=== PATIENT | female | born 1945 | race Caucasian/White ===

== ENCOUNTER 2022-08-30 19:06 | Emergency (ER) | payer MEDICARE, OTHER, SELFPAY ==
[2022-08-30 19:18] VITALS: BP 144/88; PULSE 69; RESP 30; TEMP 36.2; O2SAT 99; BMI 21.5
--- NOTE | 2022-08-30 19:32 | ED.GENADULT ---
HPI - General Adult General Chief complaint: Unspecified Complaint, Adult Stated complaint: Possible Face Infection Vomiting Time Seen by Provider: 08/30/22 19:26 History of Present Illness HPI narrative: This patient comes in with her son because of upper respiratory symptoms and now is nauseated with vomiting. She is very hard of hearing but her son states that she called him a couple hours ago. He came to get her and noted that she was hyperventilating with nausea and vomiting. She did see someone in an eye clinic because of a stye that she developed in her eye. This was yesterday at which time she received some eyedrops. She arrives with normal vital signs except she is hyperventilating. Related Data Allergies Allergy/AdvReac Type Severity Reaction Status Date / Time codeine AdvReac Mild Nausea Verified 08/30/22 20:00 Review of Systems Status of ROS: Reports: 10 or more systems reviewed and unremarkable except as noted in History and below Narrative: Unable to obtain due to persistent vomiting. PFSH PFS Social History Smoking Status: Never smoker Do you use any of these nicotine containing products: None Second hand tobacco smoke exposure: No How often do you have a drink containing alcohol: never How often do you have six or more drinks on one occasion: Never AUDIT-C Alcohol total score: 0 Non-prescribed substance use: denies use service: No Exam Narrative: Exam Narrative: Constitutional: Well-developed, well-nourished, no acute distress. HEENT: Normocephalic, atraumatic. Neck: Normal range of motion. Nontender. Supple. Heart: Regular. No murmurs. Normal rate. Intact distal pulses. Lungs: Clear to auscultation. No chest discomfort. No wheezes, rhonchi, or rales. Abdomen: Persistent dry heaves. Genitalia: Deferred. Back: No midline tenderness. Normal range of motion. Extremities: Normal range of motion. No injury. Skin: Intact. No rash. Warm. No erythema or pallor. Neurologic: No altered sensation. No weakness. Alert and oriented. Psychiatric: No suicidality. No anxiety or depression. No insomnia. Nursing notes and vitals signs are reviewed. Const: Vital Signs, click to edit/add: Vital Signs - 24 hr 08/30/22 19:18 08/30/22 20:05 08/30/22 20:32 Temperature 97.2 F L Pulse Rate [Pulse Oximeter] 69 68 74 Respiratory Rate 30 H 18 18 Blood Pressure [Le ft Upper Arm] 144/88 H 121/70 118/56 L Pulse Oximetry 99 97 98 Oxygen Delivery Me thod Room Air Room Air Room Air Course Vital Signs Vital signs: Initial Vital Signs Temperature 97.2 F L 08/30/22 19:18 Temperature Source Temporal Artery Scan 08/30/22 19:18 Pulse Rate 69 08/30/22 19:18 Respiratory Rate 30 H 08/30/22 19:18 Blood Pressure 144/88 H 08/30/22 19:18 Blood Pressure Mean 106 H 08/30/22 19:18 Pulse Oximetry 99 08/30/22 19:18 Oxygen Delivery Method Room Air 08/30/22 19:18 Vital Signs Temperature 97.2 F L 08/30/22 19:18 Pulse Rate 69 08/30/22 19:18 Respiratory Rate 30 H 08/30/22 19:18 Blood Pressure 144/88 H 08/30/22 19:18 Pulse Oximetry 99 08/30/22 19:18 Oxygen Delivery Method Room Air 08/30/22 19:18 Temperature 97.2 F L 08/30/22 19:18 Pulse Rate 74 08/30/22 20:32 Respiratory Rate 18 08/30/22 20:32 Blood Pressure 118/56 L 08/30/22 20:32 Pulse Oximetry 98 08/30/22 20:32 Oxygen Delivery Method Room Air 08/30/22 20:32 Medical Decision Making MDM Narrative Medical decision making narrative: This patient comes in with facial pain and was rather dramatic with dry heaves upon arrival. An IV was established where she did receive 4 mg of Zofran and Ativan 0.5 mg. This brought great relief to those symptoms. She did receive a L of normal saline also. Lab results returned with reassuring findings. She was complaining of severe facial pain and headache around her eye. CT of the sinuses is acquired and by my review shows evidence of sinusitis. I did prescribe Augmentin, Toradol, and Zofran to treat these symptoms. At the time of discharge the patient appears safe for outpatient management. The treatment plan is reviewed along with written and verbal return precautions. Reasons to return and the importance of close followup were also reviewed. Lab Data Labs: Lab Results 08/30/22 08/30/22 Range/Units 19:30 19:43 WBC 6.67 (4.50-11.00) K/uL RBC 4.87 (4.00-5.20) m/uL Hgb 14.3 (12.0-16.0) gm/dL Hct 41.8 (33.0-51.0) % MCV 86 (80-100) fL MCH 29 (26-34) pg MCHC 34 (32-36) gm/dL RDW Coeff of Ferdinand 12.7 (11.5-15.5) % Plt Count 223 (140-440) K/uL Neut % (Auto) 64.0 (42.0-72.0) % Lymph % (Auto) 28.0 (20-44) % [place] % (Auto) 6.1 (0.0-11.0) % Eos % (Auto) 1.2 (0.0-7.0) % Baso % (Auto) 0.3 (0.0-3.0) % Neut # (Auto) 4.26 (1.7-7.0) K/uL Lymph # (Auto) 1.87 (0.90-2.90) K/uL [place] # (Auto) 0.40 (0.00-0.90) K/UL Eos # (Auto) 0.08 (0.00-0.50) K/uL Baso # (Auto) 0.02 (0.00-0.30) K/uL Sodium 132 L (135-149) mmol/L Potassium 3.7 (3.6-5.1) mmol/L Chloride 102 (96-114) mmol/L Carbon Dioxide 20 (20-32) mmol/L BUN 16 (7-30) mg/dL Creatinine 0.5 (0.5-1.5) mg/dL Estimated Creat Clear 40.68 Estimated GFR 97 ml/min Glucose 122 H (60-115) mg/dL Calcium 8.3 L (8.4-10.6) mg/dL POC Troponin I 0.00 L (0.01-0.04) ng/ml ECG Data Attestation: I personally reviewed and interpreted this ECG as follows: Interpretation: Normal sinus rhythm. Rate is 74 beats per minute. There are no ST or T-wave abnormalities. Discharge Plan Discharge Clinical Impression: Sinusitis Patient Disposition: Home w/ Parent or Adult Condition: Improved Additional Instructions: Take medication as prescribed. Follow up with MD or return if worsening. Follow Up/Referrals: Provider,Not a Local [Primary Care Provider] - Stand Alone Forms: [employer] Info Instructions
[2022-08-30 19:46] LABS: Basophils Absolute Auto 0.02 K/uL (0.00-0.30); Basophils Percent Auto 0.3 % (0.0-3.0); Eosinophils Absolute Auto 0.08 K/uL (0.00-0.50); Eosinophils Percent Auto 1.2 % (0.0-7.0); Hematocrit 41.8 % (33.0-51.0); Hemoglobin* 14.3 gm/dL (12.0-16.0); Immature Granulocytes Abs Auto 0.03 K/uL (0.00-0.30); Immature Granulocytes Pct Auto 0.4 %; Lymphocytes Absolute Auto 1.87 K/uL (0.90-2.90); Mean Corpuscular HGB Conc 34 gm/dL (32-36); Mean Corpuscular Hemoglobin 29 pg (26-34); Mean Corpuscular Volume 86 fL (80-100); Monocytes Percent Auto 6.1 % (0.0-11.0); Neutrophils Absolute Auto 4.26 K/uL (1.7-7.0); Platelet Count* 223 K/uL (140-440); RDW Coefficient of Variation % 12.7 % (11.5-15.5); Red Blood Count 4.87 m/uL (4.00-5.20); White Blood Count* 6.67 K/uL (4.50-11.00)
[2022-08-30 19:48] LABS: Slide Review Reflex No
[2022-08-30] MEDS: LORazepam 2 MG/ML inj 0.5 MG IV (19:50)
[2022-08-30] MEDS: ONDANSETRON 2 MG/ML inj 4 MG IVP (19:50)
[2022-08-30] MEDS: 0.9 % SODIUM CHLORIDE 1000 ml 1,000 ML IV (19:50)
[2022-08-30 19:58] LABS: Chloride* 102 mmol/L (96-114); Sodium* 132 mmol/L (135-149)
[2022-08-30 19:59] LABS: Potassium* 3.7 mmol/L (3.6-5.1)
[2022-08-30 20:01] LABS: Carbon Dioxide* 20 mmol/L (20-32); Creatinine* 0.5 mg/dL (0.5-1.5); Est. Creatinine Clearance* 40.68; Estimated Glomerular Filt Rate 97 ml/min
--- NOTE | 2022-08-30 20:01 | CRLHL7_ITS ---
For Patients: As a result of the Century Cures Act, medical imaging exams and procedure reports are released immediately into your electronic medical record. You may view this report before your referring provider. If you have questions, please contact your health care provider. INDICATION: Right-sided facial pain TECHNIQUE: CT sinus without contrast. COMPARISON: None. FINDINGS: Paranasal sinuses: Mild bilateral anterior ethmoid air cell mucosal thickening. Minimal right maxillary sinus mucosal thickening. Moderate-sized probable mucous retention cyst versus polyp in the left maxillary sinus. The frontal and sphenoid sinuses are clear The ostiomeatal units are patent; however, they are mildly narrowed due to mucosal thickening. The bilateral sphenoethmoid and left frontoethmoid recesses are occluded due to mucosal thickening. The right frontoethmoid recess is patent. The fovea ethmoidalis and orbital higuera are intact. The nasal septum is slightly deviated to the left The nasal turbinates are normal. Orbits and globes: Unremarkable. Visualized intracranial contents: Unremarkable. Soft tissues: Unremarkable. Other: Degenerative changes of the temporomandibular joints. IMPRESSION: Mild scattered paranasal sinus mucosal disease, likely chronic, as detailed above. No evidence for acute sinusitis. Degenerative changes of the bilateral temporomandibular joints. Please note that all CT scans at this facility use dose modulation, iterative reconstruction, and/or weight-based dosing when appropriate to reduce radiation dose to as low as reasonably achievable. Dictated by Juvencio Landeros MD @ 08/30/2022 9:05:06 PM (Electronically Signed)
[2022-08-30 20:02] LABS: Blood Urea Nitrogen* 16 mg/dL (7-30); Calcium* 8.3 mg/dL (8.4-10.6); Glucose* 122 mg/dL (60-115)
[2022-08-30 20:05] VITALS: BP 121/70; PULSE 68; RESP 18; O2SAT 97
--- NOTE | 2022-08-30 20:05 | PC.NURSE ---
Pt resting more comfortably after IV medications, son at bedside. Pt states nausea is improved. Will continue to monitor patient.
--- NOTE | 2022-08-30 20:17 | PC.NURSE ---
spoke with patients daughter on phone, who is also an RN. States pt has been taking Mucinex PRN for sinus congestion and discomfort. Seen today at eye doctor for stye in right eye, started on EES drops per daughter.
--- NOTE | 2022-08-30 20:18 | PC.NURSE ---
to CT via cart.
[2022-08-30 20:30] VITALS: BP 124/64; PULSE 74; RESP 16; TEMP 36.4; O2SAT 98
[2022-08-30 20:32] VITALS: BP 118/56; PULSE 74; RESP 18; O2SAT 98
--- NOTE | 2022-08-30 20:32 | PC.NURSE ---
returned from CT, warm blanket given. Pt resting, son at bedside.
--- NOTE | 2022-08-30 21:44 | PC.NURSE ---
pt has been resting, son at bedside. Pt vitals stable. Headache still 5-6/10, denies nausea. Able to ambulate with standbye assist. Still c/o feeling unsteady when up. Son agrees he and his will stay with patient tonight and return for any worsening symptoms or concerns.
[2022-08-30 21:45] VITALS: BP 125/64; PULSE 70; RESP 16; TEMP 36.1; O2SAT 98
== END 2022-08-30 22:08 | disposition home or self-care (01) ==
PROVIDERS: Emergency Provider Emergency Medicine Emergency Medical Services
DX: J32.9 Chronic sinusitis, unspecified (principal)
CPT/HCPCS: 36415; 70486; 80048; 84484; 85025; 93005; 96374; 96375; 99284; J2060; J2405; J7030

== ENCOUNTER 2023-04-28 19:23 | Emergency (ER) | payer MEDICARE, OTHER, SELFPAY ==
[2023-04-28 19:44] VITALS: BP 126/80; PULSE 80; RESP 18; TEMP 36.8; O2SAT 98
--- NOTE | 2023-04-28 20:31 | CRLHL7_ITS ---
For Patients: As a result of the Cures Act, medical imaging exams and procedure reports are released immediately into your electronic medical record. You may view this report before your referring provider. If you have questions, please contact your health care provider. INDICATION: Weakness, cough. TECHNIQUE: Chest 2 views. COMPARISON: None. FINDINGS: Cardiovascular and mediastinum: Heart size and vasculature are normal in caliber and appearance. Lungs and pleural spaces: Lungs are clear. No sign of infiltrate or mass. No sign of pleural effusion. No pneumothorax. Bones and soft tissues: Scoliotic curvature of the spine. IMPRESSION: No acute cardiopulmonary abnormality. Dictated by Barrington Ambrose MD @ 04/28/2023 10:52:45 PM (Electronically Signed)
--- NOTE | 2023-04-28 20:32 | ED_ITS ---
HPI - General Adult General Chief complaint: Weakness Stated complaint: weak, confusion Time Seen by Provider: 04/28/23 20:25 History of Present Illness HPI narrative: This 77-year-old female comes in with her daughter because of weakness and confusion. She has had a cough that seems worse recently also. She was diagnosed with COVID a couple weeks ago and finished Paxlovid with some improvement. More recently she has had more fatigue and weakness and at times has seemed confused. She arrives here with normal vital signs. She is very hard of hearing. Her daughter who is with her is a registered nurse. Related Data Allergies Allergy/AdvReac Type Severity Reaction Status Date / Time codeine AdvReac Mild Nausea Verified 08/30/22 20:00 Review of Systems Status of ROS: Reports: 10 or more systems reviewed and unremarkable except as noted in History and below Narrative: Constitutional: No weight gain or loss. There is a report of fevers. Eyes: No discharge. No vision changes. HENT: No congestion, no sore throat, no ear pain. Cardiovascular: No chest pain, no palpitations. Respiratory: No shortness of breath, no wheezes. She has a cough. Gastrointestinal: No abdominal pain, no vomiting, no diarrhea. Genitourinary: No dysuria, no hematuria. Musculoskeletal: Normal range of motion. Skin: No rashes, no pruritis. Neurological: No dizziness, weakness, sensory change, speech change. Endo/Heme/Allergies: No bruising or bleeding. No polydipsia. Pysch: no suicidality, no anxiety, no insomnia. Reported confusion. All other systems reviewed and are negative. PFSH PFSH Social History Smoking Status: Never smoker Do you use any of these nicotine containing products: None Second hand tobacco smoke exposure: No How often do you have a drink containing alcohol: never How often do you have six or more drinks on one occasion: Never AUDIT-C Alcohol total score: 0 Non-prescribed substance use: denies use service: No Exam Narrative: Exam Narrative: Constitutional: Well-developed, well-nourished, no acute distress. HEENT: Normocephalic, atraumatic. Neck: Normal range of motion. Nontender. Supple. Heart: Regular. No murmurs. Normal rate. Intact distal pulses. Lungs: Clear to auscultation. No chest discomfort. No wheezes, rhonchi, or rales. Abdomen: Normal bowel sounds. Nontender. No rebound tenderness. Genitalia: Deferred. Back: No midline tenderness. Normal range of motion. Extremities: Normal range of motion. No injury. Skin: Intact. No rash. Warm. No erythema or pallor. Neurologic: No altered sensation. No weakness. Alert and oriented. Psychiatric: No suicidality. No anxiety or depression. No insomnia. Nursing notes and vitals signs are reviewed. Const: Vital Signs, click to edit/add: Vital Signs - 24 hr 04/28/23 19:44 04/28/23 21:23 04/28/23 21:30 Temperature 98.2 F Pulse Rate 67 67 Pulse Rate [Left P ulse Oximeter] 80 Respiratory Rate 18 Blood Pressure [Ri ght Upper Arm] 126/80 Pulse Oximetry 98 98 97 Oxygen Delivery Me thod Room Air 04/28/23 21:45 04/28/23 22:00 Temperature Pulse Rate 68 70 Pulse Rate [Left P ulse Oximeter] Respiratory Rate Blood Pressure [Ri ght Upper Arm] Pulse Oximetry 97 95 Oxygen Delivery Me thod Course Vital Signs Vital signs: Initial Vital Signs Temperature 98.2 F 04/28/23 19:44 Temperature Source Oral 04/28/23 19:44 Pulse Rate 80 04/28/23 19:44 Pulse Rhythm Regular 04/28/23 19:44 Respiratory Rate 18 04/28/23 19:44 Blood Pressure 126/80 04/28/23 19:44 Blood Pressure Mean 95 04/28/23 19:44 Blood Pressure Position Sitting 04/28/23 19:44 Pulse Oximetry 98 04/28/23 19:44 Oxygen Delivery Method Room Air 04/28/23 19:44 Vital Signs Temperature 98.2 F 04/28/23 19:44 Pulse Rate 80 04/28/23 19:44 Respiratory Rate 18 04/28/23 19:44 Blood Pressure 126/80 04/28/23 19:44 Pulse Oximetry 98 04/28/23 19:44 Oxygen Delivery Method Room Air 04/28/23 19:44 Temperature 98.2 F 04/28/23 19:44 Pulse Rate 70 04/28/23 22:00 Respiratory Rate 18 04/28/23 19:44 Blood Pressure 126/80 04/28/23 19:44 Pulse Oximetry 95 04/28/23 22:00 Oxygen Delivery Method Room Air 04/28/23 19:44 Medical Decision Making MDM Narrative Medical decision making narrative: This patient comes in with report of weakness and some episodes of confusion. She does live alone but has family in very close nearby that can observe. She does have normal vital signs and her exam is also reassuring. Labs are acquired today and returned with normal findings essentially except for positive COVID test. She was positive a couple weeks ago and again positive today. She did complete antiviral treatment a few weeks ago and had some temporary improvement. The patient is okay to return home. She did receive an IV dose of dexamethasone 10 mg. Her daughter who is a nurse is with her and her son who lives nearby will be able to watch over her. Lab Data Labs: Lab Results 04/28/23 04/28/23 04/28/23 Range/Units 19:55 20:43 21:14 WBC 4.70 (4.50-11.00) K/uL RBC 4.93 (4.00-5.20) m/uL Hgb 14.3 (12.0-16.0) gm/dL Hct 42.0 (33.0-51.0) % MCV 85 (80-100) fL MCH 29 (26-34) pg MCHC 34 (32-36) gm/dL RDW Coeff of [place] 12.7 (11.5-15.5) % Plt Count 205 (140-440) K/uL Neut % (Auto) 60.9 (42.0-72.0) % Lymph % (Auto) 25.3 (20-44) % [place] % (Auto) 9.8 (0.0-11.0) % Eos % (Auto) 3.4 (0.0-7.0) % Baso % (Auto) 0.2 (0.0-3.0) % Neut # (Auto) 2.86 (1.7-7.0) K/uL Lymph # (Auto) 1.19 (0.90-2.90) K/uL [place] # (Auto) 0.50 (0.00-0.90) K/UL Eos # (Auto) 0.16 (0.00-0.50) K/uL Baso # (Auto) 0.01 (0.00-0.30) K/uL Abs Immat Gran (auto) 0.02 (0.00-0.30) K/uL Imm/Tot Granulo (auto) 0.4 % Sodium 138 (135-149) mmol/L Potassium 3.4 L (3.6-5.1) mmol/L Chloride 106 (96-114) mmol/L Carbon Dioxide 24 (20-32) mmol/L Anion Gap 8 (7-15) mEq/L BUN 7 (7-30) mg/dL Creatinine 0.5 (0.5-1.5) mg/dL Estimated GFR 96 ml/min Glucose 99 (60-115) mg/dL Calcium 8.9 (8.4-10.6) mg/dL Urine Color Yellow (Yellow) Urine Appearance Clear (Clear) Urine pH 6.5 (5.0-8.5) Ur Specific [place] 1.015 (1.000-1.030) Urine Protein Negative (Negative) Urine Glucose (UA) Negative (Negative) Urine Ketones Trace A (Negative) Urine Blood Negative (Negative) Urine Nitrite Negative (Negative) Urine Bilirubin Negative (Negative) Urine Urobilinogen 1.0 (0.2-1.0) Ur Leukocyte Esterase Trace A (Negative) Urine RBC 0-2 (0-2) Urine WBC 5-10 A (0-5) Ur Squamous Epith Cells None (None-Few) Urine Bacteria None (None) SARS-CoV-2 (PCR) POSITIVE SARS-CoV-2 A (Negative) Influenza Type A (PCR) Negative PCR FLU A (Negative) Influenza Type B (PCR) Negative PCR FLU B (Negative) RSV (PCR) Negative PCR RSV (Negative) Discharge Plan Discharge Clinical Impression: COVID-19 Patient Disposition: Home w/ Parent or Adult Condition: Stable Additional Instructions: Continue current plans. Use [id number] medicines as needed and directed. Follow up with MD return if worsening. Follow Up/Referrals: Provider,Not a Local [Primary Care Provider] - Stand Alone Forms: [employer] Info Instructions
[2023-04-28 20:39] LABS: PCR FLU A Negative PCR FLU A (Negative); PCR FLU B Negative PCR FLU B (Negative); PCR RSV Negative PCR RSV (Negative); SARS PCR* POSITIVE SARS-CoV-2 (Negative)
[2023-04-28 21:04] LABS: Basophils Absolute Auto 0.01 K/uL (0.00-0.30); Basophils Percent Auto 0.2 % (0.0-3.0); Eosinophils Absolute Auto 0.16 K/uL (0.00-0.50); Eosinophils Percent Auto 3.4 % (0.0-7.0); Hemoglobin* 14.3 gm/dL (12.0-16.0); Immature Granulocytes Abs Auto 0.02 K/uL (0.00-0.30); Immature Granulocytes Pct Auto 0.4 %; Lymphocytes Absolute Auto 1.19 K/uL (0.90-2.90); Lymphocytes Percent Auto 25.3 % (20-44); Mean Corpuscular HGB Conc 34 gm/dL (32-36); Mean Corpuscular Hemoglobin 29 pg (26-34); Mean Corpuscular Volume 85 fL (80-100); Monocytes Percent Auto 9.8 % (0.0-11.0); Neutrophils Absolute Auto 2.86 K/uL (1.7-7.0); Neutrophils Percent Auto 60.9 % (42.0-72.0); Platelet Count* 205 K/uL (140-440); RDW Coefficient of Variation % 12.7 % (11.5-15.5); Red Blood Count 4.93 m/uL (4.00-5.20)
[2023-04-28 21:06] LABS: Slide Review Reflex No
[2023-04-28 21:16] LABS: Chloride* 106 mmol/L (96-114); Potassium* 3.4 mmol/L (3.6-5.1); Sodium* 138 mmol/L (135-149)
[2023-04-28 21:19] LABS: Creatinine* 0.5 mg/dL (0.5-1.5); Estimated Glomerular Filt Rate 96 ml/min
[2023-04-28 21:20] LABS: Anion Gap 8 mEq/L (7-15); Blood Urea Nitrogen* 7 mg/dL (7-30); Calcium* 8.9 mg/dL (8.4-10.6); Carbon Dioxide* 24 mmol/L (20-32); Glucose* 99 mg/dL (60-115)
[2023-04-28 21:23] VITALS: PULSE 67; O2SAT 98
[2023-04-28 21:26] LABS: Appearance Urine Clear (Clear); Bilirubin Urine Negative (Negative); Blood Urine Negative (Negative); Color Urine Yellow (Yellow); Glucose Urine Negative (Negative); Ketones Urine Trace (Negative); Leukocyte Esterase Urine Trace (Negative); Nitrite Urine Negative (Negative); Protein Urine Negative (Negative); Specific Gravity Urine 1.015 (1.000-1.030); pH Urine 6.5 (5.0-8.5)
[2023-04-28 21:30] VITALS: PULSE 67; O2SAT 97
[2023-04-28 21:43] LABS: RBC Urine 0-2 (0-2)
[2023-04-28 21:45] VITALS: PULSE 68; O2SAT 97
[2023-04-28 22:00] VITALS: PULSE 70; O2SAT 95
== END 2023-04-28 22:32 | disposition home or self-care (01) ==
PROVIDERS: Emergency Provider Emergency Medicine Emergency Medical Services
DX: U07.1 COVID-19 (principal)
CPT/HCPCS: 36415; 71046; 80048; 81001; 85025; 87086; 87631; 96374; 99284

== ENCOUNTER 2024-12-13 18:40 | Emergency (ER) | payer MEDICARE, OTHER, SELFPAY ==
--- OUTSIDE RECORDS SUMMARY | 2024-11-05 13:23 | XMS_ITS | Encounter Summary ---
Author Organization [facility] Address [address] [place] [address] Care Team Providers Care Oracle Forms Developer Name Role Phone Bailey Davis PA-C Unavailable [phone] Ioana Brown MD Unavailable [phone] Juvencio Moreno MD Unavailable [phone] Delilah Morales DO Unavailable Ioana Brown MD Primary Care Provider Bailey Davis PA-C Unavailable [phone] Bharath Mar MD Unavailable [phone] Reason for Visit * Diagnostic Imaging CT Scan (Routine) - Closed Specialty Diagnoses / Procedures Referred By Danni melchor Referred To Contact Radiology. Diagnoses Tendinopathy of rotator cuff, right Rotator cuff impingement syndrome, right Procedures CT Shoulder Right w/o Contrast CT Shoulder Right w/o & w Contrast Bharath Mar MD [address] [place] [address] Phone: tel: fax: [facility] [address] [place] [address] Phone: tel: fax: Referral ID Status Reason Start Date Expiration Date Visits Re quested Visits Authorized [id number] Closed 10/13/2024 10/13/2025 1 1 Encounter Details Date Type Department Care Team (Latest Contact Info) Description 11/05/2024 1:23 PM CDT Hospital Encounter [facility] [address] [place] [address] Bharath Mar MD [address] [place] [address] Tendinopathy of rotator cuff, right; Rotator cuff impingement syndrome, right Discharge Disposition: Home or Self Care Social History Tobacco Use Types Packs/Day Years Used Date Smoking Tobacco: Former Cigarettes Passive Smoke Exposure: Past Smokeless Tobacco: Never Alcohol Use Standard Drinks/Week Comments Yes 0 (1 standard drink = 0.6 oz pur e alcohol) wine Social Connection and Isolation Panel [NHANES] A nswer Date Recorded Frequency of Communication with Friends and Fami ly Not on file 02/25/2024 How often do you get together with friends or re latives? Once a week 02/25/2024 Attends [employer] Services Not on file 02/24 Active Member of Clubs or Organizations Not on f ile 02/25/2024 Attends Club or Organization Meetings Not on tam e 02/25/2024 Marital Status Not on file 02/25/2024 AUDIT-C Answer Date Recorded Q1: How often do you have a drink containing alcohol? 4 or more times a week 12/25/2022 Q2: How many drinks containi ng alcohol do you have on a typical day when you are drinking? 1 or 2 Q3: How often do you have si x or more drinks on one occasion? Never 12/25/2022 PHQ-2 Answer Date Recorded PHQ-2 Score 0 06/05/2024 [facility] Occupat ional Health - Occupational Stress Questionnaire Answer Date Recorded Do you feel stress - tense, restless, nervous, or anxious, or unable to sleep at night because your mind is troubled all the time - these days? Not at all 02/25/2024 Exercise Vital Sign Answer Date Recorde d On average, how many days pe r week do you engage in moderate to strenuous exercise (like a brisk walk)? 1 day 02/25/2024 On average, how many minutes do you engage in exercise at this level? 20 min 02/25/2024 Adolescent Education Answer Date Record ed Getting School Help Needed Not on file 01/24 Food Insecurity Answer Date Recorded Within the past 12 months, d id you worry that your food would run out before you got money to buy more? No 02/25/2024 Within the past 12 months, d id the food you bought just not last and you didn t have money to get more? No 02/25/2024 Housing Stability Answer Date Recorded Do you have housing? (Lynette weeks is defined as stable permanent housing and does not include staying outside in a car, in a tent, in an abandoned building, in an overnight [place] [facility] [place], or couch-surfing.) Yes 02/25/2024 Are you worried about losing your housing? No 02/25/2024 Financial Resource Strain Answer Date R ecorded Within the past 12 months, h ave you or your family members you live with been unable to get utilities (heat, electricity) when it was really needed? No 02/25/2024 Transportation Needs Answer Date Record ed Within the past 12 months, h as lack of transportation kept you from medical appointments, getting your medicines, non-medical meetings or appointments, work, or from getting things that you need? No 02/25/2024 Interpersonal Safety Answer Date Record ed Do you feel physically and e motionally safe where you currently live? Yes 10/03/2023 Within the past 12 months, h ave you been hit, slapped, kicked or otherwise physically hurt by someone? No 10/03/2023 Within the past 12 months, h ave you been humiliated or emotionally abused in other ways by your partner or ex-partner? 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 cholecalciferol (VITAMIN D3) 25 mcg (1000 units) capsule clobetasol (TEMOVATE) 0.05 % external ointmentIndicatio ns:Lichen sclerosus Apply topically 2 times daily. 60 g 3 01/14/2024 hydrocortisone 2.5 % cream 03/25/2021 LORazepam (ATIVAN) 0.5 MG tablet PLEASE SEE ATTACHED FOR DETAILED DIRECTIONS 07/09/2024 metroNIDAZOLE (METROGEL) 0.75 % external gelIndications:Ro sacea Apply to face BID 45 g 11 07/11/2024 Multiple Vitamin (ONE-A-DAY ESSENTIAL) TABS Take 1 tablet by mouth daily 03/25/2021 omeprazole (PRILOSEC) [address] capsuleIndication s:Gastroesophagea l reflux disease with esophagitis without hemorrhage TAKE 1 CAPSULE BY MOUTH EVERY DAY 90 capsule 2 02/21/2024 sertraline (ZOLOFT) 100 MG tabletIndications :Anxiety Take 1 tablet (100 mg) by mouth daily. Take 50 mg for 2 weeks, then increase to 100 mg daily. 90 tablet 3 02/26/2024 sulfamethoxazole- trimethoprim (BACTRIM DS) 800-160 MG tabletIndications :Pyelonephritis, acute Take 1 tablet by mouth 2 times daily. 14 tablet 08/04/2024 triamcinolone (KENALOG) 0.1 % external creamIndications: Dermatitis APPLY TO AFFECTED AREA TWICE A DAY FOR 14 DAYS 30 g 11/26/2023 valACYclovir (VALTREX) 1000 mg tabletIndications :Oral herpes Take 2 tablets (2,000 mg) by mouth 2 times daily. 4 tablet 3 02/26/2024 vitamin (B COMPLEX) capsule Take 1 capsule by mouth 03/25/2021 documented as of this encounter Plan of Treatment Upcoming Encounters Date Type Department Care Team (Late st Contact Info) Description 12/17/2024 3:00 PM CDT Infusion Therapy Visit [facility] [address] [place] [phone] Amina Chappell MD ENDOCRINOLOGY [facility] [address] [place] [address] 01/06/2025 8:45 AM CDT Radiology Injection Office Visit [facility] [place] [address] [place] [address] [place] [address] [place] [address] 01/13/2025 4:20 PM CDT Office Visit [facility] [address] [place] [phone] [place] [address] [place] [address] 01/14/2025 2:30 PM CDT Infusion Therapy Visit [facility] [id number] [place] [address] [address] [place] [phone] Amina Chappell MD [facility]OCRINOLOGY [facility] [address] [facility] [address] [place] [address] 05/11/2025 11:30 AM DISH ROOM WORKER Appointment [facility] [address] [place] [phone] Bharath Mar MD [address] [place] [address] 05/14/2025 4:40 PM DISH ROOM WORKER Virtual Visit [facility] [place] [address] [facility] 4th [place] [phone] Bharath Mar MD [address] [address] documented as of this encounter Procedures Procedure Name Priority Date/Time Associated Diagnosis Comments CT SHOULDER RIGHT W/O CONTRAST Routine 11/05/2024 2:25 PM CDT Tendinopathy of rotator cuff, right Rotator cuff impingement syndrome, right documented in this encounter Results * CT Shoulder Right w/o Contrast (11/05/2024 2:25 PM CDT) Anatomical Region Laterality Modality Right Shoulder, SUBRAD CT MSK, UMP CT MSK, RAD C T Computed Tomography 11/05/2024 2:25 PM CDT Impressions 11/05/2024 4:04 PM CDT IMPRESSION: 1. Nonaggressive appearing intramedullary lesion at the base of the scapular spine. This corresponds to the abnormality seen on the recent MRI. This has a benign appearance, without findings to suggest malignancy. Follow-up MRI in 6-12 months would be helpful to ensure stability. Narrative 11/05/2024 4:04 PM CDT EXAM: CT SHOULDER RIGHT W/O CONTRAST LOCATION: [facility] DATE: 11/05/2024 INDICATION: Tendinopathy of rotator cuff, right, Rotator cuff impingement syndrome, right. COMPARISON: 09/26/2024 MRI. 08/11/2022 CT. TECHNIQUE: Noncontrast. Axial, sagittal and coronal thin-section reconstruction. Dose reduction techniques were used. FINDINGS: BONES: -There is some localized cystic change in the base of the scapular spine with some trabecula coursing through this area. No evidence of cortical expansion or destruction. No aggressive features to this lesion. Nothing definite to suggest metastatic disease. No evidence of additional lesions in the visualized bones. Mild degenerative changes at the glenohumeral joint. SOFT TISSUES: -No soft tissue edema or mass. No rotator cuff muscle atrophy. Visualized portions of the right lung clear. Procedure Note Figueroa Sidhu MD - 11/05/2024 EXAM: CT SHOULDER RIGHT W/O CONTRAST LOCATION: [facility] DATE: 11/05/2024 INDICATION: Tendinopathy of rotator cuff, right, Rotator cuff impingementsyndrome, right. COMPARISON: 09/26/2024 MRI. 08/11/2022 CT. TECHNIQUE: Noncontrast. Axial, sagittal and coronal thin-sectionreconstruction. Dose reduction techniques were used. FINDINGS: BONES: -There is some localized cystic change in the base of the scapular spinewith some trabecula coursing through this area. No evidence of corticalexpansion or destruction. No aggressive features to this lesion. Nothingdefinite to suggest metastatic disease. No evidence of additional lesions in the visualized bones. Milddegenerative changes at the glenohumeral joint. SOFT TISSUES: -No soft tissue edema or mass. No rotator cuff muscle atrophy. Visualizedportions of the right lung clear. IMPRESSION: 1. Nonaggressive appearing intramedullary lesion at the base of thescapular spine. This corresponds to the abnormality seen on the recentMRI. This has a benign appearance, without findings to suggest malignancy.Follow-up MRI in 6-12 months would be helpful to ensure stability. Bharath Mar MD IMG CT ORDERABLES Final Result documented in this encounter Visit Diagnoses Diagnosis Tendinopathy of rotator cuff, right Rotator cuff impingement syndrome, right documented in this encounter Care Teams Oracle Forms Developer Relationship Specialty [place] [address] [place] [address] PCP - General Family Medicine 06/04/23 Bailey Davis PA-C [address] [place] [address] Physician Keg Varnisher Dermatology 12/15/21 [place] [address] [place] [address] Assigned PCP 05/06/22 [place] [address] [place] [address] Assigned Neuroscience Provider 06/03/22 Delilah Morales DO [address] [place] [address] Physical Medicine and Rehabilitation 08/15/22 Bailey Davis PA-C [address] [place] [address] [address] [place] [address] Assigned Dermatology Provider 07/20/24 Bharath Mar MD [facility] [address] [place] [address] Assigned Musculoskeletal Provider 10/20/24 documented as of this encounter
--- OUTSIDE RECORDS SUMMARY | 2024-11-05 13:24 | XMS_ITS | Encounter Summary ---
Author Organization [facility] Address [address] [place] [address] Care Team Providers Care Self Pay Specialist Name Role Phone Bailey Davis PA-C Unavailable [phone] Ioana Brown MD Unavailable [phone] Juvencio Moreno MD Unavailable [phone] Delilah Morales DO Unavailable Ioana Brown MD Primary Care Provider Bailey Davis PA-C Unavailable [phone] Bharath Mar MD Unavailable [phone] Reason for Referral * Diagnostic Imaging CT Scan (Routine) - Closed Specialty Diagnoses / Procedures Referred By Danni melchor Referred To Contact Radiology. Diagnoses Tendinopathy of rotator cuff, right Rotator cuff impingement syndrome, right Procedures CT Chest/Abdomen/Pelvis w Contrast CT Chest Abdomen Pelvis w/o & w Contrast Bharath Mar MD [address] [place] [address] Phone: tel: fax: [facility] [address] [place] [address] Phone: tel: fax: Referral ID Status Reason Start Date Expiration Date Visits Re quested Visits Authorized [id number] Closed 10/13/2024 10/13/2025 1 1 Reason for Visit * Diagnostic Imaging CT Scan (Routine) - Closed Specialty Diagnoses / Procedures Referred By Danni t Referred To Contact Radiology. Diagnoses Tendinopathy of rotator cuff, right Rotator cuff impingement syndrome, right Procedures CT Chest/Abdomen/Pelvis w Contrast CT Chest Abdomen Pelvis w/o & w Contrast Bharath Mar MD [address] [place] [address] Phone: tel: fax: [facility] [address] [place] [address] Phone: tel: fax: Referral ID Status Reason Start Date Expiration Date Visits Re quested Visits Authorized [id number] Closed 10/13/2024 10/13/2025 1 1 Encounter Details Date Type Department Care Team (Latest Contact Info) Description 11/05/2024 1:24 PM CDT - 11/05/2024 11:59 PM CDT Hospital Encounter [facility] [address] [place] [address] Bharath Mar MD [address] [place] [address] Tendinopathy of rotator cuff, right; Rotator cuff [...] re latives? Once a week 02/25/2024 Attends [employer] Not on file 02/24 Active Member [...] Answer Date Recorded PHQ-2 Score 0 06/05/2024 [facility] Occupat ional Health - Occupational Stress [...] Date Recorded Do you have housing? 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 Gender Identity Female 12/12/2022 7:35 PM CDT [...] 12/17/2024 3:00 PM CDT Infusion Therapy Visit [address] [place] [phone] Amina Chappell MD ENDOCRINOLOGY [facility] [address] [place] [phone] 01/06/2025 8:45 AM CDT Radiology Injection Office Visit [facility] [address] [place] [address] Juvencio Moreno MD [address] [place] [address] [address] [address] 01/13/2025 4:20 PM CDT Office Visit [facility] [address] , [address] [place] [phone] [place] [id number] [place] [address] [address] [address] 01/14/2025 2:30 PM CDT Infusion Therapy Visit [address] [place] [phone] Amina Chappell MD ENDOCRINOLOGY [facility] [address] [place] [phone] 05/11/2025 11:30 AM INSURANCE REPRESENTATIVE Appointment [facility] [address] [facility] [address] [place] [address] Bharath Mar MD [address] [place] [address] 05/14/2025 4:40 PM INSURANCE REPRESENTATIVE Virtual Visit [facility] [place] [address] [facility] [address] 4th [place] [phone] Bharath Mar MD [address] [place], [place] [address] [place] [address] documented as of this encounter Procedures Procedure Name Priority Date/Time Associated Diagnosis Comments CT CHEST/ABDOMEN/PELVI S W CONTRAST Routine 11/05/2024 2:24 PM CDT Tendinopathy of rotator cuff, right Rotator cuff impingement syndrome, right documented in this encounter Results * CT Chest/Abdomen/Pelvis w Contrast (11/05/2024 2:24 PM CDT) Anatomical Region Laterality Modality Abdomen/Pelvis, Chest, SUBRA D CT BODY, UMP CT CHEST, UMP CT ABDOMEN PELVIS, RAD CT Computed Tomography 11/05/2024 2:24 PM CDT Impressions 11/06/2024 9:26 AM CDT IMPRESSION: 1. No metastatic disease in the chest, abdomen and pelvis. 2. Stable small pulmonary nodules. Narrative 11/06/2024 9:26 AM CDT EXAM: CT CHEST/ABDOMEN/PELVIS W CONTRAST LOCATION: [facility] DATE: 11/05/2024 INDICATION: Tendinopathy of rotator cuff, right, Rotator cuff impingement syndrome, right. History of rectal cancer. COMPARISON: 08/11/2022 TECHNIQUE: CT scan of the chest, abdomen, and pelvis was performed following injection of IV contrast. Multiplanar reformats were obtained. Dose reduction techniques were used. CONTRAST: 66 mL of Isovue-370 FINDINGS: LUNGS AND PLEURA: A few stable small pulmonary nodules. For example, a 4 mm medial right upper lobe nodule (4/109), 4 mm anterior right middle lobe nodule (4/201) and 3 mm lateral left lower lobe nodule (4/257) are stable. Mild atelectasis in the lung bases. No new or enlarging nodules. No infiltrate or pleural effusion. MEDIASTINUM/AXILLAE: Nodule in the right lobe of the thyroid gland measuring 1.2 cm, stable. No lymphadenopathy. No thoracic aortic aneurysm. CORONARY ARTERY CALCIFICATION: None. HEPATOBILIARY: Stable subcentimeter hypodense lesions in the liver, likely cysts. No new lesions. PANCREAS: Normal. SPLEEN: Normal. ADRENAL GLANDS: Normal. KIDNEYS/BLADDER: Parapelvic cyst in the lower pole of the left kidney requiring no specific follow-up, stable. No calculi or hydronephrosis. BOWEL: No obstruction or inflammatory change. LYMPH NODES: No lymphadenopathy. VASCULATURE: No abdominal aortic aneurysm. PELVIC ORGANS: Hysterectomy. MUSCULOSKELETAL: See separate report of the same day shoulder CT for details in the shoulder. Degenerative changes in the spine. No suspicious lesions in the bones. Stable scattered small sclerotic foci, likely benign bone islands. Procedure Note Latha Khoury MD - 11/06/2024 EXAM: CT CHEST/ABDOMEN/PELVIS W CONTRAST LOCATION: [facility] DATE: 11/05/2024 INDICATION: Tendinopathy of rotator cuff, right, Rotator cuff impingementsyndrome, right. History of rectal cancer. COMPARISON: 08/11/2022 TECHNIQUE: CT scan of the chest, abdomen, and pelvis was performedfollowing injection of IV contrast. Multiplanar reformats were obtained.Dose reduction techniques were used. CONTRAST: 66 mL of Isovue-370 FINDINGS: LUNGS AND PLEURA: A few stable small pulmonary nodules. For example, a 4mm medial right upper lobe nodule (4/109), 4 mm anterior right middle lobenodule (4/201) and 3 mm lateral left lower lobe nodule (4/257) are stable.Mild atelectasis in the lung bases. No new or enlarging nodules. No infiltrate or pleural effusion. MEDIASTINUM/AXILLAE: Nodule in the right lobe of the thyroid glandmeasuring 1.2 cm, stable. No lymphadenopathy. No thoracic aorticaneurysm. CORONARY ARTERY CALCIFICATION: None. HEPATOBILIARY: Stable subcentimeter hypodense lesions in the liver, likelycysts. No new lesions. PANCREAS: Normal. SPLEEN: Normal. ADRENAL GLANDS: Normal. KIDNEYS/BLADDER: Parapelvic cyst in the lower pole of the left kidneyrequiring no specific follow-up, stable. No calculi or hydronephrosis. BOWEL: No obstruction or inflammatory change. LYMPH NODES: No lymphadenopathy. VASCULATURE: No abdominal aortic aneurysm. PELVIC ORGANS: Hysterectomy. MUSCULOSKELETAL: See separate report of the same day shoulder CT fordetails in the shoulder. Degenerative changes in the spine. No suspiciouslesions in the bones. Stable scattered small sclerotic foci, likely benignbone islands. IMPRESSION: 1. No metastatic disease in the chest, abdomen and pelvis. 2. Stable small pulmonary nodules. Bharath Mar MD IMG CT ORDERABLES Final Result documented in this encounter Visit Diagnoses Diagnosis Tendinopathy of rotator cuff, right Rotator cuff impingement syndrome, right documented in this encounter Administered Medications Inactive Administered Medications - up to 3 most recent administrations Medication Order MAR Action Action Date Dose Rate Site iopamidol (ISOVUE-370) solution 500 mL 500 mL, Intravenous, ONCE, On Sun11/05/24 at 1430, For 1 dose $Given 11/05/2024 2:07 PM CDT 66 mLs sodium chloride 0.9 % bag for CT scan flush Intravenous, 100 mL, ONCE, On Sun11/05/24 at 1430, For 1 dose, This entry is for use by Radiology to intermittently used as a flush in patients receiving a CT scan. $Given 11/05/2024 2:07 PM CDT 57 mLs documented in this encounter Care Teams Self Pay Specialist Relationship Specialty [place] [address] [place] [address] PCP - General Family Medicine 06/04/23 Bailey Davis, PAMoonC [address] [place] [address] Physician Sanding Machine Operator Dermatology 12/15/21 [place] [address] [place] [address] Assigned PCP 05/06/22 [place] [address] [place] [address] Assigned Neuroscience Provider 06/03/22 Delilah Morales DO [address] [place] [address] Physical Medicine and Rehabilitation 08/15/22 Bailey Davis, PA-C [address] [place] [address] [address] [place] [address] Assigned Dermatology Provider 07/20/24 Bharath Mar MD [address] [place] [address] Assigned Musculoskeletal Provider 10/20/24 documented as of this encounter
--- OUTSIDE RECORDS SUMMARY | 2024-11-05 14:00 | XMS_ITS | Encounter Summary ---
Author Organization [place] Address [address] [place] [address] Care Team Providers Care Commercial Finance Manager Name Role Phone Bailey Davis PA-C Unavailable [phone] Ioana Brown MD Unavailable [phone] Juvencio Moreno MD Unavailable [phone] Delilah Morales DO Unavailable Ioana Brown MD Primary Care Provider Bailey Davis PA-C Unavailable [phone] Bharath Mar MD Unavailable [phone] Encounter Details Date Type Department Care Team (Late st Contact Info) Description 11/05/2024 2:00 PM CDT Lab [facility] [address] [place] [address] Bharath Mar MD [address] [place] [address] Tendinopathy of rotator cuff, right; Rotator cuff impingement syndrome, right Social History Tobacco Use Types Packs/Day Years [...] re latives? Once a week 02/25/2024 Attends [employer] Not on file 02/24 Active Member [...] Answer Date Recorded PHQ-2 Score 0 06/05/2024 [facility] of Occupat ional Health - Occupational Stress [...] Answer Date Recorded Do you have housing? 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 Gender Identity Female 12/12/2022 7:35 PM CDT Sexual Orientation Not on file documented as of this encounter Plan of Treatment Upcoming Encounters Date Type Department Care Team (Late st Contact Info) Description 12/17/2024 3:00 PM CDT Infusion Therapy Visit [facility] [address] [place] [phone] Amina Chappell MD ENDOCRINOLOGY [facility] [address] [place] [phone] 01/06/2025 8:45 AM CDT Radiology Injection Office Visit [facility] Pain Management [place] [address] [place] [address] [address] [place] [address] [place] [address] [place] [address] [place] [address] 01/13/2025 4:20 PM CDT Office Visit [address] , [address] [place] [phone] [place] [id number] [place] [address] [place] [address] 01/14/2025 2:30 PM CDT Infusion Therapy Visit [facility] [address] [place] [address] [place] [phone] Amina Chappell MD ENDOCRINOLOGY [facility] [address] [facility] [address] [place] [phone] 05/11/2025 11:30 AM CANCER GENETICS ASSISTANT Appointment [facility] Imaging [address] [place] [phone] Bharath Mar MD [address] [address] 05/14/2025 4:40 PM CANCER GENETICS ASSISTANT Virtual Visit [facility] [place] [address] [facility] 4th [place] [phone] Bharath Mar MD [address] [place], [place] [phone] documented as of this encounter Procedures Procedure Name Priority Date/Time Associated Diagnosis Comments PROTEIN ELECTROPHORESIS, SERUM Routine 11/05/2024 1:16 PM CDT Tendinopathy of rotator cuff, right Rotator cuff impingement syndrome, right TOTAL PROTEIN, SERUM FOR ELP Routine 11/05/2024 1:16 PM CDT Tendinopathy of rotator cuff, right Rotator cuff impingement syndrome, right LACTATE DEHYDROGENASE Routine 11/05/2024 1:16 PM CDT Tendinopathy of rotator cuff, right Rotator cuff impingement syndrome, right KAPPA AND LAMBDA LIGHT CHAIN Routine 11/05/2024 1:16 PM CDT Tendinopathy of rotator cuff, right Rotator cuff impingement syndrome, right UREA NITROGEN (BUN) Routine 11/05/2024 1 :16 PM CDT Tendinopathy of rotator cuff, right Rotator cuff impingement syndrome, right ERYTHROCYTE SEDIMENTATION RATE AUTO Routine 11/05/2024 1:16 PM CDT Tendinopathy of rotator cuff, right Rotator cuff impingement syndrome, right PROTEIN ELECTROPHORESIS Routine 11/06/19 1:16 PM CDT Tendinopathy of rotator cuff, right Rotator cuff impingement syndrome, right CREATININE Routine 11/05/2024 1:16 PM CDT Tendinopathy of rotator cuff, right Rotator cuff impingement syndrome, right CALCIUM Routine 11/05/2024 1:16 PM CDT Tendinopathy of rotator cuff, right Rotator cuff impingement syndrome, right ALKALINE PHOSPHATASE Routine 11/05/2024 1:16 PM CDT Tendinopathy of rotator cuff, right Rotator cuff impingement syndrome, right CBC WITH PLATELETS Routine 11/05/2024 1: 16 PM CDT Tendinopathy of rotator cuff, right Rotator cuff impingement syndrome, right documented in this encounter Results * (ABNORMAL) Protein Electrophoresis, Serum (11/05/2024 1:16 PM CDT) Albumin 4.3 3.7 - 5.1 g/dL 11/06/2024 3:22 PM CDT [facility] SPECIALTY CORE/PROT/E NDO Alpha 1 0.2 0.2 - 0.4 g/dL 11/06/2024 3:22 PM CDT UM SPECIALTY CORE/PROT/E NDO Alpha 2 0.6 0.5 - 0.9 g/dL 11/06/2024 3:22 PM CDT UM SPECIALTY CORE/PROT/E NDO Beta Globulin 0.6 0.6 - 1.0 g/dL 11/06/2024 3:22 PM CDT UM SPECIALTY CORE/PROT/E NDO Gamma Globulin 0.6(L) 0.7 - 1.6 g/dL 11/06/2024 3:22 PM CDT UM SPECIALTY CORE/PROT/E NDO Monoclonal Peak 0.0 <=0.0 g/dL 11/06/2024 3:22 PM CDT UM SPECIALTY CORE/PROT/E NDO ELP Interpretation Essentially normal electrophoretic pattern. No obvious monoclonal proteins seen. Pathologic significance requires clinical correlation. Chema Hicks M.D., Ph.D., Pathologist. 11/06/2024 3:22 PM CDT SPECIALTY CORE/PROT/E NDO Blood STRUCTURE OF RIGHT UPPER LIMB / Unknown Venipuncture / Unknown 11/05/2024 1:16 PM CDT 11/05/2024 1:16 PM CDT Bharath Mar MD LAB - BLOOD ORDERABLES Final R esult SPECIALTY CORE/PROT/ENDO Specialty Core/Prot/Endo [address] [facility], Room 3-[address] * Total Protein, Serum for ELP (11/05/2024 1:16 PM CDT) Pathologist [facility] Total Protein Serum for ELP 6.4 6.4 - 8.3 g/dL 11/05/2024 1:59 PM CDT LABORATORY Blood STRUCTURE OF RIGHT UPPER LIMB / Unknown Venipuncture / Unknown 11/05/2024 1:16 PM CDT 11/05/2024 1:16 PM CDT Bharath Mar MD LAB - BLOOD ORDERABLES Final R esult LABORATORY [facility] Acute Care Lab [address] Lab (1st floor, no room number) [place] [address] * (ABNORMAL) [place]ena and lambda light chain (11/05/2024 1:16 PM CDT) [place]ena Free Light Chains 1.89 0.33 - 1.94 mg/dL 11/06/2024 9:56 AM CDT UM SPECIALTY CORE/PROT/ENDO Lambda Free Light Chains 1.05 0.57 - 2.63 mg/dL 11/06/2024 9:56 AM CDT UM SPECIALTY CORE/PROT/ENDO [place] /Lambda Ratio 1.80(H) 0.26 - 1.65 11/06/2024 9:56 AM CDT UM SPECIALTY CORE/PROT/ENDO Blood STRUCTURE OF RIGHT UPPER LIMB / Unknown Venipuncture / Unknown 11/05/2024 1:16 PM CDT 11/05/2024 1:16 PM CDT Narrative SPECIALTY CORE/PROT/ENDO - 11/06/2024 9:56 AM CDT Undetected antigen excess is a rare event but cannot be excluded. If these free light chain results do not agree with other clinical or laboratory findings, or if the sample is from a patient that has previously demonstrated antigen excess, the result must be checked by retesting at a higher sample dilution. Results should always be interpreted in conjunction with other laboratory tests and clinical evidence; any anomalies should be discussed with the testing laboratory. Bharath Mar MD LAB - BLOOD ORDERABLES Final R esult SPECIALTY CORE/PROT/ENDO Specialty Core/Prot/Endo [address] [facility], Room 3-[address] * Erythrocyte sedimentation rate auto (11/05/2024 1:16 PM CDT) Erythrocyte Sedimentation Rate 6 0 - 30 mm/hr 11/05/2024 2:16 PM CDT LABORATORY Blood STRUCTURE OF RIGHT UPPER LIMB / Unknown Venipuncture / Unknown 11/05/2024 1:16 PM CDT 11/05/2024 1:16 PM CDT Bharath Mar MD LAB - BLOOD ORDERABLES Final R esult LABORATORY [facility] Acute Care Lab [address] Lab (1st floor, no room number) [place] [address] * CBC with platelets (11/05/2024 1:16 PM CDT) WBC Count 5.6 4.0 - 11.0 10e3/uL 11/05/2024 1:30 PM CDT RH LABORATORY RBC Count 4.95 3.80 - 5.20 10e6/uL 11/05/2024 1:30 PM CDT [facility] LABORATORY Hemoglobin 14.2 11.7 - 15.7 g/dL 11/05/2024 1:30 PM CDT RH LABORATORY Hematocrit 42.1 35.0 - 47.0 % 11/05/2024 1:30 PM CDT RH LABORATORY MCV 85 78 - 100 fL 11/05/2024 1:30 PM CDT RH LABORATORY MCH 28.7 26.5 - 33.0 pg 11/05/2024 1:30 PM CDT RH LABORATORY MCHC 33.7 31.5 - 36.5 g/dL 11/05/2024 1:30 PM CDT [facility] LABORATORY RDW 13.2 10.0 - 15.0 % 11/05/2024 1:30 PM CDT [facility] LABORATORY Platelet Count 249 150 - 450 10e3/uL 11/05/2024 1:30 PM CDT RH LABORATORY Blood STRUCTURE OF RIGHT UPPER LIMB / Unknown Venipuncture / Unknown 11/05/2024 1:16 PM CDT 11/05/2024 1:16 PM CDT Bharath Mar MD LAB - BLOOD ORDERABLES Final R esult RH LABORATORY [facility] Acute Care Lab [address] Lab (1st floor, no room number) [place] [address], [facility] * Urea nitrogen (11/05/2024 1:16 PM CDT) Urea Nitrogen 14.6 8.0 - 23.0 mg/dL 11/05/2024 1:42 PM CDT RH LABORATORY Blood STRUCTURE OF RIGHT UPPER LIMB / Unknown Venipuncture / Unknown 11/05/2024 1:16 PM CDT 11/05/2024 1:16 PM CDT Bharath Mar MD LAB - BLOOD ORDERABLES Final R esult [facility] Acute Care Lab [address] Lab (1st floor, no room number) [place] [address] * Lactate Dehydrogenase (11/05/2024 1:16 PM CDT) Lactate Dehydrogenase 170 0 - 250 U/L 11/05/2024 1:42 PM CDT LABORATORY Blood STRUCTURE OF RIGHT UPPER LIMB / Unknown Venipuncture / Unknown 11/05/2024 1:16 PM CDT 11/05/2024 1:16 PM CDT Bharath Mar MD LAB - BLOOD ORDERABLES Final R esult Performing Organization Address [facility]/ZIP Co de Phone Number [facility] [address] Lab (1st floor, no room number) [place] [address] * Creatinine (11/05/2024 1:16 PM CDT) Creatinine 0.68 0.51 - 0.95 mg/dL 11/05/2024 1:42 PM CDT LABORATORY GFR Estimate 88 >60 mL/min/1.7 3m2 11/05/2024 1:42 PM CDT LABORATORY Comment:eGFR calculated us2020 CKD-EPI equation. Blood STRUCTURE OF RIGHT UPPER LIMB / Unknown Venipuncture / Unknown 11/05/2024 1:16 PM CDT 11/05/2024 1:16 PM CDT Bharath Mar MD LAB - BLOOD ORDERABLES Final R esult [facility] Lab [address] Lab (1st floor, no room number) [place] [address] * Calcium (11/05/2024 1:16 PM CDT) Calcium 8.9 8.8 - 10.4 mg/dL 11/05/2024 1:42 PM CDT RH LABORATORY Blood STRUCTURE OF RIGHT UPPER LIMB / Unknown Venipuncture / Unknown 11/05/2024 1:16 PM CDT 11/05/2024 1:16 PM CDT Bharath Mar MD LAB - BLOOD ORDERABLES Final R esult [facility] Lab [address] Lab (1st floor, no room number) [place] [address], [facility] * Alkaline phosphatase (11/05/2024 1:16 PM CDT) Alkaline Phosphatase 84 40 - 150 U/L 11/05/2024 1:42 PM CDT RH LABORATORY Blood STRUCTURE OF RIGHT UPPER LIMB / Unknown Venipuncture / Unknown 11/05/2024 1:16 PM CDT 11/05/2024 1:16 PM CDT Bharath Mar MD LAB - BLOOD ORDERABLES Final R esult [facility] [address] Lab (1st floor, no room number) [place] [address] documented in this encounter Visit Diagnoses Diagnosis Tendinopathy of rotator cuff, right Rotator cuff impingement syndrome, right documented in this encounter Care Teams Commercial Finance Manager Relationship Specialty [place] [address] [place] [address] PCP - General Family Medicine 06/04/23 Bailey Davis PA-C [address] [place] [address] Physician Sanitation Supervisor Dermatology 12/15/21 [place] [address] [place] [address] Assigned PCP 05/06/22 [place] [address] [place] [address] Assigned Neuroscience Provider 06/03/22 Delilah Morales DO [address] [place] [address] Physical Medicine and Rehabilitation 08/15/22 Bailey Davis, PA-C [address] [place] [address] Assigned Dermatology Provider 07/20/24 Bharath Mar MD [address] [place], [place] [id number] [place] [address] Assigned Musculoskeletal Provider 10/20/24 documented as of this encounter
--- OUTSIDE RECORDS SUMMARY | 2024-11-06 16:40 | XMS_ITS | Encounter Summary ---
Author Organization [place] Address [address] [place] [address] Care Team Providers Care Paper Counter Name Role Phone Bailey Davis PA-C Unavailable [phone] Ioana Brown MD Unavailable [phone] Juvencio Moreno MD Unavailable [phone] Delilah Morales DO Unavailable Ioana Brown MD Primary Care Provider [phone] Bailey Davis PA-C Unavailable [phone] Bharath Mar MD Unavailable [phone] Reason for Referral * Diagnostic Imaging MRI (Routine) - Authorized Specialty Diagnoses / Procedures Referred By Danni melchor Referred To Contact Radiology. Diagnoses Bone lesion Procedures MR Shoulder Right w/o & w Contrast Bharath Mar MD [address] [place] [address] Phone: tel: fax: Referral ID Status Reason Start Date Expiration Date V isits Requested Visits Authorized [id number] Authorized 11/07/2024 11/07/2025 1 1 Reason for Visit * Reason Comments RECHECK Encounter Details Date Type Department Care Team (Late st Contact Info) Description 11/06/2024 4:40 PM CDT Virtual Visit [facility] Orthopedic [address] 4th [place] [phone] Bharath Mar MD [address] [place] [address] Bone lesion (Primary Dx) Social History Tobacco Use Types Packs/Day Years [...] re latives? 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 [facility] Physicians, Orthopaedic Oncology Surgery Consultation by Bharath Mar M.D. Jennifer Pendleton Date of : 1945 Requesting physician: Ioana Barrett Background history: DX: History of rectal carcinoma Right scapular lesion, likely benign, such as intraosseous hemangioma, cartilage lesion, benign fibrous lesion TREATMENTS: 01/09/2008, EXCISION OF PISIFORM, EXCISION OF CARPAL BOSS and EXPLORATION OF RIGHT DORSAL CARPAL GANGLION (Annabelle Kay), [facility] 05/17/2018, Left shoulder arthroscopy with arthroscopic labral debridement, subacromial decompression, and distal clavicle resection, (Susie Gutierrez), Jesus Jain I saw Jennifer and her daughter today for follow-up to review the results of her metastatic screening survey laboratory studies as well as CT of the chest abdomen pelvis. There is no evidence of any malignancy or findings to suggest malignant tumor involving her shoulder. The appearance of the lesion in the right scapular neck region has a benign, nonaggressive appearance. She reports that the anesthetic injection into the right glenohumeral joint was not beneficial in terms of pain relief. Assessment and Plan: Assessment: Benign lesion of right scapular neck. No reason for surgical intervention at this time. Stable appearance with nonaggressive appearance radiographically. Patient may pursue what ever shoulder surgery or intervention is being considered by Dr. Heredia or colleagues. Plan: Return in 6 to 12 months for repeat MRI examination of shoulder to ensure stability. MD Tasia Haas Family Professor Oncology and Adult Reconstructive Surgery Dept Orthopaedic Surgery, [facility] Physicians [phone] office, pager [email or web address] Virtual-Visit Details Type of service: Video Visit Visit total duration (including visit time, pre and post visit work time as documented above on the day of service): 20 min Video start time: 1640 Video end time: 1700 Non video work time: 20 min Originating Location (pt. Location): Home Distant Location (provider location): [facility] Platform used for Virtual Visit: [employer] documented in this encounter Nursing Notes * Justina Bell - 11/06/2024 4:40 PM CDT Current patient location: [address] [place] [address] Is the patient currently in the state of [place]? YES Visit mode: VIDEO If the visit is dropped, the patient can be reconnected by:VIDEO VISIT: Text to cell phone: Telephone Information: Will anyone else be joining the visit? YES: How would they like to receive their invitation? Text to cell phone: Daughter will be in on visit (If patient encounters technical issues they should call [phone]) Are changes needed to the allergy or medication list? No Are refills needed on medications prescribed by this physician? NO Rooming Documentation: Not applicable Reason for visit: RECHECK Justina Bell VVF No vitals documented in this encounter Miscellaneous Notes * Addendum Note - Melissa Trevino ATC - 11/06/2024 4:40 PM CDTAddended by: MELISSA TREVINO on: 11/07/2024 11:25 AM Modules accepted: Orders documented in this encounter Plan of Treatment Upcoming Encounters Date Type Department Care Team (Late st Contact Info) Description 12/17/2024 3:00 PM CDT Infusion Therapy Visit [facility] [address] [place] [phone] Amina Chappell MD ENDOCRINOLOGY [facility] [address] [place] [address] [place] [phone] 01/06/2025 8:45 AM CDT Radiology Injection Office Visit [facility] Pain Management [place] [address] [place] [place] [address] [place] [address] [address] [place] [address] 01/13/2025 4:20 PM CDT Office Visit [facility] [address] [place] [place] [address] [place] [address] [place] [address] 01/14/2025 2:30 PM CDT Infusion Therapy Visit [facility] [address] [place] [address] [place] [phone] Amina Chappell MD [facility]INOLOGY [facility] [address] [facility] [address] [place] [address] 05/11/2025 11:30 AM CONTINUOUS MINER OPERATOR HELPER Appointment [facility] Imaging [address] [place] [place] [phone] Bharath Mar MD [address] [place] [phone] 05/14/2025 4:40 PM CONTINUOUS MINER OPERATOR HELPER Virtual Visit [facility] [place] [address] [facility] [address] 4th [place] [phone] Bharath Mar MD [address] [place] [id number] Scheduled Orders Name Type Priority Associated Diagnoses Orde r Schedule MR Shoulder Right w/o & w Contrast Imaging Routine Bone lesion Expected: 05/10/2025 (Approximate), Expires: 11/07/2025 documented as of this encounter Visit Diagnoses Diagnosis Bone lesion- Primary Disorder of bone and cartilage, unspecified documented in this encounter Care Teams Paper Counter Relationship Specialty [place] [address] [place] [address] PCP - General Family Medicine 06/04/23 Bailey Davis PA-C [address] [place] [address] Physician Head Of Loss Prevention Dermatology 12/15/21 [place] [address] [place] [address] Assigned PCP 05/06/22 [place] [address] [place] [address] Assigned Neuroscience Provider 06/03/22 Delilah Morales DO [address] [place] [address] Physical Medicine and Rehabilitation 08/15/22 Bailey Davis PA-C [address] [place] [address] Assigned Dermatology Provider 07/20/24 Bharath Mar MD [address] [place] [address] Assigned Musculoskeletal Provider 10/20/24 documented as of this encounter
--- OUTSIDE RECORDS SUMMARY | 2024-11-11 14:00 | XMS_ITS | Encounter Summary ---
Author Organization [place] [facility] [place] [address] Care Team Providers Care Painter Mirror Name Role Phone Bailey Davis PA-C Unavailable [phone] Ioana Brown MD Unavailable [phone] Juvencio Moreno MD Unavailable [phone] Delilah Morales DO Unavailable Ioana Brown MD Primary Care Provider [phone] Bailey Davis PA-C Unavailable [phone] Bharath Mar MD Unavailable [phone] Reason for Visit * Reason Comments Imm/Inj Evenity #10 of 12 * Treatment and Therapy Plans (Routine) - Authorized Specialty Diagnoses / Procedures Referred By Contac t Referred To Contact Infusion Therapy Diagnoses Age-related osteoporosis without current pathological fracture Procedures ZZC ROMOSOZUMAB-AQQG (EVENITY) PER MG Amina Chappell MD ENDOCRINOLOGY [facility] [address] [facility] [address] [place] [address] Phone: tel: fax: [facility] [id number] [place] [address] [address] [place] [address] Phone: tel: fax: Referral ID Status Reason Start Date Expiration Date V isits Requested Visits Authorized [id number] Authorized 01/31/2024 04/29/2025 99 99 Encounter Details Date Type Department Care Team (Latest Contact Info) Description 11/11/2024 2:00 PM CDT Infusion Therapy Visit [facility] [address] [place] [address] Amina Chappell MD ENDOCRINOLOGY [facility] [address] [place] [address] Age-related osteoporosis without current pathological fracture (Primary Dx) Social History Tobacco Use Types [...] re latives? 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 Gender Identity Female 12/12/2022 7:35 PM CDT Sexual Orientation Not on file documented as of this encounter Last Filed Vital Signs Vital Sign Reading Time Taken Comments Blood Pressure 127/65 11/11/2024 1:52 PM CDT Pulse 71 11/11/2024 1:52 PM CDT Temperature 36.8 C (98.3 F) 11/11/2024 1:52 PM CDT Respiratory Rate 16 11/11/2024 1:52 PM CDT Oxygen Saturation 96% 11/11/2024 1:52 PM CDT Inhaled Oxygen Concentration - - Weight - - Height - - Body Mass Index - - documented in this encounter Progress Notes * Luh Clifton RN - 11/11/2024 2:00 PM CDT Infusion Nursing Note: Jennifer Pendleton presents today for Evenity #10 of 12. Patient seen by provider today: No Territory Sales Executive present during visit today: Not Applicable. Note: Jennifer denies any recent or upcoming dental work. Patient denies tooth, mouth, or jaw pain. Sheconfirms that she is taking Calcium and Vitamin D supplement. She denies any myocardial infarction or stroke in the past year. She denies any new or unusual thigh, hip, or groin pain. Intravenous Access: No Intravenous access/labs at this visit. Treatment Conditions: 11/05/24 13:16 Creatinine 0.68 Calcium 8.9 Post Infusion Assessment: Patient tolerated injections without incident. Discharge Plan: Discharge instructions reviewed with: Patient. Patient and/or family verbalized understanding of discharge instructions and all questions answered. AVS to patient via ZappliT. Patient will return 12/09 for next appointment. Patient discharged in stable condition accompanied by: self. Departure Mode: Ambulatory. Robert Clifton RN documented in this encounter Plan of Treatment Upcoming Encounters Date Type Department Care Team (Late st Contact Info) Description 12/17/2024 3:00 PM CDT Infusion Therapy Visit [facility] [address] [place] [address] Amina Chappell MD ENDOCRINOLOGY [facility] [address] [place] [phone] 01/06/2025 8:45 AM CDT Radiology Injection Office Visit [facility] [place] [address] [place] [address] [place] [address] [address] [place] [address] 01/13/2025 4:20 PM CDT Office Visit [facility] [address] [place] [phone] [place] [address] [address] [place] [address] 01/14/2025 2:30 PM CDT Infusion Therapy Visit [facility] [address] [place] [phone] Amina Chappell MD ENDOCRINOLOGY [facility] [address] [facility] [address] [facility] [address] [place] [address] 05/11/2025 11:30 AM VIDEO SOFTWARE ENGINEER Appointment [facility] [address] [place] [phone] Bharath Mar MD [address] [place] [address] 05/14/2025 4:40 PM VIDEO SOFTWARE ENGINEER Virtual Visit [facility] [place] [address] [facility] 4th [place] [phone] Bharath Mar MD [address] [place] [id number] documented as of this encounter Visit Diagnoses Diagnosis Age-related osteoporosis without current pathological fracture- Primary Senile osteoporosis documented in this encounter Administered Medications Inactive Administered Medications - up to 3 most recent administrations Medication Order MAR Action Action Date Dose Rate Site romosozumab-aqqg (EVENITY) injection 210 mg 210 mg, Subcutaneous, ONCE, On Sun11/11/24 at 1400, For 1 dose, The usual dose of 210 mg requires 2 single-use prefilled syringes (105 mg/1.17 mL each). Remove syringes from carton and allow to sit at room temperature for at least 30 minutes before administration. Do not motor winder any other way. Administer into the abdomen, thigh, or outer area of upper arm. Rotate injection sites; if the same injection site is chosen, do not inject into the same spot used for the first injection. Avoid areas of skin that are tender, bruised, red, hard, scarred, or with stretch gresham.Indications:Age-rela williams osteoporosis without current pathological fracture $Given 11/11/2024 1:59 PM CDT 210 mg Abdominal Tissue documented in this encounter Care Teams Painter Mirror Relationship Specialty [place] [address] [place] [address] PCP - General Family Medicine 06/04/23 Bailey Davis, PA-C [address] [place] [address] Physician [employer] Farm Manager Dermatology 12/15/21 [place] [address] [facility] [place] [address] Assigned PCP 05/06/22 [place] [address] [place] [address] Assigned Neuroscience Provider 06/03/22 Delilah Morales DO [address] [place] [address] Physical Medicine and Rehabilitation 08/15/22 Bailey Davis PA-C [address] [place] [address] Assigned Dermatology Provider 07/20/24 Bharath Mar MD [facility] [place] [id number] [place] [address] Assigned Musculoskeletal Provider 10/20/24 documented as of this encounter
--- OUTSIDE RECORDS SUMMARY | 2024-11-17 13:40 | XMS_ITS | Encounter Summary ---
Author Organization [facility] Address [address] [place] [address] Care Team Providers Care Edge Bander Hand Name Role Phone Bailey Davis PA-C Unavailable [phone] Ioana Brown MD Unavailable [phone] Juvencio Moreno MD Unavailable [phone] Delilah Morales DO Unavailable Ioana Brown MD Primary Care Provider Bailey Davis PA-C Unavailable [phone] Bharath Mar MD Unavailable [phone] Reason for Referral * Consultation (Routine) - Authorized Specialty Diagnoses / Procedures Referred By Danni melchor Referred To Contact Diagnoses Lumbosacral radiculopathy Scoliosis of thoracolumbar spine, unspecified scoliosis type Lumbosacral stenosis with neurogenic claudication Degeneration of intervertebral disc of lumbosacral region with discogenic back pain [place] [address] [place] [address] Phone: tel: fax: [place] [address] [place] [address] Phone: tel: fax: Referral ID Status Reason Start Date Expiration Date V isits Requested Visits Authorized [id number] Authorized 11/17/2024 11/17/2025 1 1 Question Answer Referral Type: Procedure Procedure: Epidural (Advanced imaging required in the last 3 years) Location: Lumbar Injection Type: Transforaminal GALLO Laterality: Right Level (Choose up to 2): L4-5, L5-S1 Has the patient had a CT or MRI of the area of concern within the last 12 months? Yes Patient Scheduling Instructions: Please schedule with Juvencio Moreno MD. Comments Please be aware that coverage of these services is subject to the terms and limitations of your health insurance plan. Call member services at your health plan with any benefit or coverage questions. Please schedule with Juvencio Moreno MD. Reason for Visit * Reason Comments RECHECK 2 month low back hollis n follow up Encounter Details Date Type Department Care Team (Late st Contact Info) Description 11/17/2024 1:40 PM CDT Office Visit [facility] [address] [place] [address] , [address] [place] [phone] [place] [address] [place] [address] Lumbosacral stenosis with neurogenic claudication (Primary Dx); Lumbosacral radiculopathy; Scoliosis of thoracolumbar spine, unspecified scoliosis type; Degeneration of intervertebral disc of lumbosacral region with discogenic back pain and lower extremity pain Social History Tobacco Use Types Packs/Day Years Used Date Smoking Tobacco: Former Cigarettes Passive Smoke Exposure: Past Smokeless Tobacco: Never Tobacco Cessation:Counseling Given: Not Answered Alcohol Use Standard Drinks/Week Comments Yes 0 (1 standard drink = 0.6 oz pur e alcohol) wine Social Connection and Isolation Panel [NHANES] A nswer Date Recorded Frequency of Communication with Friends and Fami ly Not on file 02/25/2024 How often do you get together with friends or re latives? Once a week 02/25/2024 Attends Anabaptism Services Not on file 02/24 Active Member [...] when you are drinking? 1 or 2 3 Q3: How often do you have si x or more drinks on one occasion? 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 Gender Identity Female 12/12/2022 7:35 PM CDT Sexual Orientation Not on file documented as of this encounter Last Filed Vital Signs Vital Sign Reading Time Taken Comments Blood Pressure 147/84 11/17/2024 1:48 PM CDT Pulse 56 11/17/2024 1:48 PM CDT Temperature - - Respiratory Rate - - Oxygen Saturation 98% 11/17/2024 1:48 PM CDT Inhaled Oxygen Concentration - - Weight 59 kg (130 lb) 11/17/2024 1:48 PM CDT Height 160 cm (5' 3) 11/17/2024 1:48 PM CDT Body Mass Index 23.03 11/17/2024 1:48 PM CDT documented in this encounter Patient Instructions * Patient Instructions* Bisi Turner MA - 11/17/2024 1:40 PM CDT Please schedule a follow-up appointment in 2 months. You can schedule this at the [facility], or you can call . Please schedule an appointment for neck pain at your convenience. You can schedule this at the [facility], or you can call . Clinic . For nursing questions, please call . For medical records, please call . Please schedule fluoroscopic-guided lumbosacral epidural steroid injection with me. The [facility] Procedure Scheduling Team will call you to schedule your procedure in the next 0-3 days. You can also call them directly at option 2. [facility] Injection Requirements A regional intermodal truck driver is required for all x-ray(fluoroscopically)-guided injections. Injection appointments may be cancelled if there are signs/symptoms of an active infection or if the patient is being actively treated with antibiotics (within 7 days) for a diagnosed infection. Patients may have their steroid injection cancelled if they have had another steroid injection within 2 weeks. Diabetic patients will have their blood glucose levels checked the day of their injection. The appointment will be rescheduled if the blood glucose level is 300 or higher. Patients with allergies to cortisone, local anesthetics, iodine, or contrast dye should contact [facility] to further discuss these considerations. Patients scheduled for medial branch block diagnostic injections should refrain from taking pain medication the day of the procedure. The medial branch block injection appointment will be rescheduledif the patient's pain rating is not 5/10 or greater at the time of the procedure. Patients taking warfarin/Coumadin will have their INR checked the day of the procedure. The procedure may be rescheduled if the INR is greater than 3.0. Please contact the [facility] ([phone]) if you are taking any prescription blood-thinning medications (warfarin, Plavix, Lovenox, Eliquis, Brilinta, Effient, etc.) as special dosing adjustments may need to be made depending on the type of injection you are scheduled to receive. It is recommended that you delay having your steroid injection if you have received a flu shot, shingles, or Covid-19 vaccine within 2 weeks. Please eat/drink something (can be snack size) before your appointment. Having something in your stomach usually helps. documented in this encounter Progress Notes * Juvencio Moreno MD - 11/17/2024 1:40 PM CDT PHYSICAL MEDICINE & REHABILITATION / MEDICAL SPINE Date: Nov 17, 2024 Name: Jennifer Pendleton Birthdate: 1945 I am using a new tool to help me save time with documentation. Basically it is going to listen to our visit today and uses AI to help me draft my note. Is it okay if I use this tool today? CHART REVIEW: Reviewed 11/06/2024 note from Bharath Mar MD (orthopedic surgery). Ms. Jennifer Pendleton had a benign lesion of the right scapular neck. There was stable appearance with nonaggressive appearance radiographically. The patient may pursue whatever shoulder intervention she would like. She was to return in 6 to 12 months for repeat MRI examination of the shoulder to ensure stability. CHIEF COMPLAINT: Right low back pain. HISTORY OF PRESENT ILLNESS: Ms. Jennifer Pendleton is a 78-year-old, ambidextrous, female. She has 2 daughters and 1 son. Her sonis the youngest of the 3 children. Her middle child, Ms. Natasha Evans, is a radiologynurse at [facility]. Ms. Jennifer Pendleton stated that she had an injury of her right thumb, but she did not seek any care for this. She previously had a left shoulder surgery. Ms. Jennifer Pendleton denied any other injuries or surgeries of her head, neck, upper back, chest, shoulders, arms, elbows, forearms, wrists, hands, fingers. Ms. Jennifer Pendleton had bilateral ankle sprains in the past. She had a right fifth toe fracture inthe past. She also had an injury to her right knee in the past. Ms. Pendleton has scoliosis. In February 2023, Ms. Pendleton was walking down the stairs and developed pain in her right lateral hip and buttock. Ms. Jennifer Pendleton stated that her mother had multiple sclerosis. On 06/01/2022, Ms. Jennifer Pendleton had fluoroscopic-guided diagnostic medial branch / dorsal ramusblocks of the right L4-L5 and L5-S1 facet joints. Ms. Pendleton had greater than 80% pain relief from these blocks lasting approximately 2 hours after the blocks. On 06/29/2022, Ms. Jennifer Pendleton had an ultrasound-guided right hip intra- articular corticosteroid injection. On 07/27/2022, Ms. Pendleton had an ultrasound- guided left hip intra-articular corticosteroid injection. On 08/11/2022, Ms. Jennifer Pendleton reported that her bilateral hips were at least 50% improved. Ms. Natasha Evans estimated that her mother's hip pains were 70% improved. On 10/05/2022, Ms. Pendleton had an ultrasound-guided right hip intra-articular corticosteroid injection. On 11/07/2022, Ms. Jennifer Pendleton reported that she had benefit from this right hip intra-articular corticosteroid injection, although she reported she did not have as much benefit from this injection as the previous injection. On 01/10/2024, Ms. Jennifer Pendleton had a right paramedian L5-S1 interlaminar epidural corticosteroid injection. On 02/13/2024, Ms. Jennifer Pendleton reported 75% improvement from the injection. On 06/05/2024, Ms. Jennifer Pendleton had an ultrasound-guided right subacromial- subdeltoid bursa corticosteroid injection. On 07/09/2024. Ms. Jennifer Pendleton reported 80% improvement in her right shoulder pain. Ms. Jennifer Pendleton did not experience long-lasting pain relief from her right subacromial-subdeltoid bursa corticosteroid injection on 06/05/2024. Ms. Jennifer Pendleton was last seen in this clinic on 09/05/2024. On 09/25/2024, Ms. Jennifer Pendleton had a left paramedian L4-5 interlaminar epidural corticosteroid injection. Ms. Jennifer Pendleton returns to clinic today, 11/17/2024. She is accompanied to today's appointment by her daughter, Ms. Natasha Evans, and her grandson, Mr. Marlon Evans. History of Present Illness- - Name: Jennifer Pendleton, age: 78 years, female - Received a left-sided back injection, resulting in significant improvement in back pain and mobility; reported feeling more stable and able to walk and perform activities more easily - Estimated 75-80% improvement in symptoms after the left-sided injection - Ongoing pain and sense of imbalance now primarily on the right side of the low back, described aspressure or pushing pain, not sharp or poking - Right low back pain present approximately 60-70% of the day - Pain radiates from the right low back down the leg and into the foot, similar to previous symptoms on the left side - Occasional numbness, tingling, or pins and needles sensation in the lower extremity, more on the right side, described as being down the leg and into the foot - Reports leg pain and bothersome symptoms, with some episodes of tripping; believes both legs may be affected, but more prominent on the right - Denies significant weakness, but notes tripping and bothersome leg pain - Pain is aggravated by sitting; standing has not been as problematic recently - Oral pain medications (acetaminophen 650 mg, ibuprofen 200 mg) provide only partial and temporaryrelief - Reports not feeling like her old self for a long time - Describes herself as previously energetic and proactive, but has felt less so in recent years - History of receiving injections for osteoporosis in the past week, with leg bone pain as a side effect - Neck pain reported, with discomfort in the middle of the neck, in addition to ongoing shoulder and upper back symptoms ALLERGIES: Allergies Allergen Reactions Atorvastatin Other reaction(s): Unknown Reaction Tramadol Other reaction(s): Unknown Reaction Amoxicillin Nausea and Vomiting Codeine Nausea MEDICATIONS: Current Outpatient Medications Medication Sig Dispense Refill acetaminophen (TYLENOL) 650 MG CR tablet Take 1 tablet by mouth calcium citrate-vitamin D (CITRACAL) 200-6.25 MG-MCG TABS per tablet Take 1 tablet by mouth daily. cholecalciferol (VITAMIN D3) 25 mcg (1000 units) capsule clobetasol (TEMOVATE) 0.05 % external ointment Apply topically 2 times daily. 60 g 3 hydrocortisone 2.5 % cream LORazepam (ATIVAN) 0.5 MG tablet Take 1 tablet (0.5 mg) by mouth once for 1 dose. Take 30 minutes prior to imaging/procedure. If still anxious, take immediately prior to imaging/procedure. 2 tablet 0 LORazepam (ATIVAN) 0.5 MG tablet PLEASE SEE ATTACHED FOR DETAILED DIRECTIONS metroNIDAZOLE (METROGEL) 0.75 % external gel Apply to face BID 45 g 11 Multiple Vitamin (ONE-A-DAY ESSENTIAL) TABS Take 1 tablet by mouth daily omeprazole (PRILOSEC) [address] capsule TAKE 1 CAPSULE BY MOUTH EVERY DAY 90 capsule 2 sertraline (ZOLOFT) 100 MG tablet Take 1 tablet (100 mg) by mouth daily. Take 50 mg for 2 weeks, then increase to 100 mg daily. 90 tablet 3 sulfamethoxazole-trimethoprim (BACTRIM DS) 800-160 MG tablet Take 1 tablet by mouth 2 times daily. 14 tablet 0 triamcinolone (KENALOG) 0.1 % external cream APPLY TO AFFECTED AREA TWICE A DAY FOR 14 DAYS 30 g 0 valACYclovir (VALTREX) 1000 mg tablet Take 2 tablets (2,000 mg) by mouth 2 times daily. 4 tablet 3 vitamin (B COMPLEX) capsule Take 1 capsule by mouth PAST MEDICAL HISTORY: Past Medical History: Diagnosis Date Arthritis Basal cell carcinoma DDD (degenerative disc disease), lumbar Mixed hyperlipidemia Rectal cancer (H) Rosacea Scoliosis PAST SURGICAL HISTORY: Past Surgical History: Procedure Laterality Date COLONOSCOPY N/A 11/14/2022 Procedure: Colonoscopy; Surgeon: Patricia Rizo MD; Location: [facility] FAMILY HISTORY: Family History Problem Relation Age of Onset Skin Cancer Father possibly melanoma Skin Cancer Paternal Aunt SOCIAL HISTORY: Social History Socioeconomic History Marital status: Spouse name: Not on file Number of children: Not on file Years of education: Not on file Highest education level: Not on file Occupational History Not on file Tobacco Use Smoking status: Former Types: Cigarettes Passive exposure: Past Smokeless tobacco: Never Vaping Use Vaping status: Never Used Substance and Sexual Activity Alcohol use: Yes Comment: wine Drug use: Not Currently Sexual activity: Not on file Other Topics Concern Not on file Social History Narrative Not on file Social Drivers of Health Financial Resource Strain: Low Risk (02/25/2024) Financial Resource Strain Within the past 12 months, have you or your family members you live with been unable to get utilities (heat, electricity) when it was really needed?: No Food Insecurity: Low Risk (02/25/2024) Food Insecurity Within the past 12 months, did you worry that your food would run out before you got money to buy more?: No Within the past 12 months, did the food you bought just not last and you didn???t have money to getmore?: No Transportation Needs: Low Risk (02/25/2024) Transportation Needs Within the past 12 months, has lack of transportation kept you from medical appointments, getting your medicines, non-medical meetings or appointments, work, or from getting things that you need?: No Physical Activity: Insufficiently Active (02/25/2024) Exercise Vital Sign Days of Exercise per Week: 1 day Minutes of Exercise per Session: 20 min Stress: No Stress Concern Present (02/25/2024) [facility] - Occupational Stress Questionnaire Feeling of Stress : Not at all Social Connections: Unknown (02/25/2024) Social Connection and Isolation Panel [NHANES] Frequency of Communication with Friends and Family: Not on file Frequency of Social Gatherings with Friends and Family: Once a week Attends Anabaptism Services: Not on file Active Member of Clubs or Organizations: Not on file Attends Club or Organization Meetings: Not on file Marital Status: Not on file Interpersonal Safety: Low Risk (10/03/2023) Interpersonal Safety Do you feel physically and emotionally safe where you currently live?: Yes Within the past 12 months, have you been hit, slapped, kicked or otherwise physically hurt by someone?: No Within the past 12 months, have you been humiliated or emotionally abused in other ways by your partner or ex-partner?: No Housing Stability: Low Risk (02/25/2024) Housing Stability Do you have housing? : Yes Are you worried about losing your housing?: No PHYSICAL EXAMINATION: Vitals: 11/17/24 1348 BP: (!) 147/84 Pulse: 56 SpO2: 98% Weight: 59 kg (130 lb) Height: 1.6 m (5' 3) GENERAL: No acute distress. Pleasant and cooperative. PSYCH: Normal mood and affect. HEAD: Normocephalic. SPEECH: No dysarthria. EYES: No scleral icterus. EARS: Hearing is intact to loud voice. NOSE: Midline, symmetric, no rhinorrhea. LUNGS: No respiratory distress. No increased work of breathing. IMAGING: EXAM: MR LUMBAR SPINE W/O CONTRAST LOCATION: [facility] DATE: 07/19/2024 INDICATION: Lumbosacral stenosis with neurogenic claudication, Degeneration of intervertebral disc of lumbosacral region with discogenic back pain and lower extremity pain, Scoliosis of thoracolumbarspine, unspecified scoliosis type, Facet arthropathy, lumbosacral, Age-related osteoporosis withoutcurrent pa COMPARISON: None. TECHNIQUE: Routine Lumbar Spine MRI without IV contrast. FINDINGS: Nomenclature is based on 5 lumbar type vertebral bodies. Subtle chronic superior plate L5 compression. Dextroconvex curvature of the lumbar spine. The vertebral bodies of the lumbar spine otherwise have normal stature, alignment, and marrow signal intensity. Normal distal spinal cord and cauda equina with conus medullaris at the inferior plate of L2. The partially imaged intra-abdominal contents are unremarkable. Unremarkable visualized bony pelvis. T12-L1: Normal disc signal and disc height. No posterior disc bulge or spinal canal narrowing. No neural foraminal narrowing. L1-L2: Mild loss of disc signal and disc height. Symmetric disc bulge and mild facet arthropathy with mild spinal canal and left lateral recess narrowing. Moderate to severe left neural foraminal narrowing. No right neural foraminal narrowing. L2-L3: Symmetric disc bulge and mild facet arthropathy with mild spinal canal narrowing. Moderate left and mild right neural foraminal narrowing. L3-L4: Symmetric disc bulge and moderate facet arthropathy with mild spinal canal narrowing. Severebilateral neural foraminal narrowing. L4-L5: Symmetric disc bulge and severe right facet arthropathy without significant spinal canal narrowing. Right lateral recess narrowing. Moderate to severe right and moderate left neural foraminal narrowing. L5-S1: Symmetric disc bulge and moderate facet arthropathy without significant spinal canal narrowing. Moderate right and mild left neural foraminal narrowing. IMPRESSION: 1. Subtle chronic superior plate L5 compression. 2. At the L1/L2 level, there is a symmetric disc bulge and mild facet arthropathy contributing to mild spinal canal left lateral recess narrowing. 3. At the L2/L3 and L3/L4 levels, there are symmetric disc bulges and facet arthropathy which contributes to mild spinal canal narrowing. 4. At the L4/L5 level, there is a symmetric disc bulge and severe right facet arthropathy contributing to right lateral recess narrowing. 5. Multilevel posterolateral disc disease and facet arthropathy with multilevel neural foraminal narrowing as described above. ASSESSMENT/PLAN: Ms. Jennifer Pendleton is a 78-year-old, ambidextrous, female. She has lumbosacral stenosis with neurogenic claudication, right lumbosacral radiculopathy, thoracolumbar scoliosis, lumbosacral degenerative disc disease. Discussed diagnoses, pathophysiologies, and treatment options with Ms. Jennifer Pendleton and her daughter, Ms. Natasha Evans. Discussed the options of doing nothing/living with it, physical therapy, medicare specialist, lumbosacral facet joint medial branch blocks with following radiofrequency ablations, lumbosacral epidural corticosteroid injection, referral to neurosurgery. Ms. Jennifer Pendleton will be set up for right L4-L5 and L5-S1 transforaminal epidural corticosteroid injections. She is to follow-up in this clinic in 2 months. Ms. Jennifer Pendleton is having neck pain. She will be scheduled for an appointment to be seen for this at her convenience. Total time on the date of the encounter: 48 minutes were spent on one more or more of the following: discussion with patient, history, exam, coordinating care, treatment goals, record review, documenting clinical information, and/or data review. Consent was obtained from the patient to use an AI documentation tool in the creation of this note. Juvencio Moreno MD documented in this encounter Plan of Treatment Upcoming Encounters Date Type Department Care Team (Late st Contact Info) Description 12/17/2024 3:00 PM CDT Infusion Therapy Visit [address] [place] [phone] Amina Chappell MD ENDOCRINOLOGY [facility] [address] [place] [address] 01/06/2025 8:45 AM CDT Radiology Injection Office Visit [facility] Pain Management [address] [place] [address] Juvencio Moreno MD [address] [place] [address] [place] [address] 01/13/2025 4:20 PM CDT Office Visit [address] , [address] [place] [phone] Juvencio Moreno MD [address] [place] [address] [place] [address] 01/14/2025 2:30 PM CDT Infusion Therapy Visit [place] [address] [place] [phone] Amina Chappell MD ENDOCRINOLOGY [facility] [address] [place] [phone] 05/11/2025 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 Appointment [facility] [address] [place] [phone] Bharath Mar MD [address] [place] [address] 05/14/2025 4:40 PM MEAT COUNTER WORKER Virtual Visit [facility] [address] [place] [address] Bharath Mar MD [address] [place], [place] [id number] Scheduled Referrals Name Type Priority Associated Diagnoses Orde r Schedule Spine Will Call Order Clerk Referral Referral Routine Lumbosacral radiculopathy Scoliosis of thoracolumbar spine, unspecified scoliosis type Lumbosacral stenosis with neurogenic claudication Degeneration of intervertebral disc of lumbosacral region with discogenic back pain and lower extremity pain 1 Occurrences starting 11/17/2024 until 03/20/2025 documented as of this encounter Visit Diagnoses Diagnosis Lumbosacral stenosis with neurogenic claudication- Primary Spinal stenosis, lumbar region, with neurogenic claudication Lumbosacral radiculopathy Thoracic or lumbosacral neuritis or radiculitis, unspecified Scoliosis of thoracolumbar spine, unspecified scoliosis type Degeneration of intervertebral disc of lumbosacral region with discogenic back pain and lower extremity pain documented in this encounter Care Teams Edge Bander Hand Relationship Specialty [place] [address] [place] [address] PCP - General Family Medicine 06/04/23 Bailey Davis, PA-C [address] [place] [address] Physician Stewardesses Teacher Dermatology 12/15/21 [place] [address] [place] [address] Assigned PCP 05/06/22 [place] [address] [place] [address] Assigned Neuroscience Provider 06/03/22 Delilah Morales DO [address] [place] [address] Physical Medicine and Rehabilitation 08/15/22 Bailey Davis, PA-C [address] [place] [address] [address] [place] [address] Assigned Dermatology Provider 07/20/24 Bharath Mar MD [address] [place] [address] Assigned Musculoskeletal Provider 10/20/24 documented as of this encounter
--- OUTSIDE RECORDS SUMMARY | 2024-12-01 13:30 | XMS_ITS | Encounter Summary ---
Author Organization [facility] Address [address] [place] [address] Care Team Providers Care Airline Transport Pilot Name Role Phone Bailey Davis PA-C Unavailable [phone] Ioana Brown MD Unavailable [phone] Juvencio Moreno MD Unavailable [phone] Delilah Morales DO Unavailable Ioana Brown MD Primary Care Provider [phone] Bailey Davis PA-C Unavailable [phone] Bharath Mar MD Unavailable [phone] Reason for Referral * Rehab Therapy Physical Therapy (Routine: Next available opening) - Pending Review Specialty Diagnoses / Procedures Referred By Danni melchor Referred To Contact Diagnoses Biceps tendonosis of right shoulder Uriel Heredia MD [address] [place] [address] Phone: tel: fax: Referral ID Status Reason Start Date Expiration Date V isits Requested Visits Authorized [id number] Pending Review 12/01/2024 12/01/2025 1 1 Question Answer Course of Action: Evaluation and Treatment Specialty Services: Per Associated Diagnosis Patient Scheduling Instructions: [facility] will call you to coordinate your care as prescribed by your provider. If you don't hear from a community relations representative within 2 business days, please call . Comments Please be aware that coverage of these services is subject to the terms and limitations of your health insurance plan. Call member services at your health plan with any benefit or coverage questions. [facility] will call you to coordinate your care as prescribed by your provider. If you don't hear from a community relations representative within 2 business days, please call . Reason for Visit * Reason Comments Pain Encounter Details Date Type Department Care Team (Late st Contact Info) Description 12/01/2024 1:30 PM CDT Office Visit [facility] [place] [address] [place] [address] Uriel Heredia MD [address] [place] [address] Biceps tendonosis of right shoulder (Primary Dx) Social History Tobacco Use Types [...] re latives? 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 [address], [address] [place] [address] [address] [place] [address] Appointments: [phone] Appointments: [phone] No diagnosis found. INJECTION: Steroid injection of the right shoulder: biceps tendon sheath was performed today in clinic. - Do not soak in a hot tub, bath or swimming pool for 48 hours. - Ok to shower. - Ice today and only do your normal amounts of activity. - The lidocaine (what is giving you pain relief right now) will likely stop working in 1-2 hours. You may then have pain again, similar to before you received the injection. The corticosteroid will not start working until approximately 1-2 weeks from now. - In a small percentage of people, cortisone can cause flushing/redness in the face. This usually lasts for 1-3 days and resolves. Cool compress and Ibuprofen/Tylenol can help if this happens. - The steroid can raise your blood sugar for 3-5 days after injection. Diabetic patients are advised to monitor their blood glucose and adjust medication as needed during this time frame. Please callyour PCP with further questions regarding medication adjustments. PHYSICAL THERAPY: Physical Therapy orders have been placed with [facility]. You can call [phone] ac at your convenience. Follow up with Dr. Heredia in 8 weeks. Call my office with any questions or concerns, . documented in this encounter Progress Notes * Uriel Heredia MD - 12/01/2024 1:30 PM CDTSummary: Progress Note CC: Right Shoulder Follow-Up HPI: Is a 78-year-old female seen here today with her adult daughter in follow- up for her right shoulder. For full history and physical please see my prior note. In brief review I had previously seenher in evaluation for right shoulder pain. At that time she was having more global pain in her shoulder as well as limitations in active and passive range of motion. 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 There waspartial-thickness tear of the supraspinatus and tendinosis of the long head of the biceps tendon. Based on her imaging, history, physical exam at that time, I suspected that watching her symptoms were coming from her chondromalacia. However she had a newly diagnosed mass at the base of the scapularspine and was awaiting an appointment with the orthopedic oncology team. Since that time she has seen my colleague, Dr. Mar. He has been diagnosed with a benign bone cyst. At this time point she is back to further discuss treatment options for her shoulder. Her symptoms have really now localized over the anterior aspect of her shoulder specifically the long head of thebiceps tendon. She has pain with forward elevation when reaching behind her back. She has not recently undergone any physical therapy. She did have an intra-articular lidocaine injection with Dr. Mar which she did not feel provided any significant pain relief. Objective: PE: RUE: No pain to palpation over the posterior joint line or lateral joint line. Focal pain to palpation over the long head of the biceps in the bicipital groove. Passive range of motion is 160 degreesof forward elevation, 140 degrees abduction, 60 degrees external rotation limited by pain. Active range of motion is 120 degrees of forward elevation limited by pain. Positive Hardy's for deep anterior shoulder pain. Positive speeds. A/P: Patient is a 78-year-old female is here today with her adult daughter in follow- up for right shoulder pain. In regards to the mass at the base of her scapular spine. Dr Mar feels this is a benign lesion. It is recommended repeat MRI in 6 months. I appreciate his assistance with this patient's care. When I previously evaluated the patient, I suspected that the majority of her symptoms were from her mild chondromalacia of the posterior glenoid. Admittedly, she has rather mild osteoarthritic changes. There is well-preserved joint space on x-ray. However, today her physical exam findings is much more focally pointed at the long head of the biceps tendon. There is significant tendinosis on MRI. I discussed with them today. I discussed well a reverse total shoulder arthroplasty is a reasonable treatment option of a patient of her age for osteoarthritis, I am not certain that her symptoms are coming from her chondromalacia at this time. She certainly has mild osteoarthritis on imaging. There are certainly other, less invasive treatment modalities for long head biceps tendinosis. These can include oral anti-inflammatory medication, activity modification, physical therapy, the role of active diagnostic and therapeutic and diagnostic biceps tendon injection. If these do not provide lasting symptomatic relief, we could also consider shoulder arthroscopy long head biceps tenotomy. I discussed with him that I have hesitancies of moving forward with a reverse total shoulder arthroplastygiven her imaging findings and her exam today. I definitely answered her questions. They are interested in trying a ultrasound- guided long head biceps tendon sheath injection and physical therapy. I will refer them to one of my sports medicine colleagues for injection. I will prescribe physical therapy. I will plan to follow-up in 6 to 8 weeks. Uriel Heredia MD Manager Pathology [facility] Department of Orthopedic Surgery Disclaimer: This note consists of symbols derived from keyboarding, dictation and/or voice recognition software. As a result, there may be errors in the script that have gone undetected. Please consider this when interpreting information found in this chart. documented in this encounter Plan of Treatment Upcoming Encounters Date Type Department Care Team (Late st Contact Info) Description 12/17/2024 3:00 PM CDT Infusion Therapy Visit [facility] [address] [place] [phone] Amina Chappell MD ENDOCRINOLOGY [facility] [address] [place] [phone] 01/06/2025 8:45 AM CDT Radiology Injection Office Visit [facility] [place] [address] [place] [address] [address] [place] [address] [place] [address] [place] [address] 01/13/2025 4:20 PM CDT Office Visit [facility] [address] [place] [address] [place] [address] [place] [address] 01/14/2025 2:30 PM CDT Infusion Therapy Visit [facility] [address] [place] [address] Amina Chappell MD [facility]OCRINOLOGY [facility] [address] [facility] [address] [facility] [address] [place] [address] 05/11/2025 11:30 AM ASSISTANT ATTORNEY GENERAL Appointment [facility] [address] [place] [phone] Bharath Mar MD [address] [place] [address] 05/14/2025 4:40 PM ASSISTANT ATTORNEY GENERAL Virtual Visit [facility] [place] [address] 4th [place] [phone] Bharath Mar MD [address] [place] [address] Scheduled Referrals Name Type Priority Associated Diagnoses Orde r Schedule Physical Therapy Community [facility] Advocate Referral Referral Routine: Next available opening Biceps tendonosis of right shoulder Expected: 12/01/2024 (Approximate), Expires: 12/01/2025 documented as of this encounter Visit Diagnoses Diagnosis Biceps tendonosis of right shoulder- Primary documented in this encounter Care Teams Airline Transport Pilot Relationship Specialty [place] [address] [place] [address] PCP - General Family Medicine 06/04/23 Bailey Davis PA-C [address] [place] [address] Physician Tumbler Machine Operator Dermatology 12/15/21 [place] [address] [place] [address] Assigned PCP 05/06/22 [place] [address] [place] [address] Assigned Neuroscience Provider 06/03/22 Delilah Morales DO [address] [place], [place] [address] Physical Medicine and Rehabilitation 08/15/22 Bailey Davis, RAEGAN-C [address] [place], [place] [address] Assigned Dermatology Provider 07/20/24 Bharath Mar MD [facility] [address] [id number] Assigned Musculoskeletal Provider 10/20/24 documented as of this encounter
--- OUTSIDE RECORDS SUMMARY | 2024-12-01 13:40 | XMS_ITS | Encounter Summary ---
Author Organization [place] Address [address] [place] [address] Care Team Providers Care Unit Trust Manager Name Role Phone Bailey Davis PA-C Unavailable [phone] Ioana Brown MD Unavailable [phone] Juvencio Moreno MD Unavailable [phone] Delilah Morales DO Unavailable Ioana Brown MD Primary Care Provider [phone] Bailey Davis PA-C Unavailable [phone] Bharath Mar MD Unavailable [phone] Reason for Visit * Reason Comments Procedure Encounter Details Date Type Department Care Team (Late st Contact Info) Description 12/01/2024 1:40 PM CDT Office Visit [facility] [address] [place], [place] [address] [place] [address], [facility] [address] [place] [address] Biceps tendonosis of right shoulder (Primary Dx) [...] Answer Date Recorded PHQ-2 Score 0 06/05/2024 [facility] of Occupat ional Health - Occupational [...] in an abandoned building, in an overnight penitentiary, or couch-surfing.) Yes 02/25/2024 Are you worried [...] PM CDT 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 Diagnoses and all orders for this visit: Biceps tendonosis of right shoulder - Right Biceps Tendon Sheath Cortisone Injection Jennifer Pendleton is a/an 78 year old female who is seen for Corticosteroid injection of right biceps tendon sheath at the request of Dr. Josiah Heredia. Last injection: n/a - CSI to the right biceps tendon sheath performed today under ultrasound guidance, see procedure note below for detail -Post-injection instructions were provided to the patient Follow-up with Dr. Heredia as directed Post-Injection Discharge Instructions You may shower, however avoid swimming, tub baths or hot tubs for 24 hours following your procedure You may have a mild to moderate increase in pain for a few days following the injection. The lidocaine (local numbing medicine) will wear off in several hours. It usually takes 3-5 days for the steroid medication to start working although it may take up to 14 days for full effect. You may use ice packs for 10-15 minutes, 3 to 4 times a day at the injection site for comfort if needed You may use extra strength Tylenol for pain control if necessary If you were fasting, you may resume your normal diet and medications after the procedure If you have diabetes, your blood sugar may be higher than normal for 10-14 days following a steroidinjection. Contact your doctor who manages your diabetes if your blood sugar is significantly higher than usual If you experience any of the following, call Sports Medicine @ [phone] -Fever over 100 degrees F -Swelling, bleeding, redness, drainage, warmth at the injection site -New or significant worsening pain Dr. HEATHER Mcclellan DO CA[facility] Sports [facility] ----- Right Biceps Tendon Sheath Cortisone Injection Date/Time: 12/01/2024 2:11 PM Performed by: Gareth Mcclellan DO Authorized by: Gareth Mcclellan DO Indications: Pain Needle Size: 25 G Guidance: ultrasound Approach: Anterolateral Location: Shoulder Location comment: Right biceps tendon sheath Medications: 6 mg betamethasone acet & sod phos 6 (3-3) MG/ML; 1 mL ROPivacaine 5 MG/ML Outcome: Tolerated well, no immediate complications Procedure discussed: discussed risks, benefits, and alternatives Consent Given by: Patient Timeout: timeout called immediately prior to procedure Prep: patient was prepped and draped in usual sterile fashion Ultrasound was used to ensure safe and accurate needle placement and injection. Ultrasound images of the procedure were permanently stored. documented in this encounter Plan of Treatment Upcoming Encounters Date Type Department Care Team (Late st Contact Info) Description 12/17/2024 3:00 PM CDT Infusion Therapy Visit [facility] [address] [place] [address] [address] [place] [phone] Amina Chappell MD ENDOCRINOLOGY [facility] [address] [place] [phone] 01/06/2025 8:45 AM CDT Radiology Injection Office Visit [facility] Pain Management [address] [place] [address] [place] [address] [address] [place] [address] 01/13/2025 4:20 PM CDT Office Visit [facility] [address] [place] [address] , [address] [place] [phone] [place] [address] [place] [address] 01/14/2025 2:30 PM CDT Infusion Therapy Visit [facility] [address] [place] [address] [facility] [address] [place] [phone] Amina Chpapell MD [facility]CRINOLOGY [facility] [address] [facility] [address] [place] [phone] 05/11/2025 11:30 AM FILM VAULT SUPERVISOR Appointment [facility] Imaging [address] [facility] [address] [place] [phone] Bharath Mar MD [address] [address] 05/14/2025 4:40 PM FILM VAULT SUPERVISOR Virtual Visit [facility] [address] [facility] 4th [place] [phone] Bharath Mar MD [address] [place], [place] [address] documented as of this encounter Procedures Procedure Name Priority Date/Time Associated Diagnosis Comments NM ARTHROCENTESIS ASPIR&/INJ INTERM JT/BURS W/US Routine 12/01/2024 2:11 PM CDT Biceps tendonosis of right shoulder documented in this encounter Results * NM ARTHROCENTESIS ASPIR&/INJ INTERM JT/BURS W/US (12/01/2024 2:11 PM CDT) Gareth Sousa DO - 12/01/2024 2:11 PM CDT Gareth Mcclellan DO 12/01/2024 2:36 PM Right Biceps Tendon Sheath Cortisone Injection Date/Time: 12/01/2024 2:11 PM Performed by: Gareth Mcclellan DO Authorized by: Gareth Mcclellan DO Indications: Pain Needle Size: 25 G Guidance: ultrasound Approach: Anterolateral Location: Shoulder Location comment: Right biceps tendon sheath Medications: 6 mg betamethasone acet & sod phos 6 (3-3) MG/ML; 1 mL ROPivacaine 5 MG/ML Outcome: Tolerated well, no immediate complications Procedure discussed: discussed risks, benefits, and alternatives Consent Given by: Patient Timeout: timeout called immediately prior to procedure Prep: patient was prepped and draped in usual sterile fashion Ultrasound was used to ensure safe and accurate needle placement and injection. Ultrasound images of the procedure were permanently stored. us Gareth Mcclellan DO PROCEDURE/MINOR SURGICAL ORDER DOMO Final Result documented in this encounter Visit Diagnoses Diagnosis Biceps tendonosis of right shoulder- Primary documented in this encounter Administered Medications Inactive Administered Medications - up to 3 most recent administrations Medication Order MAR Action Action Date Dose Rate Site 1 mL ropivacaine (NAROPIN) injection 5 mg/mL 1 mL, ONCE PRN WITHIN 24 HRS, Starting on Sun12/01/24 at 1411, For 1 doseIndications:Biceps tendonosis of right shoulder $Given 12/01/2024 2:11 PM CDT 1 mL betamethasone acet & sod phos (CELESTONE) injection 6 mg 6 mg, ONCE PRN WITHIN 24 HRS, Starting on 12/01/24 at 1411, For 1 doseIndications:Biceps tendonosis of right shoulder $Given 12/01/2024 2:11 PM CDT 6 mg documented in this encounter Care Teams Unit Trust Manager Relationship Specialty [place] [address] [place] [address] PCP - General Family Medicine 06/04/23 Bailey Davis PA-C [address] [place] [address] Physician Dust Collector Attendant Dermatology 12/15/21 [place] [address] [place] [address] Assigned PCP 05/06/22 [place] [address] [place] [address] Assigned Neuroscience Provider 06/03/22 Delilah Morales DO [address] [place] [address] Physical Medicine and Rehabilitation 08/15/22 Bailey Davis PA-C [address] [place] [address] Assigned Dermatology Provider 07/20/24 Bharath Mar MD [facility] [address] [place] [address] Assigned Musculoskeletal Provider 10/20/24 documented as of this encounter
--- OUTSIDE RECORDS SUMMARY | 2024-12-09 14:00 | XMS_ITS | Encounter Summary ---
Author Organization [place] Address [facility] [place] [address] Care Team Providers Care Lumber Driver Name Role Phone Bailey Davis PA-C Unavailable [phone] Ioana Brown MD Unavailable [phone] Juvencio Moreno MD Unavailable [phone] Delilah Morales DO Unavailable Ioana Brown MD Primary Care Provider [phone] Bailey Davis PA-C Unavailable [phone] Bharath Mar MD Unavailable [phone] Reason for Visit * Reason Comments Imm/Inj Evenity HELD * Treatment and Therapy Plans (Routine) - Authorized Specialty Diagnoses / Procedures Referred By Contac t Referred To Contact Infusion Therapy Diagnoses Age-related osteoporosis without current pathological fracture Procedures ZZC [id number] (EVENITY) PER MG Amina Chappell MD ENDOCRINOLOGY [facility] [address] [facility] 180 [place] [address] Phone: tel: fax: [facility] [id number] [place] [address] [address] [place] [address] Phone: tel: fax: Referral ID Status Reason Start Date Expiration Date V isits Requested Visits Authorized [id number] Authorized 01/31/2024 04/29/2025 99 99 Encounter Details Date Type Department Care Team (Latest Contact Info) Description 12/09/2024 2:00 PM CDT Infusion Therapy Visit [facility] [address] [place] [address] Amina Chappell MD ENDOCRINOLOGY [facility] [address] [place] [address] Age-related osteoporosis without current pathological fracture Social History Tobacco Use Types Packs/Day Years [...] re latives? 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 Gender Identity Female 12/12/2022 7:35 PM CDT Sexual Orientation Not on file documented as of this encounter Last Filed Vital Signs Vital Sign Reading Time Taken Comments Blood Pressure 118/78 12/09/2024 2:00 PM CDT Pulse 70 12/09/2024 2:00 PM CDT Temperature 36.7 C (98.1 F) 12/09/2024 2:00 PM CDT Respiratory Rate 16 12/09/2024 2:00 PM CDT Oxygen Saturation 97% 12/09/2024 2:00 PM CDT Inhaled Oxygen Concentration - - Weight - - Height - - Body Mass Index - - documented in this encounter Progress Notes * Luh Clifton RN - 12/09/2024 2:00 PM CDT Infusion Nursing Note: Jennifer Pendleton presents today for Evenity HELD today due to upcoming dental work. Patient seen by provider today: No Feed Mixer present during visit today: Not Applicable. Note: Jennifer reports she has a crown that flipped on posterior bottom right side. She has some dental/jaw pain in this area. She has an appointment tomorrow morning to have this evaluated and expects to have some work done but is not sure what exactly will be done. Contacted Dr. Chappell's office at 2:05 PM to notify her of niall's dental/jaw pain and upcoming dental work. Spoke to Blanca in sales receptionist, who relayed Dr. Chappell response that it's OK to giveEvenity, as long as no extractions. Due to patient being unsure what dental procedure she will be having tomorrow, Evenity injection deferred to 12/11 at 3 pm. Advised Jenniefr to contact Dr. Chappell's clinic for further directionif she ends up having a dental extraction. She verbalized understanding and is in agreement with this plan. Intravenous Access: No Intravenous access/labs at this visit. Discharge Plan: Discharge instructions reviewed with: Patient. Patient and/or family verbalized understanding of discharge instructions and all questions answered. Copy of AVS reviewed with patient and/or family. Patient will return 12/11 for next appointment. Patient discharged in stable condition accompanied by: self. Departure Mode: Ambulatory. Robert Clifton RN documented in this encounter Plan of Treatment Upcoming Encounters Date Type Department Care Team (Late st Contact Info) Description 12/17/2024 3:00 PM CDT Infusion Therapy Visit [facility] [id number] [place] [address] [address] [place] [phone] Amina Chappell MD ENDOCRINOLOGY [facility] [address] [place] [id number] 01/06/2025 8:45 AM CDT Radiology Injection Office Visit [facility] [place] [address] [place] [address] Drive [address] [place] [address] Juven[place]io [place]no [place] [id number] [address] [place] [id number] 01/13/2025 4:20 PM CDT Office Visit [facility] [address] [place] [address] Dr, [address] [place] [address] [place]ven[place]no [place] [id number] [place] [address] [place] [id number] 01/14/2025 2:30 PM CDT Infusion Therapy Visit [address] [place] [address] Amina Chappell MD ENDOCRINOLOGY [facility] [address] [place] [phone] 05/11/2025 11:30 AM GUNNER'S MATE Appointment [facility] Imaging [address] [place] [address] Bharath Mar MD [facility] S [facility] [address] [place] [address] 05/14/2025 4:40 PM GUNNER'S MATE Virtual Visit [facility] [place] [address] [facility] 4th [place] [address] Bharath Mar MD [facility] [place] [address] documented as of this encounter Visit Diagnoses Diagnosis Age-related osteoporosis without current pathological fracture Senile osteoporosis documented in this encounter Care Teams Lumber Driver Relationship Specialty [place] [address] [place] [address] PCP - General Family Medicine 06/04/23 Bailey Davis, PA-C [address] [place] [address] Physician Technology And Engineering Teacher Dermatology 12/15/21 [place] [address] [place] [address] Assigned PCP 05/06/22 [place] [address] [place] [address] Assigned Neuroscience Provider 06/03/22 Delilah Morales DO 909 [place] [address] Physical Medicine and Rehabilitation 08/15/22 Bailey Davis PA-C [address] [place] [address] Assigned Dermatology Provider 07/20/24 Bharath Mar MD [address] [place] [address] Assigned Musculoskeletal Provider 10/20/24 documented as of this encounter
--- OUTSIDE RECORDS SUMMARY | 2024-12-13 18:44 | XMS_ITS | Encounter Summary ---
Author Organization [place] Address [address] [place] [address] Care Team Providers Care It Technical Support Specialist Name Role Phone Bailey Davis PA-C Unavailable [phone] Ioana Brown MD Unavailable [phone] Juvencio Moreno MD Unavailable [phone] Delilah Morales DO Unavailable Ioana Brown MD Primary Care Provider [phone] Bailey Davis PA-C Unavailable [phone] Bharath Mar MD Unavailable [phone] Encounter Details Date Type Department Care Team (Latest Contact Info) Description 11/05/2024 Travel Social History Tobacco Use Types Packs/Day Years [...] re latives? 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 Gender Identity Female 12/12/2022 7:35 PM CDT Sexual Orientation Not on file documented as of this encounter Plan of Treatment Upcoming Encounters Date Type Department Care Team (Late st Contact Info) Description 12/17/2024 3:00 PM CDT Infusion Therapy Visit [address] [place] [phone] Amina Chappell MD ENDOCRINOLOGY [facility] [address] [place] [address] 01/06/2025 8:45 AM CDT Radiology Injection Office Visit [facility] [address] [place], [place] [phone] Juvencio Moreno MD [address] [place] [address] [place] [id number] 01/13/2025 4:20 PM CDT Office Visit [address] , [address] [place] [address] [place] [id number] [place] [address] [address] [place] [id number] 01/14/2025 2:30 PM CDT Infusion Therapy Visit [address] [place] [address] Amina Chappell MD ENDOCRINOLOGY [address] [place] [phone] 05/11/2025 11:30 AM CUTTER BARREL DRUM Appointment [facility] Imaging [address] [place] [address] [place] [address] Bharath Mar MD [address] [place] [address] 05/14/2025 4:40 PM CUTTER BARREL DRUM Virtual Visit [facility] [place] 9[address] [facility] SE 4th [place] [address] Bharath Mar MD [address] 00 [place] [address] documented as of this encounter Visit Diagnoses Not on filedocumented in this encounter Care Teams It Technical Support Specialist Relationship Specialty [place] [address] [place] [address] PCP - General Family Medicine 06/04/23 Bailey Davis PAMoonC 5[address] [place] [address] Physician Rn Field Dermatology 12/15/21 [place] [address] [place] [address] Assigned PCP 05/06/22 [place] [address] [address] [place] [address] Assigned Neuroscience Provider 06/03/22 Delilah Morales DO 909 [place] [address] Physical Medicine and Rehabilitation 08/15/22 Bailey Davis, PAMoonC [address] [place] [address] Assigned Dermatology Provider 07/20/24 Bharath Mar MD [address] [place] [address] Assigned Musculoskeletal Provider 10/20/24 documented as of this encounter
--- OUTSIDE RECORDS SUMMARY | 2024-12-13 18:44 | XMS_ITS | Encounter Summary ---
Author Organization [place] Address [address] [place] [address] Care Team Providers Care Principal System Software Engineer Name Role Phone Bailey Davis PA-C Unavailable [phone] Ioana Brown MD Unavailable [phone] Juvencio Moreno MD Unavailable [phone] Delilah Morales DO Unavailable Ioana Brown MD Primary Care Provider [phone] Bailey Davis PA-C Unavailable [phone] Bharath Mar MD Unavailable [phone] Reason for Visit * Reason Onset Date Comments RED FLAG TUMOR VISIT NEEDED 10/03/2024 Encounter Details Date Type Department Care Team (Late st Contact Info) Description 10/03/2024 Telephone [facility] [address] 4th [place] [address] Unknown, Provider RED FLAG TUMOR VISIT NEEDED Social History Tobacco Use Types Packs/Day Years [...] re latives? 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 No Is this related to recent surgery?No Laceration? No Body part affected: Right shoulder Has Patient been evaluated for condition? Yes Location the patient was evaluated and treated for the condition? [facility] Who is referring provider, (name and clinic location) Juvencio Moreno MD [facility] What images have been done? MRI; Location and City where images were taken: [facility] Could we send this information to you in Employee Benefit Planshart or would you prefer to receive a phone call?: Patient would prefer a phone call Okay to leave a detailed message?: Yes at Other phone number: [phone] Natasha documented in this encounter Plan of Treatment Upcoming Encounters Date Type Department Care Team (Late st Contact Info) Description 12/17/2024 3:00 PM CDT Infusion Therapy Visit [facility] [address] [place] [address] Amina Chappell MD ENDOCRINOLOGY [facility] [address] [place] [address] 01/06/2025 8:45 AM CDT Radiology Injection Office Visit [facility] [place] [address] [place] [address] [place]ven[place] [id number] [place] [address] [place] [address] 01/13/2025 4:20 PM CDT Office Visit [facility] [address] [place] [address] , [address] [place] [address] [place] [address] [place] [address] [place] [address] 01/14/2025 2:30 PM CDT Infusion Therapy Visit [facility] [address] [place] [address] [address] [place] [address] Amina Chappell MD ENDOCRINOLOGY [facility] [address] [facility] 180 [place] [phone] 05/11/2025 11:30 AM SOFTBALL PLAYER Appointment [facility] Imaging [address] [place] [address] Bharath Mar MD [address] [place] [address] 05/14/2025 4:40 PM SOFTBALL PLAYER Virtual Visit [facility] [place] [address] [facility] 4th [place] [phone] Bharath Mar MD [address] 00 [place], [place] [address] documented as of this encounter Visit Diagnoses Not on filedocumented in this encounter Care Teams Principal System Software Engineer Relationship Specialty [place] [address] [place] [address] PCP - General Family Medicine 06/04/23 Bailey Davis PA-C 5200 [place] [address] Physician Estate Planning Paralegal Dermatology 12/15/21 [place] [address] [place] [address] Assigned PCP 05/06/22 [place] [address] [place] [address] Assigned Neuroscience Provider 06/03/22 Delilah Morales DO 9 [place] [address] Physical Medicine and Rehabilitation 08/15/22 Bailey Davis PA-C [address] [place] [address] Assigned Dermatology Provider 07/20/24 Bharath Mar MD [address] [place] [address] Assigned Musculoskeletal Provider 10/20/24 documented as of this encounter
--- OUTSIDE RECORDS SUMMARY | 2024-12-13 18:44 | XMS_ITS | Encounter Summary ---
Author Organization [place] Address [address] [place] [address] Care Team Providers Care Registration Representative Name Role Phone Bailey Davis PA-C Unavailable [phone] Ioana Brown MD Unavailable [phone] Juvencio Moreon MD Unavailable [phone] Delilah Morales DO Unavailable Ioana Brown MD Primary Care Provider [phone] Bailey Davis PA-C Unavailable [phone] Bharath Mar MD Unavailable [phone] Encounter Details Date Type Department Care Team (Latest Contact Info) Description 11/17/2024 Travel Social History Tobacco Use Types Packs/Day [...] re latives? Once a week 02/25/2024 Attends [employer] Services Not on file 02/24 Active Member [...] Answer Date Recorded PHQ-2 Score 0 06/05/2024 [facility] - Occupational Stress Questionnaire Answer [...] PM CDT Legal Sex Female 3:40 AM RN FORENSIC Gender Identity Female 12/12/2022 7:35 PM CDT Sexual Orientation Not on file documented as of this encounter Plan of Treatment Upcoming Encounters Date Type Department Care Team (Late st Contact Info) Description 12/17/2024 3:00 PM CDT Infusion Therapy Visit [address] [place] [address] Amina Chappell MD ENDOCRINOLOGY [facility] [address] [place] [address] 01/06/2025 8:45 AM CDT Radiology Injection Office Visit [facility] [address] [place], [place] [phone] Juvencio Moreno MD [address] [place] [address] [place]EN [address] 01/13/2025 4:20 PM CDT Office Visit [address] , [address] [place] [address] [place] [id number] [place] [address] [address] [place] 366927 01/14/2025 2:30 PM CDT Infusion Therapy Visit [address] [place] [address] Amina Chappell MD ENDOCRINOLOGY [address] [place] [address] 05/11/2025 11:30 AM RN FORENSIC Appointment [facility] Imaging [address] [place] [address] Bharath Mar MD [address] [place] [address] 05/14/2025 4:40 PM RN FORENSIC Virtual Visit [facility] [place] 909 [facility] SE 4th [place] [address] Bharath Mar MD [address] 00 [place] [address] documented as of this encounter Visit Diagnoses Not on filedocumented in this encounter Care Teams Registration Representative Relationship Specialty [place] [address] [place] [address] PCP - General Family Medicine 06/04/23 Bailey Davis PAMoonC 5200 [place] [address] Physician Planning Lead Dermatology 12/15/21 [place] [address] [place] [address] Assigned PCP 05/06/22 [place] [address] [place] [address] [address] Assigned Neuroscience Provider 06/03/22 Delilah Morales DO 909 [place] [address] Physical Medicine and Rehabilitation 08/15/22 Bailey Davis, PAMoonC [address] [place] [address] Assigned Dermatology Provider 07/20/24 Bharath Mar MD [address] [place] [address] Assigned Musculoskeletal Provider 10/20/24 documented as of this encounter
--- OUTSIDE RECORDS SUMMARY | 2024-12-13 18:44 | XMS_ITS | Encounter Summary ---
Author Organization [place] Address [address] [place] [address] Care Team Providers Care B2B Sales Manager Name Role Phone Bailey Davis PA-C Unavailable [phone] Ioana Brown MD Unavailable [phone] Juvencio Moreno MD Unavailable Delilah Morales DO Unavailable Ioana Brown MD Primary Care Provider [phone] Bailey Davis PA-C Unavailable [phone] Bailey Davis PA-C Unavailable [phone] Bharath Mar MD Unavailable [phone] Encounter Details Date Type Department Care Team (Late st Contact Info) Description 12/14/2023 MyC Medical Advice [facility] [address] [place] [address] [place] [address] [place] [address] Social History Tobacco Use Types Packs/Day Years Used Date Smoking Tobacco: Former Cigarettes Smokeless Tobacco: Never Alcohol Use Standard Drinks/Week Comments Yes 0 (1 standard drink = 0.6 oz pur e alcohol) wine Social Connection and Isolat ion Panel [NHANES] Answer Date Recorded In a typical week, how many times do you talk on the phone with family, friends, or neighbors? More than three times a week 12/25/2022 How often do you get togethe r with friends or relatives? Once a week 12/25/2022 How often do you attend [facility] or gnosticism services? Patient declined 12/25/2022 Do you belong to any clubs o r organizations such as samaritan groups, unions, fraternal or athletic groups, or school groups? Patient declined 12/25/2022 Attends Club or Organization Meetings Not on tam e 12/25/2022 Are you , , di vorced, , never , or living with a partner? 12/25/2022 AUDIT-C Answer Date Recorded Q1: How often do you have a drink containing alcohol? 4 or more times a week 12/25/2022 Q2: How many drinks containi ng alcohol do you have on a typical day when you are drinking? 1 or 2 3 Q3: How often do you have si x or more drinks on one occasion? Never 12/25/2022 Overall Financial Resource Strain (CARDIA) Answe r Date Recorded How hard is it for you to pa y for the very basics like food, housing, medical care, and heating? Not hard at all 12/25/2022 PHQ-2 Answer Date Recorded PHQ-2 Score 0 10/03/2023 [facility] - Occupational Stress Questionnaire Answer Date Recorded Do you feel stress - tense, restless, nervous, or anxious, or unable to sleep at night because your mind is troubled all the time - these days? Only a little 12/25/2022 Exercise Vital Sign Answer Date Recorde d On average, how many days pe r week do you engage in moderate to strenuous exercise (like a brisk walk)? 2 days 12/25/2022 On average, how many minutes do you engage in exercise at this level? 20 min 12/25/2022 Hunger Vital Sign Answer Date Recorded Within the past 12 months, y ou worried that your food would run out before you got the money to buy more. Never true 12/26/19 23 Within the past 12 months, t he food you bought just didn't last and you didn't have money to get more. Never true 12/25/2022 PRAPARE - Transportation Answer Date Re corded In the past 12 months, has l ack of transportation kept you from medical appointments or from getting medications? Yes 11/29 In the past 12 months, has l ack of transportation kept you from meetings, work, or from getting things needed for daily living? No 12/25/2022 Housing Stability Vital Sign Answer Alexey e Recorded In the last 12 months, was t here a time when you were not able to pay the mortgage or rent on time? No 12/25/2022 In the last 12 months, how many places have you lived? 1 12/25/2022 In the last 12 months, was t here a time when you did not have a steady place to sleep or slept in a assisted (including now)? 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 [address] [place] [phone] Amina Chappell MD ENDOCRINOLOGY [facility] [address] [place] [phone] 01/06/2025 8:45 AM CDT Radiology Injection Office Visit [facility] [place] [address] [place] [address] [address] [place] [address] [place] [address] [place] [place] [address] 01/13/2025 4:20 PM CDT Office Visit [facility] [address] [place] [address] , [address] [place] [phone] [place] [address] [place] [address] 01/14/2025 2:30 PM CDT Infusion Therapy Visit [facility] [address] [place] [address] [address] [place] [address] Amina Chappell MD [facility]CRINOLOGY [facility] [address] [facility] [address] [place] [phone] 05/11/2025 11:30 AM ARMORED MACHINE OPERATOR Appointment [facility] Imaging [address] [facility] [address] [place] [phone] Bharath Mar MD [address] [place] [address] 05/14/2025 4:40 PM ARMORED MACHINE OPERATOR Virtual Visit [facility] [place] [address] [facility] 4th [place] [phone] Bharath Mar MD [address] [place], [place] [address] documented as of this encounter Visit Diagnoses Not on filedocumented in this encounter Care Teams B2B Sales Manager Relationship Specialty [place] [address] [place] [address] PCP - General Family Medicine 06/04/23 Bailey Davis PA-C [address] [place] [address] Physician Director [facility] Dermatology 12/15/21 [place] [address] [place] [address] Assigned PCP 05/06/22 [place] [address] [place] [address] Assigned Neuroscience Provider 06/03/22 Delilah Morales DO [address] [place], [place] [address]289[address] Physical Medicine and Rehabilitation 08/15/22 Bailey Davis PA-C [address] [place] [address] Assigned Surgical Provider 06/22/23 07/19/24 Bailey Davis PA-C [address] [place] [address] Assigned Dermatology Provider 07/20/24 Bharath Mar MD [facility] [address] [address] Assigned Musculoskeletal Provider 10/20/24 documented as of this encounter
--- OUTSIDE RECORDS SUMMARY | 2024-12-13 18:44 | XMS_ITS | Encounter Summary ---
Author Organization [place] Address [address] [place] [address] Care Team Providers Care Asw Specialist Name Role Phone Bailey Davis PA-C Unavailable [phone] Ioana Brown MD Unavailable [phone] Juvencio Moreno MD Unavailable [phone] Delilah Morales DO Unavailable Ioana Brown MD Primary Care Provider [phone] Bailey Davis PA-C Unavailable [phone] Bharath Mar MD Unavailable [phone] Reason for Referral * Therapeutic Services (Routine) - Pending Review Specialty Diagnoses / Procedures Referred By Danni melchor Referred To Contact Pain & Palliative Care Diagnoses Lumbosacral radiculopathy Procedures PAIN Transforaminal GALLO Inj Lumbosacral [place] [address] [place] [address] Phone: tel: fax: Referral ID Status Reason Start Date Expiration Date V isits Requested Visits Authorized [id number] Pending Review 12/04/2024 12/04/2025 1 1 Reason for Visit * Reason Onset Date Comments Procedure 11/27/2024 L4-5 L5-S1 right Transforaminal GALLO Encounter Details Date Type Department Care Team (Late st Contact Info) Description 11/27/2024 Telephone [facility] [address] [place] [address] [place] [address] [place] [address] Procedure (L4-5 L5-S1 right Transforaminal GALLO/) Social History Tobacco Use Types Packs/Day Years [...] re latives? 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 [facility] If choosing [facility] location, please inform patient: [facility] is a Hospital based clinic. Before your visit, you should check with your insurance about how it covers the charges for facility services in a hospital-based clinic.?? Procedure ordered by Tiffanie Procedure ordered? L4-5 L5-S1 right Transforaminal GALLO Transforaminal Cervical GALLO - Send to [facility] ([facility]) - No Community Site providers perform this procedure What insurance would patient like us to bill for this procedure? Medicare/Medica IF SCHEDULING IN [place] PAIN OR SPINE PLEASE SCHEDULE AT LEAST 7-10 BUSINESS DAYS OUT SO A PA CAN BE OBTAINED Worker's comp or MVA (motor vehicle accident) -Any injection DO NOT SCHEDULE and route to Bianca Mendoza. [employer] insurance - For ALL INJECTIONS DO NOT SCHEDULE and route to Apurva Tan. ALL BCBS, Humana and HP CIGNA - DO NOT SCHEDULE and route to Apurva Tan MEDICA- ALL INJECTIONS- route to Apurva Tan Is patient scheduled at [facility]? no If YES, route every encounter to [facility] CARE NAVIGATION POOL [[phone]] Is an television antenna installer needed? 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 (Review Grid) YES: ok Any chance of ? NO If YES, do NOT schedule and route to general car supervisor yard - Dr. Quiroga route to PM&R Nurse [[id number]] Is patient actively being treated for cancer or immunocompromised? No If YES, do NOT schedule and route to general car supervisor yard/ Dr. Quiroga's Team Does the patient have a bleeding or clotting disorder? No If YES, okay to schedule AND route to RN nurse / Dr. Quiroga's Team (For any patients with platelet count <100, RN must forward to provider) Is patient taking any Blood Thinners OR Antiplatelet medication? No If hold needed, do NOT schedule, route to general car supervisor yard/ Dr. Quiroga's Team Examples: Blood Thinners: (Coumadin, Warfarin, Jantoven, Pradaxa, Xarelto, Eliquis, Edoxaban, Enoxaparin, Lovenox, Heparin, Arixtra, Fondaparinux or Fragmin) Antiplatelet Medications: (Plavix, Brilinta or Effient) Is patient taking any aspirin products (includes: Aspirin 81 mg, Excedrin, and Fiorinal)? No. If yes route to [facility] kimball/ Dr. Quiroga's Team - Do not schedule Is patient taking any GLP-1 Antagonist (hold needed for sedation patients only) No (semaglutide (Ozempic, Wegovy), dulaglutide (Trulicity), exenatide ER (Bydureon), tirzepatide (Mounjaro), Liraglutide (Saxenda, Victoza), semaglutide (Rybelsus), Terzepatide (Zepbound) If YES, okay to schedule AND route to RN nurse / Dr. Quiroga's Team Any allergies to contrast dye, iodine, shellfish, or numbing and steroid medications? No If YES, schedule and add allergy information to appointment notes AND route to the general car supervisor yard/ Dr. Quiroga's Team If GALLO and Contrast Dye / Iodine Allergy? DO NOT SCHEDULE, route to general car supervisor yard/ Dr. Quiroga's Team Allergies: Atorvastatin, Tramadol, Amoxicillin, and Codeine Does patient have an active infection or treated for one within the past week? No Is patient currently taking any antibiotics or steroid medications? No For patients on chronic, preventative, or prophylactic antibiotics, procedures may be scheduled. For patients on antibiotics for active or recent infection, schedule 4 days after completed. For patients on steroid medications, schedule 4 days after completed. Has the patient had a flu shot or any other vaccinations within the past 7 days? No If yes, explain that for the vaccine to work best they need to: wait 1 week before and 1 week after getting any Vaccine wait 1 week before and 2 weeks after getting any Covid Vaccine If patient has concerns about the timing, send to [facility] kimball/ Dr. Quiroga's Team Does patient have an MRI/CT? YES: MRI Include Date and Check Procedure Scheduling Grid to see if required. Was the MRI/CT done within the last 3 years? Yes If no route to [facility]/ Dr. Quiorga's Team If yes, where was the MRI/CT done? [facility] Refer to PACS Transmissions list for approved external locations and route to [facility] High Priority/ Dr. Quiroga's Team If MRI was not done at approved external location do NOT schedule and route to [facility]/ Dr. Quiroga's Team If patient has an imaging disc, the injection MAY be scheduled but patient must bring disc to appt or appt will be cancelled. Is patient able to transfer to a procedure table with minimal or no assistance? Yes If no, do NOT schedule and route to [facility]/ Dr. Quiroga's Team Procedure Specific Instructions: If celiac plexus block, informed patient NPO for 6 hours and that it is okay to take medications with sips of water, especially blood pressure medications Not Applicable If this is for a cervical procedure, informed patient that aspirin needs to be held for 6 days. NotApplicable Sedation, If Sedation is ordered for any procedure, patient must be NPO for 6 hours prior to procedure Not Applicable If IV needed: Do not schedule procedures requiring IV placement in the first appointment of the day or first appointment after lunch. Do NOT schedule at 0745, 0815 or 1245. Instructed patient to arrive 30 minutes early for IV start if required. (Check Procedure SchedulingGrid) Not Applicable Reminders: If you are started on any steroids or antibiotics between now and your appointment, you must contact us because the procedure may need to be cancelled. Yes As a reminder, receiving steroids can decrease your body's ability to fight infection. Would you still like to move forward with scheduling the injection? Yes IV Sedation is not provided for procedures. If oral anti-anxiety medication is needed, the patient should request this from their referring provider. Instruct patient to arrive as directed prior to the scheduled appointment time: If IV needed 30 minutes before appointment time For patients 85 or older we recommend having an adult stay w/ them for the remainder of the day. If the patient is Diabetic, remind them to bring their glucometer. Dr. Miller Pt's - Imaging Orders Needed Please send all injections to [facility] NO Red Flags? NO Does the patient have any questions? NO Bianca Mendoza [facility] * Addendum Note - Antolin Cook RN - 11/27/2024 12:55 PM CDTAddended by: ANTOLIN COOK on: 12/04/2024 03:44 PM Modules accepted: Orders documented in this encounter Plan of Treatment Upcoming Encounters Date Type Department Care Team (Late st Contact Info) Description 12/17/2024 3:00 PM CDT Infusion Therapy Visit [address] [place] [phone] Amina Chappell MD ENDOCRINOLOGY [facility] [address] [place] [phone] 01/06/2025 8:45 AM CDT Radiology Injection Office Visit [facility] [address] [place] [address] Juvencio Moreno MD [address] [place] [address] [address] [place] [address] 01/13/2025 4:20 PM CDT Office Visit [address] , [address] [place] [address] Juvencio Moreno MD [address] [place] [address] [place] [address] 01/14/2025 2:30 PM CDT Infusion Therapy Visit [address] [place] [address] Amina Chappell MD ENDOCRINOLOGY [facility] [address] [place] [phone] 05/11/2025 11:30 AM SURVEYOR HELPER Appointment [facility] Imaging [address] [place] [place] [address] Bharath Mar MD [address] [place] [address] 05/14/2025 4:40 PM SURVEYOR HELPER Virtual Visit [facility] [address] 4th [place] [address] Bharath Mar MD [address] [place], [place] [address] Scheduled Orders Name Type Priority Associated Diagnoses Orde r Schedule PAIN Transforaminal GALLO Inj Lumbosacral Two Levels Right Imaging Routine Lumbosacral radiculopathy 1 Occurrences starting 12/04/2024 until 12/04/2025 documented as of this encounter Visit Diagnoses Diagnosis Lumbosacral radiculopathy- Primary Thoracic or lumbosacral neuritis or radiculitis, unspecified documented in this encounter Care Teams Asw Specialist Relationship Specialty [place] [address] [place] [address] PCP - General Family Medicine 06/04/23 Bailey Davis PAMoonC [address] [place] [address] Physician Department Editor Dermatology 12/15/21 [place] [address] [place] [address] Assigned PCP 05/06/22 [place] [address] [place] [address] Assigned Neuroscience Provider 06/03/22 Delilah Morales DO [address] [place], [place] [address] Physical Medicine and Rehabilitation 08/15/22 Bailey Davis PAMoonC [address] [place] [address] [address] [place] [address] Assigned Dermatology Provider 07/20/24 Bharath Mar MD [address] [place] [address] Assigned Musculoskeletal Provider 10/20/24 documented as of this encounter
--- OUTSIDE RECORDS SUMMARY | 2024-12-13 18:44 | XMS_ITS | Encounter Summary ---
Author Organization [place] Address [address] [place] [address] Care Team Providers Care Tooler Name Role Phone Bailey Davis PA-C Unavailable [phone] Ioana Brown MD Unavailable [phone] Juvencio Moreno MD Unavailable [phone] Delilah Morales DO Unavailable Ioana Brown MD Primary Care Provider [phone] Bailey Davis PA-C Unavailable [phone] Bharath Mar MD Unavailable [phone] Encounter Details Date Type Department Care Team (Latest Contact Info) Description 11/02/2024 Travel Social History Tobacco Use Types Packs/Day [...] re latives? 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 Gender Identity Female 12/12/2022 7:35 PM CDT Sexual Orientation Not on file documented as of this encounter Plan of Treatment Upcoming Encounters Date Type Department Care Team (Late st Contact Info) Description 12/17/2024 3:00 PM CDT Infusion Therapy Visit [address] [place] [address] Amina Chappell MD ENDOCRINOLOGY [facility] [address] [place] [phone] 01/06/2025 8:45 AM CDT Radiology Injection Office Visit [facility] [address] [place], [place] [phone] Juvencio Moreno MD [address] [place] [address] [address] [place] [address] 01/13/2025 4:20 PM CDT Office Visit [address] , [address] [place] [address] [place] [address] [place] [address] [address] [place] [address] 01/14/2025 2:30 PM CDT Infusion Therapy Visit [address] [place] [address] Amina Chappell MD ENDOCRINOLOGY [address] [place] [address] 05/11/2025 11:30 AM APPRENTICE STYLIST Appointment [facility] Imaging [address] [place] [address] [place] [address] Bharath Mar MD [address] [place] [address] 05/14/2025 4:40 PM APPRENTICE STYLIST Virtual Visit [facility] [place] [address] [facility] [address] 4th [place] [address] Bharath Mar MD [address] [place] [address] documented as of this encounter Visit Diagnoses Not on filedocumented in this encounter Care Teams Tooler Relationship Specialty [place] [address] [place] [address] PCP - General Family Medicine 06/04/23 Bailey Davis PAMoonC [address] [place] [address] Physician Donor Center Technician Dermatology 12/15/21 [place] [address] [place] [address] Assigned PCP 05/06/22 [place] [address] [address] [address] Assigned Neuroscience Provider 06/03/22 Delilah Morales DO [address] [place] [address] Physical Medicine and Rehabilitation 08/15/22 Bailey Davis, PAMoonC [address] [place] [address] Assigned Dermatology Provider 07/20/24 Bharath Mar MD [address] [place] [address] Assigned Musculoskeletal Provider 10/20/24 documented as of this encounter
--- OUTSIDE RECORDS SUMMARY | 2024-12-13 18:44 | XMS_ITS | Encounter Summary ---
Author Organization [place] Address [address] [place] [address] Care Team Providers Care Java Developer With Security Clearance Name Role Phone Bailey Davis PA-C Unavailable [phone] Ioana Brown MD Unavailable [phone] Juvencio Moreno MD Unavailable [phone] Delilah Morales DO Unavailable Ioana Brown MD Primary Care Provider [phone] Bailey Davis PA-C Unavailable [phone] Bharath Mar MD Unavailable [phone] Encounter Details Date Type Department Care Team (Latest Contact Info) Description 11/09/2024 Travel Social History Tobacco Use Types Packs/Day [...] re latives? 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 Gender Identity Female 12/12/2022 7:35 PM CDT Sexual Orientation Not on file documented as of this encounter Plan of Treatment Upcoming Encounters Date Type Department Care Team (Late st Contact Info) Description 12/17/2024 3:00 PM CDT Infusion Therapy Visit [address] [place] [address] Amina Chappell MD ENDOCRINOLOGY [facility] [address] [place] [address] 01/06/2025 8:45 AM CDT Radiology Injection Office Visit [facility] [address] [place], [place] [phone] Juvencio Moreno MD [address] [place] [address] ERICA WOOTEN [address] 01/13/2025 4:20 PM CDT Office Visit [address] , [address] [place] [address] [place] [address] [place] [address] [address] [place] 920167 01/14/2025 2:30 PM CDT Infusion Therapy Visit [address] 200 [place] [address] Amina Chappell MD ENDOCRINOLOGY [address] [place]E [address] 05/11/2025 11:30 AM WILDLIFE MANAGEMENT PROFESSOR Appointment M [facility] [address] [place] [address] Bharath Mar MD [address] [place] [address] 05/14/2025 4:40 PM WILDLIFE MANAGEMENT PROFESSOR Virtual Visit [facility] [place] 909 [facility] SE 4th [place] [address] Bharath Mar MD [address] 00 [place] [address] documented as of this encounter Visit Diagnoses Not on filedocumented in this encounter Care Teams Java Developer With Security Clearance Relationship Specialty [place] [address] [place] [address] PCP - General Family Medicine 06/04/23 Bailey Davis PAMoonC [address] [place] [address] Physician Fitter'S Assistant Dermatology 12/15/21 [place] [address] [place] [address] Assigned PCP 05/06/22 [place] [address] [place] ERICA WOOTEN [address] Assigned Neuroscience Provider 06/03/22 Delilah Morales DO 909 [place] [address] Physical Medicine and Rehabilitation 08/15/22 Bailey Davis, PAMoonC [address] 315 [place] [address] Assigned Dermatology Provider 07/20/24 Bharath Mar MD [address] [place] [address] Assigned Musculoskeletal Provider 10/20/24 documented as of this encounter
--- OUTSIDE RECORDS SUMMARY | 2024-12-13 18:44 | XMS_ITS | Encounter Summary ---
Author Organization [place] Address [address] [place] [address] Care Team Providers Care Bill Checker Name Role Phone Bailey Davis PA-C Unavailable [phone] Ioana Brown MD Unavailable [phone] Juvencio Moreno MD Unavailable [phone] Delilah Morales DO Unavailable Ioana Brown MD Primary Care Provider [phone] Bailey Davis PA-C Unavailable [phone] Bharath Mar MD Unavailable [phone] Encounter Details Date Type Department Care Team (Latest Contact Info) Description 11/11/2024 Travel Social History Tobacco Use Types Packs/Day [...] Answer Date Recorded PHQ-2 Score 0 06/05/2024 [facility] - Occupational Stress Questionnaire Answer Date [...] PM CDT 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 Gender Identity Female 12/12/2022 7:35 PM CDT Sexual Orientation Not on file documented as of this encounter Plan of Treatment Upcoming Encounters Date Type Department Care Team (Late st Contact Info) Description 12/17/2024 3:00 PM CDT Infusion Therapy Visit [address] [place] [address] Amina Chappell MD ENDOCRINOLOGY [facility] [address] [place] [address] 01/06/2025 8:45 AM CDT Radiology Injection Office Visit [facility] [address] [place], [place] [phone] Juvencio Moreno MD [address] [place] [address] ERICA WOOTEN [address] 01/13/2025 4:20 PM CDT Office Visit [address] , [address] [place] [address] [place] [id number] [place] [address] [address] [place] 129187 01/14/2025 2:30 PM CDT Infusion Therapy Visit [address] 200 [place] [address] Amina Chappell MD ENDOCRINOLOGY [address] [place] [address] 05/11/2025 11:30 AM STRIKE PLATE ATTACHER Appointment M [facility] Imaging [address] [place] [address] [place] [address] Bharath Mar MD [address] [place] [address] 05/14/2025 4:40 PM STRIKE PLATE ATTACHER Virtual Visit [facility] [place] 909 [facility] SE 4th [place] [address] Bharath Mar MD [address] 00 [place] [address] documented as of this encounter Visit Diagnoses Not on filedocumented in this encounter Care Teams Bill Checker Relationship Specialty [place] [address] [place] [address] PCP - General Family Medicine 06/04/23 Bailey Davis PAMoonC 5200 [place] [address] Physician Grain Scooper Dermatology 12/15/21 [place] [address] [place] [address] Assigned PCP 05/06/22 [place] [address] [place] ERICA WOOTEN [address] Assigned Neuroscience Provider 06/03/22 Delilah Morales DO 909 [place] [address] Physical Medicine and Rehabilitation 08/15/22 Bailey Davis, PAMoonC [address] 315 [place] [address] Assigned Dermatology Provider 07/20/24 Bharath Mar MD [address] [place] [address] Assigned Musculoskeletal Provider 10/20/24 documented as of this encounter
--- OUTSIDE RECORDS SUMMARY | 2024-12-13 18:44 | XMS_ITS | Encounter Summary ---
Author Organization [place] Address [address] [place] [address] Care Team Providers Care Art Psychotherapist Or Therapist Name Role Phone Bailey Davis PA-C Unavailable [phone] Ioana Brown MD Unavailable [phone] Juvencio Moreno MD Unavailable [phone] Delilah Morales DO Unavailable Ioana Brown MD Primary Care Provider [phone] Bailey Davis PA-C Unavailable [phone] Bharath Mar MD Unavailable [phone] Encounter Details Date Type Department Care Team (Latest Contact Info) Description 11/12/2024 Travel Social History Tobacco Use Types Packs/Day [...] Answer Date Recorded PHQ-2 Score 0 06/05/2024 [facility] - Occupational Stress Questionnaire Answer Date [...] in an abandoned building, in an overnight chcf, or couch-surfing.) Yes 02/25/2024 Are you worried [...] PM CDT Legal Sex Female 3:40 AM NAVAL ENGINEER Gender Identity Female 12/12/2022 7:35 PM CDT Sexual Orientation Not on file documented as of this encounter Plan of Treatment Upcoming Encounters Date Type Department Care Team (Late st Contact Info) Description 12/17/2024 3:00 PM CDT Infusion Therapy Visit [address] [place] [address] Amina Chappell MD ENDOCRINOLOGY [facility] [address] [place] [address] 01/06/2025 8:45 AM CDT Radiology Injection Office Visit [facility] [address] [place], [place] [phone] Juvencio Moreno MD [address] [place] [address] ERICA WOOTEN [address] 01/13/2025 4:20 PM CDT Office Visit [address] , [address] [place] [address] [place]io [place] [id number] [place] [address] [address] [place] 46[address]67 01/14/2025 2:30 PM CDT Infusion Therapy Visit [address] 200 [place] [address] Amina Chappell MD ENDOCRINOLOGY [address] [place] [address] 05/11/2025 11:30 AM NAVAL ENGINEER Appointment M [facility] Imaging [address] [place] [place] [address] Bharath Mar MD [address] [place] [address] 05/14/2025 4:40 PM NAVAL ENGINEER Virtual Visit [facility] [place] [address] [facility] SE 4th [place] [address] Bharath Mar MD [address] 00 [place] [address] documented as of this encounter Visit Diagnoses Not on filedocumented in this encounter Care Teams Art Psychotherapist Or Therapist Relationship Specialty [place] [address] [place] [address] PCP - General Family Medicine 06/04/23 Bailey Davis PAMoonC 5200 [place] [address] Physician Dairy Processing Supervisor Dermatology 12/15/21 [place] [address] [place] [address] Assigned PCP 05/06/22 [place] [address] [place] ERICA WOOTEN [address] Assigned Neuroscience Provider 06/03/22 Delilah Morales DO 909 [place] [address] Physical Medicine and Rehabilitation 08/15/22 Bailey Davis, PAMoonC [address] 315 [place] [address] Assigned Dermatology Provider 07/20/24 Bharath Mar MD [address] [place] [address] Assigned Musculoskeletal Provider 10/20/24 documented as of this encounter
--- OUTSIDE RECORDS SUMMARY | 2024-12-13 18:44 | XMS_ITS | Encounter Summary ---
Author Organization [facility] [place] Address [address] [place] [address] Care Team Providers Care Art History Professor Name Role Phone Bailey Davis PA-C Unavailable [phone] Ioana Brown MD Unavailable [phone] Juvencio Moreno MD Unavailable [phone] Delilah Morales DO Unavailable Ioana Brown MD Primary Care Provider [phone] Bailey Davis PA-C Unavailable [phone] Bharath Mar MD Unavailable [phone] Encounter Details Date Type Department Care Team (Late st Contact Info) Description 11/06/2024 MyC Medical Advice [facility] [place] [address] [place] [address] [id number] Uriel Heredia MD 9596 [place], [place] [phone] Social History Tobacco Use Types Packs/Day Years [...] re latives? Once a week 02/25/2024 Attends Yazidi Services Not on file 02/24 Active Member [...] Answer Date Recorded PHQ-2 Score 0 06/05/2024 [facility] [place] [facility] - Occupational Stress [...] PM CDT Legal Sex Female 3:40 AM DISPATCH SPECIALIST Gender Identity Female 12/12/2022 7:35 PM CDT Sexual Orientation Not on file documented as of this encounter Miscellaneous Notes * Telephone Encounter - Tesfaye Lucero ATC - 11/07/2024 8:42 AM CDT Outbound call to patients daughter Michael, she would like to schedule an appointment to see Dr. Heredia. Patient scheduled for 12/01/24 at 1:30. JOLLY Thibodeaux documented in this encounter Plan of Treatment Upcoming Encounters Date Type Department Care Team (Late st Contact Info) Description 12/17/2024 3:00 PM CDT Infusion Therapy Visit [facility] [address] [place] [phone] Amina Chappell MD ENDOCRINOLOGY [facility] [address] ER[place] HOWE [phone] 01/06/2025 8:45 AM CDT Radiology Injection Office Visit [facility] [place] [address] [place] [address] [address] [place], [place] [address] [place] [id number] [place] [address] ERICA WOOTEN [address] 01/13/2025 4:20 PM CDT Office Visit [facility] [address] [place] , [address] [place] [address] [place] [address] [place] ERICA WOOTEN [address] 01/14/2025 2:30 PM CDT Infusion Therapy Visit [facility] [address] [place] [address] [place] [address] Amina Chappell MD [facility] 7701 [facility] 180 [place] [address] 05/11/2025 11:30 AM DISPATCH SPECIALIST Appointment [facility] Imaging [address] [place] [address] [place] [address] Bharath Mar MD [address] [place] [address] 05/14/2025 4:40 PM DISPATCH SPECIALIST Virtual Visit [facility] [place] 909 [facility] SE 4th [place] [address] Bharath Mar MD [address] [place] [address] documented as of this encounter Visit Diagnoses Not on filedocumented in this encounter Care Teams Art History Professor Relationship Specialty [place] [address] [place] [address] PCP - General Family Medicine 06/04/23 Bailey Davis, PA-C 5200 [place] [address] Physician Septic Pump Truck Driver Dermatology 12/15/21 [place] [address] [place] [address] Assigned PCP 05/06/22 [place] [address] [place] [address] Assigned Neuroscience Provider 06/03/22 Delilah Morales DO 909 [place] [address] Physical Medicine and Rehabilitation 08/15/22 aBiley Davis PA-C [address] [place] [address] Assigned Dermatology Provider 07/20/24 Bharath Mar MD [address] [place] [address] [place] [address] Assigned Musculoskeletal Provider 10/20/24 documented as of this encounter
--- OUTSIDE RECORDS SUMMARY | 2024-12-13 18:44 | XMS_ITS | Patient Health Record ---
Author Organization [facility] Address [address] [place] [address] Care Team Providers Care Foreclosure Home Inspector Name Role Phone DR Ioana Brown Primary Care Provider Katharina ZamoraJennifer Unavailable [phone] Allergies No Known Allergies Reason For Referral No Information Medications Medication SIG (Take, Route, Fr equency, Duration) Notes Start Date End Date Status Sertraline HCl Activ e Problems Problem Type SNOMED Code ICD Code Onset Dates Problem Status W/U Status Risk Notes Problem Hoarseness (46693045) Hoarseness (R49.0) Active confirmed Problem Cyst of maxillary sinus (disorder) (192183039) 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 Plan Of Treatment No Information Insurance Providers Payer Name Payer Address Payer Phone Subscriber Number Group Number Insured Name Patient Relationship to Insured Coverage Start Date Coverage End Date MEDICARE [address] [place] [address] [id number] Jennifer Pendleton Self - patient is the insured [employer] [id number] [address] [address] [place], [place] [id number] Jennifer Pendleton Self - patient is the insured Medical (General) History Medical History History ICD Code Rectal Cancer Melanoma Hearing Loss Surgical History Surgery Date(Month/Year) Rectal Surgery Hysterectomy Appendectomy T & A Shoulder
--- OUTSIDE RECORDS SUMMARY | 2024-12-13 18:45 | XMS_ITS | Encounter Summary ---
Author Organization [place] Address [address] [place] [address] Care Team Providers Care Fixed Assets Accountant Name Role Phone Clinic - [facility] Primary Ca re Provider Bailey Davis PA-C Unavailable [phone] Ioana Brown MD Unavailable [phone] Juvencio Moreno MD Unavailable [phone] Delilah Morales DO Unavailable Juvencio Natarajan MD Unavailable [phone] Ioana Brown MD Primary Care Provider [phone] Bailey Davis PA-C Unavailable [phone] Bailey Davis PA-C Unavailable [phone] Bharath Mar MD Unavailable [phone] Encounter Details Date Type Department Care Team (Late st Contact Info) Description 12/08/2022 MyC Medical Advice [facility] [address] [place] [address] Delilah Fonseca, OPERA SINGER Social History Tobacco Use Types Packs/Day Years [...] neighbors? More than three times a week 12/13/2021 How often do you get togethe r with friends or relatives? Twice a week 12/13/2021 How often do you attend chur ch or caodaism services? 1 to 4 times per year 12/13/2021 Do you belong to any clubs o r organizations such as zoroastrianism groups, unions, fraternal or athletic groups, or school groups? No 12/13/2021 Attends Club or Organization Meetings Not on tam e 12/13/2021 Are you , , di vorced, , never , or living with a partner? 12/13/2021 AUDIT-C Answer Date Recorded Q1: How often do you have a drink containing alc ohol? 2-3 times a week 12/13/2021 Q2: How many drinks containi ng alcohol do you have on a typical day when you are drinking? 1 or 2 12/13/2021 Q3: How often do you have si x or more drinks on one occasion? Never 12/13/2021 Overall Financial Resource Strain (CARDIA) Answe r Date Recorded How hard is it for you to pa y for the very basics like food, housing, medical care, and heating? Not hard at all 12/13/2021 PHQ-2 Answer Date Recorded PHQ-2 Score 0 05/26/2022 [facility] - Occupational Stress Questionnaire Answer Date Recorded Do you feel stress - tense, restless, nervous, or anxious, or unable to sleep at night because your mind is troubled all the time - these days? Not at all 12/13/2021 Exercise Vital Sign Answer Date Recorde d On average, how many days pe r week do you engage in moderate to strenuous exercise (like a brisk walk)? 1 day 12/13/2021 On average, how many minutes do you engage in exercise at this level? 30 min 12/13/2021 Hunger Vital Sign Answer Date Recorded Within the past 12 months, y ou worried that your food would run out before you got the money to buy more. Never true 12/14/19 22 Within the past 12 months, t he food you bought just didn't last and you didn't have money to get more. Never true 12/13/2021 PRAPARE - Transportation Answer Date Re corded In the past 12 months, has l ack of transportation kept you from medical appointments or from getting medications? No 11/28 In the past 12 months, has l ack of transportation kept you from meetings, work, or from getting things needed for daily living? No 12/13/2021 Housing Stability Vital Sign Answer Alexey e Recorded In the last 12 months, was t here a time when you were not able to pay the mortgage or rent on time? No 12/13/2021 In the last 12 months, how many places have you lived? 1 12/13/2021 In the last 12 months, was t here a time when you did not have a steady place to sleep or slept in a detention (including now)? No 12/13/2021 Comments No Sex and Gender Information Value Date Recorded Sex Assigned at Female 12/12/2022 7:35 PM CDT Legal Sex Female 3:40 AM ENGINEERING LEADER Gender Identity Female 12/12/2022 7:35 PM CDT Sexual Orientation Not on file COVID-19 Exposure Response Date Recorded In the last 10 days, have yo u been in contact with someone who was confirmed or suspected to have Coronavirus/COVID-19? No / Unsure 11/14/2022 9:23 AM CDT documented as of this encounter Plan of Treatment Upcoming Encounters Date Type Department Care Team (Late st Contact Info) Description 12/17/2024 3:00 PM CDT Infusion Therapy Visit [facility] [address] [place] [address] [address] ERICA Goode [phone] Amina Chappell MD ENDOCRINOLOGY [facility] [address] [facility] 180 [address] HOW[place] [phone] 01/06/2025 8:45 AM CDT Radiology Injection Office Visit [facility] [place] [address] [place] [address] [address] [place], [place] [address] [place] [address] [place] [address] WOOTEN [address] 01/13/2025 4:20 PM CDT Office Visit [facility] [address] [place] , [address] [place] [address] [place] [address] [place] [address] 01/14/2025 2:30 PM CDT Infusion Therapy Visit [facility]tr [facility] [address] [place] [address] [place] [phone] Amina Chappell MD ENDOCRINOLOGY [facility] [address] [facility] 180 [place] [address] 05/11/2025 11:30 AM ENGINEERING LEADER Appointment [facility] Imaging [address] [place] [address] [place] [address] Bharath Mar MD [address] 8[address] 05/14/2025 4:40 PM ENGINEERING LEADER Virtual Visit [facility]opedic [facility] 909 [facility] SE 4th [place] [phone] Bharath Mar MD [address] [address] documented as of this encounter Visit Diagnoses Not on filedocumented in this encounter Care Teams Fixed Assets Accountant Relationship Specialty Start Date End Date Clinic - [facility] [address] [place] [address] PCP - General 11/01/21 06/03/23 [place] [address] [address] [place], [place] [address] PCP - General Family Medicine 06/04/23 Bailey Davis PA-C 5200 [place] [address] Physician Special Education Educational Assistant Dermatology 12/15/21 [place] [address] [place] [address] Assigned PCP 05/06/22 [place] [address] [place] [address] Assigned Neuroscience Provider 06/03/22 Delilah Morales DO 9 [place] [address] Physical Medicine and Rehabilitation 08/15/22 Juvencio Natarajan MD 5200 [place] [address] Assigned Surgical Provider 09/02/22 06/21/23 Bailey Davis PA-C [address] [place] [address] Assigned Surgical Provider 06/22/23 07/19/24 Bailey Davis PA-C [address] [place] [address] Assigned Dermatology Provider 07/20/24 Bharath Mar MD [address] [place] [address] Assigned Musculoskeletal Provider 10/20/24 documented as of this encounter
--- OUTSIDE RECORDS SUMMARY | 2024-12-13 18:45 | XMS_ITS | Encounter Summary ---
Author Organization [place] Address [address] [place] [address] Care Team Providers Care Freelance Designer Name Role Phone Bailey Davis PA-C Unavailable [phone] Ioana Brown MD Unavailable [phone] Juvencio Moreno MD Unavailable [phone] Delilah Morales DO Unavailable Ioana Brown MD Primary Care Provider [phone] Bailey Davis PA-C Unavailable [phone] Bailey Davis PA-C Unavailable [phone] Bharath Mar MD Unavailable [phone] Reason for Referral * Therapeutic Services (Routine) - Pending Review Specialty Diagnoses / Procedures Referred By Danni melchor Referred To Contact Pain & Palliative Care Diagnoses Lumbosacral radiculopathy Procedures PAIN Interlaminar Epidural Steroid Injection Lumbar[place] [address] [place] [address] Phone: tel: fax: Referral ID Status Reason Start Date Expiration Date V isits Requested Visits Authorized [id number] Pending Review 07/22/2024 07/22/2025 1 1 Reason for Visit * Reason Onset Date Comments Procedure 07/10/2024 L5-S1 Interlamin ar GALLO Encounter Details Date Type Department Care Team (Late st Contact Info) Description 07/10/2024 Telephone [facility] [place] [address] [place] [address] [place] [address] [place] [id number] Procedure (L5-S1 Interlaminar GALLO) Social History Tobacco Use Types Packs/Day Years [...] re latives? Once a week 02/25/2024 Attends [employer] Not on file 02/24 Active Member [...] Answer Date Recorded PHQ-2 Score 0 06/05/2024 [facility] - Occupational Stress [...] PM CDT Legal Sex Female 3:40 AM COIL INSPECTOR Gender Identity Female 12/12/2022 7:35 PM CDT Sexual Orientation Not on file documented as of this encounter Miscellaneous Notes * Telephone Encounter - Justina Goel - 08/28/2024 3:55 PM CDT Reason for call: Other Patient called regarding (reason for call): appointment and call back Additional comments: Pt has been rescheduled for her procedure with Dr. Moreno on 09/25. Routing to nursing as . Phone number to reach patient: Home number on file [phone] (home) Best Time: Any Can we leave a detailed message on this number? YES Justina Goel Nurse Plastics [facility] * Telephone Encounter - Apurva Tan - 07/10/2024 12:00 PM CDT No PA required, patient is already scheduled Routing as KARINA Pelletier Complex Access Services Assistant [facility] * Telephone Encounter - Justina Goel - 07/10/2024 10:17 AM CDT Screening Questions for Radiology Injections: Pt is scheduled with Dr. Moreno on 08/04 Injection to be done at which interventional clinic site? [facility] If choosing [facility] for location, please inform patient: [facility] is a Hospital based clinic. Before your visit, you should check with your insurance about how it covers the charges for facility services in a hospital-based clinic.?? Procedure ordered by Dr. Moreno Procedure ordered? L5-S1 Interlaminar GALLO Transforaminal Cervical GALLO - Send to [facility]) - No [facility] Site providers perform this procedure What insurance would patient like us to bill for this procedure? Medicare/Medica IF SCHEDULING IN [place] PAIN OR SPINE PLEASE SCHEDULE AT LEAST 7-10 BUSINESS DAYS OUT SO A PA CAN BE OBTAINED Worker's comp or MVA (motor vehicle accident) -Any injection DO NOT SCHEDULE and route to Elizabeth Davis [employer] insurance - For ALL INJECTIONS DO NOT SCHEDULE and route to Apurva Tan. ALL BCBS, Humana and HP CIGNA - DO NOT SCHEDULE and route to Apurva Tan MEDICA- ALL INJECTIONS- route to Apurva Tan Is patient scheduled at [facility]? No If YES, route every encounter to [facility] CARE NAVIGATION POOL [[phone]] Is an lead applier needed? No Patient has a screw driver operator home? (Review Grid) YES: Daughter Any chance of ? NO If YES, do NOT schedule and route to spool sorter - Dr. Quiroga route to PM&R Nurse [[id number]] Is patient actively being treated for cancer or immunocompromised? No If YES, do NOT schedule and route to spool sorter/ Dr. Quiroga's Team Does the patient have a bleeding or clotting disorder? No If YES, okay to schedule AND route to RN nurse / Dr. Quiroga's Team (For any patients with platelet count <100, RN must forward to provider) Is patient taking any Blood Thinners OR Antiplatelet medication? No If hold needed, do NOT schedule, route to spool sorter/ Dr. Quiroga's Team Examples: Blood Thinners: (Coumadin, Warfarin, Jantoven, Pradaxa, Xarelto, Eliquis, Edoxaban, Enoxaparin, Lovenox, Heparin, Arixtra, Fondaparinux or Fragmin) Antiplatelet Medications: (Plavix, Brilinta or Effient) Is patient taking any aspirin products (includes Excedrin and Fiorinal)? No If yes route to spool sorter/ Dr. Quiroga's Team - Do not schedule [...] to appointment notes AND route to the spool sorter/ Dr. Quiroga's Team If GALLO and Contrast Dye / Iodine Allergy? DO NOT SCHEDULE, route to spool sorter/ Dr. Quiroga'valerie Team Allergies: Atorvastatin, Tramadol, Amoxicillin, and Codeine [...] Team Does patient have an MRI/CT? YES: 07/19/24 Include Date and Check Procedure Scheduling Grid to see if required. Was the MRI/CT done within the last 3 years? Yes If no route to DIAZ Kimball/ Dr. Quiroga's Team If yes, where was the MRI/CT done? [facility] Refer to PACS Transmissions list for approved external locations and route to DIAZ Kimball High Priority/ Dr. Escalantes Team If MRI was not done at approved external location do NOT schedule and route to DIAZ kimball/ Dr. Escalantes Team If patient has an imaging disc, the injection MAY be scheduled but patient must bring disc to appt or appt will be cancelled. Is patient able to transfer to a procedure table with minimal or no assistance? Yes If no, do NOT schedule and route to DIAZ Kimball/ Dr. Quiroga's Team Procedure Specific Instructions: If [...] Orders Needed Please send all injections to gas appliance installer Not Applicable Red Flags? Not Applicable Does the patient have any questions? NO Justina Goel [facility] documented in this encounter Plan of Treatment Upcoming Encounters Date Type Department Care Team (Late st Contact Info) Description 12/17/2024 3:00 PM CDT Infusion Therapy Visit [address] [place] [phone] Amina Chappell MD ENDOCRINOLOGY [facility] [address] [place] [phone] 01/06/2025 8:45 AM CDT Radiology Injection Office Visit [facility] [address] [place] [address] Juvencio Moreno MD [address] [place] [address] [place] [address] 01/13/2025 4:20 PM CDT Office Visit [address] , [address] [place] [phone] Juvencio Moreno MD [address] [place] [address] [place] [address] 01/14/2025 2:30 PM CDT Infusion Therapy Visit [address] [place] [phone] Amina Chappell MD ENDOCRINOLOGY [facility] [address] [place] [phone] 05/11/2025 11:30 AM COIL INSPECTOR Appointment [facility] [address] [place] [phone] Bharath Mar MD [address] [place] [address] 05/14/2025 4:40 PM COIL INSPECTOR Virtual Visit [facility] [address] [place] [phone] Bharath Mar MD [address] [place], [place] [address] documented as of this encounter Results * PAIN Interlaminar Epidural Steroid Injection Lumbar/Sacral (09/25/2024 11:40 AM CDT) Anatomical Region Laterality Modality PAIN/SPINE Radio Fluoroscop y Narrative 09/25/2024 12:22 PM CDT Table formatting from the original result was not included. PHYSICAL MEDICINE & REHABILITATION / MEDICAL SPINE PROCEDURE DATE: September 25, 2024 PATIENT NAME: Jennifer Pendleton DATE OF : 1945 PRE-PROCEDURE DIAGNOSIS: 1. Lumbosacral radiculopathy 2. 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 Scoliosis of thoracolumbar spine, unspecified scoliosis type 4. Lumbosacral stenosis with neurogenic claudication 5. Facet arthropathy, lumbosacral 6. Age-related osteoporosis without current pathological fracture POST-PROCEDURE DIAGNOSIS: 1. Lumbosacral radiculopathy 2. 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 Scoliosis of thoracolumbar spine, unspecified scoliosis type 4. Lumbosacral stenosis with neurogenic claudication 5. Facet arthropathy, lumbosacral 6. Age-related osteoporosis without current pathological fracture PROCEDURE: Fluoroscopic-guided left paramedian L4-L5 interlaminar epidural steroid injection. (CPT code: 96452) PROCEDURE IN DETAIL: Prior to the procedure, educational material was provided for the patient to review and take home. After a discussion of the risks, benefits, and alternatives to the procedure, the patient expressed understanding and wished to proceed. Consent form was signed. The patient was brought to the fluoroscopy suite and placed in the prone position. Procedural pause was conducted to verify: patient identity, procedure to be performed, laterality, site, and patient position. The skin was sterilely prepped using chlorhexidine and allowed to dry. The skin was draped in the usual sterile fashion. After identifying the L4-L5 interspace with fluoroscopy, the skin and subcutaneous tissue were infiltrated with 1.5 ml 1% preservative-free lidocaine. Utilizing a loss of resistance technique and intermittent fluoroscopic guidance, 20g 3.5 Tuohy needle was advanced into the epidural space using a left paramedian approach. Proper needle positioning was confirmed using multiple fluoroscopic views. The epidural space was accessed at a depth of 5.2 cm. After negative aspiration, 0.9 ml Omnipaque 300 (iohexol) was injected confirming epidural spread without evidence of intravascular or intrathecal spread. Next, 10 mg dexamethasone and 4 ml preservative-free normal saline were injected. Following the injection, the needle was withdrawn slightly and flushed with 0.5 ml preservative-free 1% lidocaine as it was fully extracted. The patient tolerated the procedure well, and there were no apparent complications. The patient was escorted back to the postprocedure room. The patient was monitored for side effects. No reactions were noted. After appropriate observation, the patient was dismissed from the clinic in good condition. Preprocedure pain level: 8/10. Postprocedure pain level: 5/10. Juvencio Moreno MD Juvencio Moreno MD IMG PAIN MANAGEMENT ORDERABLES Final Result documented in this encounter Visit Diagnoses Diagnosis Lumbosacral radiculopathy- Primary Thoracic or lumbosacral neuritis or radiculitis, unspecified Lumbosacral radiculopathy- Primary Thoracic or lumbosacral neuritis or radiculitis, unspecified Degeneration of intervertebral disc of lumbosacral region with discogenic back pain and lower extremity pain Scoliosis of thoracolumbar spine, unspecified scoliosis type Lumbosacral stenosis with neurogenic claudication Spinal stenosis, lumbar region, with neurogenic claudication Facet arthropathy, lumbosacral Lumbosacral spondylosis without myelopathy Age-related osteoporosis without current pathological fracture Senile osteoporosis documented in this encounter Care Teams Freelance Designer Relationship Specialty [place] [address] [place] [address] PCP - General Family Medicine 06/04/23 Bailey Davis PA-C [address] [place] [address] Physician [employer] Umpire Dermatology 12/15/21 [place] [address] [place] [address] Assigned PCP 05/06/22 [place] [address] [place] [address] Assigned Neuroscience Provider 06/03/22 Delilah Morales DO [address] [place] [address] Physical Medicine and Rehabilitation 08/15/22 Bailey Davis PA-C [address] [place] [address] Assigned Surgical Provider 06/22/23 07/19/24 Bailey Davis PA-C [address] [place] [address] Assigned Dermatology Provider 07/20/24 Bharath Mar MD [address] [place], [place] [id number] [place] [address] Assigned Musculoskeletal Provider 10/20/24 documented as of this encounter
--- OUTSIDE RECORDS SUMMARY | 2024-12-13 18:45 | XMS_ITS ---
Author Name Interface, [facility] Address [address] [place] [address] [address] [address] [facility] Address [address] [place] [address] [address] [place] [address] Allergies and Adverse Reactions Medication/Group Name Reaction Severity Date codeine 01/15/2023 azithromycin 01/15/2023 Plan Date Type Value 01/15/2023 APPOINTMENT OV 20 MIN Reason for Visit OV 20 MIN Encounters Date Name 01/15/2023 Chest wall pain (fin ding) 01/15/2023 Fatigue (finding) 01/15/2023 Pain of breast (find ing) 01/15/2023 Personal history of rectal cancer 01/15/2023 Rectal pain (finding ) Medications Date Name Route Dose Frequency Instructions Start Date End Date Status Sertraline Oral daily a ctive Vit A, C & G-Tzbhlb-Shaugdgp Oral 300 mcg-200 mg-27 mg-2 mg active Miscellaneous Drug Z arbee's Immune Support active Multivitamins-Min- Nsrdv-B93-Bmmepmi- Lutein Oral 800 mcg-1 mg-500 mcg-500 mcg active Omeprazole Oral Delayed Release Capsule active Problems Diagnosis Status Date of Diagnosis Resolution Date Chest wall pain (finding) Active Rectal pain (finding) Active Anxiety Active Fatigue (finding) Active Personal history of rectal cancer Active Pain of breast (finding) Active Vital Signs Date Type Value 01/15/2023 Body Temperature 97.50 01/15/2023 Heart Beat 74.00 01/15/2023 Respiratory Rate 16.00 01/15/2023 Oxygen Saturation 96.00 01/15/2023 BSA 1.62 01/15/2023 Pain Scale 3.00 01/15/2023 Weight 130.80 01/15/2023 Height 63.50 01/15/2023 BMI 22.81 01/15/2023 Intravascular Systolic 122 01/15/2023 Intravascular Diastolic 74 Notes Section * Med Onc Follow-up Note Patient Name: LOTTIE CABRERA? Date Of : 1945? Today's Provider:?Home Lincoln MD Date of Service:?01/15/2023? Attending Physician:?Home Lincoln (Hematology/Oncology) Referring Provider:??Ioana Brown MD HEMATOLOGY/ MEDICAL ONCOLOGY FOLLOW UP VISIT Reason for Visit Here to establish care??with history of rectal cancer. ??In addition is complaining about breast pain, chest wall pain Assessment 1. ??History of rectal cancer diagnosed in 2016 ??? At 1??excisions followed by chemoradiation ?No evidence of recurrence ??? However has not recently had a colonoscopy 2. ??Rectal pain ??? Needs colonoscopy 3.?? Breast pain ??? Negative mammogram obtain results 4. ??Chest wall pain??and upper abdominal pain ??? Plan for CT scan of chest and pelvis Plan 1. ??At this point patient should not need??routine oncological surveillance??or scans 2. ??Chest pain prompting CT scan as documented--no abnormalities found 3.?? If no etiology found and breast pain persist consider breast MRI --This is improving, will plan for annual mammogram 4. ??Referral to colorectal surgery for colonoscopy--done 11/14/2022, no abnormalities, follow-up colonoscopy per colorectal surgery 5. ??Discharge from oncological care Advanced Care Planning Not discussed at this visit. Pain Scale on Today's Visit 3 Pain Plan on Today's Visit Date of Service: 01/15/2023 Pain Scale (0-10): 3 Pain Treatment Plan: Non-opioid analgesics or techniques Comment: Smoking Status Smoking Tobacco : Former smoker; Smokeless Tobacco : Never used smokeless tobacco; Vaping : Never vaped Depression Screening Tool Status Was screened; Outcome positive: No; Screening Date: 01/15/2023; Screening Tool: MD-PHQ2; Total depression score: 1 History of Present Illness History is obtained from chart and from daughter 1. ??2015??was treated by Dr. Fuentes??[facility] at [facility]??for rectal cancer appears??that she was treated with excision??and then reexcision in 3 months followed by chemoradiation received 27 rounds of??radiation therapy.?? No adjuvant therapy.?? Was seen at the [facility] and then dischargedfrom care. 2.?? 07/03/2019: Chest x-ray showed??indeterminate 7 mm nodular density T7, had chest heaviness at that point 3.?? 07/04/2019:??CT scan of the chest shows new sclerotic lesion in T10 measuring 5 mm. ??Increase size of sclerotic lesion in the T7 vertebral body now measuring 6 mm 4 Mm on Prior Study??a PET CT Scan 2016 4.?? 08/04/2019: PET CT Scan Shows No Evidence of Recurrent Disease or Mets.?? Lesion Seen in T7 and T10??Likely Related to Benign Etiology since There Was No SUV Update??02/07/2021: CT Scan Chest and Pelvis??No Abnormality 5.?? 11/01/2021:??CT Scan of Abdomen and Pelvis??No Acute Findings in the Abdomen and Pelvis 6.?? Recently Had Breast Pain, Mammogram in April 2022 and Biopsy Negative for Left Interval History Comes with her daughter today,??overall things have been going well, she feels occasional breast pain otherwise doing quite??nothing new to report??all aspects of history unchanged updated as appropriate. ??No B type symptoms no GI symptom Review of Systems Remaining 14 point comprehensive review of systems within normal limits. NCCN Distress Thermometer and Problem List were collected and documented in the patient chart.?? Remarkable symptoms and concerns were discussed with the patient.?? Any additional follow-up is indicated in the plan. Past Medical and Surgical History Anxiety, history of rectal cancer Current Medications Medication List Name Date Zoloft (Sertraline Oral) 08/11/2022 Omeprazole Oral Delayed Release Capsule 08/11/2022 One-Daily Multi (Multivitami ci-Any-Owehh-S31-Cbcztdy-Hgidjk Oral 800 mcg-1 mg-500 mcg-500 mcg) 08/11/2022 Miscellaneous Drug 08/11/2022 Ocuvite with Lutein (Vit A, C & M-Smemtq-Nafnybof Oral 300 mcg-200 mg-27 mg-2 mg) 08/11/2022 Allergies azithromycin and codeine Family History Dad with prostate cancer, uncle with stomach cancer,??sister with cancer of kidney removed at 74,??brother with leukemia. Social History , lives in [place] her son lives close by, she has 3 children her daughter Marta is a coordinator radiology for [employer] she has grandchildren. ??Her grandson actively involved in sports??she does not smoke??she quit 40 years ago does not drink is quite active??overall she is recently brought a treadmill No update Vital Signs Blood pressure: 122/74, Pulse: 74, Temperature: 97.5 F, Respirations: 16, O2 sat: 96%, Pain Scale: 3, Height: 63.5 in, Weight: 130.8 lb, BSA: 1.62, BMI: 22.81 kg/m2 Covid-19 vaccine (Moderna) (08/11/2022), Elsewhere; Covid-19 vaccine (Pfizer) (08/11/2022), Elsewhere; Covid-19 vaccine (Pfizer) (08/11/2022), Elsewhere; Covid-19 vaccine (Pfizer) (08/11/2022), Elsewhere; Covid-19 vaccine (Pfizer) (08/11/2022), Elsewhere; Flu vaccine - Adult (08/11/2022), Elsewhere Performance Status ECOG or Karnofsky ECO Symptoms, but ambulatory. Restricted in physically strenuous activity, but ambulatory and able to carry out work of a light or sedentary nature (e.g., light housework, office work). (Date: 08/11/2022) Karnofsky:?Not recorded Physical Exam { Neck: Supple, without masses, lymphadenopathy or tenderness. Respiratory: Normal respiratory effort. Lungs are clear with good breath sounds. Heart: RR without murmurs, rubs, or gallops. Abdomen: The abdomen was flat, soft and nontender without guarding rebound or masses. Nodes: no cervical, supraclavicular, axillary or inguinal adenopathy Extremities: Full ROM without limitation, deformity or edema. Breast: No abnormality felt in left breast or right, however she is exquisitely tender over left breast, left axilla and left chest wall specifically between chest and abdomen area.} Genetics/Molecular/Biomarkers ? Additional Labs, Imaging, and Other Studies Lab Results CBC Lab Results 08/11/2022 12/13/2021 02/13/2018 CBC WBC x 10^3/uL 7.5 RBC x 10^6/uL 5.11 (H) NRBC % /100 wbc 0.0 HGB g/dL 15.0 HCT % 45.7 MCV fL 89.4 MCH pg 29.4 MCHC g/dL 32.8 RDW % 13.20 PLT x 10^3/uL 199 MPV fL 11.2 Brenden % 68.1 LY % 22.4 MO % 7.5 EO % 1.2 IG % 0.5 Brenden # (ANC) x 10^3/uL 5.1 BA % 0.3 MO # x 10^3/uL 0.6 EO # x 10^3/uL 0.1 BA # x 10^3/uL 0.0 IG # x 10^3/uL 0.04 (H) LY # x 10^3/uL 1.7 Chemistries Lab Results 08/11/2022 12/13/2021 02/13/2018 Chemistries Glucose mg/dL 97 BUN mg/dL 16.0 Creatinine mg/dL 0.72 Sodium mmol/L 144 Potassium mmol/L 4.0 Chloride mmol/L 109 CO2 mmol/L 22 Calcium mg/dL 9.5 Albumin g/dL 4.7 Total protein g/dL 6.9 Bilirubin, total mg/dL 0.6 Alkaline phosphatase U/L 97 AST/SGOT U/L 24 ALT/SGPT U/L 29 GFR estimate mL/min/1.73m2 85.7 ? Surveys/Consents/Other Discussions Home Lincoln MD CC: ? Electronically signed by Home Lincoln MD 01/15/2023 16:15 CDT
--- OUTSIDE RECORDS SUMMARY | 2024-12-13 18:45 | XMS_ITS | Clinical Summary ---
Author Organization [employer] [facility] Address [address] [place] [address] Care Team Providers Care Acquisitions Editor Name Role Phone Daphne Silva MD Primary Care Provider Allergies Active Allergy Reactions Criticality Noted Date Comments Amoxicillin Nausea And Vomiting Low 02/28/2012 Atorvastatin *Unknown 02/28/2012 Codeine Nausea Only Low 01/09/2008 Tramadol *Unknown 02/28/2012 Medications omeprazole (PRILOSEC) 40 mg Delayed-Release capsuleIndicatio ns:Hoarseness TAKE 1 CAPSULE BY MOUTH EVERY DAY BEFORE A MEAL 90 capsule 1 1 Active acetaminophen SR (Pain Relief, acetaminophen,) 650 mg Extended-Release tablet Take 1 Tablet by mouth every 4 hours if needed. Active Lidocaine Viscous 2 % solution 0 Active multivitamin (MVI) tablet Take 1 Tablet by mouth once daily. 0 1 Active Vzdup-3-ECJ-EPA- Fish Oil 1,000 mg (120 mg-180 mg) cap Take 1 Capsule (1,000 mg) by mouth. 0 1 Active cholecalciferol (Vitamin D-3) 2,000 unit capsule Take 1 Capsule (2,000 units) by mouth once daily. 0 1 Active cholecalciferol (Vitamin D) 1,000 unit capsule Take 1 Capsule (1,000 units) by mouth once daily. 0 1 Active b complex vitamins (VITAMIN B COMPLEX) capsule Take 1 Capsule by mouth once daily. 0 1 Active Milk Thistle 175 mg tablet Take by mouth. 0 1 Active rr-egd-yfmvk acid-lutein (Centrum Silver) 400-250 mcg chew Chew by mouth. 0 1 Active folic acid 1 mg tablet Take 1 Tablet (1 mg) by mouth once daily. 0 1 Active cyanocobalamin (Vitamin B-12) 1,000 mcg tablet Take 1 Tablet (1,000 mcg) by mouth once daily. 90 Tablet 3 1 Active hydrocortisone 2.5% creamIndications :Rectal pain,History of rectal cancer Apply topically to affected area(s) 2 times daily. 30 g 1 Active naproxen (NAPROSYN) 500 mg tabletIndication s:Right arm pain Take 1 Tablet (500 mg) by mouth every 12 hours if needed for Pain. 30 Tablet 1 1 Active sertraline (ZOLOFT) 100 mg tabletIndication s:Depression, recurrent Take 1 Tablet (100 mg) by mouth every morning. 30 Tablet 1 2 Active valACYclovir (VALTREX) 500 mg tabletIndication s:Genital herpes simplex, unspecified site Take 500 mg twice daily for 3 days as needed for outbreaks 6 Tablet 3 2 Active Hospital, Clinic, or Other Facility Administered Medication Ordered Dose Route Frequency Start Date End Date Status zoledronic acid in mannitol & water (RECLAST) 5 mg/100 mL pgbk 100 mLIndications:Osteopo rosis, unspecified osteoporosis type, unspecified pathological fracture presence 100 mL IV SELECTION NOT AVAILABLE 08/22/2021 Active Active Problems Problem Noted Date Diagnosed Date Depression, recurrent 08/19/2021 History of colonic polyps 07/20/2021 Overview (07/20/2021): normal flexible sigmoidoscopy with BE in 2007. rechek 10 years. Mixed hyperlipidemia 07/20/2021 Overview (07/20/2021): discussed diet and exercise. Stable. Osteoporosis 07/20/2021 Overview (07/20/2021): DEXA 04/2009. off Fosamax. followup DEXA scan 10/2012 - better, improved from osteoporosis to osteopenia range. Postmenopausal atrophic vaginitis 07/20/2021 Overview (07/20/2021): She was started on Premarin cream by the urologist, Dr. Smith. Rosacea 07/20/2021 Overview (07/20/2021): The patient follows with a product marketing programs manager regularly, f/u visit with Dr. Guerrero. The patient went for followup with her on 06/27/12 and had Botox. Uses MetroCream prn. Sensorineural hearing loss, bilateral 07/20/2021 Overview (07/20/2021): severe, runs in the family. she wears new hearing aids (audiology testing done on 12/16/12)and hears much better, was evaluated by ENT. Vitamin D deficiency 07/20/2021 Overview (07/20/2021): 25 in 04/2009, 34 in 08/2010, 35 in 07/2011, 40 in 10/2012, f/u 02/2014. Age-related osteoporosis wit hout current pathological fracture 08/12/2020 Overview (08/12/2020): 05/2018: First noted on DEXA through [facility] 07/2020: Again present on DEXA - recommended initiate IV bisphosphonate due to hx of GERD Rectal cancer 11/13/2018 Overview (09/10/2020): Diagnosed 2017. Patient had transanal resection followed by radiation and chemotherapy. Colonoscopy 08/2020 radiation proctitis and 2 small adenomas high in the colon, repeat colonoscopy in 3 years Impingement syndrome of left shoulder 05/17/2018 Basal cell carcinoma of nose 06/09/2015 History of dysplastic nevus 08/09/2011 Anxiety Depression Genital herpes Hearing loss Overview (04/07/2019): aides Immunizations Immunization Administration Dates Next Due COVID-19 vaccine (Octmami-Bio NTech 30mcg/0.3mL) 12YO+ SUZANNE-SUCROSE PF, MDV 08/19/2021 COVID-19 vaccine (Octmami-Bio NTech 30mcg/0.3mL) PF, MDV 03/25/2021,07/06/2020,06/15/2020 Influenza, High-dose Inactivated 019,02/13/2018,02/06/2017,2015,06/09/2015,03/02/2014,03/17/2013,0 05/07/2012 Influenza, IIV3 (Age 6-35 mos) 06/02/2009 Influenza, IIV3 (Age >=3 years) 02/25/2007,02/21 Influenza, Inactivated AIIV4 (Age 65+ Years) Preserv Free 03/25/2021,01/28/2020 Pneumococcal Poly,23-Valent (Pneumovax) 05/06/2010 Pneumococcal conj 13-Valent (Prevnar 13) 02/06/2017 Tdap 10/02/2013 Zoster (Shingrix-RZV, recombinant) 08/19/2021 Zoster (Zostavax-ZVL, live) 09/01/2011 Family History Medical History Relation Name Comments Diabetes type I Daughter Cancer-prostate Father Heart Disease Father Coronary artery disease Maternal Aunt Multiple sclerosis Mother Cancer Other intestinal in multiple cousins Relation Name Status Comments Daughter Father Maternal Aunt Mother Other Social History Tobacco Use Types Packs/Day Years Used Date Smoking Tobacco: Never Smokeless Tobacco: Never Tobacco Cessation:Counseling Given: Yes Alcohol Use Standard Drinks/Week Comments Yes 0 (1 standard drink = 0.6 oz pur e alcohol) couple drinks per day PHQ-2 Answer Date Recorded PHQ-2 TOTAL SCORE 4 08/19/2021 Social Connections Answer Date Recorded Frequency of Communication with Friends and Fami ly Not on file 08/20/2022 Financial Resource Strain Answer Date R ecorded Difficulty of Paying Living Expenses 3 08/19/2021 Difficulty of Paying Living Expenses Not on file 08/19/2021 Food Insecurity Answer Date Recorded Worried About Running Out of Food in the Last Ye ar 1 08/19/2021 Transportation Needs Answer Date Record ed Lack of Transportation (Medical) 1 08/19/2021 Housing Stability Answer Date Recorded Unable to Pay for Housing in the Last Year 1 08/19/2021 Comments No Sex and Gender Information Value Date Recorded Sex Assigned at Not on file Legal Sex Female 12:51 PM CDT Gender Identity Not on file Sexual Orientation Not on file Obstetrics History Last Filed Vital Signs Vital Sign Reading Time Taken Comments Blood Pressure 142/80 08/19/2021 10:48 AM CDT Pulse 74 08/19/2021 10:48 AM CDT Temperature 37.1 C (98.7 F) 08/19/2021 10:48 AM CDT Respiratory Rate 16 09/11/2019 1:14 PM CDT Oxygen Saturation 97% 08/19/2021 10:48 AM CDT Inhaled Oxygen Concentration - - Weight 58.2 kg (128 lb 6.4 oz) 08/19/2021 10:48 AM CDT Height 162.6 cm (5' 4) 08/19/2021 10:48 AM CDT Body Mass Index 22.04 08/19/2021 10:48 AM CDT Plan of Treatment Health Maintenance Due Date Last Done Comments RSV vaccine for adults or (1 - 1-dose 75+ series) 12/07/2019 Zoster (shingles) series for age 50+ (3 of 3) 10/14/2021 08/19/2021, 09/01/2011 BMI (ht and wt on same day) for age 18+ 08/19/2022 08/19/2021, 07/20/2021, 08/06/2020, Additional history exists Depression screening for age 12+ 08/19/2022 08/19/2021, 08/16/2021, 08/09/2020, Additional history exists Medicare Wellness for age 65+ 08/20/2022 08/19/2021 Tetanus booster 10/03/2023 10/02/2013 COVID-19 vaccine series ( season) 2024 03/18/2024, 08/19/2021, 03/25/2021, Additional history exists Influenza Vaccine (#1) 2024 , 01/28/2020, 04/02/2019, Additional history exists Pneumococcal series for age 50+ Completed 02/06/2017, 05/06/2010 DEXA/DXA scan for age 65+ Completed 08/09/2020, 01/2013 Hepatitis B series for 19+ Aged Out N o longer eligible based on patient's age to complete this topic Procedures Procedure Name Priority Date/Time Associated Diagnosis Comments XR DXA BONE DENSITY 2 SITES AXIAL Routine 08/09/2020 11:49 AM CDT Osteoporosis, unspecified osteoporosis type, unspecified pathological fracture presence from Last 3 Months or Most Recently Relevant to Health Maintenance Results * (ABNORMAL) XR DXA BONE DENSITY 2 SITES AXIAL (08/09/2020 11:49 AM CDT) Anatomical Region Laterality Modality Spine, HIPS, HIPL, HIPR Other Impressions 08/10/2020 12:53 PM CDT Osteoporosis. RECOMMENDATIONS: The National Osteoporosis Foundation recommends pharmacologic treatment for patients with T-scores of -2.5 or less, patients with prior history of fragility fractures, or patients with 10-year probability of greater than 3% at hips or greater than 20% of suffering major osteoporotic fractures. Recommend continued optimization of calcium and vitamin D intake through dietary means and/or supplementation and regular exercise. Consider pharmacologic therapy for osteoporosis. Follow-up bone density reading in 2 years if therapy initiated to assess therapeutic efficacy. Nai Mayorga PA-C [facility] 08/10/2020 Narrative 08/10/2020 12:53 PM CDT XR DXA Bone Mineral Density (BMD) EXAM LOCATION: [facility] [address] [facility] [address] PATIENT NAME: Jennifer Pendleton DATE OF : 1945 EXAM DATE: 08/09/2020 REQUESTING PROVIDER: Daphne Silva MD GENDER AT : female HEIGHT: 5' 4 (08/06/2020) WEIGHT: 130 lb 6.4 oz (08/06/2020) MENOPAUSAL STATUS: Postmenopausal RACE/ETHNICITY: White RISK FACTORS: NO RISK FACTORS CURRENT MEDICATION FOR BONE LOSS: NONE INDICATION: SCREENING FOR OSTEOPOROSIS COMPARISON DATE(S): None DXA scans are compared to prior studies for a patient only when the two (or more) studies were performed on the same scanner. It is not possible to compare data generated on one scanner to data from another because there are not standards in DXA equipment. This applies even if the two scanners are made by the same layboy tender. PROCEDURE: Dual-energy x-ray absorptiometry performed with routine technique. Reporting is completed in the form of a T-score. The T-score represents the standard deviation from peak bone mass based on young healthy adult. A Z-score is used for diagnosis in premenopausal women, and for men under the age of 50. FINDINGS: RESULT LUMBAR SPINE L1 - L4 BMD: 0.983 g/cm2 T-Score: -1.7 Z-Score: 0.3 RESULT FEMORAL NECK Left Total Femoral Neck BONE MINERAL DENSITY: 0.630 g/cm2 T-Score: -2.9 Z-Score: -0.9 Right neck: 0.650 T-Score: -2.8 Z-Score: -0.7 RESULT TOTAL HIP Bilateral Total Hip BMD: 0.676 g/cm2 T-Score: -2.6 Z-Score: -0.7 WHO criteria: Normal: T-score at or above -1 SD Osteopenia: T-score between -1.1 and -2.4 SD Osteoporosis: T-score at or below -2.5 SD Daphne Silva MD DEXA Final Resul t from Last 3 Months or Most Recently Relevant to Health Maintenance Insurance AF83 MEDICARE [place] ONLY Care Teams Acquisitions Editor Relationship Specialty Start Date End Date Daphne Silva MD [address] [place] [address] PCP - General Family Practice 07/03/19
--- OUTSIDE RECORDS SUMMARY | 2024-12-13 18:45 | XMS_ITS | Encounter Summary ---
Author Organization [facility] Address [address] [place] [address] Care Team Providers Care Speech Language Pathologist Assistant Name Role Phone Bailey Davis PA-C Unavailable [phone] Ioana Brown MD Unavailable [phone] Juvencio Moreno MD Unavailable [phone] Delilah Morales DO Unavailable Ioana Brown MD Primary Care Provider [phone] Bailey Davis PA-C Unavailable [phone] Bharath Mar MD Unavailable [phone] Encounter Details Date Type Department Care Team (Latest Contact Info) Description 12/05/2024 Travel Social History Tobacco Use Types Packs/Day [...] re latives? Once a week 02/25/2024 Attends Taoist Services Not on file 02/24 Active Member [...] Answer Date Recorded PHQ-2 Score 0 06/05/2024 [facility] - Occupational Stress Questionnaire [...] in an abandoned building, in an overnight long-term, or couch-surfing.) Yes 02/25/2024 Are you worried [...] PM CDT Legal Sex Female 3:40 AM COLLAR STITCHER Gender Identity Female 12/12/2022 7:35 PM CDT Sexual Orientation Not on file documented as of this encounter Plan of Treatment Upcoming Encounters Date Type Department Care Team (Late st Contact Info) Description 12/17/2024 3:00 PM CDT Infusion Therapy Visit [address] [place] [phone] Amina Chappell MD ENDOCRINOLOGY [facility] [address] [place] [phone] 01/06/2025 8:45 AM CDT Radiology Injection Office Visit [facility] Pain Management [address] [place], [place] [phone] Juvencio Moreno MD [address] [place] [address] ER[place]OTEN [address] 01/13/2025 4:20 PM CDT Office Visit [address] , [address] [place] [address] [place] [id number] [place] [address] [place] 415[address] 01/14/2025 2:30 PM CDT Infusion Therapy Visit [address] [place] [phone] Amina Chappell MD ENDOCRINOLOGY [address] [place] [address] 05/11/2025 11:30 AM COLLAR STITCHER Appointment M [facility] Imaging [address] [place] [address] Bharath Mar MD [address] [place] [address] 05/14/2025 4:40 PM COLLAR STITCHER Virtual Visit [facility] [place] [address] [facility] [address] 4th [place] [phone] Bharath Mar MD [address] [place] [address] documented as of this encounter Visit Diagnoses Not on filedocumented in this encounter Care Teams Speech Language Pathologist Assistant Relationship Specialty [place] [address] [place] [address] PCP - General Family Medicine 06/04/23 Bailey Davis PAMoonC [address] [place] [address] Physician Brokerage Purchase And Sale Clerk Dermatology 12/15/21 [place] [address] [place] [address] Assigned PCP 05/06/22 [place] [address] [address] [place] [address] Assigned Neuroscience Provider 06/03/22 Delilah Morales DO [address] [place] [address] Physical Medicine and Rehabilitation 08/15/22 Bailey Davis, PAMoonC [address] [place] [address] Assigned Dermatology Provider 07/20/24 Bharath Mar MD [address] [place] [address] Assigned Musculoskeletal Provider 10/20/24 documented as of this encounter
--- OUTSIDE RECORDS SUMMARY | 2024-12-13 18:45 | XMS_ITS | Encounter Summary ---
Author Organization [facility] Address [address] [place] [address] Care Team Providers Care Concrete Panel Installer Name Role Phone Bailey Dvais PA-C Unavailable [phone] Ioana Brown MD Unavailable [phone] Juvencio Moreno MD Unavailable [phone] Delilah Morales DO Unavailable Ioana Brown MD Primary Care Provider [phone] Bailey Davis PA-C Unavailable [phone] Bharath Mar MD Unavailable [phone] Encounter Details Date Type Department Care Team (Latest Contact Info) Description 12/01/2024 Travel Social History Tobacco Use Types Packs/Day [...] 06/05/2024 [facility] - Occupational Stress Questionnaire Answer [...] PM CDT Legal Sex Female 3:40 AM LUMBER SALES SUPERVISOR Gender Identity Female 12/12/2022 7:35 PM CDT Sexual Orientation Not on file documented as of this encounter Plan of Treatment Upcoming Encounters Date Type Department Care Team (Late st Contact Info) Description 12/17/2024 3:00 PM CDT Infusion Therapy Visit [address] [place] [phone] Amina Chappell MD ENDOCRINOLOGY [facility] [address] [place] [phone] 01/06/2025 8:45 AM CDT Radiology Injection Office Visit [facility] Pain Management [address] [place], [place] [phone] Juvencio Moreno MD [address] [place] [address] ERICA WOOTEN [address] 01/13/2025 4:20 PM CDT Office Visit [address] , [address] [place] [phone] [place] [id number] [place] [address] [address] [place] 8[address] 01/14/2025 2:30 PM CDT Infusion Therapy Visit [address] [place] [phone] Amina Chappell MD ENDOCRINOLOGY [address] [place] [address] 05/11/2025 11:30 AM LUMBER SALES SUPERVISOR Appointment M [facility] Imaging [address] [place] [address] Bharath Mar MD [address] [place] [address] 05/14/2025 4:40 PM LUMBER SALES SUPERVISOR Virtual Visit [facility] [place] [address] [facility] [address] 4th [place] [phone] Bharath Mar MD [address] [place] [address] documented as of this encounter Visit Diagnoses Not on filedocumented in this encounter Care Teams Concrete Panel Installer Relationship Specialty [place] [address] [place] [address] PCP - General Family Medicine 06/04/23 Bailey Davis PAMoonC [address] [place] [address] Physician Therapeutic Program Worker Dermatology 12/15/21 [place] [address] [place] [address] Assigned PCP 05/06/22 [place] [address] [address] [place] [address] Assigned Neuroscience Provider 06/03/22 Delilah Morales DO [address] [place] [address] Physical Medicine and Rehabilitation 08/15/22 Bailey Davis, PAMoonC [address] [place] [address] Assigned Dermatology Provider 07/20/24 Bharath Mar MD [address] [place] [address] Assigned Musculoskeletal Provider 10/20/24 documented as of this encounter
--- OUTSIDE RECORDS SUMMARY | 2024-12-13 18:45 | XMS_ITS | Encounter Summary ---
Author Organization [place] Address [address] [place] [address] Care Team Providers Care Field Talent Qualification Specialist Name Role Phone Bailey Davis PA-C Unavailable [phone] Ioana Brown MD Unavailable [phone] Juvencio Moreno MD Unavailable [phone] Delilah Morales DO Unavailable Ioana Brown MD Primary Care Provider [phone] Bailey Davis PA-C Unavailable [phone] Bharath Mar MD Unavailable [phone] Reason for Visit * Reason Onset Date Comments Call Back 09/12/2024 Encounter Details Date Type Department Care Team (Late st Contact Info) Description 09/12/2024 Telephone [facility] [address] [place] [address] [place] [address] [place] [address] Call Back Social History Tobacco Use Types Packs/Day Years [...] Answer Date Recorded PHQ-2 Score 0 06/05/2024 [facility] - Occupational Stress [...] an abandoned building, in an overnight senior care, or couch-surfing.) Yes 02/25/2024 Are you worried [...] PM CDT Legal Sex Female 3:40 AM AUTOCAD DRAFTSMAN Gender Identity Female 12/12/2022 7:35 PM CDT Sexual Orientation Not on file documented as of this encounter Miscellaneous Notes * Telephone Encounter - Blaine July - 09/15/2024 8:56 AM CDT FYI - Status Update Who is Calling: nurse, Nick from wanting to get a hold of RN regarding imaging finding (MRI of shoulder) Update: te sent to clinic Does caller want a call/response back: Yes Could we [facility] this [facility] or would you prefer to receive a phone call?: Patient would prefer a phone call Okay to leave a detailed message?: Yes at Other phone number: [phone] * Telephone Encounter - Chery Borja - 09/12/2024 8:42 AM CDT Other: Ncik would like a call back from Dr. Moreno's nurse to go over imaging for the patient. Could we send this information to you [facility] or would you prefer to receive a phone call?: Patient would prefer a phone call Okay to leave a detailed message?: Yes at Other phone number: [phone] documented in this encounter Plan of Treatment Upcoming Encounters Date Type Department Care Team (Late st Contact Info) Description 12/17/2024 3:00 PM CDT Infusion Therapy Visit [address] [place] [phone] Amina Chappell MD ENDOCRINOLOGY [facility] [address] [place] [phone] 01/06/2025 8:45 AM CDT Radiology Injection Office Visit [facility] [address] [place] [address] Juvencio Moreno MD [address] [place] [address] [place] [address] 01/13/2025 4:20 PM CDT Office Visit [address] , [address] [place] [address] Juvencio Moreno MD [address] [place] [address] [place] [address] 01/14/2025 2:30 PM CDT Infusion Therapy Visit [address] [place] [address] Amina Chappell MD ENDOCRINOLOGY [facility] [address] [place] [phone] 05/11/2025 11:30 AM AUTOCAD DRAFTSMAN Appointment [facility] Imaging [address] [place] [phone] Bharath Mar MD [facility] [place] [address] 05/14/2025 4:40 PM AUTOCAD DRAFTSMAN Virtual Visit [facility] [place] [address] [facility] 4th [place] [phone] Bharath Mar MD [address] [address] documented as of this encounter Visit Diagnoses Not on filedocumented in this encounter Care Teams Field Talent Qualification Specialist Relationship Specialty [place] [address] [place] [address] PCP - General Family Medicine 06/04/23 Bailey Davis, PA-C [facility] [place] [address] Physician Marketing Operations Intern Dermatology 12/15/21 [place] [address] [place] [address] Assigned PCP 05/06/22 [place] [address] [place] [address] Assigned Neuroscience Provider 06/03/22 Delilah Morales DO [address] [place] [address] Physical Medicine and Rehabilitation 08/15/22 Bailey Davis, PA-C [address] [place] [address] Assigned Dermatology Provider 07/20/24 Bharath Mar MD [address] [place], [place] [address] [place] [address] Assigned Musculoskeletal Provider 10/20/24 documented as of this encounter
--- OUTSIDE RECORDS SUMMARY | 2024-12-13 18:45 | XMS_ITS | Encounter Summary ---
Author Organization [place] Address [address] [place] [address]. [place] [address] Care Team Providers Care Supervisor Bit And Shank Department Name Role Phone Clinic - [facility] Primary Ca re Provider Bailey Davis PA-C Unavailable Ioana Brown MD Unavailable [phone] Juvencio Moreno MD Unavailable [phone] Delilah Morales DO Unavailable Juvencio Natarajan MD Unavailable Ioana Brown MD Primary Care Provider [phone] Bailey Davis PA-C Unavailable [phone] Bailey Davis PA-C Unavailable [phone] Bharath Mar MD Unavailable [phone] Encounter Details Date Type Department Care Team (Late st Contact Info) Description 09/27/2022 [facility] Only [facility] [address] [place] [address] Patricia Rizo MD COLON RECTAL SURGERY [address] [place] [address] History of rectal cancer (Primary Dx); Diarrhea Social History Tobacco Use Types Packs/Day Years [...] week 12/13/2021 How often do you attend [facility] or hinduism services? 1 to 4 times per year 12/13/2021 Do you belong to any clubs o r organizations such as jehovah's witness groups, unions, fraternal or athletic groups, or [...] Answer Date Recorded PHQ-2 Score 0 05/26/2022 [facility] Questionnaire Answer Date [...] place to sleep or slept in a jail (including now)? No 12/13/2021 Comments No Sex and Gender Information Value Date Recorded Sex Assigned at Female 12/12/2022 7:35 PM CDT Legal Sex Female 3:40 AM SUPERVISOR HEAVY EQUIPMENT Gender Identity Female 12/12/2022 7:35 PM CDT Sexual Orientation Not on file documented as of this encounter Plan of Treatment Upcoming Encounters Date Type Department Care Team (Late st Contact Info) Description 12/17/2024 3:00 PM CDT Infusion Therapy Visit [facility] [address] [place] [phone] Amina Chappell MD ENDOCRINOLOGY [facility] [address] [place] [phone] 01/06/2025 8:45 AM CDT Radiology Injection Office Visit [facility] [address] [place] [address] [place] [address] [place] [place] [address] 01/13/2025 4:20 PM CDT Office Visit [facility] [address] [place] [address] [place] [address] [place] [address] 01/14/2025 2:30 PM CDT Infusion Therapy [facility] Medical Ctr [facility] [address] [place] [address] Amina Chappell MD ENDOCRINOLOGY [facility] 7701 [facility] 180 [place] [phone] 05/11/2025 11:30 AM SUPERVISOR HEAVY EQUIPMENT Appointment [facility] Imaging [address] [place] [address] Bharath Mar MD [address] [place] [address] 05/14/2025 4:40 PM SUPERVISOR HEAVY EQUIPMENT Virtual Visit [facility] Orthopedic [facility] [address] [facility] 4th [place] [address] Bharath Mar MD [address] [place] [address] documented as of this encounter Visit Diagnoses Diagnosis History of rectal cancer- Primary Personal history of malignant neoplasm of rectum, rectosigmoid junction, and anus Diarrhea documented in this encounter Care Teams Supervisor Bit And Shank Department Relationship Specialty Start Date End Date Clinic - [facility] [address] [place] [address] PCP - General 11/01/21 06/03/23 [place] [address] [place] [address] PCP - General Family Medicine 06/04/23 Bailey Davis PA-C 5[address] [place] [address] Physician Grain Processor Dermatology 12/15/21 [place] [address] [place] [address] Assigned PCP 05/06/22 [place] [address] [place] [address] Assigned Neuroscience Provider 06/03/22 Delilah Morales DO [address] [place] [address] Physical Medicine and Rehabilitation 08/15/22 Juvencio Natarajan MD [address] [place] [address] Assigned Surgical Provider 09/02/22 06/21/23 Bailey Davis PA-C [address] [place] [address] Assigned Surgical Provider 06/22/23 07/19/24 Bailey Davis PA-C [address] [place] [address] Assigned Dermatology Provider 07/20/24 Bharath Mar MD [address] [place] [address] Assigned Musculoskeletal Provider 10/20/24 documented as of this encounter
--- OUTSIDE RECORDS SUMMARY | 2024-12-13 18:45 | XMS_ITS | Encounter Summary ---
Author Organization [facility] Address [address] [place] [address] Care Team Providers Care Earth Burner Name Role Phone Bailey Davis PA-C Unavailable [phone] Ioana Brown MD Unavailable [phone] Juvencio Moreno MD Unavailable [phone] Delilah Morales DO Unavailable Ioana Brown MD Primary Care Provider [phone] Bailey Davis PA-C Unavailable [phone] Bharath Mar MD Unavailable [phone] Reason for Visit * Reason Onset Date Comments Patient/info Update 08/04/2024I (cancell ed GALLO due to recently dx'ed issue) Encounter Details Date Type Department Care Team (Late st Contact Info) Description 08/04/2024 [facility] [address], [address] [place] [address] [place] [address] [place] [id number] Patient/info Update (I (cancelled GALLO due to recently dx'ed issue)) Social History Tobacco Use Types Packs/Day Years [...] re latives? Once a week 02/25/2024 Attends Sikhism Services Not on file 02/24 Active Member [...] Answer Date Recorded PHQ-2 Score 0 06/05/2024 [facility] - Occupational Stress Questionnaire Answer Date [...] PM CDT Legal Sex Female 3:40 AM OIL EXTRACTOR Gender Identity Female 12/12/2022 7:35 PM CDT Sexual Orientation Not on file documented as of this encounter Miscellaneous Notes * Telephone Encounter - Ruth Motley RN - 08/14/2024 3:49 PM CDT Please reach out x2 Ruth BURGESS, RN Executive Manager [facility] Pain Management * Telephone Encounter - Bianca Mendoza - 08/05/2024 11:39 AM CDT LVM to r/s injection w/Wempe Bianca Mendoza Complex Supervisor Pipelines [facility] * Telephone Encounter - Farhana Green RN - 08/04/2024 8:53 AM CDT Called patient's daughter, LM with these details: patient will need to be rescheduled due to recentUTI diagnosis with antibiotic prescription. Patient will finish antibiotics course on 08/07/24 and will need to be off antibiotics for 4 days before an injection can be done. Patient can be rescheduled on or after 08/12/24. Routing to hand assembler for puller over supporting Dr. Moreno as FYI. Routing to injection schedulers to call patient and reschedule injection appointment. Call daughterMichael, at [phone]. Farhana BURGESS, RN Patient Executive Manager [facility] Pain Management * Telephone Encounter - Grace Collazo - 08/04/2024 8:42 AM CDT Voice message left on 08/03/2024 at 4:21 PM Reason for Call: Other FYI/cancelled injection Detailed comments: Per Michael's (patient's daughter's) voice message, patient's scheduled to have an injection with Weomid tomorrow but she was just diagnosed with a urinary tract infection and she knowsit's contraindicated for her to have her injection per Dr. Moreno. Michael stated that the clinic can text or call her, as Jennifer's hard of hearing, and she's her [id number]. Phone Number Patient's daughter (Natasha/Michael Evans) can be reached at: [phone] Best Time: omitted in voice message Can we leave a detailed message on this number? omitted in voice message Voice message retrieved on 08/04/2024 at 7:55 AM by Grace Collazo documented in this encounter Plan of Treatment Upcoming Encounters Date Type Department Care Team (Late st Contact Info) Description 12/17/2024 3:00 PM CDT Infusion Therapy Visit [facility] [address] [place] [phone] Amina Chappell MD ENDOCRINOLOGY [facility] [address] 180 [place] [phone] 01/06/2025 8:45 AM CDT Radiology Injection Office Visit [facility] Pain Management [place] [address] [place] [address] [place] [address] [place] [address] 01/13/2025 4:20 PM CDT Office Visit [facility] [address] , [address] [place] [address] [place] [address] [place] [address] 01/14/2025 2:30 PM CDT Infusion Therapy Visit [facility] Ctr [facility] [address] [place] [place] [address] Amina Chappell MD ENDOCRINOLOGY [facility] [address] [facility] 180 [place] [address] 05/11/2025 11:30 AM OIL EXTRACTOR Appointment [facility] Imaging [address] [place] [phone] Bharath Mar MD [address] [place] [address] 05/14/2025 4:40 PM OIL EXTRACTOR Virtual Visit [facility] Orthopedic Clinic [place] 909 [facility] SE 4th [place] [address] Bharath Mar MD [address] [address] documented as of this encounter Visit Diagnoses Not on filedocumented in this encounter Care Teams Earth Burner Relationship Specialty [place] [address] [place] [address] PCP - General Family Medicine 06/04/23 Bailey Davis PA-C [address] [place], [place] [address] Physician Nike Athlete Dermatology 12/15/21 [place] [address] [place] [address] Assigned PCP 05/06/22 [place] [address] [place] [address] Assigned Neuroscience Provider 06/03/22 Delilah Morales DO 909 [place] [address] Physical Medicine and Rehabilitation 08/15/22 Bailey Davis PA-C [address] [place] [address] Assigned Dermatology Provider 07/20/24 Bharath Mar MD [address] [place] [address] Assigned Musculoskeletal Provider 10/20/24 documented as of this encounter
--- OUTSIDE RECORDS SUMMARY | 2024-12-13 18:45 | XMS_ITS | Encounter Summary ---
Author Organization [facility] Address [address] [place] [address] Care Team Providers Care Counselor Camp Name Role Phone Bailey Davis PA-C Unavailable [phone] Ioana Brown MD Unavailable [phone] Juvencio Moreno MD Unavailable [phone] Delilah Morales DO Unavailable Ioana Brown MD Primary Care Provider [phone] Bailey Davis PA-C Unavailable [phone] Bharath Mar MD Unavailable [phone] Encounter Details Date Type Department Care Team (Latest Contact Info) Description 12/09/2024 Travel Social History Tobacco Use Types Packs/Day [...] Answer Date Recorded PHQ-2 Score 0 06/05/2024 [facility]ational Stress Questionnaire Answer Date [...] PM CDT Legal Sex Female 3:40 AM COMPLIANCE ADMINISTRATOR Gender Identity Female 12/12/2022 7:35 PM CDT Sexual Orientation Not on file documented as of this encounter Plan of Treatment Upcoming Encounters Date Type Department Care Team (Late st Contact Info) Description 12/17/2024 3:00 PM CDT Infusion Therapy Visit [address] [place] [phone] Amina Chappell MD ENDOCRINOLOGY [facility] [address] [place] [phone] 01/06/2025 8:45 AM CDT Radiology Injection Office Visit [facility] Pain Management [address] [place], [place] [phone] Juvencio Moreno MD [address] [place] [address] [place] [address] 01/13/2025 4:20 PM CDT Office Visit [address] , [address] [place] [address] [place] [id number] [place] [address] [address] [place] 557257 01/14/2025 2:30 PM CDT Infusion Therapy Visit [address] 200 [place] [phone] Amina Chappell MD ENDOCRINOLOGY [address] [place] [phone] 05/11/2025 11:30 AM COMPLIANCE ADMINISTRATOR Appointment M [facility] Center Imaging [address] [address] [place] [address] Bharath Mar MD [address] [place] [address] 05/14/2025 4:40 PM COMPLIANCE ADMINISTRATOR Virtual Visit [facility] Orthopedic Clinic [place] 909 [facility] SE 4th [place] [address] Bharath Mar MD [address] 00 [place] [address] documented as of this encounter Visit Diagnoses Not on filedocumented in this encounter Care Teams Counselor Camp Relationship Specialty [place] [address] [place] [address] PCP - General Family Medicine 06/04/23 Bailey Davis PAMoonC 5200 [place] [address] Physician Dermatologist Managing Partner Dermatology 12/15/21 [place] [address] [place] [address] Assigned PCP 05/06/22 [place] [address] [place] [address] [place] [address] Assigned Neuroscience Provider 06/03/22 Delilah Morales DO 909 [place] [address] Physical Medicine and Rehabilitation 08/15/22 Bailey Davis, PAMoonC [address] 315 [place] [address] Assigned Dermatology Provider 07/20/24 Bharath Mar MD [address] [place] [address] Assigned Musculoskeletal Provider 10/20/24 documented as of this encounter
--- OUTSIDE RECORDS SUMMARY | 2024-12-13 18:45 | XMS_ITS | Encounter Summary ---
Author Organization [facility] Address [address] [place] [address] Care Team Providers Care Federal Java Developer Name Role Phone Bailey Davis PA-C Unavailable [phone] Ioana Brown MD Unavailable [phone] Juvencio Moreno MD Unavailable [phone] Delilah Morales DO Unavailable Ioana Brown MD Primary Care Provider [phone] Bailey Davis PA-C Unavailable [phone] Bharath Mar MD Unavailable [phone] Encounter Details Date Type Department Care Team (Latest Contact Info) Description 11/28/2024 Travel Social History Tobacco Use Types Packs/Day [...] re latives? Once a week 02/25/2024 Attends Faith Services Not on file 02/24 Active Member [...] PHQ-2 Score 0 06/05/2024 [facility] - Occupational Stress Questionnaire Answer [...] PM CDT Legal Sex Female 3:40 AM AGRICULTURAL EDUCATION PROFESSOR Gender Identity Female 12/12/2022 7:35 PM CDT Sexual Orientation Not on file documented as of this encounter Plan of Treatment Upcoming Encounters Date Type Department Care Team (Late st Contact Info) Description 12/17/2024 3:00 PM CDT Infusion Therapy Visit [address] 200 [place] [address] Amina Chappell MD ENDOCRINOLOGY [facility] [address] [place] [address] 01/06/2025 8:45 AM CDT Radiology Injection Office Visit [facility] Pain Management [address] [place], [place] [phone] Juvencio Moreno MD [address] [place] [address] [place] [address] 01/13/2025 4:20 PM CDT Office Visit [address] , [address] [place] [address] [place] [address] [place] [address] [address] [place] 570397 01/14/2025 2:30 PM CDT Infusion Therapy Visit [address] 200 [place] [address] Amina Chappell MD ENDOCRINOLOGY [address] [place] [address] 05/11/2025 11:30 AM AGRICULTURAL EDUCATION PROFESSOR Appointment [facility] Center Imaging [address] [place] [address] [place] [address] Bharath Mar MD [address] [place] [address] 05/14/2025 4:40 PM AGRICULTURAL EDUCATION PROFESSOR Virtual Visit [facility] Orthopedic Clinic [place] 909 [facility] SE 4th [place] [address] Bharath Mar MD [address] 00 [place] [address] documented as of this encounter Visit Diagnoses Not on filedocumented in this encounter Care Teams Federal Java Developer Relationship Specialty [place] [address] [place] [address] PCP - General Family Medicine 06/04/23 Bailey Davis PAMoonC 5200 [place] [address] Physician Reference And Instruction Librarian Dermatology 12/15/21 [place] [address] [place] [address] Assigned PCP 05/06/22 [place] [address] [address] [place] [address] Assigned Neuroscience Provider 06/03/22 Delilah Morales DO 909 [place] [address] Physical Medicine and Rehabilitation 08/15/22 Bailey Davis, PAMoonC [address] [place] [address] Assigned Dermatology Provider 07/20/24 Bharath Mar MD [address] [place] [address] Assigned Musculoskeletal Provider 10/20/24 documented as of this encounter
--- OUTSIDE RECORDS SUMMARY | 2024-12-13 18:45 | XMS_ITS | Encounter Summary ---
Author Organization [facility] Address [address] [place] [address] Care Team Providers Care Iridologist Name Role Phone Bailey Davis PA-C Unavailable [phone] Ioana Brown MD Unavailable [phone] Juvencio Moreno MD Unavailable [phone] Delilah Morales DO Unavailable Ioana Brown MD Primary Care Provider [phone] Bailey Davis PA-C Unavailable [phone] Bailey Davis PA-C Unavailable [phone] Bharath Mar MD Unavailable [phone] Encounter Details Date Type Department Care Team (Late st Contact Info) Description 06/16/2024 [facility] Medical Advice [address] [address] Chrissy Rice RN Social History Tobacco Use Types Packs/Day Years [...] re latives? Once a week 02/25/2024 Attends Denominational Services Not on file 02/24 Active Member [...] Answer Date Recorded PHQ-2 Score 0 06/05/2024 [facility] - Occupational Stress [...] CDT Legal Sex Female 3:40 AM SUPERVISOR INCISING Gender Identity Female 12/12/2022 7:35 PM CDT Sexual Orientation Not on file documented as of this encounter Plan of Treatment Upcoming Encounters Date Type Department Care Team (Late st Contact Info) Description 12/17/2024 3:00 PM CDT Infusion Therapy Visit [facility] Medical Ctr [address] [facility] 200 [place] [address] Amina Chappell MD ENDOCRINOLOGY [facility] [address] [facility] 180 [place] [address] 01/06/2025 8:45 AM CDT Radiology Injection Office Visit [facility] Pain Management [address] [place], [place] [address] Juvencio Moreno MD [address] [place] [address] [place]OTEN [address] 01/13/2025 4:20 PM CDT Office Visit [address] , [address] [place] [address] Juvencio Moreno MD [address] [place] [address] [place] [address] 01/14/2025 2:30 PM CDT Infusion Therapy Visit [facility] Medical Ctr [facility] [address] [place] [address] Amina Chappell MD ENDOCRINOLOGY [facility] [address] [place] [address] 05/11/2025 11:30 AM SUPERVISOR INCISING Appointment [facility] Imaging [address] [place] [address] Bharath Mar MD [address] [place] [address] 05/14/2025 4:40 PM SUPERVISOR INCISING Virtual Visit [facility] Orthopedic Clinic [place] [address] [facility] 4th [place] [address] Bharath Mar MD [address] [place] [address] documented as of this encounter Visit Diagnoses Not on filedocumented in this encounter Care Teams Iridologist Relationship Specialty [place] [address] [place] [address] PCP - General Family Medicine 06/04/23 Bailey Davis PAMoonC 5200 [place] [address] Physician Weight Trainer Dermatology 12/15/21 [place] [address] [place] [address] Assigned PCP 05/06/22 [place] [address] [place] [address] Assigned Neuroscience Provider 06/03/22 Delilah Morales DO 909 [place] [address] Physical Medicine and Rehabilitation 08/15/22 Bailey Davis PA-C [address] [place] [address] Assigned Surgical Provider 06/22/23 07/19/24 Bailey Davis PA-C [address] [place] [address] Assigned Dermatology Provider 07/20/24 Bharath Mar MD [address] [place], [place] [address] [place] [address] Assigned Musculoskeletal Provider 10/20/24 documented as of this encounter
--- OUTSIDE RECORDS SUMMARY | 2024-12-13 18:45 | XMS_ITS | Encounter Summary ---
Author Organization [facility] Address [address] [place] [address] Care Team Providers Care Printing Table Hand Name Role Phone Bailey Davis PA-C Unavailable [phone] Ioana Brown MD Unavailable [phone] Juvencio Moreno MD Unavailable [phone] Delilah Morales DO Unavailable Ioana Brown MD Primary Care Provider [phone] Bailey Davis PA-C Unavailable [phone] Bharath Mar MD Unavailable [phone] Encounter Details Date Type Department Care Team (Late st Contact Info) Description 08/05/2024 MyC Medical Advice [address] [address] Erika Olivera RN Social History Tobacco Use Types Packs/Day [...] re latives? 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 MIXER Gender Identity Female 12/12/2022 7:35 PM CDT Sexual Orientation Not on file documented as of this encounter Plan of Treatment Upcoming Encounters Date Type Department Care Team (Late st Contact Info) Description 12/17/2024 3:00 PM CDT Infusion Therapy Visit [address] [facility] 200 [place] [address] Amina Chappell MD ENDOCRINOLOGY [facility] [address] [facility] 180 [place] [address] 01/06/2025 8:45 AM CDT Radiology Injection Office Visit [facility] [place] [address] [place] [address] [address] [place], [place] [address] Juvencio Moreno MD [address] [place] [address] ERICA WOOTEN [address] 01/13/2025 4:20 PM CDT Office Visit [address] , [address] [place] [phone] Juvencio Moreno MD [address] [place] [address] ERICA WOOTEN [address] 01/14/2025 2:30 PM CDT Infusion Therapy Visit [place] [address] [place] [place] [address] Amina Chappell MD ENDOCRINOLOGY [facility] [address] [place] [address] 05/11/2025 11:30 AM CELLOPHANE BATH MIXER Appointment [facility] Imaging [address] [place] [phone] Bharath Mar MD [address] 901174 05/14/2025 4:40 PM CELLOPHANE BATH MIXER Virtual Visit [facility] [place] [address] [facility] 4th [place] [address] Bharath Mar MD [address] [place] [address] documented as of this encounter Visit Diagnoses Not on filedocumented in this encounter Care Teams Printing Table Hand Relationship Specialty [place] [address] [place] [address] PCP - General Family Medicine 06/04/23 Bailey Davis PA-C [address] [place] [address] Physician Lidar Technician Dermatology 12/15/21 [place] [address] [place] [address] Assigned PCP 05/06/22 [place] [address] [address] WOOTEN [address] Assigned Neuroscience Provider 06/03/22 Delilah Morales DO 9 [place] [address] Physical Medicine and Rehabilitation 08/15/22 Bailey Davis, PAMoonC [address] [place] [address] [address] [place], [place] [address] Assigned Dermatology Provider 07/20/24 Bharath Mar MD [address] [place] [address] Assigned Musculoskeletal Provider 10/20/24 documented as of this encounter
--- OUTSIDE RECORDS SUMMARY | 2024-12-13 18:45 | XMS_ITS | CCD ---
Author Name Interface, [id number] lity Address [address] [place] [address] [address] [place] [address] Organization [facility] Address [address] [facility] [address] [place] [address] Care Team Providers Care Special Services Agent Name Role Phone Salazar DAY, Home Castillo Unavailable Allergies and Adverse Reactions Medication/Group Name Reaction Severity Date codeine 01/15/2023 azithromycin 01/15/2023 Reason for Visit OV 20 MIN Functional Status Date Name Score 08/11/2022 ECOG performance status - grade 1 1 Medications Date Name Route Dose Frequency Instructions Start Date End Date Status Esomeprazole (Magnesium) Oral Delayed Release Capsule stopped Sertraline Oral daily a ctive Vit A, C & W-Pfzzyi-Zyhnrnqk Oral 300 mcg-200 mg-27 mg-2 mg active Omeprazole Oral Delayed Release Capsule active Miscellaneous Drug Z arbee's Immune Support active Multivitamins-Min- Cmrxt-Z99-Kmkrrhy- Lutein Oral 800 mcg-1 mg-500 mcg-500 mcg active Problems Diagnosis Status Date of Diagnosis Resolution Date Chest wall pain (finding) Active Rectal pain (finding) Active Anxiety Active Fatigue (finding) Active Personal history of rectal cancer Active Pain of breast (finding) Active Social History Date Name Value 08/11/2022 Sex Female
--- OUTSIDE RECORDS SUMMARY | 2024-12-13 18:45 | XMS_ITS | Encounter Summary ---
Author Organization [facility] Address [address] [place] [address] Care Team Providers Care Packaging Sales Consultant Name Role Phone Bailey Davis PA-C Unavailable [phone] Ioana Brown MD Unavailable [phone] Juvencio Moreno MD Unavailable [phone] Delilah Morales DO Unavailable Ioana Brown MD Primary Care Provider [phone] Bailey Davis PA-C Unavailable [phone] Bharath Mar MD Unavailable [phone] Reason for Visit * Reason Onset Date Comments Results 09/16/2024 Incidental findi ng Encounter Details Date Type Department Care Team (Late st Contact Info) Description 09/16/2024 [facility] [address] [place] [address] [place] [address] [place] [address] Results (Incidental finding) Social History Tobacco Use Types Packs/Day Years [...] re latives? 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 Gender Identity Female 12/12/2022 7:35 PM CDT Sexual Orientation Not on file documented as of this encounter Miscellaneous Notes * Telephone Encounter - Baudilio Alcantara - 09/16/2024 8:04 AM CDTSummary: incidenal finding Other: Young with [facility] calling regarding a incidental finding Could we send this information to you in [place] or would you prefer to receive a phone call?: Patient would prefer a phone call Okay to leave a detailed message?: Yes at Other phone number: [phone] documented in this encounter Plan of Treatment Upcoming Encounters Date Type Department Care Team (Late st Contact Info) Description 12/17/2024 3:00 PM CDT Infusion Therapy Visit [facility] [address] [place] [address] Amina Chappell MD ENDOCRINOLOGY [facility] [address] [place] [phone] 01/06/2025 8:45 AM CDT Radiology Injection Office Visit [facility] [place] [address] [place] [address] [place] [address] [place] [address] 01/13/2025 4:20 PM CDT Office Visit [facility] [address] [place] [address] , [address] [place] [address] [place] [address] [place] [address] [place] [address] 01/14/2025 2:30 PM CDT Infusion Therapy Visit [facility] Cancer Center [facility] [address] [place] [address] Amina Chappell MD [facility]OCRINOLOGY [facility] [address] [facility] 180 [place] [address] 05/11/2025 11:30 AM SOLAR PHOTOVOLTAIC SYSTEMS ENGINEER Appointment [facility] Imaging [address] [place] [address] Bharath Mar MD [address] [place] [address] 05/14/2025 4:40 PM SOLAR PHOTOVOLTAIC SYSTEMS ENGINEER Virtual Visit [facility] [place] [address] 4th [place] [address] Bharath Mar MD [address] 8[address] documented as of this encounter Visit Diagnoses Not on filedocumented in this encounter Care Teams Packaging Sales Consultant Relationship Specialty [place] [address] [place] [address] PCP - General Family Medicine 06/04/23 Bailey Davis PA-C [address] [place] [address] Physician Butcher Assistant Dermatology 12/15/21 [place] [address] [place] [address] Assigned PCP 05/06/22 [place] [address] [place] [address] Assigned Neuroscience Provider 06/03/22 Delilah Morales DO 9 [place] [address] Physical Medicine and Rehabilitation 08/15/22 Bailey Davis PA-C [address] 315 [place] [address] Assigned Dermatology Provider 07/20/24 Bharath Mar MD [address] [place] [address] Assigned Musculoskeletal Provider 10/20/24 documented as of this encounter
--- OUTSIDE RECORDS SUMMARY | 2024-12-13 18:45 | XMS_ITS | Encounter Summary ---
Author Organization [facility] Address [address] [place] [address] Care Team Providers Care Engine Designer Name Role Phone Bailey Davis PA-C Unavailable [phone] Ioana Brown MD Unavailable [phone] Juvencio Moreno MD Unavailable [phone] Delilah Morales DO Unavailable Ioana Brown MD Primary Care Provider [phone] Bailey Davis PA-C Unavailable [phone] Bharath Mar MD Unavailable [phone] Encounter Details Date Type Department Care Team (Late st Contact Info) Description 12/09/2024 Orders Only [facility] Cancer [facility] [address] [place] [address], [facility] 200 [place] [address] Suleiman Sutton, [address] [address] Age-related osteoporosis without current pathological fracture (Primary [...] re latives? Once a week 02/25/2024 Attends Sikh Services Not on file 02/24 Active Member [...] Answer Date Recorded PHQ-2 Score 0 06/05/2024 [facility] [place] [facility] Occupat [facility] - Occupational Stress [...] PM CDT Legal Sex Female 3:40 AM BUSINESS CONTROLLER Gender Identity Female 12/12/2022 7:35 PM CDT Sexual Orientation Not on file documented as of this encounter Plan of Treatment Upcoming Encounters Date Type Department Care Team (Late st Contact Info) Description 12/17/2024 3:00 PM CDT Infusion Therapy Visit [facility] [address] [place] [address] Amina Chappell MD ENDOCRINOLOGY [facility] [address] [place] [phone] 01/06/2025 8:45 AM CDT Radiology Injection Office Visit [facility] Pain Management [address] [place] [address] [place] [id number] [place] [address] ERICA WOOTEN [address] 01/13/2025 4:20 PM CDT Office Visit [address] , [address] [place] [address] [place] [address] [place] [address] ERICA WOOTEN [address] 01/14/2025 2:30 PM CDT Infusion Therapy Visit [facility] [address] [place] [address] [place] [phone] Amina Chappell MD ENDOCRINOLOGY [facility] [address] [facility] Luke [address] [place] [address] 05/11/2025 11:30 AM BUSINESS CONTROLLER Appointment [facility] Imaging [address] [place] [address] [place] [address] Bharath Mar MD [address] [address] 05/14/2025 4:40 PM BUSINESS CONTROLLER Virtual Visit [facility] [place] 909 [facility] 4th [place] [address] Bharath Mar MD [address] [address] documented as of this encounter Visit Diagnoses Diagnosis Age-related osteoporosis without current pathological fracture- Primary Senile osteoporosis documented in this encounter Care Teams Engine Designer Relationship Specialty [place] [address] [place] [address] PCP - General Family Medicine 06/04/23 Bailey Davis PAMoonC [address] [place] [address] Physician Support Specialist Dermatology 12/15/21 [place] [address] [place] [address] Assigned PCP 05/06/22 [place] [address] [place] [address] Assigned Neuroscience Provider 06/03/22 Delilah Morales DO 9 [place] [address] Physical Medicine and Rehabilitation 08/15/22 Bailey Davis, PA-C [address] [place] [address] 315 [place] [address] Assigned Dermatology Provider 07/20/24 Bharath Mar MD [address] [place] [address] Assigned Musculoskeletal Provider 10/20/24 documented as of this encounter
--- OUTSIDE RECORDS SUMMARY | 2024-12-13 18:45 | XMS_ITS | Clinical Summary ---
Author Organization [facility] Address [address] [place] [address] Care Team Providers Care Floorworker Lasting Name Role Phone Bailey Davis PA-C Unavailable [phone] Ioana Brown MD Unavailable [phone] Juvencio Moreno MD Unavailable [phone] Delilah Morales DO Unavailable Ioana Brown MD Primary Care Provider Bailey Davis PA-C Unavailable [phone] Bharath Mar MD Unavailable [phone] Allergies Active Allergy Reactions Criticality Noted Date Comments Amoxicillin Nausea and Vomiting Low 02/28/2012 Atorvastatin 02/28/2012 Other reaction(s): Unknown Reaction Codeine Nausea Low 01/09/2008 Tramadol 02/28/2012 Other reaction(s): Unknown Reaction Medications acetaminophen (TYLENOL) 650 MG CR tablet Take 1 tablet by mouth Active vitamin (B COMPLEX) capsule Take 1 capsule by mouth 03/25/20 21 Active hydrocortisone 2.5 % cream 03/25/20 21 Active Multiple Vitamin (ONE-A-DAY ESSENTIAL) TABS Take 1 tablet by mouth daily 03/25/20 21 Active triamcinolone (KENALOG) 0.1 % external creamIndications:D ermatitis APPLY TO AFFECTED AREA TWICE A DAY FOR 14 DAYS 30 g 11/26/19 24 Active clobetasol (TEMOVATE) 0.05 % external ointmentIndication s:Lichen sclerosus Apply topically 2 times daily. 60 g 3 01/14/20 24 Active omeprazole (PRILOSEC) [address] capsuleIndications :Gastroesophageal reflux disease with esophagitis without hemorrhage TAKE 1 CAPSULE BY MOUTH EVERY DAY 90 capsule 2 02/21/20 24 Active sertraline (ZOLOFT) 100 MG tabletIndications: Anxiety Take 1 tablet (100 mg) by mouth daily. Take 50 mg for 2 weeks, then increase to 100 mg daily. 90 tablet 3 02/26/20 24 Active valACYclovir (VALTREX) 1000 mg tabletIndications: Oral herpes Take 2 tablets (2,000 mg) by mouth 2 times daily. 4 tablet 3 02/26/20 24 Active calcium citrate-vitamin D (CITRACAL) 200-6.25 MG-MCG TABS per tablet Take 1 tablet by mouth daily. Active metroNIDAZOLE (METROGEL) 0.75 % external gelIndications:Ros acea Apply to face BID 45 g 11 07/12/19 25 Active LORazepam (ATIVAN) 0.5 MG tablet PLEASE SEE ATTACHED FOR DETAILED DIRECTIONS 07/10/19 25 Active cholecalciferol (VITAMIN D3) 25 mcg (1000 units) capsule Active sulfamethoxazole-t rimethoprim (BACTRIM DS) 800-160 MG tabletIndications: Pyelonephritis, acute Take 1 tablet by mouth 2 times daily. 14 tablet 08/05/19 25 Active LORazepam (ATIVAN) 0.5 MG tabletIndications: Lumbosacral radiculopathy,Scol iosis of thoracolumbar spine, unspecified scoliosis type,Lumbosacral stenosis with neurogenic claudication,Degen eration of intervertebral disc of lumbosacral region with discogenic back pain and lower extremity pain Take 1 tablet (0.5 mg) by mouth once for 1 dose. Take 30 minutes prior to imaging/procedu re. If still anxious, take immediately prior to imaging/procedu re. 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 Tendinopathy of rotator cuff, right 09/05/2024 Rotator cuff impingement syndrome, right 025 Lumbosacral stenosis with neurogenic claudicatio n 07/09/2024 Osteoporosis with current pa thological fracture with routine healing, unspecified osteoporosis type, subsequent encounter 02/13/2024 Closed compression fracture of L5 lumbar vertebra, with routine healing, subsequent encounter 11/06/2023 Lumbosacral radiculopathy 10/03/2023 Primary osteoarthritis of left hip 08/11/2022 Primary osteoarthritis of right hip 08/11/2022 DDD (degenerative disc disease), lumbosacral Facet arthropathy, lumbosacral 05/26/2022 Scoliosis of thoracolumbar s pine, unspecified scoliosis type 05/26/2022 History of rectal cancer 12/12/2021 History of basal cell carcinoma 12/12/2021 Oral herpes 12/12/2021 Mixed hyperlipidemia 07/20/2021 Overview (12/12/2021): discussed diet and exercise. Stable. discussed diet and exercise. Stable. Postmenopausal atrophic vaginitis 07/20/2021 Overview (12/12/2021): She was started on Premarin cream by the urologist, Dr. Smith. She was started on Premarin cream by the urologist, Dr. Smith. Rosacea 07/20/2021 Overview (12/12/2021): The patient follows with a food service assistant regularly, f/u visit with Dr. Guerrero. The patient went for followup with her on 06/27/12 and had Botox. Uses MetroCream prn. The patient follows with a food service assistant regularly, f/u visit with Dr. Guerrero. The patient went for followup with her on 06/27/12 and had Botox. Uses MetroCream prn. Sensorineural hearing loss, bilateral 07/20/2021 Overview (12/12/2021): severe, runs in the family. she wears new hearing aids (audiology testing done on 12/16/12)and hears much better, was evaluated by ENT. severe, runs in the family. she wears new hearing aids (audiology testing done on 12/16/12)and hears much better, was evaluated by ENT. Vitamin D deficiency 07/20/2021 Overview (12/12/2021): 25 in 04/2009, 34 in 08/2010, 35 in 07/2011, 40 in 10/2012, f/u 02/2014. 25 in 04/2009, 34 in 08/2010, 35 in 07/2011, 40 in 10/2012, f/u 02/2014. Age-related osteoporosis wit agatha current pathological fracture 08/12/2020 Overview (12/12/2021): 05/2018: First noted on DEXA through [facility] 07/2020: Again present on DEXA - recommended initiate IV bisphosphonate due to hx of GERD Anxiety 04/04/2018 Resolved Problems Problem Noted Date Diagnosed Date Resolved Date Age-related osteoporosis wit h current pathological fracture, vertebra(e), initial encounter for fracture 11/06/2023 01/14/2024 Right hip pain 05/26/2022 01/14/2024 Genital herpes 12/12/2021 12/12/2021 Overview (12/12/2021): recurrent. The patient uses Valtrex daily. Encounters Date Type Department Care Team Description 12/09/2024 2:00 PM CDT Infusion Therapy Visit [facility] [address] [place] [address] Amina Chappell MD Age-related osteoporosis without current pathological fracture 12/09/2024 Orders Only [facility] [address], [address] [place] [phone] Suleiman Sutton [facility] Age-related osteoporosis without current pathological fracture (Primary Dx) 12/09/2024 Travel 12/05/2024 Travel 12/01/2024 1:40 PM CDT Office Visit [facility] [address] [place] [address] Gareth Mcclellan DO Biceps tendonosis of right shoulder (Primary Dx) 12/01/2024 1:30 PM CDT Office Visit [facility] [address] [place] [address] Uriel Heredia MD Biceps tendonosis of right shoulder (Primary Dx) 12/01/2024 Travel 11/28/2024 Travel 11/27/2024 Telephone [place] [address], [address] [place] [phone] Juvencio Moreno MD Procedure (L4-5 L5-S1 right Transforaminal GALLO/) 11/17/2024 1:40 PM CDT Office Visit [place] [address], [address] [place] [phone] Juvencio Moreno MD Lumbosacral stenosis with neurogenic claudication (Primary Dx); Lumbosacral radiculopathy; Scoliosis of thoracolumbar spine, unspecified scoliosis type; Degeneration of intervertebral disc of lumbosacral region with discogenic back pain and lower extremity pain 11/17/2024 Travel 11/12/2024 Travel 11/11/2024 2:00 PM CDT Infusion Therapy Visit [facility] [address] [place] [address] Amina Chappell MD Age-related osteoporosis without current pathological fracture (Primary Dx) 11/11/2024 Travel 11/09/2024 Travel 11/06/2024 4:40 PM CDT Virtual Visit [facility] [address] [facility] [address] 4th [place] [phone] Bharath Mar MD Bone lesion (Primary Dx) 11/06/2024 MyC Medical Advice [facility] [address] [place] [address] Uriel Heredia MD 11/05/2024 2:[address] [facility] [address] [place] [address] Bharath Mar MD Tendinopathy of rotator cuff, right; Rotator cuff impingement syndrome, right 11/05/2024 1:24 PM CDT - 11/05/2024 11:59 PM CDT Hospital Encounter [facility] [address] [place] [address] Bharath Mar MD Tendinopathy of rotator cuff, right; Rotator cuff impingement syndrome, right Discharge Disposition: Home or Self Care 11/05/2024 1:23 PM CDT Hospital Encounter [facility] [address] [place] [address] Bharath Mar MD Tendinopathy of rotator cuff, right; Rotator cuff impingement syndrome, right Discharge Disposition: Home or Self Care 11/05/2024 Travel 11/02/2024 Travel 10/14/2024 2:00 PM CDT Infusion Therapy Visit [facility] [address] [place] [phone] Amina Chappell MD Age-related osteoporosis without current pathological fracture (Primary Dx) 10/13/2024 12:40 PM CDT Office Visit [facility] [address] [place] [phone] Bharath Mar MD Bone lesion (Primary Dx); Tendinopathy of rotator cuff, right; Rotator cuff impingement syndrome, right 10/13/[address] [phone] Bharath Mar MD 10/13/2024 Travel 10/13/2024 PRE VISIT [place] [id number] [phone] Bharath Mar MD Previsit 10/12/2024 Travel 10/06/2024 11:45 AM CDT Office Visit [facility] [address] [place] [address] Juvencio Moreno MD Ristow, Jacob, MD Tendinopathy of rotator cuff, right; Rotator cuff impingement syndrome, right 10/06/2024 Travel 10/04/2024 Travel 10/03/[address] [phone] Unknown, Provider RED FLAG TUMOR VISIT NEEDED 10/03/2024 Telephone [facility] [address] [place] [phone] Juvencio Moreno MD 09/26/2024 11:30 AM CDT Ancillary Procedure [facility] [address] [place] [phone] Juvencio Moreno MD Tendinopathy of rotator cuff, right; Rotator cuff impingement syndrome, right; Neoplasm of right scapula 09/25/2024 11:15 AM CDT Radiology Injection Office Visit [facility] [place] [address] [place] [address] [address] [place] [address] Juvencio Moreno MD Lumbosacral radiculopathy (Primary Dx); Degeneration of intervertebral disc of lumbosacral region with discogenic back pain and lower extremity pain; Scoliosis of thoracolumbar spine, unspecified scoliosis type; Lumbosacral stenosis with neurogenic claudication; Facet arthropathy, lumbosacral; Age-related osteoporosis without current pathological fracture 09/25/2024 Travel 09/21/2024 Travel 09/20/2024 Travel 09/16/2024 2:00 PM CDT Infusion Therapy Visit [facility] [address] [place] [phone] Amina Chappell MD Age-related osteoporosis without current pathological fracture (Primary Dx) 09/16/2024 Orders Only [facility] [address] , [address] [place] [phone] Juvencio Moreno MD Tendinopathy of rotator cuff, right (Primary Dx); Rotator cuff impingement syndrome, right; Neoplasm of right scapula 09/16/2024 Travel 09/16/2024 Telephone [facility] [address] [place] [address] Juvencio Moreno MD Results (Incidental finding) 09/13/2024 Travel 09/12/2024 Telephone [facility] [address] , [address] [place] [phone] Juvencio Moreno MD Call Back from Last 3 Months Immunizations Immunization Administration Dates Next Due COVID-19 12+ (Pfizer) 03/18/2024 COVID-19 MONOVALENT 12+ (Pfizer) 03/25/2021,03/0 12/2020,06/15/2020 Flu, Unspecified 03/18/2024 Influenza (High Dose) Trival ent,PF (Fluzone) 03/18/2024,04/02/2019,02/13/2018,2016,01/19/2016,06/09/2015,03/02/2014,1 05/17/2012,05/07/2012 Influenza (IIV3) PF 06/02/2009,02/25/2007,2005 Influenza (prior to 2023) 06/02/2009 Influenza Vaccine 65+ (FLUAD) 03/25/2021, 020 Influenza Vaccine 65+ (Fluzone HD) 02/13,02/06/2017,01/19/2016,2015,03/02/2014,03/17/2013,05/07/2012 Pneumo Conj 13-V (2010&after) 02/06/2017 Pneumococcal 23 valent 05/06/2010 RSV (Abrysvo) 03/18/2024 RSV Vaccine (Arexvy) 03/18/2024 TDAP (Adacel,Boostrix) 10/02/2013 Zoster recombinant adjuvante d (Shingrix) 08/19/2021 Zoster vaccine, live 09/01/2011 Family History Medical History Relation Comments Skin Cancer Father possibly melanom a Skin Cancer Paternal Aunt Relation Status Comments Father Paternal Aunt Social History Tobacco Use Types Packs/Day Years [...] re latives? 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 Gender Identity Female 12/12/2022 7:35 PM CDT Sexual Orientation Not on file Last Filed Vital Signs Vital Sign Reading [...] Mass Index 23.03 11/17/2024 1:48 PM CDT Plan of Treatment Upcoming Encounters Date Type Department Care Team (Late st Contact Info) Description 12/17/2024 3:00 PM CDT Infusion Therapy Visit [facility] [address] [place] [phone] Amina Chappell MD ENDOCRINOLOGY [facility] [address] [place] [phone] 01/06/2025 8:45 AM CDT Radiology Injection Office Visit [facility] [address] [place], [place] [address] [place] [address] [address] [place] [address] 01/13/2025 4:20 PM CDT Office Visit [place] [phone] [place] [phone] [place] [address] [place] [address] 01/14/2025 2:30 PM CDT Infusion Therapy [facility] [address] [place] [phone] Amina Chappell MD ENDOCRINOLOGY [facility] [address] [facility] [address] [place] [phone] 05/11/2025 11:30 AM COMMUNITY RELATIONS REPRESENTATIVE Appointment [facility] [address] [place] [phone] Bharath Mar MD [address] [place] [phone] 05/14/2025 4:40 PM COMMUNITY RELATIONS REPRESENTATIVE Virtual Visit [facility] [place] [address] [facility] [address] [place] [phone] Bharath Mar MD [address] [place] [phone] Health Maintenance Due Date Last Done Comments CT COLONOGRAPHY 1944 FIT 1945 FLEX SIG 1945 sDNA (Cologuard) 1945 ZOSTER VACCINE (3 of 3) 10/14/2021 08/19/2021, 08/31 DTAP/TDAP/TD VACCINE (2 - Td or Tdap) 10/03/2023 10/02/2013 COVID-19 VACCINE ( season) 2024 03/18/2024, 04/17/2022, 08/19/2021, Additional history exists INFLUENZA VACCINE (#1) 2024 , 03/18/2024, 04/18/2022, Additional history exists ANNUAL REVIEW OF HM ORDERS 01/13/202501/13, 12/25/2022, 12/12/2021 FALL RISK ASSESSMENT 02/25/2025 02/26/2024, 02/11/2024, 01/14/2024, Additional history exists LIPID 02/25/2025 02/26/2024, 12/26/2022 MEDICARE ANNUAL WELLNESS VISIT 02/25/2025 02/26/2024, 12/25/2022, 08/19/2021, Additional history exists DIABETES SCREENING 08/05/2027 08/04/2024, 1 , 02/26/2024, Additional history exists COLONOSCOPY 11/15/2027 11/14/2022, 07/1 11/2022, 09/08/2020, Additional history exists COLORECTAL CANCER SCREENING 11/15/2027 ADVANCE CARE PLANNING 02/25/2029 02/26/2024 , 12/25/2022, 10/30/2022 DEXA 12/26/2038 12/27/2023, 07/0 09/2022, 11/02/2022, Additional history exists PNEUMOCOCCAL VACCINE 50+ YEARS Completed 02/06/2017, 05/06/2010 RSV VACCINE Completed 03/18/2024, 03/18/2024 PHQ-2 (once per calendar year) Completed 06/05/2024, 02/26/2024, 10/03/2023, Additional history exists LUNG CANCER SCREENING Discontinued 11/05/2024 , 08/11/2022, 07/04/2019, Additional history exists HPV VACCINE (No Doses Required) Completed MENINGITIS VACCINE Aged Out No longer eligible based on patient's age to complete this topic Procedures Procedure Name Priority Date/Time Associated Diagnosis Comments MO ARTHROCENTESIS ASPIR&/INJ INTERM JT/BURS W/US Routine 12/01/2024 2:11 PM CDT Biceps tendonosis of right shoulder CT SHOULDER RIGHT W/O CONTRAST Routine 11/05/2024 2:25 PM CDT Tendinopathy of rotator cuff, right Rotator cuff impingement syndrome, right CT CHEST/ABDOMEN/PELVIS W CONTRAST Routine 11/05/2024 2:24 PM CDT Tendinopathy of rotator cuff, right Rotator cuff impingement syndrome, right PROTEIN ELECTROPHORESIS Routine 11/06/19 1:16 PM CDT Tendinopathy of rotator cuff, right Rotator cuff impingement syndrome, right PROTEIN ELECTROPHORESIS, SERUM Routine 11/05/2024 1:16 PM [...] cuff, right Rotator cuff impingement syndrome, right MO DRAIN/INJ MAJOR JOINT/BURSA W/O US Routine 10/13/2024 3:13 PM CDT Bone lesion MO DRAIN/INJ MAJOR JOINT/BURSA W/O US Routine 10/13/2024 1:37 PM CDT Tendinopathy of rotator cuff, right Rotator cuff impingement syndrome, right Bone lesion MR SHOULDER RIGHT W/O CONTRAST Routine 09/26/2024 12:02 PM CDT Tendinopathy of rotator cuff, right Rotator cuff impingement syndrome, right Neoplasm of right scapula PAIN INTERLAMINAR EPDRL STRD INJ LMBR SCRL Routine 09/25/2024 11:40 AM CDT Lumbosacral radiculopathy COMPREHENSIVE METABOLIC PANEL STAT 08/04/2024 12:33 PM CDT Pyelonephritis, acute LIPID REFLEX TO DIRECT LDL PANEL Routine 02/26/2024 2:06 PM CDT Encounter for Medicare annual wellness exam DX AXIAL HIPS/SPINE Routine 12/27/2023 9 :55 AM CDT Closed compression fracture of L5 lumbar vertebra, with routine healing, subsequent encounter Age-related osteoporosis with current pathological fracture, vertebra(e), initial encounter for fracture (H) COLONOSCOPY Routine 11/14/2022 12:16 PM CDT from Last 3 Months or Most Recently Relevant to Health Maintenance Results * MO ARTHROCENTESIS ASPIR&/INJ INTERM JT/BURS W/US (12/01/2024 2:11 PM CDT) Narrative Gareth Mcclellan DO - 12/01/2024 2:11 PM CDT Gareth [...] images of the procedure were permanently stored. Gareth Mcclellan DO PROCEDURE/MINOR SURGICAL ORDER DOMO Final Result * CT Shoulder Right w/o Contrast (11/05/2024 [...] EXAM: CT SHOULDER RIGHT W/O CONTRAST LOCATION: [facility] DATE: 11/05/2024 INDICATION: Tendinopathy of rotator cuff, [...] EXAM: CT SHOULDER RIGHT W/O CONTRAST LOCATION: [facility] DATE: 11/05/2024 INDICATION: Tendinopathy of rotator cuff, [...] Mar MD IMG CT ORDERABLES Final Result * CT Chest/Abdomen/Pelvis w Contrast (11/05/2024 2:24 [...] CDT EXAM: CT CHEST/ABDOMEN/PELVIS W CONTRAST LOCATION: [facility] DATE: 11/05/2024 INDICATION: Tendinopathy of rotator cuff, [...] 11/06/2024 EXAM: CT CHEST/ABDOMEN/PELVIS W CONTRAST LOCATION: [facility] DATE: 11/05/2024 INDICATION: Tendinopathy of rotator cuff, [...] Mar MD IMG CT ORDERABLES Final Result * (ABNORMAL) Protein Electrophoresis, Serum (11/05/2024 1:16 PM CDT) Albumin 4.3 3.7 - 5.1 g/dL 11/06/2024 3:22 PM CDT SPECIALTY CORE/PROT/E NDO Alpha 1 0.2 0.2 - 0.4 g/dL 11/06/2024 3:22 PM CDT SPECIALTY CORE/PROT/E NDO Alpha 2 0.6 0.5 - 0.9 g/dL 11/06/2024 3:22 PM CDT SPECIALTY CORE/PROT/E NDO Beta Globulin 0.6 0.6 - 1.0 g/dL 11/06/2024 3:22 PM CDT SPECIALTY CORE/PROT/E NDO Gamma Globulin 0.6(L) 0.7 - 1.6 g/dL 11/06/2024 3:22 PM CDT UM SPECIALTY CORE/PROT/E NDO Monoclonal Peak 0.0 <=0.0 g/dL 11/06/2024 3:22 PM CDT UM SPECIALTY CORE/PROT/E NDO ELP Interpretation Essentially normal electrophoretic pattern. No obvious monoclonal proteins seen. Pathologic significance requires clinical correlation. Chema Hicks M.D., Ph.D., Pathologist. 11/06/2024 3:22 PM CDT UM SPECIALTY CORE/PROT/E NDO Blood STRUCTURE OF RIGHT UPPER LIMB / Unknown Venipuncture / Unknown 11/05/2024 1:16 PM CDT 11/05/2024 1:16 PM CDT Bharath Mar MD LAB - BLOOD ORDERABLES Final R esult UM SPECIALTY CORE/PROT/ENDO UM Specialty Core/Prot/Endo [address] [facility], Room [address] * Total Protein, Serum for ELP (11/05/2024 1:16 PM CDT) Total Protein Serum for ELP 6.4 6.4 - 8.3 g/dL 11/05/2024 1:59 PM CDT LABORATORY Blood STRUCTURE OF RIGHT UPPER LIMB / Unknown Venipuncture / Unknown 11/05/2024 1:16 PM CDT 11/05/2024 1:16 PM CDT Bharath Mar MD LAB - BLOOD ORDERABLES Final R esult LABORATORY [facility] [address] Lab (1st floor, no room number) [place] [address], [facility] [place] * Lactate Dehydrogenase (11/05/2024 1:16 PM CDT) Lactate Dehydrogenase 170 0 - 250 U/L 11/05/2024 1:42 PM CDT LABORATORY Blood STRUCTURE OF RIGHT UPPER LIMB / Unknown Venipuncture / Unknown 11/05/2024 1:16 PM CDT 11/05/2024 1:16 PM CDT Bharath Mar MD LAB - BLOOD ORDERABLES Final R esult [facility] [address] Lab (1st floor, no room number) [place] [address] * (ABNORMAL) Pierceton and lambda light chain (11/05/2024 1:16 PM CDT) [place] Free Light Chains 1.89 0.33 - 1.94 mg/dL 11/06/2024 9:56 AM CDT UM SPECIALTY CORE/PROT/ENDO Lambda Free Light Chains 1.05 0.57 - 2.63 mg/dL 11/06/2024 9:56 AM CDT SPECIALTY CORE/PROT/ENDO [place] /Lambda Ratio 1.80(H) 0.26 - 1.65 11/06/2024 9:56 AM CDT SPECIALTY CORE/PROT/ENDO Blood STRUCTURE OF RIGHT UPPER LIMB / Unknown Venipuncture / Unknown 11/05/2024 1:16 PM CDT 11/05/2024 1:16 PM CDT Narrative UM SPECIALTY CORE/PROT/ENDO - 11/06/2024 9:56 AM CDT [...] LAB - BLOOD ORDERABLES Final R esult UM SPECIALTY CORE/PROT/ENDO UM Specialty Core/Prot/Endo [address] [facility] [address] Building, Room 3[address] [place], [place] [address] * Urea nitrogen (11/05/2024 1:16 PM CDT) Urea Nitrogen 14.6 8.0 - 23.0 mg/dL 11/05/2024 1:42 PM CDT LABORATORY Blood STRUCTURE OF RIGHT UPPER LIMB / Unknown Venipuncture / Unknown 11/05/2024 1:16 PM CDT 11/05/2024 1:16 PM CDT Bharath Mar MD LAB - BLOOD ORDERABLES Final R esult LABORATORY [facility] [address] Lab (1st floor, no room number) [place] [phone] [place] [address] * Erythrocyte sedimentation rate auto (11/05/2024 1:16 PM CDT) Erythrocyte Sedimentation Rate 6 0 - 30 mm/hr 11/05/2024 2:16 PM CDT LABORATORY Blood STRUCTURE OF RIGHT UPPER LIMB / Unknown Venipuncture / Unknown 11/05/2024 1:16 PM CDT 11/05/2024 1:16 PM CDT Bharath Mar MD LAB - BLOOD ORDERABLES Final R esult Performing Organization Address [facility] Co de Phone Number [facility] [address] Lab (1st floor, no room number) [address] * Creatinine (11/05/2024 1:16 PM CDT) Creatinine 0.68 0.51 - 0.95 mg/dL 11/05/2024 1:42 PM CDT LABORATORY GFR Estimate 88 >60 mL/min/1.7 3m2 11/05/2024 1:42 PM CDT [facility] LABORATORY Comment:eGFR calculated usin 2020 CKD-EPI equation. Blood STRUCTURE OF RIGHT UPPER LIMB / Unknown Venipuncture / Unknown 11/05/2024 1:16 PM CDT 11/05/2024 1:16 PM CDT Bharath Mar MD LAB - BLOOD ORDERABLES Final R esult LABORATORY [facility] [address] Lab (1st floor, no room number) [place] [address] * Calcium (11/05/2024 1:16 PM CDT) Calcium 8.9 8.8 - 10.4 mg/dL 11/05/2024 1:42 PM CDT [facility] LABORATORY Blood STRUCTURE OF RIGHT UPPER LIMB / Unknown Venipuncture / Unknown 11/05/2024 1:16 PM CDT 11/05/2024 1:16 PM CDT Bharath Mar MD LAB - BLOOD ORDERABLES Final R esult Performing Organization Address [facility]/ZIP Co de Phone Number [facility] [address] Lab (1st floor, no room number) [place] [address] * Alkaline phosphatase (11/05/2024 1:16 PM CDT) Alkaline Phosphatase 84 40 - 150 U/L 11/05/2024 1:42 PM CDT LABORATORY Blood STRUCTURE OF RIGHT UPPER LIMB / Unknown Venipuncture / Unknown 11/05/2024 1:16 PM CDT 11/05/2024 1:16 PM CDT Bharath Mar MD LAB - BLOOD ORDERABLES Final R esult [facility] [address] Lab (1st floor, no room number) [place] [address] * CBC with platelets (11/05/2024 1:16 PM [...] 1:16 PM CDT 11/05/2024 1:16 PM CDT us Bharath Mar MD LAB - BLOOD ORDERABLES Final R esult [facility]AT[facility] [address] Lab (1st floor, no room number) [place] [address] * MO DRAIN/INJ MAJOR JOINT/BURSA W/O US (10/13/2024 1:37 PM CDT) Narrative Bharath Mar MD - 10/13/2024 1:37 PM CDT Bharath Mar MD 10/13/2024 3:13 PM Large Joint Injection/Arthocentesis: R glenohumeral joint Date/Time: 10/13/2024 1:37 PM Performed by: Bharath Mar MD Authorized by: Bharath Mar MD Indications: Pain Needle Size: 21 G Guidance: landmark guided Approach: Posterior Location: Shoulder Site: R glenohumeral joint Medications: 10 mL lidocaine (PF) 1 % Outcome: Tolerated well, no immediate complications Procedure discussed: discussed risks, benefits, and alternatives Consent Given by: Patient Timeout: timeout called immediately prior to procedure Prep: patient was prepped and draped in usual sterile fashion us Bharath Mar MD PROCEDURE/MINOR SURGICAL ORDER DOMO Edited Result - Final * MR Shoulder Right w/o Contrast (09/26/2024 12:02 PM CDT) Anatomical Region Laterality Modality Right Shoulder, SUBRAD MR MSK, UMP MR MSK, RAD M R Magnetic Resonance Impressions 09/26/2024 2:56 PM CDT Impression: T2 hyperintense, T1 intermediate lesion of interest within the base of the scapular spine does not demonstrate substantial signal dropout on out of phase imaging (i.e. not definitively benign). Lesion is technically indeterminate. Patient has a remote history of rectal cancer. Recommend repeat contrast-enhanced MRI in 6 months to assess stability. Can consider orthopedic oncology referral for further recommendation. MARTÍN COELHO MD (Joe) Narrative 09/26/2024 2:56 PM CDT EXAM: MR Right shoulder without contrast 09/26/2024 12:02 PM TECHNIQUE: Multiplanar, multisequence imaging of the Right shoulder were obtained without administration of intravenous or intra-articular gadolinium contrast using routine protocol. History: Approximately 1.3 x 2.8 x 1.5 cm technically indeterminate T2 hyperintense, slightly T1 hyperintense than regional skeletal muscle scapular lesion. Recommend in and out phase imaging.; Tendinopathy of rotator cuff, right; Rotator cuff impingement syndrome, right; Neoplasm of right scapula Comparison: 09/11/2024 Findings: ROTATOR CUFF and ASSOCIATED STRUCTURES Rotator cuff: Similar tendinosis and multifocal tearing including low to moderate grade bursal sided tear of the middle fibers at the footprint. Low to moderate grade intrasubstance tear of the junctional fibers at the footprint. Intact subscapularis and teres minor. Bursa: Trace fluid in the subacromial-subdeltoid bursa. Musculature: Muscle bulk of rotator cuff is preserved. Deltoid muscle bulk is also preserved. No muscle edema. Acromioclavicular joint There are moderate degenerative changes of the acromioclavicular joint. Acromion is type 1 in sagittal morphology. Coracoacromial ligament is not thickened. OSSEOUS STRUCTURES Redemonstration of a T2 hyperintense, T1 intermediate lesion within the base of the scapular spine. Approximately 9-17% signal dropout on in and out of phase imaging. No extraosseous extension. No periostitis. LONG BICIPITAL TENDON Mild tendinosis of the intra-articular long head of the biceps tendon. GLENOHUMERAL JOINT Joint fluid: Small joint effusion with similar anterior joint body. Cartilage and subarticular bone: Similar moderate grade cartilage loss over the posterior glenoid. Labrum: Multifocal labral tearing. ANCILLARY FINDINGS: None. Procedure Note Kitty Martín Jeffery, DO - 09/26/2024 EXAM: MR Right shoulder without contrast 09/26/2024 12:02 PM TECHNIQUE: Multiplanar, multisequence imaging of the Right shoulder were obtained without administration of intravenous or intra-articular gadolinium contrast using routine protocol. History: Approximately 1.3 x 2.8 x 1.5 cm technically indeterminate T2 hyperintense, slightly T1 hyperintense than regional skeletal muscle scapular lesion. Recommend in and out phase imaging.; Tendinopathy of rotator cuff, right; Rotator cuff impingement syndrome, right; Neoplasm of right scapula Comparison: 09/11/2024 Findings: ROTATOR CUFF and ASSOCIATED STRUCTURES Rotator cuff: Similar tendinosis and multifocal tearing including low to moderate grade bursal sided tear of the middle fibers at the footprint. Low to moderate grade intrasubstance tear of the junctional fibers at the footprint. Intact subscapularis and teres minor. Bursa: Trace fluid in the subacromial-subdeltoid bursa. Musculature: Muscle bulk of rotator cuff is preserved. Deltoid muscle bulk is also preserved. No muscle edema. Acromioclavicular joint There are moderate degenerative changes of the acromioclavicular joint. Acromion is type 1 in sagittal morphology. Coracoacromial ligament is not thickened. OSSEOUS STRUCTURES Redemonstration of a T2 hyperintense, T1 intermediate lesion within the base of the scapular spine. Approximately 9-17% signal dropout on in and out of phase imaging. No extraosseous extension. No periostitis. LONG BICIPITAL TENDON Mild tendinosis of the intra-articular long head of the biceps tendon. GLENOHUMERAL JOINT Joint fluid: Small joint effusion with similar anterior joint body. Cartilage and subarticular bone: Similar moderate grade cartilage loss over the posterior glenoid. Labrum: Multifocal labral tearing. ANCILLARY FINDINGS: None. Impression: T2 hyperintense, T1 intermediate lesion of interest within the base of the scapular spine does not demonstrate substantial signal dropout on out of phase imaging (i.e. not definitively benign). Lesion is technically indeterminate. Patient has a remote history of rectal cancer. Recommend repeat contrast-enhanced MRI in 6 months to assess stability. Can consider orthopedic oncology referral for further recommendation. MARTÍN COELHO MD (Joe) Juvencio Moreno MD IMG MRI ORDERABLES Final Result * PAIN Interlaminar Epidural Steroid Injection Lumbar/Sacral [...] L4-L5 interlaminar epidural steroid injection. (CPT code: 29594) PROCEDURE IN DETAIL: Prior to the procedure, [...] MD IMG PAIN MANAGEMENT ORDERABLES Final Result * (ABNORMAL) Comprehensive metabolic panel (08/04/2024 12:33 PM CDT) Sodium 145 135 - 145 mmol/L 08/04/2024 12:59 PM CDT [facility] Potassium 4.3 3.4 - 5.3 mmol/L 08/04/2024 12:59 PM CDT [facility] Chloride 105 94 - 109 mmol/L 08/04/2024 12:59 PM CDT [facility] Carbon Dioxide (CO2) 26 20 - 32 mmol/L 08/04/2024 12:59 PM CDT [facility] Anion Gap 14 3 - 14 mmol/L 08/04/2024 12:59 PM CDT [facility] Urea Nitrogen 18 7 - 30 mg/dL 08/04/2024 12:59 PM CDT [facility] Creatinine 0.80 0.52 - 1.04 mg/dL 08/04/2024 12:59 PM CDT [facility] GFR Estimate 75 >60 mL/min/1.7 3m2 08/04/2024 12:59 PM CDT [facility] Calcium 10.1 8.5 - 10.1 mg/dL 08/04/2024 12:59 PM CDT [facility] Glucose 101(H) 70 - 99 mg/dL 08/04/2024 12:59 PM CDT [facility] Alkaline Phosphatase 87 40 - 150 U/L 08/04/2024 12:59 PM CDT [facility] AST 35 0 - 45 U/L 08/04/2024 12:59 PM CDT [facility] ALT 30 0 - 50 U/L 08/04/2024 12:59 PM CDT [facility] Protein Total 7.2 6.8 - 8.8 g/dL 08/04/2024 12:59 PM CDT [facility] Albumin 3.9 3.4 - 5.0 g/dL 08/04/2024 12:59 PM CDT [facility] Bilirubin Total 0.9 0.2 - 1.3 mg/dL 08/04/2024 12:59 PM CDT [facility] Blood BLOOD SPECIMEN / Unknown Venipuncture / Unknown 08/04/2024 12:33 PM CDT 08/04/2024 12:35 PM CDT us Lucy Tinajero PA-C LAB - BLOOD ORDERABLES Final R esult [facility] [place] [facility] [address] [facility] Lab (no room number, 1st floor of clinic) [place] [address], [facility] [place] * (ABNORMAL) Lipid panel reflex to direct LDL Fasting (02/26/2024 2:06 PM CDT) Cholesterol 224(H) <200 mg/dL 02/27/2024 12:29 AM CDT [facility] Triglycerides 153(H) <150 mg/dL 02/27/2024 12:29 AM CDT [facility] Direct Measure HDL 42(L) >=50 mg/dL 02/27/2024 12:29 AM CDT [facility] LDL Cholesterol Calculated 151(H) <100 mg/dL 02/27/2024 12:29 AM CDT [facility] Non HDL Cholesterol 182(H) <130 mg/dL 02/27/2024 12:29 AM CDT [facility] Patient Fasting > 8hrs? Yes 02/27/2024 12:29 AM CDT [facility] Blood BLOOD SPECIMEN / Unknown Venipuncture / Unknown 02/26/2024 2:06 PM CDT 02/26/2024 2:06 PM CDT Narrative [facility] - 02/27/2024 12:29 AM CDT Cholesterol Desirable: < 200 mg/dL Borderline High: 200 - 239 mg/dL High: >= 240 mg/dL Triglycerides Normal: < 150 mg/dL Borderline High: 150 - 199 mg/dL High: 200-499 mg/dL Very High: >= 500 mg/dL Direct Measure HDL Female: >= 50 mg/dL Male: >= 40 mg/dL LDL Cholesterol Desirable: < 100 mg/dL Above Desirable: 100 - 129 mg/dL Borderline High: 130 - 159 mg/dL High: 160 - 189 mg/dL Very High: >= 190 mg/dL Non HDL Cholesterol Desirable: < 130 mg/dL Above Desirable: 130 - 159 mg/dL Borderline High: 160 - 189 mg/dL High: 190 - 219 mg/dL Very High: >= 220 mg/dL us Ioana Brown MD LAB - BLOOD ORDERABLES Fi nal Result [facility] [place] [facility] [address] [facility], [address] [place] [address] * DX AXIAL HIPS/SPINE (12/27/2023 9:55 AM CDT) Anatomical Region Laterality Modality Dexa Bone Mineral Den sity 12/27/2023 9:55 AM CDT Impressions 12/28/2023 9:58 AM CDT IMPRESSION: OSTEOPOROSIS. T score meets the WHO criteria for osteoporosis at one or more measured sites. The risk of osteoporotic fracture increases approximately two-fold for each standard deviation decrease in T-score. Narrative 12/28/2023 9:58 AM CDT EXAM: DX AXIAL HIPS/SPINE LOCATION: [facility] DATE: 12/27/2023 INDICATION: Closed compression fracture of L5 lumbar vertebra, postmenopausal. DEMOGRAPHICS: Age- 78 years. Gender- Female. Menopausal status- Postmenopausal. COMPARISON: 11/02/2022 TECHNIQUE: Dual-energy x-ray absorptiometry (DXA) performed with routine technique. FINDINGS: DXA RESULTS -Lumbar Spine: L1-L3: BMD: 0.944 g/cm2. T-score: -1.9. Z-score: 0.1. Degenerative change may artifactually increase BMD. -RIGHT Hip Total: BMD: 0.631 g/cm2. T-score: -3.0. Z-score: -0.9. -RIGHT Hip Femoral neck: BMD: 0.579 g/cm2. T-score: -3.3. Z-score: -1.0. -LEFT Hip Total: BMD: 0.670 g/cm2. T-score: -2.7. Z-score: -0.5. -LEFT Hip Femoral neck: BMD: 0.633 g/cm2. T-score: -2.9. Z-score: -0.6. WHO T-SCORE CRITERIA -Normal: T score at or above -1 SD -Osteopenia: T score between -1 and -2.5 SD -Osteoporosis: T score at or below -2.5 SD The World Health Organization (WHO) criteria is applicable to perimenopausal females, postmenopausal females, and men aged 50 years or older. INTERVAL CHANGE -There has been a 6.1% increase in lumbar spine BMD, which may be due to arthritic/sclerotic changes. -There has been a 2.1% decrease in bilateral hip BMD. FRACTURE RISK -The FRAX risk calculator is not applicable due to osteoporosis. RECOMMENDATIONS The patient's BMD is consistent with osteoporosis, and he/she is at increased fracture risk. If not currently being treated for low BMD, this would merit treatment according to the Bone Health and Osteoporosis Foundation. Procedure Note Jennifer Rodriguez PA-C - 12/28/2023 EXAM: DX AXIAL HIPS/SPINE LOCATION: [facility] DATE: 12/27/2023 INDICATION: Closed compression fracture of L5 lumbar vertebra,postmenopausal. DEMOGRAPHICS: Age- 78 years. Gender- Female. Menopausal status-Postmenopausal. COMPARISON: 11/02/2022 TECHNIQUE: Dual-energy x-ray absorptiometry (DXA) performed with routinetechnique. FINDINGS: DXA RESULTS -Lumbar Spine: L1-L3: BMD: 0.944 g/cm2. T-score: -1.9. Z-score: 0.1.Degenerative change may artifactually increase BMD. -RIGHT Hip Total: BMD: 0.631 g/cm2. T-score: -3.0. Z-score: -0.9. -RIGHT Hip Femoral neck: BMD: 0.579 g/cm2. T-score: -3.3. Z-score: -1.0. -LEFT Hip Total: BMD: 0.670 g/cm2. T-score: -2.7. Z-score: -0.5. -LEFT Hip Femoral neck: BMD: 0.633 g/cm2. T-score: -2.9. Z-score: -0.6. WHO T-SCORE CRITERIA -Normal: T score at or above -1 SD -Osteopenia: T score between -1 and -2.5 SD -Osteoporosis: T score at or below -2.5 SD The World Health Organization (WHO) criteria is applicable toperimenopausal females, postmenopausal females, and men aged 50 years orolder. INTERVAL CHANGE -There has been a 6.1% increase in lumbar spine BMD, which may be due toarthritic/sclerotic changes. -There has been a 2.1% decrease in bilateral hip BMD. FRACTURE RISK -The FRAX risk calculator is not applicable due to osteoporosis. RECOMMENDATIONS The patient's BMD is consistent with osteoporosis, and he/she is atincreased fracture risk. If not currently being treated for low BMD, thiswould merit treatment according to the Bone Health and OsteoporosisFoundation. IMPRESSION: OSTEOPOROSIS. T score meets the WHO criteria for osteoporosisat one or more measured sites. The risk of osteoporotic fracture increasesapproximately two-fold for each standard deviation decrease in T-score. us Juvencio Moreno MD IMKristy DEXA ORDERABLES Final Resul t * COLONOSCOPY (11/14/2022 12:16 PM CDT) COLONOSCOPY [facility] Patient Name: Jennifer Pendleton Procedure Date: 11/14/2022 12:16 PM Date of : 1945 Admit Type: Outpatient Age: 76 Gender: Female Attending MD: FLETCHER RIZO MD, Total Sedation Time: See anesthesia report. Instrument Name: 219 - Pediatric Colonoscope Procedure: Colonoscopy Indications: High risk colon cancer surveillance: Personal history of rectal cancer Providers: FLETCHER RIZO MD (Doctor) Referring MD: Medicines: Monitored Anesthesia Care Complications: No immediate complications. Procedure: Pre-Anesthesia Assessment: - Prior to the procedure, a History and Physical was performed, and patient medications and allergies were reviewed. The patient is competent. The risks and benefits of the procedure and the sedation options and risks were discussed with the patient. All questions were answered and informed consent was obtained. Patient identification and proposed procedure were verified by the physician and the nurse in the endoscopy suite. Mental Status Examination: alert and oriented. Airway Examination: normal oropharyngeal airway and neck mobility. Respiratory Examination: clear to auscultation. CV Examination: normal. Prophylactic Antibiotics: The patient does not require prophylactic antibiotics. Prior Anticoagulants: The patient has taken no anticoagulant or antiplatelet agents. ASA Grade Assessment: II - A patient with mild systemic disease. After reviewing the risks and benefits, the patient was deemed in satisfactory condition to undergo the procedure. The anesthesia plan was to use monitored anesthesia care (MAC). Immediately prior to administration of medications, the patient was re-assessed for adequacy to receive sedatives. The heart rate, respiratory rate, oxygen saturations, blood pressure, adequacy of pulmonary ventilation, and response to care were monitored throughout the procedure. The physical status of the patient was re-assessed after the procedure. After obtaining informed consent, the colonoscope was passed under direct vision. Throughout the procedure, the patient's blood pressure, pulse, and oxygen saturations were monitored continuously. The Olympus, Pediatric Colonoscope, Model # [id number]-[id number], Endora # 219, SN # [id number] was introduced through the anus and advanced to 2 cm into the ileum. The colonoscopy was somewhat difficult due to restricted mobility of the colon. Successful completion of the procedure was aided by increasing the dose of sedation medication. The patient tolerated the procedure well. The quality of the bowel preparation was adequate to identify polyps. The terminal ileum, ileocecal valve, appendiceal orifice, and rectum were photographed. Findings: The perianal exam findings include radiation changes with decreased tone. The terminal ileum appeared normal. Normal mucosa was found in the entire colon. Biopsies for histology were taken with a cold forceps from the right colon, left colon and rectum for evaluation of microscopic colitis. Estimated blood loss was minimal. A tattoo was seen in the distal rectum. A post-polypectomy scar was found at the tattoo site. Biopsies were taken with a cold forceps for histology. Estimated blood loss: none. Impression: - Radiation changes with decreased tone. found on perianal exam. - The examined portion of the ileum was normal. - The entire examined colon is normal on direct and retroflexion views. Recommendation: - Repeat colonoscopy in 5 years for surveillance. - Use fiber, for example Citrucel, Fibercon, Konsyl or Metamucil. Procedure Code(s): --- Professional --- 45502, Colonoscopy, flexible; with biopsy, single or multiple Diagnosis Code(s): --- Professional --- Z85.048, Personal history of other malignant neoplasm of rectum, rectosigmoid junction, and anus CPT copyright 2020 [employer]. All rights reserved. The codes documented in this report are preliminary and upon audio visual tech review may be revised to meet current compliance requirements. ____ FLETCHER RIZO MD 11/14/2022 1:41:02 PM I was physically present for the entire viewing portion of the exam. 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 Relationship Specialty [place] [address] [place] [address] PCP - General Family Medicine 06/04/23 Bailey Davis PA-C [address] [place] [address] Physician Music Agent Dermatology 12/15/21 [place] [address] [place] [address] Assigned PCP 05/06/22 [place] [address] [place] [address] Assigned Neuroscience Provider 06/03/22 Delilah Morales DO [address] [place] [address] Physical Medicine and Rehabilitation 08/15/22 Bailey Davis, PAMoonC [address] [place], [place] [address] Assigned Dermatology Provider 07/20/24 Bharath Mar MD [address] [place] [address] [address] [place] [address] Assigned Musculoskeletal Provider 10/20/24
[2024-12-13 18:48] VITALS: BP 131/76; PULSE 71; RESP 16; TEMP 36.4; O2SAT 96; BMI 23.0
--- NOTE | 2024-12-13 18:59 | ED_ITS ---
HPI - Dental/Oral General Time Seen by Provider: 18:59 Date Seen: 12/13/24 Chief complaint: Dental/Oral/Mouth Injury/Pain Stated complaint: swollen jaw Time Seen by Provider: 12/13/24 18:59 Source: patient, family and RN notes reviewed Mode of arrival: ambulatory Limitations: no limitations History of Present Illness HPI Narrative: Jennifer is a very pleasant 79-year-old female with hearing deficit reads lips who comes to the emergency room along with her son for evaluation of dental pain and jaw swelling. Jennifer notes removal of a crown on the lower posterior molars. I think this is tooth number 31 on December 11. Yesterday December 12 she noted some swelling in the jaw but has become much worse today and is associated with significant pain. She does not think there has been any purulent drainage. She has had mild grade fevers up to 99.3 and has that time had some very mild chills. She did size some and thus all but this did not help. She has also taken ibuprofen and Tylenol. This has also not helped. Related Data Home Medications ?Medication ?Instructions ?Recorded ?Confirmed sertraline 100 mg tablet mg PO 12/13/24 Allergies Allergy/AdvReac Type Severity Reaction Status Date / Time codeine AdvReac Mild Nausea Verified 12/13/24 20:30 Review of Systems Status of ROS: Reports: 10 or more systems reviewed and unremarkable except as noted in History and below Const: Reports: chills; Denies: fever Eyes: Denies: change in vision ENMT: Denies: throat pain, neck pain, throat swelling or nasal congestion Cardio: Denies: chest pain Resp: Denies: cough GI: Denies: vomiting Musculo: Denies: neck pain Neuro: Denies: headache Allergy/Immuno: Denies: throat swelling PFSH PFSH Social History Smoking Status: Never smoker Do you use any of these nicotine containing products: None Second hand tobacco smoke exposure: No How often do you have a drink containing alcohol: never How often do you have six or more drinks on one occasion: Never AUDIT-C Alcohol total score: 0 Non-prescribed substance use: denies use service: No Exam Narrative: Exam Narrative: Jennifer is alert and oriented. She does have some mild facial asymmetry with swelling along the lower right jaw line. Face is otherwise symmetrical. There speech is normal. No trismus noted. No anterior cervical lymphadenopathy. Oral cavity shows absence of tooth 29. Tooth 30 appears to be very short. No surrounding drainage. On her cheek in this area she has an ulceration slightly larger than a pea. No drainage at this site either. Tenderness noted around the gum line at tooth 30. Heart with regular rate and rhythm and lungs are clear to auscultation. Const: Vital Signs, click to edit/add: Vital Signs - 24 hr 12/13/24 18:48 Temperature 97.6 F Pulse Rate [Left P ulse Oximeter] 71 Respiratory Rate 16 Blood Pressure [Ri ght Upper Arm] 131/76 Pulse Oximetry 96 Oxygen Delivery Me thod Room Air Documenting provider has reviewed patient's vital signs: yes Course Course ED Course: Differential diagnosis includes but is not limited to abscess, dental infection. Patient will receive Toradol 15 mg IV, 500 mL normal saline and CT of the jaw. He also spoke about the use of morphine if needed but she is declining that at this time. Will check CBC basic panel and CRP as well. Will give Unasyn 3 g IV. Reevaluation(s) Reevaluation #1: Laboratory values reassuring at this time. CRP normal. Creatinine normal and swell as sodium and potassium. Patient notes not a lot of relief with Toradol. I spoke to patient about the use of morphine earlier but she did not want to do that. She stated she was very sensitive to medications. His did speak about the use of oxycodone 2.5-5 mg and initially they were receptive that her son was very concerned about her allergy to codeine which was nausea and vomiting. We did explain that any of the narcotics have a tendency to cause nausea but codeine probably the most of the usual narcotics. Patient in then declined that medicine. However when I enter the room she is complaining about pain. This is very challenging in that we really do not have a lot of other medications to offer. She has utilized both ibuprofen and Tylenol at home. Daughter who is an RN was on the phone and thus we were able to talk about pain management. I did explain the challenges to be of this situation. Her daughter was hoping that we would be able to use something like tramadol. I did explain that I usually do not use tramadol in the elderly. This medication has a tendency to lower seizure threshold and of course as Jennifer is on sertraline, she does have increased risk of serotonin syndrome. She is on 100 mg daily. Jennifer's daughter again who is an RN does appear to be understanding of this situation and is willing to use tramadol in its lowest dose. We will use 50 mg every 6 hours if needed for pain. I recommend use eyes in ibuprofen and Tylenol 1st. [employer] did call with this information as well and I went back and spoke to Jennifer and her son to ensure that indeed the tramadol is what they would be happy with knowing the risks associated with its use. They are willing to do that. Patient received her 1st dose in the ED and already she is feeling somewhat improved. Vital Signs Vital signs: Initial Vital Signs Temperature 97.6 F 12/13/24 18:48 Temperature Source Temporal Artery Scan 12/13/24 18:48 Pulse Rate 71 12/13/24 18:48 Respiratory Rate 16 12/13/24 18:48 Blood Pressure 131/76 12/13/24 18:48 Blood Pressure Mean 94 12/13/24 18:48 Blood Pressure Position Sitting 12/13/24 18:48 Pulse Oximetry 96 12/13/24 18:48 Oxygen Delivery Method Room Air 12/13/24 18:48 Vital Signs Temperature 97.6 F 12/13/24 18:48 Pulse Rate 71 12/13/24 18:48 Respiratory Rate 16 12/13/24 18:48 Blood Pressure 131/76 12/13/24 18:48 Pulse Oximetry 96 12/13/24 18:48 Oxygen Delivery Method Room Air 12/13/24 18:48 Temperature 97.6 F 12/13/24 18:48 Pulse Rate 71 12/13/24 18:48 Respiratory Rate 16 12/13/24 18:48 Blood Pressure 131/76 12/13/24 18:48 Pulse Oximetry 96 12/13/24 18:48 Oxygen Delivery Method Room Air 12/13/24 18:48 Medications Administered Medications: Discontinued Medications Generic Name Dose Route Start Last Admin Trade Name Freq PRN Reason Stop Dose Admin Sodium Chloride 500 mls @ 500 mls/hr 12/13/24 19:12 12/13/24 20:16 0.9 % Sodium Chloride 500 Ml IV 12/13/24 20:11 Infused .Q1H JERMAN Infusion Ampicillin Sodium/Sulbactam 100 mls @ 200 mls/hr 12/13/24 19:51 12/13/24 21:13 Sodium 3 gm/ Sodium Chloride IVPB 12/13/24 19:52 Infused ONCE ONE Infusion Ketorolac Tromethamine 15 mg 12/13/24 19:12 12/13/24 19:35 Ketorolac 15 Mg/Ml Inj IVP 12/13/24 19:13 15 mg ONCE ONE Administration Ondansetron HCl 4 mg 12/13/24 20:59 12/13/24 21:30 Ondansetron 2 Mg/Ml Inj IVP 12/13/24 21:00 Not Given ONCE ONE Oxycodone HCl 5 mg 12/13/24 20:55 12/13/24 21:30 Oxycodone 5 Mg Tablet PO 12/13/24 20:56 Not Given ONCE ONE Tramadol HCl 50 mg 12/13/24 21:35 12/13/24 21:48 Tramadol Hcl 50 Mg Tablet PO 12/13/24 21:36 50 mg ONCE ONE Administration MDM - Dental/Oral MDM Narrative Medical decision making narrative: 1. Dental infection-patient has swelling on her cheek. Although I do see an ulcer abscess I do not think that would be the sole cause of the swelling we are seeing. She has tenderness around her gumline but no drainage at this time. Patient did receive Unasyn 3 g while awaiting her labs and CT. At this point will switch her to Augmentin 875 p.o. b.i.d. for 7 days. Did tell family that they need to follow up with dentist or oral surgeon on SundayDecember 15. At that time they may discontinue or change the antibiotic. Patient noted to have normal creatinine. Patient was given 500 mL normal saline. 2. Dental pain-patient had only minimal improvement with IV Toradol. Seems much better after oral tramadol. Again risks of oral tramadol in this age group along with the use of sertraline discussed with family. Risks includes seizur es, serotonin syndrome. For the aphthous ulcer we spoke about Magic mouthwash which is no longer compound in pharmacies. If they want they can create a mixture equal parts of Benadryl and Maalox. Would then add a small amount (pea size) of benzocaine to the mixture she can dip some gauze in this and place it over the ulcer every 4-6 hours if needed. 3. Disposition-home at this time with son. Return for worsening symptoms especially fever, vomiting, facial flushing, seizure, chest pain and as needed. I did contact Jennifer's daughter Natasha after she had departed. I discussed that the Magic mouthwash should be mixed equal parts (1 tbsp) Maalox and Benadryl. And then a pea-sized amount of benzocaine could be mixed in. It would be important not to use this 2 often or to soak the gauze so much that she would swallow the solution. This would be placed over the aphthous ulcer on the mucosa. Did reiterate wrists of use of tramadol but she does accept those risks at this time. Did ask her to consider oxycodone 2.5 mg once again but notes that her mom is so very sensitive and that tramadol would be her choice. She and her brother will be monitoring their mom closely. Will still continue to use ibuprofen and Tylenol and tramadol as for breakthrough pain only. Consider alternating days of sertraline but also do not want patient to go through any anti depressant withdrawal. I am hopeful that her pain will be better tomorrow with the use of the antibiotic and she may not need any further tramadol. Also of note discussed the dental erin on left maxillary tooth noted on CT with daughter and son. Medical Records Attestation: I reviewed the patient's medical records. Lab Data Attestation: I reviewed the patient's lab results. Labs: Lab Results 12/13/24 Range/Units 19:12 WBC 8.70 (4.50-11.00) K/uL RBC 4.96 (4.00-5.20) m/uL Hgb 14.2 (12.0-16.0) gm/dL Hct 42.5 (33.0-51.0) % MCV 86 (80-100) fL MCH 29 (26-34) pg MCHC 33 (32-36) gm/dL RDW Coeff of Ferdinand 13.5 (11.5-15.5) % Plt Count 262 (140-440) K/uL Neut % (Auto) 61.5 (42.0-72.0) % Lymph % (Auto) 27.7 (20-44) % Marin % (Auto) 6.9 (0.0-11.0) % Eos % (Auto) 3.4 (0.0-7.0) % Baso % (Auto) 0.3 (0.0-3.0) % Neut # (Auto) 5.34 (1.7-7.0) K/uL Lymph # (Auto) 2.41 (0.90-2.90) K/uL Marin # (Auto) 0.60 (0.00-0.90) K/UL Eos # (Auto) 0.30 (0.00-0.50) K/uL Baso # (Auto) 0.03 (0.00-0.30) K/uL Abs Immat Gran (auto) 0.02 (0.00-0.30) K/uL Imm/Tot Granulo (auto) 0.2 % Sodium 139 (135-149) mmol/L Potassium 3.9 (3.6-5.1) mmol/L Chloride 105 (96-114) mmol/L Carbon Dioxide 25 (20-32) mmol/L Anion Gap 9 (7-15) mEq/L BUN 13 (7-30) mg/dL Creatinine 0.6 (0.5-1.5) mg/dL Estimated Creat Clear 37.12 Estimated GFR 91 ml/min Glucose 113 (60-115) mg/dL Calcium 8.9 (8.4-10.6) mg/dL C-Reactive Protein < 0.5 L (0.5-1.0) mg/dL Imaging Data Facial CT: Attestation: I have reviewed the pertinent imaging results. Radiologist's impression: Streak artifact emanating from dental hardware limits evaluation of adjacent structures. Prominent dental erin within the left 1st maxillary premolar tooth (series 6, image 63 and series 2, image 50) no evidence of infection/inflammation or rim enhancing abscess. Similar postinflammatory retention cyst in the left maxillary alveolar recess. Bilateral pseudophakia. On limited evaluation, the intracranial structures appear within normal limits. Impression: 1. No evidence of infection/inflammation or rim enhancing abscess. 2. Prominent dental erin within the 1st left maxillary premolar tooth (series 2, image 50). Discharge Plan Discharge Clinical Impression: Pain, dental, Aphthous ulcer of mouth Patient Disposition: Home, Self-Care Condition: Improved Additional Instructions: Continue your antibiotic called Augmentin tomorrow morning. Take twice daily until you are able to see your dentist. They may have you discontinue before the end of the prescription which will be 7 days. Ibuprofen or Tylenol may be used for pain. For pain not relieved by alternating them, you may use tramadol sparingly. Tramadol is a narcotic like medication but tends to have less nausea inducing effects. However, he can increase the risk of something called serotonin syndrome and since you are on sertraline at this time I would monitor for facial flushing, rapid heart rate, vomiting and seek medical attention should these occur. Tramadol low also lowers the seizure threshold. Do not drive and make sure that you are checked on frequently. Return to the ER for worsening symptoms. You may want to make your own ?magic mouthwash?. Combine a tbsp of Maalox, a tbsp of liquid Benadryl and add a small amount of anvesol. You can use a small gauze pad and soak it and put it on the area of the ulcer right next to the tooth that had the crown removed. This should not be done more than once every 3 hours. It should not be sopping wet so that you end up swallowing the medication. Prescriptions: No Action sertraline 100 mg tablet PO Follow Up/Referrals: Provider,Not a Local [Primary Care Provider, Family Practice] Stand Alone Forms: [email or web address] Info Instructions
--- NOTE | 2024-12-13 19:12 | CRLHL7_ITS ---
For Patients: As a result of the Century Cures Act, medical imaging exams and procedure reports are released immediately into your electronic medical record. You may view this report before your referring provider. If you have questions, please contact your health care provider. Indication: Recent dental extraction pain Technique: Contrast-enhanced CT of the facial bones with multiplanar reconstructions utilizing bone and soft tissue algorithms. 64 cc Isovue 370 iodinated intravenous contrast was utilized. Comparison: Correlated with CT sinuses dated 08/30/2022. Findings: Streak artifact emanating from dental hardware limits evaluation of adjacent structures. Prominent dental erin within the left 1st maxillary premolar tooth (series 6, image 63 and series 2, image 50) no evidence of infection/inflammation or rim enhancing abscess. Similar postinflammatory retention cyst in the left maxillary alveolar recess. Bilateral pseudophakia. On limited evaluation, the intracranial structures appear within normal limits. Impression: 1. No evidence of infection/inflammation or rim enhancing abscess. 2. Prominent dental erin within the 1st left maxillary premolar tooth (series 2, image 50). Please note that all CT scans at this facility use dose modulation, iterative reconstruction, and/or weight-based dosing when appropriate to reduce radiation dose to as low as reasonably achievable. Dictated by Gareth Oswald MD @ 12/13/2024 8:44:58 PM (Electronically Signed)
--- OUTSIDE RECORDS SUMMARY | 2024-12-13 19:26 | XMS_ITS ---
Author Name Interface, [id number] [facility] Address [address] [place] [address] Oncology Address [address] [place] [id number] Allergies and Adverse Reactions Plan Reason for Visit Encounters Medications Problems Vital Signs Notes Section
--- OUTSIDE RECORDS SUMMARY | 2024-12-13 19:26 | XMS_ITS | CCD ---
Author Name Interface, [id number] lity Address [address] [place] [address] [address] [place] [address] Organization [facility] Address [address] [facility] [address] [place] [address] Care Team Providers Care Press Loader Name Role Phone Salazar DAY, Home Castillo [...] daily a ctive Vit A, C & O-Kusmzl-Dwfkfvrp Oral 300 mcg-200 mg-27 mg-2 mg active Omeprazole Oral Delayed Release Capsule active Miscellaneous Drug Z arbee's Immune Support active Multivitamins-Min- Xiufs-J99-Pwautof- Lutein Oral 800 mcg-1 mg-500 mcg-500 mcg active Problems Diagnosis Status Date of Diagnosis Resolution Date Chest wall pain (finding) Active Rectal pain (finding) Active Anxiety Active Fatigue (finding) Active Personal history of rectal cancer Active Pain of breast (finding) Active Social History Date Name Value 08/11/2022 Sex Female
--- OUTSIDE RECORDS SUMMARY | 2024-12-13 19:27 | XMS_ITS ---
Author Name Interface, [id number] lity Address [address] [place] [address] [address], [place] [address] [facility] Address [address] [place] [address] [address] [place] [address] Allergies and Adverse Reactions Medication/Group Name Reaction [...] daily a ctive Vit A, C & X-Fogrls-Urzxpipe Oral 300 mcg-200 mg-27 mg-2 mg active Multivitamins-Min- Isvsn-T79-Plodkoa- Lutein Oral 800 mcg-1 mg-500 mcg-500 mcg active Miscellaneous Drug Z arbee's Immune Support active Omeprazole Oral Delayed Release Capsule active [...] 1. ??2015??was treated by Dr. Fuentes??Al[facility] at [facility]??for rectal cancer appears??that she was treated with excision??and then reexcision in 3 months followed by chemoradiation received 27 rounds of??radiation therapy.?? No adjuvant therapy.?? Was seen at the [facility] and then dischargedfrom care. 2.?? 07/03/2019: Chest [...] Delayed Release Capsule 08/11/2022 One-Daily Multi (Multivitami ss-Paq-Nxcxe-V76-Kbfhujv-Jmrwdt Oral 800 mcg-1 mg-500 mcg-500 mcg) 08/11/2022 Miscellaneous Drug 08/11/2022 Ocuvite with Lutein (Vit A, C & U-Joahxp-Ixmmzmab Oral 300 mcg-200 mg-27 mg-2 mg) 08/11/2022 Allergies azithromycin and codeine Family History Dad with prostate cancer, uncle with stomach cancer,??sister with cancer of kidney removed at 74,??brother with leukemia. Social History , lives in [place] her son lives close by, she has 3 children her daughter Marta is a coordinator radiology for [employer] she has grandchildren. ??Her grandson actively involved [...]
[2024-12-13 19:31] LABS: Hematocrit 42.5 % (33.0-51.0); Hemoglobin* 14.2 gm/dL (12.0-16.0); Immature Granulocytes Abs Auto 0.02 K/uL (0.00-0.30); Immature Granulocytes Pct Auto 0.2 %; Lymphocytes Absolute Auto 2.41 K/uL (0.90-2.90); Mean Corpuscular HGB Conc 33 gm/dL (32-36); Mean Corpuscular Hemoglobin 29 pg (26-34); Mean Corpuscular Volume 86 fL (80-100); RDW Coefficient of Variation % 13.5 % (11.5-15.5); Red Blood Count 4.96 m/uL (4.00-5.20); White Blood Count* 8.70 K/uL (4.50-11.00)
[2024-12-13 19:33] LABS: Slide Review Reflex No
[2024-12-13] MEDS: 0.9 % SODIUM CHLORIDE 500 ML 500 ML IV (19:35)
[2024-12-13 19:45] LABS: Chloride* 105 mmol/L (96-114); Potassium* 3.9 mmol/L (3.6-5.1); Sodium* 139 mmol/L (135-149)
[2024-12-13 19:49] LABS: Anion Gap 9 mEq/L (7-15); Blood Urea Nitrogen* 13 mg/dL (7-30); Calcium* 8.9 mg/dL (8.4-10.6); Carbon Dioxide* 25 mmol/L (20-32); Creatinine* 0.6 mg/dL (0.5-1.5); Est. Creatinine Clearance* 37.12; Estimated Glomerular Filt Rate 91 ml/min; Glucose* 113 mg/dL (60-115)
[2024-12-13] MEDS: AMPICILLIN/SULBACTAM 3 GM in 0.9 % SODIUM CHLORIDE Mini-bag 100 ML IVPB (20:36)
[2024-12-13] MEDS: TRAMADOL HCL 50 MG TABLET PO (21:48)
== END 2024-12-13 22:11 | disposition home or self-care (01) ==
PROVIDERS: Emergency Provider Family Medicine
DX: K12.0 Recurrent oral aphthae (principal); K08.89 Other specified disorders of teeth and supporting structures; Z79.899 Other long term (current) drug therapy
CPT/HCPCS: 36415; 70487; 80048; 85025; 86140; 96365; 96375; 99284; 99285; A9270; J0295; J1885; J7030; Q9967

== ENCOUNTER 2025-01-14 11:15 | Outpatient (RCR) | payer MEDICARE, OTHER, SELFPAY | END 2025-02-04 13:39 | disposition home or self-care (01) | PROVIDERS: PCP Family Medicine; Visit Provider Orthopaedic Surgery | DX: M67.813 Other specified disorders of tendon, right shoulder (principal); Z51.89 Encounter for other specified aftercare | CPT/HCPCS: 97110; 97140; 97161 ==

== ENCOUNTER 2025-02-21 13:19 | Emergency (ER) | payer MEDICARE, OTHER, SELFPAY ==
--- OUTSIDE RECORDS SUMMARY | 2025-01-19 10:15 | XMS_ITS | Encounter Summary ---
Author Organization [facility] Address [address] [place] [address] Care Team Providers Care Medical Education Manager Name Role Phone Bailey Davis PA-C Unavailable [phone] Ioana Brown MD Unavailable [phone] Juvencio Moreno MD Unavailable [phone] Delilah Morales DO Unavailable Ioana Brown MD Primary Care Provider [phone] Bailey Davis PA-C Unavailable [phone] Uriel Heredia MD Unavailable Reason for Referral * Clinically Administered Medications (Routine) - Closed Specialty Diagnoses / Procedures Referred By Contac t Referred To Contact Diagnoses UNKNOWN [place] [address] [place] [address] Phone: tel: fax: Referral ID Status Reason Start Date Expiration Date Visits Re quested Visits Authorized [id number] Closed 01/19/2025 01/19/2026 1 1 * Therapeutic Services (Routine) - Pending Review Specialty Diagnoses / Procedures Referred By Contac t Referred To Contact Pain & Palliative Care Diagnoses Lumbar radiculopathy Procedures PAIN Transforaminal GALLO In[place] [address] [address] [place] [address] Phone: tel: fax: Referral ID Status Reason Start Date Expiration Date V isits Requested Visits Authorized [id number] Pending Review 01/19/2025 01/19/2026 1 1 Reason for Visit * Consultation (Routine) - Closed Specialty Diagnoses / Procedures Referred By Contac t Referred To Contact Diagnoses Lumbosacral radiculopathy Scoliosis of thoracolumbar spine, unspecified scoliosis type Lumbosacral stenosis with neurogenic claudication Degeneration of intervertebral disc of lumbosacral region with discogenic back pain and [place] [address] [place] [address] Phone: tel: fax: [place] [address] [place] [address] Phone: tel: fax: Referral ID Status Reason Start Date Expiration Date Visits Re quested Visits Authorized [id number] Closed 11/17/2024 11/17/2025 1 1 Encounter Details Date Type Department Care Team (Latest Contact Info) Description 01/19/2025 10:15 AM CDT Radiology Injection Office Visit [facility] [address] [place], [place] [address] [place] [address] [place] [address] Lumbar radiculopathy (Primary Dx); Scoliosis of thoracolumbar spine, unspecified scoliosis type; Facet arthropathy, lumbosacral; Degeneration of intervertebral disc of lumbosacral region [...] re latives? Once a week 02/25/2024 Attends [employer] Services Not on file 02/24 Active Member [...] Answer Date Recorded PHQ-2 Score 0 06/05/2024 [facility] [place] of Occupat ional Health - Occupational Stress [...] PM CDT Legal Sex Female 3:40 AM PATIENT CARE SPECIALIST Gender Identity Female 12/12/2022 7:35 PM CDT Sexual Orientation Not on file documented as of this encounter Last Filed Vital Signs Vital Sign Reading Time Taken Comments Blood Pressure 144/67 01/19/2025 10:38 AM CDT Pulse 56 01/19/2025 10:38 AM CDT Temperature - - Respiratory Rate - - Oxygen Saturation 99% 01/19/2025 10:38 AM CDT Inhaled Oxygen Concentration - - Weight - - Height - - Body Mass Index - - documented in this encounter Patient Instructions * Patient Instructions* Ruth Motley RN - 01/19/2025 10:15 AM CDT Formatting of this note might be different from the [facility] Procedure Discharge Instructions Today you saw: Dr. Sid Moreno Your procedure: Epidural steroid injection Medications used: Lidocaine (anesthetic) Dexamethasone (steroid) Omnipaque (contrast) Be cautious when walking as numbness and/or weakness in the legs may occur up to 6-8 hours after the procedure due to effect of the local anesthetic Do not drive for 6 hours. The effect of the local anesthetic could slow your reflexes. Avoid strenuous activity for the first 24 hours. You may resume your regular activities after that. You may shower, however avoid swimming, tub baths or hot tubs for 24 hours following your procedure You may have a mild to moderate increase in pain for several days following the injection. You may use ice packs for 10-15 minutes, 3 to 4 times a day at the injection site for comfort Do not use heat to painful areas for 6 to 8 hours. This will give the local anesthetic time to wearoff and prevent you from accidentally burning your skin. Unless you have been directed to avoid the use of anti-inflammatory medications (NSAIDS-ibuprofen, Aleve, Motrin), you may use these medications or Tylenol for pain control if needed. With diabetes, check your blood sugar more frequently than usual as your blood sugar may be higher than normal for 10-14 days following a steroid injection. Contact your doctor who manages your diabetes if your blood sugar is higher than usual Possible side effects of steroids that you may experience include flushing, elevated blood pressure, increased appetite, mild headaches and restlessness. All of these symptoms will get better with time. It may take up to 14 days for the steroid medication to start working although you may feel the effect as early as a few days after the procedure. Follow up with your referring provider in 2-3 weeks If you experience any of the following, call the Spine Center line during work hours at [phone]: -Fever over 100 degree F -Swelling, bleeding, redness, drainage, warmth at the injection site -Progressive weakness or numbness in your legs -Loss of bowel or bladder function -Unusual headache that is not relieved by Tylenol or your regular headache medication -Unusual new onset of pain that is not improving documented in this encounter Progress Notes * Juvencio Moreno MD - 01/19/2025 10:15 AM CDT PHYSICAL MEDICINE & REHABILITATION / MEDICAL SPINE PROCEDURE DATE: Jan 19, 2025 PATIENT NAME: Jennifer Pendleton DATE OF : 1945 PRE-PROCEDURE DIAGNOSIS: 1. Lumbar radiculopathy 2. Scoliosis of thoracolumbar spine, unspecified scoliosis type 3. Facet arthropathy, lumbosacral 4. Degeneration of intervertebral disc of lumbosacral region with discogenic back pain and lower extremity pain POST-PROCEDURE DIAGNOSIS: 1. Lumbar radiculopathy 2. Scoliosis of thoracolumbar spine, unspecified scoliosis type 3. Facet arthropathy, lumbosacral 4. Degeneration of intervertebral disc of lumbosacral region with discogenic back pain and lower extremity pain PROCEDURE: Fluoroscopic-guided right L4-L5 and L5-S1 transforaminal epidural steroid injection/s. (CPT code/s:77914, 49954) PROCEDURE IN DETAIL: Prior to the procedure, [...] the usual sterile fashion. After identifying the right L4 pedicle with fluoroscopy, the skin and subcutaneous tissue were infiltrated with 2.5 ml 1% preservative-free lidocaine. Then, 22g 3.5 Quincke needle was advanced under fluoroscopic guidance to the posterior aspect of the right L4-L5 neuroforamen. Appropriate foraminal depth was determined with a lateral fluoroscopic view, and anterior-posterior visualization confirmed needle positioning at approximately the 6 o'clock position relative to the pedicle. 0.3 ml Omnipaque 300 (iohexol) was injected using live fluoroscopy/digital subtraction angiography and showed intravascular uptake. The needle was repositioned. 0.3 ml Omnipaque 300 (iohexol) was injected using live fluoroscopy/digital subtraction angiography and again showed intravascular uptake. The needle was repositioned. 0.3 ml Omnipaque 300 (iohexol) was injected using live fluoroscopy/digital subtraction angiography and showed intravascular uptake. The needle was repositioned. 0.4 ml Omnipaque 300 (iohexol) was injected using live fluoroscopy/digital subtraction angiography, confirming appropriatetransforaminal spread without evidence of intravascular or intrathecal uptake. Next, 1 ml 1% lidocaine was injected. After 90 seconds, a brief assessment of sensation and strength was performed. There were no gross changes in sensation or strength. Then, 7.5 mg dexamethasone followed by 1 ml 1% lidocaine was injected. Following the injection, the needle was withdrawn slightly and flushed with 0.5ml preservative-free 1% lidocaine as it was fully extracted. After identifying the right L5 pedicle with fluoroscopy, the skin and subcutaneous tissue were infiltrated with 2.5 ml 1% preservative-free lidocaine. Then, 22g 3.5 Quincke needle was advanced underfluoroscopic guidance to the posterior aspect of the right L5-S1 neuroforamen. Appropriate foraminal depth was determined with a lateral fluoroscopic view, and anterior-posterior visualization confirmed needle positioning at approximately the 6 o'clock position relative to the pedicle. After negative aspiration, 0.4 ml Omnipaque 300 (iohexol) was injected using live fluoroscopy/digital subtraction angiography, confirming appropriate transforaminal spread without evidence of intravascular or intrathecal uptake. Next, 1 ml 1% lidocaine was injected. After 90 seconds, a brief assessment of sensation and strength was performed. There were no gross changes in sensation or strength. Then, 7.5 mg dexamethasone followed by 1 ml 1% lidocaine was injected. Following the injection, the needle was withdrawn slightly and flushed with 0.5 ml preservative-free 1% lidocaine as it was fully extracted. The patient tolerated the procedure well, and there were no apparent complications. The patient wasescorted back to the postprocedure room. The patient was monitored for side effects. No reactions were noted. After appropriate observation, the patient was dismissed from the clinic in good condition. Preprocedure pain level: 6/10. Postprocedure pain level: 5/10. 5 mg of dexamethasone was wasted. 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 For SCS Trial, RFA's or any sedation procedure: Have you been fasting? NA If yes, for how long? Are you taking any any blood thinners such as Coumadin, Warfarin, Jantoven, Pradaxa Xarelto, Eliquis, Edoxaban, Enoxaparin, Lovenox, Heparin, Arixtra, Fondaparinux, or Fragmin? OR Antiplatelet medication such as Plavix, Brilinta, or Effient? No If yes, when did you take your last dose? Do you take aspirin? No If cervical procedure, have you held aspirin for 6 days? NA Is the Pt taking any GLP-1 Antagonist (hold needed for sedation patients only) (semaglutide (Ozempic, Wegovy), dulaglutide (Trulicity), exenatide ER (Bydureon), tirzepatide (Mounjaro), Liraglutide (Saxenda, Victoza), semaglutide (Rybelsus) NA If yes, when did you take your last dose? Do you have any allergies to contrast dye, iodine, steroid and/or numbing medications? NO Are you currently taking antibiotics or have an active infection? NO Have you had a fever/elevated temperature within the past week? NO Are you currently taking oral steroids? 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 Yes Are you or ? Not Applicable Have you received any vaccinations in the last week? NO Vitals: B/P 146/60 Notify provider and RNs if systolic BP >170, diastolic BP >100, P >100 or O2 sats < 90% [facility] * Ruth Motley RN - 01/19/2025 10:15 AM CDT Discharge Information IV Discontiued Time: NA Amount of Fluid Infused: NA Discharge Criteria = When patient returns to baseline or as per MD order Consciousness: Pt is fully awake Circulation: BP +/- 20% of pre-procedure level Respiration: Patient is able to breathe deeply O2 Sat: Patient is able to maintain O2 Sat >92% on room air Activity: Moves 4 extremities on command Ambulation: Patient is able to stand and walk or stand and pivot into wheelchair Dressing: Clean/dry or No Dressing Notes: Discharge instructions and AVS given to patient Patient meets criteria for discharge? YES Admitted to PCU? No Responsible adult present to accompany patient home? Yes Signature/Title: Ruth Motley, RN RN [place] Worker [facility] documented in this encounter Plan of Treatment Upcoming Encounters Date Type Department Care Team (Late st Contact Info) Description 05/11/2025 11:30 AM PATIENT CARE SPECIALIST Appointment M [facility] [address] [place] [phone] Bharath Mar MD [address] [place] [address] 05/14/2025 4:40 PM PATIENT CARE SPECIALIST Virtual Visit M [facility] [address] 4th [place] [phone] Bharath Mar MD [address] [place] [address] documented as of this encounter Procedures Procedure Name Priority Date/Time Associated Diagnosis Comments PAIN TRANSFORAMINAL GALLO INJ SACRAL 2 LVLS RT Routine 01/19/2025 10:22 AM CDT Lumbar radiculopathy documented in this encounter Results * PAIN TRANSFORAMINAL GALLO INJ SACRAL 2 LVLS RT (01/19/2025 10:22 AM CDT) Anatomical Region Laterality Modality PAIN/SPINE Radio Fluoroscop y Narrative 01/19/2025 10:41 AM CDT Table formatting from the original result was not included. PHYSICAL MEDICINE & REHABILITATION / MEDICAL SPINE PROCEDURE DATE: Jan 19, 2025 PATIENT NAME: Jennifer Pendleton DATE OF : 1945 PRE-PROCEDURE DIAGNOSIS: 1. Lumbar radiculopathy 2. Scoliosis of thoracolumbar spine, unspecified scoliosis type 3. Facet arthropathy, lumbosacral 4. Degeneration of intervertebral disc of lumbosacral region with discogenic back pain and lower extremity pain POST-PROCEDURE DIAGNOSIS: 1. Lumbar radiculopathy 2. Scoliosis of thoracolumbar spine, unspecified scoliosis type 3. Facet arthropathy, lumbosacral 4. Degeneration of intervertebral disc of lumbosacral region with discogenic back pain and lower extremity pain PROCEDURE: Fluoroscopic-guided right L4-L5 and L5-S1 transforaminal epidural steroid injection/s. (CPT code/s: 46988, 76305) PROCEDURE IN DETAIL: Prior to the procedure, [...] the usual sterile fashion. After identifying the right L4 pedicle with fluoroscopy, the skin and subcutaneous tissue were infiltrated with 2.5 ml 1% preservative-free lidocaine. Then, 22g 3.5 Quincke needle was advanced under fluoroscopic guidance to the posterior aspect of the right L4-L5 neuroforamen. Appropriate foraminal depth was determined with a lateral fluoroscopic view, and anterior-posterior visualization confirmed needle positioning at approximately the 6 o'clock position relative to the pedicle. 0.3 ml Omnipaque 300 (iohexol) was injected using live fluoroscopy/digital subtraction angiography and showed intravascular uptake. The needle was repositioned. 0.3 ml Omnipaque 300 (iohexol) was injected using live fluoroscopy/digital subtraction angiography and again showed intravascular uptake. The needle was repositioned. 0.3 ml Omnipaque 300 (iohexol) was injected using live fluoroscopy/digital subtraction angiography and showed intravascular uptake. The needle was repositioned. 0.4 ml Omnipaque 300 (iohexol) was injected using live fluoroscopy/digital subtraction angiography, confirming appropriate transforaminal spread without evidence of intravascular or intrathecal uptake. Next, 1 ml 1% lidocaine was injected. After 90 seconds, a brief assessment of sensation and strength was performed. There were no gross changes in sensation or strength. Then, 7.5 mg dexamethasone followed by 1 ml 1% lidocaine was injected. Following the injection, the needle was withdrawn slightly and flushed with 0.5 ml preservative-free 1% lidocaine as it was fully extracted. After identifying the right L5 pedicle with fluoroscopy, the skin and subcutaneous tissue were infiltrated with 2.5 ml 1% preservative-free lidocaine. Then, 22g 3.5 Quincke needle was advanced under fluoroscopic guidance to the posterior aspect of the right L5-S1 neuroforamen. Appropriate foraminal depth was determined with a lateral fluoroscopic view, and anterior-posterior visualization confirmed needle positioning at approximately the 6 o'clock position relative to the pedicle. After negative aspiration, 0.4 ml Omnipaque 300 (iohexol) was injected using live fluoroscopy/digital subtraction angiography, confirming appropriate transforaminal spread without evidence of intravascular or intrathecal uptake. Next, 1 ml 1% lidocaine was injected. After 90 seconds, a brief assessment of sensation and strength was performed. There were no gross changes in sensation or strength. Then, 7.5 mg dexamethasone followed by 1 ml 1% lidocaine was injected. Following the injection, the needle was [...] clinic in good condition. Preprocedure pain level: 6/10. Postprocedure pain level: 5/10. 5 mg of dexamethasone was wasted. 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 and lower extremity pain documented in this encounter Administered Medications Inactive Administered Medications - up to 3 most recent administrations Medication Order MAR Action Action Date Dose Rate Site dexAMETHasone PF (DECADRON) injection 7.5 mg 7.5 mg, EPIDURAL, ONCE, On Sun01/19/25 at 1100, For 1 doseIndications:Lumbar radiculopathy,Scoliosis of thoracolumbar spine, unspecified scoliosis type,Degeneration of intervertebral disc of lumbosacral region with discogenic back pain and lower extremity pain,Facet arthropathy, lumbosacral $Given 01/19/2025 10:35 AM CDT 7.5 mg dexAMETHasone PF (DECADRON) injection 7.5 mg 7.5 mg, EPIDURAL, ONCE, On Sun01/19/25 at 1100, For 1 doseIndications:Lumbar radiculopathy,Scoliosis of thoracolumbar spine, unspecified scoliosis type,Degeneration of intervertebral disc of lumbosacral region with discogenic back pain and lower extremity pain,Facet arthropathy, lumbosacral $Given 01/19/2025 10:35 AM CDT 7.5 mg iohexol (OMNIPAQUE) 300 mg/mL injection 1.7 mL 1.7 mL, INTRA-ARTICULAR, ONCE, On Sun01/19/25 at 1030, For 1 dose $Given by Other 01/19/2025 10:23 AM CDT 1.7 mLs lidocaine (PF) (XYLOCAINE) 1 % injection 5 mL 5 mL, Other, ONCE, On Sun01/19/25 at 1100, For 1 doseIndications:Lumbar radiculopathy,Scoliosis of thoracolumbar spine, unspecified scoliosis type,Degeneration of intervertebral disc of lumbosacral region with discogenic back pain and lower extremity pain,Facet arthropathy, lumbosacral $Given 01/19/2025 10:35 AM CDT 5 mLs lidocaine (PF) (XYLOCAINE) 1 % injection 5 mL 5 mL, Other, ONCE, On Sun01/19/25 at 1100, For 1 doseIndications:Lumbar radiculopathy,Scoliosis of thoracolumbar spine, unspecified scoliosis type,Degeneration of intervertebral disc of lumbosacral region with discogenic back pain and lower extremity pain,Facet arthropathy, lumbosacral $Given 01/19/2025 10:35 AM CDT 5 mLs documented in this encounter Care Teams Medical Education Manager Relationship Specialty [place] [address] [place] [address] PCP - General Family Medicine 06/04/23 Bailey Davis PA-C [address] [place] [address] Physician Cad Designer Dermatology 12/15/21 [place] [address] [place] [address] Assigned PCP 05/06/22 [place] [address] [place] [address] Assigned Neuroscience Provider 06/03/22 Delilah Morales DO [address] [place] [address] Physical Medicine and Rehabilitation 08/15/22 Bailey Davis PA-C [address] [place] [address] Assigned Dermatology Provider 07/20/24 Uriel Heredia MD [address] [place] [address] Assigned Musculoskeletal Provider 12/20/24 documented as of this encounter
--- OUTSIDE RECORDS SUMMARY | 2025-02-21 13:22 | XMS_ITS | Encounter Summary ---
Author Organization [facility] Address [address] [place] [address] Care Team Providers Care City Comptroller Name Role Phone Clinic - [facility] Primary Ca re Provider Bailey Davis PA-C Unavailable Ioana Brown MD Unavailable [phone] Juvencio Moreno MD Unavailable [phone] Delilah Morales DO Unavailable Juvencio Natarajan MD Unavailable Ioana Brown MD Primary Care Provider [phone] Bailey Davis PA-C Unavailable Bailey Davis PA-C Unavailable Bharath Mar MD Unavailable [phone] Uriel Heredia MD Unavailable Encounter Details Date Type Department Care Team (Late st Contact Info) Description 09/27/2022 [facility] Only M [facility] [address] [place] [address] Patricia Rizo MD COLON RECTAL SURGERY [address] [facility] [place] [address] [place] [id number] History of rectal cancer (Primary Dx); Diarrhea [...] week 12/13/2021 How often do you attend formerly [facility] or shinto services? 1 to 4 times per year 12/13/2021 Do you belong to any clubs o r organizations such as sabianist groups, unions, fraternal or athletic groups, or [...] Answer Date Recorded PHQ-2 Score 0 05/26/2022 [facility] of Occupat ional Health - Occupational [...] place to sleep or slept in a snf (including now)? No 12/13/2021 Comments No Sex and Gender Information Value Date Recorded Sex Assigned at Female 12/12/2022 7:35 PM CDT Legal Sex Female 3:40 AM LAST CLEANER Gender Identity Female 12/12/2022 7:35 PM CDT Sexual Orientation Not on file documented as of this encounter Plan of Treatment Upcoming Encounters Date Type Department Care Team (Late st Contact Info) Description 05/11/2025 11:30 AM LAST CLEANER Appointment M [facility] [address] [facility] [address] [place] [phone] Bharath Mar MD [address] [place] [address] 05/14/2025 4:40 PM LAST CLEANER Virtual Visit [facility] [place] [address] [facility] 4th [place] [phone] Bharath Mar MD [address] [place] [address] documented as of this encounter Visit Diagnoses Diagnosis History of rectal cancer- Primary Personal history of malignant neoplasm of rectum, rectosigmoid junction, and anus Diarrhea documented in this encounter Care Teams City Comptroller Relationship Specialty Start Date End Date Clinic - [facility] [id number] [place] [address] PCP - General 11/01/21 06/03/23 [place] [address] [place] [address] PCP - General Family Medicine 06/04/23 Bailey Davis PA-C [address] [place] [address] Physician Tack Welder Dermatology 12/15/21 [place] [address] [place] [address] Assigned PCP 05/06/22 [place] [address] [place] [address] Assigned Neuroscience Provider 06/03/22 Delilah Morales DO [address] [place] [address] Physical Medicine and Rehabilitation 08/15/22 Juvencio Natarajan MD [address] [place] [address] Assigned Surgical Provider 09/02/22 06/21/23 Bailey Davis PA-C [address] [place] [address] Assigned Surgical Provider 06/22/23 07/19/24 Bailey Davis, PAMoonC [address] [place] [address] Assigned Dermatology Provider 07/20/24 Bharath Mar MD [address] [place] [address] Assigned Musculoskeletal Provider 10/20/24 12/19/24 Uriel Heredia MD [facility] [place] [address] Assigned Musculoskeletal Provider 12/20/24 documented as of this encounter
--- OUTSIDE RECORDS SUMMARY | 2025-02-21 13:22 | XMS_ITS | Encounter Summary ---
Author Organization [facility] Address [address] [place] [address] Care Team Providers Care Falsework Builder Name Role Phone Bailey Davis PA-C Unavailable [phone] Ioana Brown MD Unavailable [phone] Juvencio Moreno MD Unavailable [phone] Delilah Morales DO Unavailable Ioana Brown MD Primary Care Provider [phone] Bailey Davis PA-C Unavailable [phone] Bharath Mar MD Unavailable [phone] Uriel Heredia MD Unavailable Reason for Visit * Reason Onset Date Comments Call Back 09/12/2024 Encounter Details Date Type Department Care Team (Late st Contact Info) Description 09/12/2024 Telephone [facility] [address], [address] [place] [address] [place] [address] [place] [id number] Call Back Social History Tobacco Use Types [...] Answer Date Recorded PHQ-2 Score 0 06/05/2024 [facility] - [...] PM CDT Legal Sex Female 3:40 AM DIRECTOR OF FINANCIAL AID Gender Identity Female 12/12/2022 7:35 PM CDT Sexual Orientation Not on file documented as of this encounter Miscellaneous Notes * Telephone Encounter - BlaineJuly - 09/15/2024 8:56 AM CDT FYI - Status Update Who is Calling: nurseNick from wanting to get a hold of RN regarding imaging finding (MRI of shoulder) Update: te sent to clinic Does caller want a call/response back: Yes Could we send this information to you in [employer] or would you prefer to receive a phone call?: Patient would prefer a phone call Okay to leave a detailed message?: Yes at Other phone number: [phone] * Telephone Encounter - Chery Borja - 09/12/2024 8:42 AM CDT Other: Nick would like a call back from Dr. Moreno's nurse to go over imaging for the patient. Could we send this information to you in [facility] or would you prefer to receive a phone call?: Patient would prefer a phone call Okay to leave a detailed message?: Yes at Other phone number: [phone] documented in this encounter Plan of Treatment Upcoming Encounters Date Type Department Care Team (Late st Contact Info) Description 05/11/2025 11:30 AM DIRECTOR OF FINANCIAL AID Appointment [facility] [address] [place] [phone] Bharath Mar MD [address] [place] [address] 05/14/2025 4:40 PM DIRECTOR OF FINANCIAL AID Virtual Visit [facility] [address] 4th [place] [phone] Bharath Mar MD [address] [place] [address] documented as of this encounter Visit Diagnoses Not on filedocumented in this encounter Care Teams Falsework Builder Relationship Specialty [place] [address] [place] [address] PCP - General Family Medicine 06/04/23 Bailey Davis, PAMoonC [address] [place] [address] Physician Purchase Request Editor Dermatology 12/15/21 [place] [address] [place] [address] Assigned PCP 05/06/22 [place] [address] [place] [address] Assigned Neuroscience Provider 06/03/22 Delilah Morales DO [address] [place] [address] Physical Medicine and Rehabilitation 08/15/22 Bailey Davis, PAMoonC [address] [place] [address] Assigned Dermatology Provider 07/20/24 Bharath Mar MD [address] [place] [address] Assigned Musculoskeletal Provider 10/20/24 12/19/24 Uriel Heredia MD [facility] [place], [place] [id number] Assigned Musculoskeletal Provider 12/20/24 documented as of this encounter
--- OUTSIDE RECORDS SUMMARY | 2025-02-21 13:22 | XMS_ITS | Patient Health Record ---
Author Organization [facility] Address [address] [place] [address] Care Team Providers Care Marketing Professor Name Role Phone DR Ioana Brown Primary Care Provider Katharina ZamoraJennifer Unavailable [phone] Allergies No Known Allergies Reason For Referral No Information Medications Medication SIG (Take, Route, Fr equency, Duration) Notes Start Date End Date Status Sertraline HCl Activ e Problems Problem Type SNOMED Code ICD Code Onset Dates Problem Status W/U Status Risk Notes Problem Hoarseness (93525506) Hoarseness (R49.0) Active confirmed Problem Cyst of maxillary sinus (disorder) (585570252) 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 Plan Of Treatment No Information Insurance Providers Payer Name Payer Address Payer Phone Subscriber Number Group Number Insured Name Patient Relationship to Insured Coverage Start Date Coverage End Date MEDICARE [address] [place] [address] [id number] Jennifer Pendleton Self - patient is the insured [employer] [id number] [address] [address] [place], [place] [id number] Jennifer Pendleton Self - patient is the insured Medical (General) History Medical History History ICD Code Rectal Cancer Melanoma Hearing Loss Surgical History Surgery Date(Month/Year) Rectal Surgery Hysterectomy Appendectomy T & A Shoulder
--- OUTSIDE RECORDS SUMMARY | 2025-02-21 13:22 | XMS_ITS | Encounter Summary ---
Author Organization [facility] [place] Address [address] [place] [address] Care Team Providers Care Conveyor Loader Name Role Phone Bailey Davis PA-C Unavailable [phone] Ioana Brown MD Unavailable [phone] Juvencio Moreno MD Unavailable [phone] Delilah Morales DO Unavailable Ioana Brown MD Primary Care Provider [phone] Bailey Davis PA-C Unavailable [phone] Bailey Davis PA-C Unavailable [phone] Bharath Mar MD Unavailable [phone] Uriel Heredia MD Unavailable Encounter Details Date Type Department Care Team (Late st Contact Info) Description 12/14/2023 [facility] Medical Advice [facility] [address] [place] [address] [place] [address] [place] [address] Social History Tobacco Use Types [...] week 12/25/2022 How often do you attend chur or scientologist services? Patient declined 12/25/2022 Do you belong to any clubs o r organizations such as adventism groups, unions, fraternal or athletic groups, or [...] Answer Date Recorded PHQ-2 Score 0 10/03/2023 [facility] - Occupational [...] place to sleep or slept in a long-term (including now)? No 12/25/2022 Adolescent Education Answer [...] PM CDT Legal Sex Female 3:40 AM BLACK PULLER Gender Identity Female 12/12/2022 7:35 PM CDT Sexual Orientation Not on file documented as of this encounter Plan of Treatment Upcoming Encounters Date Type Department Care Team (Late st Contact Info) Description 05/11/2025 11:30 AM BLACK PULLER Appointment [facility] [address] [place] [address] Bharath Mar MD [address] [facility] [address] [place] [address] 05/14/2025 4:40 PM BLACK PULLER Virtual Visit [facility] [address] 4th [place] [phone] Bharath Mar MD [address] [place] [address] documented as of this encounter Visit Diagnoses Not on filedocumented in this encounter Care Teams Conveyor Loader Relationship Specialty [place] [address] [place] [address] PCP - General Family Medicine 06/04/23 Bailey Davis PA-C [address] [place] [address] Physician Sub Plant Manager Dermatology 12/15/21 [place] [address] [place] [address] Assigned PCP 05/06/22 [place] [address] [place] [address] Assigned Neuroscience Provider 06/03/22 Delilah Morales DO [address] [place] [address] Physical Medicine and Rehabilitation 08/15/22 Bailey Davis PA-C [address] [place] [address] Assigned Surgical Provider 06/22/23 07/19/24 Bailey Davis PA-C [address] [place] [address] Assigned Dermatology Provider 07/20/24 Bharath Mar MD [address] [facility] [address] [place] [address] Assigned Musculoskeletal Provider 10/20/24 12/19/24 Uriel Heredia MD [facility] [place], [place] [address] Assigned Musculoskeletal Provider 12/20/24 documented as of this encounter
--- OUTSIDE RECORDS SUMMARY | 2025-02-21 13:22 | XMS_ITS ---
Author Name Interface, O0Qkcjzlz lity Address [address] [place] [address] [address] [place] [address] [facility] Address [address] [place] [address] [address] [place] [address] Support Name Relationship Address Phone ALONA MAR Child Unknown Unavailable Allergies and Adverse Reactions Medication/Group Name [...] Frequency Instructions Start Date End Date Status Fill Status Indication 08/11 Omeprazole Oral Delayed Release Capsule active 08/11 Sertraline Oral daily active 08/11 Vit A, C & E-Lutein-M inerals Oral 300 mcg-200 mg-27 mg-2 mg active 08/11 Miscellane ous Drug [facility]'s Immune Support active 08/11 Multivitam ins-Min-Fo lic-Q10-Ly copen-Lute in Oral 800 mcg-1 mg-500 mcg-500 mcg active [...] Notes Section * Med Onc Follow-up Note <html><head></head><body><div style=text-align:center><span class=clinicalNoteMacroHighlighted id=[id number] macroname= PracticeLetterhead spantype=macro title=#PracticeLetterhead><img nyulat=[email or web address]=[email or web address]" jpigf=[email or web address]></span>
</div>
<strong>Patient Name</strong>: <span class=clinicalNoteMacroHighlighted id=[id number] macroname=PatientName spantype=macro title=#PatientName">LOTTIE CABRERA</span>
<strong>MRN</strong>: <span class=clinicalNoteMacroHighlighted id=[id number] m acroname=PatientMRN spantype=macro title=#PatientMRN>[id number]& lt;/span> &nbs p; &nbs p; &nbs p; &nbs p; &nbs p; &nbs p;
<strong>Date Of </strong>: <span class=clinicalNoteMacroHighlighted id=&quot ;[id number] macroname=PatientDateOfBirth spantype=macro title=#PatientDateOfBirth>1945</span> &n bsp;
<strong>Today's Provider: </strong><span class=& quot;clinicalNoteMacroHighlighted id=[id number] macroname=MyName spantype=macro title=#MyName>Home Lincoln MD</span>
<strong>Date of Service: </strong><span class=clinicalNoteMacroHighlighted id=[id number] macroname=EffectiveDate spantype=macro title=#EffectiveDate>01/15/2023</span> & amp;nbsp; & amp;nbsp; & amp;nbsp; & amp;nbsp; & amp;nbsp;
<strong>Attending Physici an: </strong><span class=clinicalNoteMacroHighlighted id=&qu ot;macro_[id number] macroname=AttendingPhysician spantype=macro title=#AttendingPhysician>Home Lincoln (Hematology/Oncology)</span>
&lt ;strong>Referring Provider:</strong> <span class=clinicalNoteMacroHighlig hted id=[id number] macroname=ReferringPhysician spantype=& quot;macro title=#ReferringPhysician>Ioana Brown MD</span>
& lt;br>
<div style=text-align:center><span style=font-size:14p x><strong>HEMATOLOGY/ MEDICAL ONCOLOGY FOLLOW UP VISIT</strong></span>&lt ;br></div><div>

<span class=clinicalNoteSectionShowSeparators clinicalNoteSectionVisible id=[id number] internalbreaksection=& quot;false originalname=Reason for visit recognizeconcepts=true spanty pe=section suppressempty=false>Reason for Visit</span>
Here to establish care with history of rectal cancer. In addition is complaining about breast pain, chest wall pain
<span class=clinicalNoteSectionShowSeparators clinicalNoteSectionVisible id=[id number] internalbreaksection=false originalname=Impression recognizeconcepts=true spantype=section suppressempty=false>Assessment</span>
1. History ofrectal cancer diagnosed in 2016
At 2 excisions followed by chemoradiation
No evidence of recurrence
However has not recently had a colonoscopy
2. Rectal pain
Needs colonoscopy
3. Breast pain
Negative mammogram obtain results
4. Chest wall pain and upper abdominal pain
Plan for CT scan of chest and pelvis
<span [facility] clinicalNoteSectionVisible id=[id number]" internalbreaksection=false originalname=Recommendation/Plan recognizeconcepts=true spantype=section suppressempty=false>Plan</span>
1. At this point patient should not need routine oncological surveillance or scans
2. Chest pain prompting CT scan as documented--no abnormalities found
3. If no etiology found and breast pain persist consider breast MRI
--This is improving, will plan for annual mammogram
4. Referral to colorectal surgery for colonoscopy--done 11/14/2022, no abnormalities, follow-up colonoscopy per colorectal surgery
5. Discharge from oncological care

<span style=font-size:12px><span style=font-family:[place],Helvetica,sans-serif> </span></span>
<span class=clinicalNoteSectionShowSeparators clinicalN oteSectionVisible id=[id number] internalbreaksection=false&quo t; originalname=Med Onc Advanced Care Planning recognizeconcepts=true spanty pe=section suppressempty=false>Advanced Care Planning</span>
Not discussed at this visit.
<span class=clinicalNoteSectionShowSeparators clin icalNoteSectionVisible id=[id number] internalbreaksection=fals e originalname=Pain Plan This Visit recognizeconcepts=true spantype=&q uot;section suppressempty=false>Pain Scale on Today's Visit</span>&lt ;br><span class=clinicalNoteMacroHighlighted id=[id number] macroname=PatientPainScale parameters=LookBackDays:0,ValueIfNull:Not recorded ontoday spantype=macro>3</span>
<span class=clinicalNoteS ectionShowSeparators clinicalNoteSectionVisible id=[id number] internalbreaksection=false originalname=Pain Plan This Visit recognizeconcepts="true spantype=section suppressempty=false>Pain Plan on Today's Visit</span>
<span class=clinicalNoteMacroHighlighted id=[id number] macroname=PatientPainCarePlan parameters=LookBackDays:0,ShowComments:Yes,ValueIfNull:No pain plan indicated for today spantype=macro>
Date of Service: 01/15/2023
Pain Scale (0- 10): 3
Pain Treatment Plan: Non-opioid analgesics or techniques
Comment: </span>

<span class="clinicalNoteSectionShowSeparators clinicalNoteSectionVisible id=[id number] internalbreaksection=false originalname=Smoking Status recognizec oncepts=true spantype=section suppressempty=false>Smoking Sta tus</span>
<span class=clinicalNoteMacroHighlighted id=[id number] macroname=PatientSmokingStatus parameters=ValueIfNull:Not piedad rded spantype=macro title=#PatientSmokingStatus(ValueIfNull:Not recorded)&qu ot;>Smoking Tobacco : Former smoker; Smokeless Tobacco : Never used smokeless tobacco; Vaping : Never vaped</span>
<hr><span class=clinicalNoteSectionShowSeparators clinicalNoteSectionVisible id=[id number] internalbreaksection=false originalname=Depression recognizeconcepts=true spantype=section suppressempty=false>Depression Screening Tool Status</span>
<span class=clinicalNoteMacroHighlighted id=[id number] macron elvis=DepressionStatus parameters=ValueIfNull:Not screened on today spantype=& quot;macro>Was screened; Outcome positive: No; Screening Date: 01/15/2023; Screening Tool:PRIME MD-PHQ2; Total depression score: 1</span>

<span class=cl inicalNoteSectionShowSeparators clinicalNoteSectionVisible id=[id number]" internalbreaksection=false originalname=History of Present Illness recognizeconcepts=true spantype=section suppressempty=false>History of Present Illness</span>
History is obtained from chart and from daughter
1. [address] Fuentes Alley at [facility]&n bsp;for rectal cancer appears that she was treated with excision and then reexcision in 3 months followed by chemoradiation received 27 rounds of radiation therapy. No adjuvant therapy. Was seen at the 2019 and then discharged from care.
2. 07/03/2019: Chest x-ray showed indeterminate 7 mm nodular density T7, had chest heaviness at that point
3. 07/04/2019: CT scan of the chest shows new scleroticlesion in T10 measuring 5 mm. Increase size of sclerotic lesion in the T7 vertebral body now measuring 6 mm 4 Mm on Prior Study a PET CT Scan 2016
4. 08/04/2019: PET CT Scan Shows No Evidence of Recurrent Disease or Mets. Lesion Seen in T7 and T10 Likely Related to Benign Etiology since There Was No SUV Update 02/07/2021: CT Scan Chest and Pelvis No Abnormality
5. 11/01/2021: CT Scan of Abdomen and Pelvis No Acute Findings in the Abdomen and Pelvis
6. Recently Had Breast Pain, Mammogram in April 2022 and Biopsy Negative for Left
<span class=clinic alNoteSectionShowSeparators clinicalNoteSectionVisible id=[id number]" internalbreaksection=false originalname=Interval History recognizeconcepts=true spantype=section suppressempty=false>Interval History</span>
Comes with her daughter today, overall things have been going well, she feels occasional breast pain otherwise doing quite nothing new to report all aspects of history unchanged updated as appropriate. No B type symptoms no GI symptom
<span class=clinicalNoteSectionShowSeparators clinicalNoteSectionVisible id=[id number] internalbreaksection=false originalname=Review ofSystems recognizeconcepts=true spantype=section suppressempty=false>Review of Systems</span>
Remaining 14 point comprehensive review of systems within normal limits. NCCN Distress Thermometer and Problem List were collected and documented in the patient chart. Remarkable symptoms and concerns were discussed with the patient. Any additional follow-up is indicated in the plan.
<span class=clinicalNoteSectionShowSeparators clinicalNoteSectionVisible id=[id number] inte rnalbreaksection=false originalname=Medical History recognizeconcepts=true spantype=section suppressempty=false>Past Medical and Surgical History</span>
Anxiety, history of rectal cancer

<span style=& quot;font-size:12px><span style=font-family:[place],Helvetica,sans-serif>&l t;/span></span>
<span class=clinicalNoteSectionShowSeparators clinicalNot eSectionVisible id=[id number] internalbreaksection=false originalname=Medications recognizeconcepts=true spantype=section" suppressempty=false>Current Medications</span>
<span class= clinicalNoteMacroHighlighted id=[id number] macroname=Medication sTable spantype=macro title=#MedicationsTable><table border="1 style=width:100%> <tbody> <tr> <td align=left colspan=2>Medication List</td> </tr> <tr> <th align=left">Name</th> <th align=left>Date</th> </tr> <tr> <td width=60%>Zoloft (Sertraline Oral)</td> <td width=40%>2022</td> </tr> <tr> <td width=60%>Omeprazole Oral Delayed Release Capsule</td> <td width=40%>08/11/2022</td> </tr> <tr> <td width=60%>One- Daily Multi (Gyucabccurgjj-Scl-Xyfpk-S89-Yfmoqcz-Vedoyz Oral 800mcg-1 mg-500 mcg-500 mcg)</td> <td width=40%>08/11/2022</td> </tr> <tr> <td width=60%>Miscellaneous Drug</td> <td width=40%">08/11/2022</td> </tr> <tr> <td width=60%>Ocuvite with Lutein (Vit A, C & R-Iakxqv-Vtcxxhoq Oral 300 mcg-200 mg-27 mg-2 mg)</td> <td width="40%>08/11/2022</td> </tr> </tbody></table></span>
<span class=clinicalNoteSectionShowSeparators clinicalNoteSectionVisible id=[id number] internalbreaksection=false originalname=Allergies" recognizeconcepts=true spantype=section suppressempty=false >Allergies</span>
<span class=clinicalNoteMacroHighlighted id=&quot ;[id number] macroname=Allergies parameters=ValueIfNull:No aller gies recorded. spantype=macro title=#Allergies(ValueIfNull:No allergies piedad rded.)>azithromycin and codeine</span>
<span class=clinicalNoteSect ionShowSeparators clinicalNoteSectionVisible id=[id number] internalbreaksection=false originalname=Family History recognizeconcepts=true" spantype=section suppressempty=false>Family History</span>
Dad with prostate cancer, uncle with stomach cancer, sister with cancer of kidney removed at 74, brother with leukemia.

<span style=font-size:12px"><span style=font-family:[place],Liannetica,sans-serif></span></span>
<span class=clinicalNoteSectionShowSeparators clinicalNoteSectionVisible id=[id number] internalbreaksection=false originalname=Social History recognizeconcepts=true spantype=section suppressempty=& quot;false>Social History</span>
, lives in [place] her son lives close by, she has 3 children her daughter Marta is a coordinator radiology for [employer] she has grandchildren. Her grandson actively involved in sports she does not smoke she quit 40 years ago does not drink is quite active overall she is recently broughta treadmill

No update

<span style=font-size:12px><span style=font-family:[place],Liannetica,sans-serif></span></span><span class=clinicalNoteSectionShowSeparators clinicalNoteSectionVisible id =[id number] internalbreaksection=false originalname=Vital Signs and Pain Scale recognizeconcepts=true spantype=section suppres sempty=false>Vital Signs</span>
<span class=clinicalNoteMacroHighlighted id=[id number] macroname=PatientVitalSigns para meters=LookBackDays:1,ValueIfNull:Not recorded on visit spantype=macro title =#PatientVitalSigns(LookBackDays:1,ValueIfNull:Not recorded on visit)>Blood pressure: 122/74, Pulse: 74, Temperature: 97.5 F, Respirations: 16, O2 sat: 96%, Pain Scale: 3, Height: 63.5in, Weight: 130.8 lb, BSA: 1.62, BMI: 22.81 kg/m2</span>
<span class=clinicalNoteMacroHighlighted id=[id number] macroname=Immunizations" spantype=macro title=#Immunizations>Covid-19 vaccine (Moderna) (08/11/2022), Elsewhere; Covid-19 vaccine (Pfizer) (08/11/2022), Elsewhere; Covid-19 vaccine (Pfizer) (08/11/2022), Elsewhere; Covid-19 vaccine (Pfizer) (08/11/2022), Elsewhere; Covid-19 vaccine (Pfizer) (08/11/2022), Elsewhere; Flu vaccine - Adult (08/11/2022), Elsewhere</span>
<span class=clinicalNoteSectionShowSeparators clinicalNoteSectionVisible id=[id number] internalbreaksection=false originalname=Performance Status r ecognizeconcepts=true spantype=section suppressempty=false>Performance Status ECOG or Karnofsky</span>
ECOG: <span class=clinicalNoteMacr oHighlighted id=[id number] macroname=ECOGStatus parameters =ValueIfNull:Not recorded spantype=macro title=#ECOGStatus(ValueIfNull:Not recorded)>1 Symptoms, but ambulatory. Restricted in physically strenuous activity, but ambulatory and able to carry out work of a light or sedentary nature (e.g., light housework, office work). (Date: 08/11/2022)</span>
Karnofsky: <span class= clinicalNoteMacroHighlighted id=[id number] macroname=KarnofskyS tatus parameters=ValueIfNull:Not recorded spantype=macro title=# KarnofskyStatus(ValueIfNull:Not recorded)>Not recorded</span>

<span class=clinicalNoteSectionShowSeparators clinicalNoteSectionVisible id=section [id number] internalbreaksection=false originalname=Physical Exam&quo t; recognizeconcepts=true spantype=section suppressempty=false>Physical Exam</span>
{ Neck: Supple, without masses, lymphadenopathy or [...] wall specifically between chest and abdomen area.}
<span class=clinicalNoteSectionShowSeparators clinicalNoteSectionVisible id=[id number] internalbreaksection=false originalname=Genetics/Molecular/Biomarkers recognizeconcepts=true spantype=section suppressempty=fals e>Genetics/Molecular/Biomarkers</span>
<span class=clinicalNoteMacr oHighlighted id=[id number] macroname=Problems parameters=& quot;ListType:Bulleted,PrincipalOnly:Yes spantype=macro title=#Problems(List Type:Bulleted,PrincipalOnly:Yes)> </span>
<span class=clinicalNoteSectionShowSeparators clinicalNoteSectionVisible id=[id number] internalbreaksection=false originalname=Additional Labs, Imaging and Other Studies recognizeconcepts=true spantype=section suppressempty=false>Additional Labs, Imaging, and Other Studies</span>

<span class=clinicalNoteSectionShowSeparators clinicalNoteSectionVisible id=&quo t;section_[id number] internalbreaksection=false originalname=Laborato ry Results recognizeconcepts=true spantype=section suppressempty=&quot ;false>Lab Results</span>
<span class=clinicalNoteMacroHighlighted" id=[id number] macroname=RecentLabResultsTable parameters=& quot;OptionalFlowsheetCategory:CBC,Label:CBC spantype=macro title=#RecentLab ResultsTable(OptionalFlowsheetCategory:CBC,Label:CBC)>CBC<table border=1 sty le=width:100%> <tbody> <tr> <th align=left>Lab Results</th> <td>08/11/2022</td> <td>12/13/2021</td> <td>02/13/2018</td> </tr> <tr> <th align=left> CBC</th> <td>
</td> <td>
</td> <td>
</td> </tr> <tr> <td> WBC x 10^3/uL</td> <td>7.5</td> <td>
</td> <td>
</td> </tr> <tr> <td> RBC x 10^6/uL</td> <td>5.11 (H)</td> <td>
</td> <td>
</td> </tr> <tr> <td> NRBC % /100 wbc</td> <td>0.0</td> <td>
</td> <td>
</td> </tr> <tr> <td> HGB g/dL</td> <td>15.0</td> <td>
</td> <td>
</td> </tr> <tr> <td> & amp;nbsp; HCT %</td> <td>45.7</td> <td>
</td> <td>
</td> </tr> <tr> <td> MCV fL</td> <td>89.4</td> <td>
</td> <td>
</td> </tr> <tr> <td> MCH pg</td> <td>29.4</td> <td>
</td> <td>
</td> </tr> <tr> <td> MCHC g/dL</td> <td>32.8</td> <td>
</td> <td>
</td> </tr> <tr> <td> RDW %</td> <td>13.20</ td> <td>
</td> <td>
</td> </tr> <tr> <td> PLT x 10^3/uL</td> <td>199</td> <td>
</td> <td>
</td> </tr> <tr> <td>& nbsp; MPV fL</td> <td>11.2</td> <td>
</td> <td>
</td> </tr> <tr> <td> Brenden %</td> <td>68.1</td> <td>
</td> <td>
</td> </tr> <tr> <td> LY %</td> <td>22.4</td> <td>
</td> <td>
</td> </tr> <tr> <td> MO %</td> <td>7.5</td> <td>
</td> <td>
</td> </tr><tr> <td> EO %</td> <td>1.2</td> <td>
</td> <td>
</td> </tr> <tr> <td> IG %</td> <td>0.5</td> <td>
</td> <td>
</td> </tr> <tr> <td> &nbsp ; Brenden # (ANC) x 10^3/uL</td> <td>5.1</td> <td>
</td> <td>
</td> </tr> <tr> <td> BA %</td> <td>0.3</td> <td>
</td> <td>
</td> </tr> <tr> <td> MO # x 10^3/uL</td> <td>0.6</td> <td>
</td> <td>
</td> </tr> <tr> <td> EO # x 10^3/uL</td> <td>0.1</td> <td>
</td> <td>
</td> </tr> <tr> <td> BA # x 10^3/uL</td> <td>0.0</td> <td>
</td> <td>
</td> </tr> <tr> <td> IG # x 10^3/uL</td> <td>0.04 (H)</td> <td>
</td> <td>
</td> </tr> <tr> <td> LY # x 10^3/uL</td> <td>1.7</td> <td>
</td> <td>
</td> </tr> </tbo dy></table></span>
<span class=clinicalNoteMacroHighlighted i d=[id number] macroname=RecentLabResultsTable parameters=Op tionalFlowsheetCategory:Chemistries,Label:Chemistries spantype=macro title=# RecentLabResultsTable(OptionalFlowsheetCategory:Chemistries,Label:Chemistries)> Chemistries<table border=1 style=width:100%> <tbody> <tr> <th align =left>Lab Results</th> <td>08/11/2022</td> <td>12/13/2021</td> <td>02/13/2018</td> </tr> <tr> <th align=left> Chemistries</th> <td>
</td> <td>
</td> <td>
</td> </tr> <tr> <td> &nbsp ; Glucose mg/dL</td> <td>97</td> <td>
</td> <td>
</td> </tr> <tr> <td> BUN mg/dL</td> <td>16.0</td> <td>
</td> <td>
</td> </tr> <tr> <td> Creatinine mg/dL</td> <td>0.72</td> <td>
</td> <td>
</td> </tr> <tr> <td> Sodium mmol/L</td> <td>144</td> <td>
</td> <td>
</td> </tr> <tr> <td> Potassium mmol/L</td> <t d>4.0</td> <td>
</td> <td>
</td> </tr> <tr> <td> Chloride mmol/L</td> <td>109</td> <td>
</td> <td>
</td> </tr> <tr> <td> CO2 mmol/L</td> <td>22</td> <td>
</td> <td>
</td> </tr> <tr> <td>&amp ;nbsp; Calcium mg/dL</td> <td>9.5</td> <td>
</td> <td>
</td> </tr> <tr> <td> Albumin g/dL</td> <td>4.7</td> <td>
</td> <td>
</td> </tr> <tr> <td> Total protein g/dL</td> <td>6.9</td> <td>
</td> <td>
</td> </tr> <tr> <td> Bilirubin, total mg/dL</td> <td>0.6</td> <td>
</td> <td>
</td> </tr> <tr> <td> Alkaline phosphatase U/L</td> <td>97</td> <td>
</td> <td>
</td> </tr> <tr> <td> AST/SGOT U/L</td> <td>24</td> <td>
</td> <td><b r> </td> </tr> <tr> <td> ALT/SGPTU/L</td> <td>29</td> <td>
</td> <td>
</td> </tr> <tr> <td> GFR estimate mL/min/1.73m2</td> <td>85.7</td> <td>
</td> <td>
</td> </tr> </tbody></table></span>
<span class=clinicalNoteMacroHighlighted id=[id number] macroname=RecentLabResultsTable parameters=OptionalFlowsheetCategory:Tumor Markers,Label:Tumor Markers spantype=macro title=#RecentLabResultsTable(OptionalFlowsheetCategory:Tumor Markers,Label:Tumor Markers)></span>
<span class=clinicalNoteMacroHighlighted" id=[id number] macroname=RecentLabResultsTable parameters=&quot ;OptionalFlowsheetCategory:Immunochemistries spantype=macro title=#RecentLab ResultsTable(OptionalFlowsheetCategory:Immunochemistries)> &lt ;/span>
<span class=clinicalNoteMacroHighlighted id=[id number] macroname=RecentLabResultsTable parameters=OptionalFlowsheetCategory :AnemiaLabs spantype=macro title=#RecentLabResultsTable(OptionalFlowsheetCat egory:AnemiaLabs)> </span>
<span class=&quot ;clinicalNoteSectionShowSeparators clinicalNoteSectionVisible id=[id number] internalbreaksection=false originalname=Surveys/Consents/Other Discussions recognizeconcepts=true spantype=section suppressempty=false">Surveys/Consents/Other Discussions</span>

<hr>
<strong>Home Lincoln MD</strong>
<span class=clinicalNoteMacroHighlighted id=[id number] macroname=LocationPhoneNumber paramet ers=Label:Phone: spantype=macro title=#LocationPhoneNumber(Label:Phone: )> </span>
<span class=clinicalNoteMacroHighlighted id=[id number] macroname=LocationFaxNumber parameter s=Label:Fax: spantype=macro title=#LocationFaxNumber(Label:Fax: )&quo t;> </span>

CC: <span class=clinicalNoteMacroHi ghlighted id=[id number] macroname=NoteRecipients spantype =macro title=#NoteRecipients> </span>
<div style=text-align:center>
</div></div>

<div><span class=eSignSignature>Electronically signed by Home Lincoln MD 01/15/2023 16:15 CDT</span></div></body></html>
--- OUTSIDE RECORDS SUMMARY | 2025-02-21 13:22 | XMS_ITS | Encounter Summary ---
Author Organization [facility] Address [address] [place] [address] Care Team Providers Care Continuous Process Coffee Roaster Name Role Phone Bailey Davis PA-C Unavailable [phone] Ioana Brown MD Unavailable [phone] Juvencio Moreno MD Unavailable [phone] Delilah Morales DO Unavailable Ioana Brown MD Primary Care Provider [phone] Bailey Davis PA-C Unavailable [phone] Bailey Davis PA-C Unavailable [phone] Bharath Mar MD Unavailable [phone] Uriel Heredia MD Unavailable Reason for Referral * Therapeutic Services (Routine) - Pending Review Specialty Diagnoses / Procedures Referred By Danni melchor Referred To Contact Pain & Palliative Care Diagnoses Lumbosacral radiculopathy Procedures PAIN Interlaminar Epidural Steroid Injection Lumbar[place] [address] [address] Phone: tel: fax: Referral ID Status Reason Start Date Expiration Date V isits Requested Visits Authorized [id number] Pending Review 07/22/2024 07/22/2025 1 1 Reason for Visit * Reason Onset Date Comments Procedure 07/10/2024 L5-S1 Interlamin ar GALLO Encounter Details Date Type Department Care Team (Late st Contact Info) Description 07/10/2024 Telephone [facility] [place] [address] [place] [address] [address] [place] [address] [place] [address] [place] [phone] Procedure (L5-S1 Interlaminar GALLO) Social History Tobacco [...] re latives? Once a week 02/25/2024 Attends [employer] Not on file 02/24 Active Member [...] Answer Date Recorded PHQ-2 Score 0 06/05/[address] [facility] [place] of Occupat ional Health - Occupational Stress [...] in an abandoned building, in an overnight care home, or couch-surfing.) Yes 02/25/2024 Are you [...] PM CDT Legal Sex Female 3:40 AM WOLF HUNTER Gender Identity Female 12/12/2022 7:35 PM CDT Sexual Orientation Not on file documented as of this encounter Miscellaneous Notes * Telephone Encounter - Justina Goel - 08/28/2024 3:55 PM CDT Reason for call: Other Patient called regarding (reason for call): appointment and call back Additional comments: Pt has been rescheduled for her procedure with Dr. Moreno on 09/25. Routing to nursing as FYI. Phone number to reach patient: Home number on file [phone] (home) Best Time: Any Can we leave a detailed message on this number? YES Justina Goel Animal Sitter [facility] * Telephone Encounter - Apurva Tan - 07/10/2024 12:00 PM CDT No PA required, patient is already scheduled Routing as FYI Apurva [facility] [employer] [facility] * Telephone Encounter - Justina Goel - 07/10/2024 10:17 AM CDT Screening Questions for Radiology Injections: Pt is scheduled with Dr. Moreno on 08/04 Injection to be done at which interventional clinic site? [facility] If choosing [facility] for location, please inform patient: [facility] is a Hospital based clinic. Before your visit, you should check with your insurance about how it covers the charges for facility services in a hospital-based clinic.?? Procedure ordered by Dr. Moreno Procedure ordered? L5-S1 Interlaminar GALLO Transforaminal Cervical GALLO - Send to [facility] ([facility]) - No Community Site providers perform this procedure What insurance would patient like us to bill for this procedure? Medicare/Medica IF SCHEDULING IN [place] PAIN OR SPINE PLEASE SCHEDULE AT LEAST 7-10 BUSINESS DAYS OUT SO A PA CAN BE OBTAINED Worker's comp or MVA (motor vehicle accident) -Any injection DO NOT SCHEDULE and route to [facility] [employer] insurance - For ALL INJECTIONS DO NOT SCHEDULE and route to Apurva Tan. ALL BCBS, Humana and HP CIGNA - DO NOT SCHEDULE and route to Apurva Tan MEDICA- ALL INJECTIONS- route to Apurva Tan Is patient scheduled at [facility]? No If YES, route every encounter to [facility] CARE NAVIGATION POOL [[phone]] Is an bulb filler needed? No Patient has a otr driver home? (Review Grid) YES: Daughter Any chance of ? NO If YES, do NOT schedule and route to warp spooler - Dr. Quiroga route to PM&R Nurse [[id number]] Is patient actively being treated for cancer or immunocompromised? No If YES, do NOT schedule and route to warp spooler/ Dr. Quiroga's Team Does the patient have a bleeding or clotting disorder? No If YES, okay to schedule AND route to RN nurse / Dr. Quiroga's Team (For any patients with platelet count <100, RN must forward to provider) Is patient taking any Blood Thinners OR Antiplatelet medication? No If hold needed, do NOT schedule, route to warp spooler/ Dr. Quiroga's Team Examples: Blood Thinners: (Coumadin, Warfarin, Jantoven, Pradaxa, Xarelto, Eliquis, Edoxaban, Enoxaparin, Lovenox, Heparin, Arixtra, Fondaparinux or Fragmin) Antiplatelet Medications: (Plavix, Brilinta or Effient) Is patient taking any aspirin products (includes Excedrin and Fiorinal)? No If yes route to warp spooler/ Dr. Quiroga's Team - Do not schedule [...] to appointment notes AND route to the warp spooler/ Dr. Quiroga's Team If GALLO and Contrast Dye / Iodine Allergy? DO NOT SCHEDULE, route to warp spooler/ Dr. Quiroga's Team Allergies: Atorvastatin, Tramadol, Amoxicillin, [...] schedule and route to DIAZ kimball/ Dr. Quiroga's Team If patient has an [...] Orders Needed Please send all injections to cnc set up operator Not Applicable Red Flags? Not Applicable Does the patient have any questions? NO Justina Goel [facility] documented in this encounter Plan of Treatment Upcoming Encounters Date Type Department Care Team (Late st Contact Info) Description 05/11/2025 11:30 AM WOLF HUNTER Appointment [facility] [address] [place] [phone] Bharath Mar MD [address] [place] [address] 05/14/2025 4:40 PM WOLF HUNTER Virtual Visit [facility] [address] 4th [place] [phone] Bharath Mar MD [address] [place] [address] documented as of this encounter Results * [...] L4-L5 interlaminar epidural steroid injection. (CPT code: 10834) PROCEDURE IN DETAIL: Prior to the procedure, [...] osteoporosis documented in this encounter Care Teams Continuous Process Coffee Roaster Relationship Specialty [place] [address] [place] [address] PCP - General Family Medicine 06/04/23 Bailey Davis, PA-C [address] [place] [address] Physician Buyer Broker Dermatology 12/15/21 [place] [address] [place] [address] Assigned PCP 05/06/22 [place] [address] [place] [address] Assigned Neuroscience Provider 06/03/22 Delilah Morales DO [address] [place] [address] Physical Medicine and Rehabilitation 08/15/22 Bailey Davis, PA-C [address] [place] [address] Assigned Surgical Provider 06/22/23 07/19/24 Bailey Davis PA-C [address] [place] [address] Assigned Dermatology Provider 07/20/24 Bharath Mar MD [id number] [place] [address] Assigned Musculoskeletal Provider 10/20/24 12/19/24 Uriel Heredia MD [facility] [place], [place] [address] Assigned Musculoskeletal Provider 12/20/24 documented as of this encounter
--- OUTSIDE RECORDS SUMMARY | 2025-02-21 13:22 | XMS_ITS | Encounter Summary ---
Author Organization [facility] Address [address] [place] [address] Care Team Providers Care Churn Operator Name Role Phone Bailey Davis PA-C Unavailable [phone] Ioana Brown MD Unavailable [phone] Juvencio Moreno MD Unavailable [phone] Delilah Morales DO Unavailable Ioana Brown MD Primary Care Provider [phone] Bailey Davis PA-C Unavailable [phone] Bharath Mar MD Unavailable [phone] Uriel Heredia MD Unavailable Reason for Visit * Reason Onset Date Comments RED FLAG TUMOR VISIT NEEDED 10/03/2024 Encounter Details Date Type Department Care Team (Late st Contact Info) Description 10/03/2024 Telephone [facility] [place] [address] [facility] 4th [place] [address] Unknown, Provider RED FLAG TUMOR [...] re latives? Once a week 02/25/2024 Attends [employer] Services Not on file 02/24 Active Member [...] Answer Date Recorded PHQ-2 Score 0 06/05/2024 [facility] [place] of Occupat ional Health - Occupational Stress [...] in an abandoned building, in an overnight snf, or couch-surfing.) Yes 02/25/2024 Are you worried [...] PM CDT Legal Sex Female 3:40 AM OFFICE 365 CONSULTANT Gender Identity Female 12/12/2022 7:35 PM CDT [...] was evaluated and treated for the condition? [facility] Who is referring provider, (name and clinic location) Juvencio Moreno MD [facility] What images have been done? MRI; Location and City where images were taken: [facility] Could we send this information to you in MyChart or would you prefer to receive a phone call?: Patient would prefer a phone call Okay to leave a detailed message?: Yes at Other phone number: [phone] Natasha documented in this encounter Plan of Treatment Upcoming Encounters Date Type Department Care Team (Late st Contact Info) Description 05/11/2025 11:30 AM OFFICE 365 CONSULTANT Appointment [facility] Imaging [address] [facility] [address] [place] [address] Bharath Mar MD [address] [place] [address] 05/14/2025 4:40 PM OFFICE 365 CONSULTANT Virtual Visit [facility] Orthopedic [facility] [address] [facility] 4th [place] [phone] Bharath Mar MD [address] [place] [address] documented as of this encounter Visit Diagnoses Not on filedocumented in this encounter Care Teams Churn Operator Relationship Specialty [place] [address] [place] [address] PCP - General Family Medicine 06/04/23 Bailey Davis PA-C [address] [place] [address] Physician Whittling Room Operator Dermatology 12/15/21 [place] [address] [place] [address] Assigned PCP 05/06/22 [place] [address] [place] [address] Assigned Neuroscience Provider 06/03/22 Delilah Morales DO [address] [place] [address] Physical Medicine and Rehabilitation 08/15/22 Bailey Davis PA-C [address] [address] Assigned Dermatology Provider 07/20/24 Bharath Mar MD [address] [place] [address] Assigned Musculoskeletal Provider 10/20/24 12/19/24 Uriel Heredia MD [address] [place] [id number] Assigned Musculoskeletal Provider 12/20/24 documented as of this encounter
--- OUTSIDE RECORDS SUMMARY | 2025-02-21 13:22 | XMS_ITS | Clinical Summary ---
Author Organization [facility] Address [address] [place] [address] Care Team Providers Care Panama Hat Smearer Name Role Phone Daphne Silva MD Primary [...] by mouth once daily. 0 1 Active Eskwn-1-HMF-EPA- Fish Oil 1,000 mg (120 mg-180 mg) [...] tablet Take by mouth. 0 1 Active zp-gxw-cognm acid-lutein (Centrum Silver) 400-250 mcg chew Chew [...] Overview (07/20/2021): The patient follows with a restaurant hostess regularly, f/u visit with Dr. Guerrero. The [...] Immunization Administration Dates Next Due COVID-19 vaccine ([employer]nomics-Bio NTech 30mcg/0.3mL) 12YO+ SUZANNE-SUCROSE PF, MDV 08/19/2021 COVID-19 vaccine ([employer]-Bio NTech 30mcg/0.3mL) PF, MDV 03/25/2021,07/06/2020,06/15/2020 Influenza, High-dose [...] 65+ 08/20/2022 08/19/2021 Tetanus booster 10/03/2023 10/02/2013 Influenza Vaccine (#1) 2024 , 01/28/2020, 04/02/2019, [...] to assess therapeutic efficacy. Nai Mayorga PA-C [facility] 08/10/2020 Narrative 08/10/2020 12:53 PM CDT XR DXA Bone Mineral Density (BMD) EXAM LOCATION: [address] [address] PATIENT NAME: Jennifer Pendleton DATE OF : [...] two scanners are made by the same bottle dealer. PROCEDURE: Dual-energy x-ray absorptiometry performed with routine [...] Most Recently Relevant to Health Maintenance Insurance [employer] MEDICARE [place] ONLY Care Teams Panama Hat Smearer Relationship Specialty Start Date End Date Daphne Silva MD [address] [place] [address] PCP - General Family Practice 07/03/19
--- OUTSIDE RECORDS SUMMARY | 2025-02-21 13:22 | XMS_ITS | Clinical Summary ---
Author Organization [facility] Address [address] [place] [address] Care Team Providers Care Primer Supervisor Name Role Phone Bailey Davis PA-C Unavailable [phone] Ioana Brown MD Unavailable [phone] Juvencio Moreno MD Unavailable [phone] Delilah Morales DO Unavailable Ioana Brown MD Primary Care Provider Bailey Davis PA-C Unavailable [phone] Uriel Heredia MD Unavailable Allergies Active Allergy Reactions Criticality Noted Date Comments Amoxicillin Nausea and Vomiting Low 02/28/2012 Atorvastatin 02/28/2012 Other reaction(s): Unknown Reaction Codeine Nausea Low 01/09/2008 Tramadol 02/28/2012 Other reaction(s): Unknown Reaction Medications acetaminophen (TYLENOL) 650 MG CR tablet Take 1 tablet by mouth Active vitamin (B COMPLEX) capsule Take 1 capsule by mouth 1 Active hydrocortisone 2.5 % cream 1 Active Multiple Vitamin (ONE-A-DAY ESSENTIAL) TABS Take 1 tablet by mouth daily 1 Active triamcinolone (KENALOG) 0.1 % external creamIndications :Dermatitis APPLY TO AFFECTED AREA TWICE A DAY FOR 14 DAYS 30 g 4 Active clobetasol (TEMOVATE) 0.05 % external ointmentIndicati ons:Lichen sclerosus Apply topically 2 times daily. 60 g 3 4 Active omeprazole (PRILOSEC) [address] capsuleIndicatio ns:Gastroesophag eal reflux disease with esophagitis without hemorrhage TAKE 1 CAPSULE BY MOUTH EVERY DAY 90 capsule 2 4 Active sertraline (ZOLOFT) 100 MG tabletIndication s:Anxiety Take 1 tablet (100 mg) by mouth daily. Take 50 mg for 2 weeks, then increase to 100 mg daily. 90 tablet 3 4 Active valACYclovir (VALTREX) 1000 mg tabletIndication s:Oral herpes Take 2 tablets (2,000 mg) by mouth 2 times daily. 4 tablet 3 4 Active calcium citrate-vitamin D (CITRACAL) 200-6.25 MG-MCG TABS per tablet Take 1 tablet by mouth daily. Active metroNIDAZOLE (METROGEL) 0.75 % external gelIndications:R osacea Apply to face BID 45 g 11 5 Active LORazepam (ATIVAN) 0.5 MG tablet PLEASE SEE ATTACHED FOR DETAILED DIRECTIONS 5 Active cholecalciferol (VITAMIN D3) 25 mcg (1000 units) capsule Active sulfamethoxazole -trimethoprim (BACTRIM DS) 800-160 MG tabletIndication s:Pyelonephritis , acute Take 1 tablet by mouth 2 times daily. 14 tablet 5 Active Active Problems Problem Noted Date Diagnosed [...] Overview (12/12/2021): The patient follows with a division controller regularly, f/u visit with Dr. Guerrero. The patient went for followup with her on 06/27/12 and had Botox. Uses MetroCream prn. The patient follows with a division controller regularly, f/u visit with Dr. Guerrero. The [...] wit hout current pathological fracture 08/12/2020 Overview (12/12/2021): 05/2018: [...] Encounters Date Type Department Care Team Description 01/19/2025 10:15 AM CDT Radiology Injection Office Visit [facility] [address] [place] [address] Juvencio Moreno MD Lumbar radiculopathy (Primary Dx); Scoliosis of thoracolumbar spine, unspecified scoliosis type; Facet arthropathy, lumbosacral; Degeneration of intervertebral disc of lumbosacral region with discogenic back pain and lower extremity pain 01/18/2025 Travel 01/01/2025 10:00 AM CDT Infusion Therapy Visit [facility] [address] [place] [address] [address] [place] [address] Amina Chappell MD Age-related osteoporosis without current pathological fracture (Primary Dx) 01/01/2025 Travel 12/24/2024 Telephone [facility] [address] [facility] [address] [place] [address] Uriel Heredia MD 12/09/2024 2:00 PM CDT Infusion Therapy Visit [facility] [address] [place] [address] Amina Chappell MD Age-related osteoporosis without current pathological fracture 12/09/2024 Orders Only [facility] [address] [facility], [address] [place] [address] Sl[place] [facility] Age-related osteoporosis without current pathological fracture (Primary Dx) 12/09/2024 Travel 12/05/2024 Travel 12/01/2024 1:40 PM CDT Office Visit [facility] [place] [address] [facility] [address] [place] [address] Gareth Mcclellan DO Biceps tendonosis of right shoulder (Primary Dx) 12/01/2024 1:30 PM CDT Office Visit [facility] [address] [facility] [address] [place] [address] Uriel Heredia MD Biceps tendonosis of right shoulder (Primary Dx) 12/01/2024 Travel 11/28/2024 Travel 11/27/2024 Telephone [facility] [address] [place] [address] , [address] [place] [phone] Juvencio Moreno MD Procedure (L4-5 L5-S1 right Transforaminal GALLO/) from Last 3 Months Immunizations Immunization Administration [...] re latives? Once a week 02/25/2024 Attends [employer] Not on file 02/24 Active Member [...] Date Recorded PHQ-2 Score 0 06/05/2024 [facility] - Occupational Stress Questionnaire [...] PM CDT Legal Sex Female 3:40 AM PLANT PROTECTION GUARD Gender Identity Female 12/12/2022 7:35 PM CDT Sexual Orientation Not on file Last Filed Vital Signs Vital Sign Reading Time Taken Comments Blood Pressure 144/67 01/19/2025 10:38 AM CDT Pulse 56 01/19/2025 10:38 AM CDT Temperature 37.2 C (99 F) 01/01/2025 9:00 AM CDT Respiratory Rate 16 01/01/2025 9:00 AM CDT Oxygen Saturation 99% 01/19/2025 10:38 AM CDT Inhaled Oxygen Concentration - - Weight 59 kg (130 lb) 11/17/2024 1:48 PM CDT Height 160 cm (5' 3) 11/17/2024 1:48 PM CDT Body Mass Index 23.03 11/17/2024 1:48 PM CDT Plan of Treatment Upcoming Encounters Date Type Department Care Team (Late st Contact Info) Description 05/11/2025 11:30 AM PLANT PROTECTION GUARD Appointment [facility] [address] [facility] [address] [place] [address] Bharath Mar MD [address] [place] [address] 05/14/2025 4:40 PM PLANT PROTECTION GUARD Virtual Visit [facility] [address] 4th [place] [phone] Bharath Mar MD [address] [place] [address] Health Maintenance Due Date Last Done Comments [...] Routine 01/19/2025 10:22 AM CDT Lumbar radiculopathy CO ARTHROCENTESIS ASPIR&/INJ INTERM JT/BURS W/US Routine 12/01/2024 2:11 PM CDT Biceps tendonosis of right shoulder CT CHEST/ABDOMEN/PELVIS W CONTRAST Routine 11/05/2024 2:24 PM CDT Tendinopathy of rotator cuff, right Rotator cuff impingement syndrome, right COMPREHENSIVE METABOLIC PANEL STAT 08/04/2024 12:33 PM [...] Recently Relevant to Health Maintenance Results * PAIN TRANSFORAMINAL GALLO INJ SACRAL [...] L5-S1 transforaminal epidural steroid injection/s. (CPT code/s: 19584, 42857) PROCEDURE IN DETAIL: Prior to the procedure, [...] of dexamethasone was wasted. Juvencio Moreno MD Juvencio Moreno MD IMG PAIN MANAGEMENT ORDERABLES Final Result * CO ARTHROCENTESIS ASPIR&/INJ INTERM JT/BURS W/US (12/01/2024 2:11 [...] SURGICAL ORDER DOMO Final Result * CT Chest/Abdomen/Pelvis w Contrast [...] CDT EXAM: CT CHEST/ABDOMEN/PELVIS W CONTRAST LOCATION: [facility] DATE: 11/05/2024 INDICATION: Tendinopathy of rotator [...] 11/06/2024 EXAM: CT CHEST/ABDOMEN/PELVIS W CONTRAST LOCATION: [facility] DATE: 11/05/2024 INDICATION: Tendinopathy of rotator [...] IMG CT ORDERABLES Final Result * (ABNORMAL) Comprehensive metabolic panel (08/04/2024 12:33 PM CDT) Sodium 145 135 - 145 mmol/L 08/04/2024 12:59 PM CDT [facility] Potassium (POCT) 4.3 3.4 - 5.3 mmol/L 08/04/2024 12:59 PM CDT [facility] Chloride (POCT) 105 94 - 109 mmol/L 08/04/2024 12:59 PM CDT [facility] Carbon Dioxide (CO2) (POCT) 26 20 - 32 mmol/L 08/04/2024 12:59 PM CDT [facility] Anion Gap (POCT) 14 3 - 14 mmol/L 08/04/2024 12:59 PM CDT [facility] Urea Nitrogen (POCT) 18 7 - 30 mg/dL 08/04/2024 12:59 PM CDT [facility] Creatinine 0.80 0.52 - 1.04 mg/dL 08/04/2024 12:59 PM CDT [facility] GFR Estimate 75 >60 mL/min/1.7 3m2 08/04/2024 12:59 PM CDT [facility] Calcium 10.1 8.5 - 10.1 mg/dL 08/04/2024 12:59 PM CDT [facility] Glucose (POCT) 101(H) 70 - 99 mg/dL 08/04/2024 12:59 PM CDT [facility] Alkaline Phosphatase 87 40 - 150 U/L 08/04/2024 12:59 PM CDT [facility] AST 35 0 - 45 U/L 08/04/2024 12:59 PM CDT [facility] ALT 30 0 - 50 U/L 08/04/2024 12:59 PM CDT [facility] Protein Total 7.2 6.8 - 8.8 g/dL 08/04/2024 12:59 PM CDT [facility] Albumin (POCT) 3.9 3.4 - 5.0 g/dL 08/04/2024 12:59 PM CDT [facility] Bilirubin Total 0.9 0.2 - 1.3 mg/dL 08/04/2024 12:59 PM CDT [facility] Blood BLOOD SPECIMEN / Unknown Venipuncture / Unknown 08/04/2024 12:33 PM CDT 08/04/2024 12:35 PM CDT us Lucy Tinajero PA-C LAB - BLOOD ORDERABLES Final R esult [facility] [address] [facility] (no room number, 1st floor of clinic) [place] [address], [facility] * (ABNORMAL) Lipid panel reflex to direct [...] LAB - BLOOD ORDERABLES Fi nal Result LABORATORY [facility] [address] [facility], Room [address] [address] * DX AXIAL HIPS/SPINE (12/27/2023 9:55 AM [...] AM CDT EXAM: DX AXIAL HIPS/SPINE LOCATION: [facility] DATE: 12/27/2023 INDICATION: Closed compression fracture [...] - 12/28/2023 EXAM: DX AXIAL HIPS/SPINE LOCATION: [facility] DATE: 12/27/2023 INDICATION: Closed compression fracture [...] decrease in T-score. 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 Procedure Code(s): --- Professional --- 55965, Colonoscopy, flexible; with biopsy, single or multiple Diagnosis Code(s): --- Professional --- Z85.048, Personal history of other malignant neoplasm of rectum, rectosigmoid junction, and anus CPT copyright 2020 [employer]. All rights reserved. The codes documented in this report are preliminary and upon movie writer review may be revised to meet current [...] Most Recently Relevant to Health Maintenance Insurance [employer] MEDICARE [employer] MEDICARE Care Teams Primer Supervisor Relationship Specialty [place] [address] [place] [address] PCP - General Family Medicine 06/04/23 Bailey Davis PA-C [address] [place] [address] Physician Washerette Machine Operator Dermatology 12/15/21 [place] [address] [place] [address] Assigned PCP 05/06/22 [place] [address] [place] [address] Assigned Neuroscience Provider 06/03/22 Delilah Morales DO [address] [place] [address] Physical Medicine and Rehabilitation 08/15/22 Bailey Davis PA-C [address] [place] [address] Assigned Dermatology Provider 07/20/24 Uriel Heredia MD [address] [place], [place] [id number] Assigned Musculoskeletal Provider 12/20/24
--- OUTSIDE RECORDS SUMMARY | 2025-02-21 13:22 | XMS_ITS | CCD ---
Author Name Interface, [id number] lity Address [address] [place] [address] [address] [place] [address] Organization [facility] Address [address] [facility] [address] [place] [address] Care Team Providers Care Wind Turbine Sheet Metal Worker Name Role Phone Home Lincoln MD Unavailable Unavailable Allergies and Adverse Reactions Medication/Group Name Reaction Severity Date codeine 01/15/2023 azithromycin 01/15/2023 Reason for Visit OV 20 MIN Functional Status Date Name/Question Score/Answer 08/11/2022 ECOG performance status - grade 1 1 Medications Date Name Route Dose Frequency Instructions Start Date End Date Status Fill Status Indication 08/11 Miscellan eous Drug Zarbee's Immune Support active 08/11 Sertralin e Oral daily active 08/11 Multivita mins-Min- Folic-Q10 -Lycopen- Lutein Oral 800 mcg-1 mg-500 mcg-500 mcg active 08/11 Omeprazol e Oral Delayed Release Capsule active 08/11 Esomepraz ole (Magnesiu m) Oral Delayed Release Capsule stopped 08/11 Vit A, C & E-Lutein- Minerals Oral 300 mcg-200 mg-27 mg-2 mg active Problems Diagnosis Status Date of Diagnosis Resolution Date Chest wall pain (finding) Active Rectal pain (finding) Active Anxiety Active Fatigue (finding) Active Personal history of rectal cancer Active Pain of breast (finding) Active Social History Date Name Value 01/09/2025 Sex Female
--- OUTSIDE RECORDS SUMMARY | 2025-02-21 13:22 | XMS_ITS | Encounter Summary ---
Author Organization [facility] Address [address] [place] [address] Care Team Providers Care Multigraph Operator Name Role Phone Bailey Davis PA-C Unavailable [phone] Ioana Brown MD Unavailable [phone] Juvencio Moreno MD Unavailable [phone] Delilah Morales DO Unavailable Ioana Brown MD Primary Care Provider [phone] Bailey Davis PA-C Unavailable [phone] Uriel Heredia MD Unavailable Encounter Details Date Type Department Care Team (Latest Contact Info) Description 01/18/2025 Travel Social History Tobacco Use Types Packs/Day [...] re latives? Once a week 02/25/2024 Attends [employer] Not on file 02/24 Active Member [...] Answer Date Recorded PHQ-2 Score 0 06/05/2024 [facility] of Occupat ional Health - Occupational Stress [...] PM CDT Legal Sex Female 3:40 AM WEB MARKETING STRATEGIST Gender Identity Female 12/12/2022 7:35 PM CDT Sexual Orientation Not on file documented as of this encounter Plan of Treatment Upcoming Encounters Date Type Department Care Team (Late st Contact Info) Description 05/11/2025 11:30 AM WEB MARKETING STRATEGIST Appointment [facility] Imaging [address] [facility] [address] [place] [phone] Bharath Mar MD [address] [place] [address] 05/14/2025 4:40 PM WEB MARKETING STRATEGIST Virtual Visit [facility] [place] [address] [facility] 4th [place] [address] Bharath Mar MD [address] [place] [address] documented as of this encounter Visit Diagnoses Not on filedocumented in this encounter Care Teams Multigraph Operator Relationship Specialty [place] [address] [place] [address] PCP - General Family Medicine 06/04/23 Bailey Davis PAMoonC [address] [place] [address] Physician Bit Sharpener Dermatology 12/15/21 [place] [address] [place] [address] Assigned PCP 05/06/22 [place] [address] [place] [address] Assigned Neuroscience Provider 06/03/22 Delilah Morales DO 909 [place] [address] Physical Medicine and Rehabilitation 08/15/22 Bailey Davis, PA-C [address] [place] [address] Assigned Dermatology Provider 07/20/24 Uriel Heredia MD [address] [place] [address] Assigned Musculoskeletal Provider 12/20/24 documented as of this encounter
--- OUTSIDE RECORDS SUMMARY | 2025-02-21 13:22 | XMS_ITS | Encounter Summary ---
Author Organization [place] Address [address] [place] [address] Care Team Providers Care Community Development Aide Name Role Phone Bailey Davis PA-C Unavailable [phone] Ioana Brown MD Unavailable [phone] Juvencio Moreno MD Unavailable [phone] Delilah Morales DO Unavailable Ioana Brown MD Primary Care Provider [phone] Bailey Davis PA-C Unavailable [phone] Bharath Mar MD Unavailable [phone] Uriel Heredia MD Unavailable Reason for Visit * Reason Onset Date Comments Patient/info Update 08/04/2024 FYI (cancell ed GALLO due to recently dx'ed issue) Encounter Details Date Type Department Care Team (Late st Contact Info) Description 08/04/2024 Telephone [facility] [address] [place], [place] [address] [place] [address] [place] [address] [place] [address] Patient/info Update (FYI (cancelled GALLO due to recently dx'ed issue)) [...] re latives? Once a week 02/25/2024 Attends Scientologist Services Not on file 02/24 Active Member [...] Answer Date Recorded PHQ-2 Score 0 06/05/2024 [facility] Occupational Stress Questionnaire Answer [...] PM CDT Legal Sex Female 3:40 AM SISAL PICKER Gender Identity Female 12/12/2022 7:35 PM CDT Sexual Orientation Not on file documented as of this encounter Miscellaneous Notes * Telephone Encounter - Ruth Motley RN - 08/14/2024 3:49 PM CDT Please reach out x2 Ruth BURGESS, RN Person Investigator [facility] * Telephone Encounter - Bianca Mendoza - 08/05/2024 11:39 AM CDT LVM to r/s injection w/Tiffanie Mendoza Complex Clinical Evaluator [facility] * Telephone Encounter - Farhana [...] rescheduled on or after 08/12/24. Routing to pool cleaner supporting Dr. Moreno as FYI. Routing to injection schedulers to call patient and reschedule injection appointment. Call daughterMichael, at [phone]. Farhana BURGESS, RN Patient Person Investigator [facility] * Telephone Encounter - Grace Collazo - 08/04/2024 8:42 AM CDT Voice message left on 08/03/2024 at 4:21 PM Reason for Call: Other FYI/cancelled injection Detailed comments: Per Michael's (patient's daughter's) voice message, patient's scheduled to have an injection with Tiffanie tomorrow but she was just diagnosed with a urinary tract infection and she knowsit's contraindicated for her to have her injection per Dr. Moreno. Michael stated that the clinic can text or call her, as Jennifer's hard of hearing, and she's her bnred-by-yjiwjnc. Phone Number Patient's daughter (Natasha/Michael Evans) can be reached at: [phone] Best Time: omitted in voice message Can we leave a detailed message on this number? omitted in voice message Voice message retrieved on 08/04/2024 at 7:55 AM by Grace Collazo documented in this encounter Plan of Treatment Upcoming Encounters Date Type Department Care Team (Late st Contact Info) Description 05/11/2025 11:30 AM SISAL PICKER Appointment [facility] Imaging [address] [facility] [address] [place] [phone] Bharath Mar MD [address] [facility] [address] [place] [address] 05/14/2025 4:40 PM SISAL PICKER Virtual Visit [facility] [place] 909 [facility] 4th [place] [phone] Bharath Mar MD [facility] [address] documented as of this encounter Visit Diagnoses Not on filedocumented in this encounter Care Teams Community Development Aide Relationship Specialty [place] [address] [place] [address] PCP - General Family Medicine 06/04/23 Bailey Davis, PA-C [address] [place] [address] Physician Global Transportation Manager Dermatology 12/15/21 [place] [address] [place] [address] Assigned PCP 05/06/22 [place] [address] [place] [address] Assigned Neuroscience Provider 06/03/22 Delilah Morales DO 9 [place] [address] Physical Medicine and Rehabilitation 08/15/22 Bailey Davis, PA-C [address] [place] [address] Assigned Dermatology Provider 07/20/24 Bharath Mar MD [address] [place] [address] Assigned Musculoskeletal Provider 10/20/24 12/19/24 Uriel Heredia MD [address] [place] [address] Assigned Musculoskeletal Provider 12/20/24 documented as of this encounter
--- OUTSIDE RECORDS SUMMARY | 2025-02-21 13:22 | XMS_ITS | Encounter Summary ---
Author Organization [facility] Address [address] [place] [address] Care Team Providers Care Director Of Aviation Name Role Phone Bailey Davis PA-C Unavailable [phone] Ioana Brown MD Unavailable [phone] Juvencio Moreno MD Unavailable [phone] Delilah Morales DO Unavailable Ioana Brown MD Primary Care Provider [phone] Bailey Davis PA-C Unavailable [phone] Bharath Mar MD Unavailable [phone] Uriel Heredia MD Unavailable Reason for Visit * Reason Onset Date Comments Results 09/16/2024 Incidental findi ng Encounter Details Date Type Department Care Team (Late st Contact Info) Description 09/16/2024 [facility] [address] [place] [address] [place] [address] [place] [address] Results (Incidental finding) Social History Tobacco Use [...] re latives? Once a week 02/25/2024 Attends Adventism Services Not on file 02/24 Active Member [...] Answer Date Recorded PHQ-2 Score 0 06/05/2024 [facility] [place] of Occupat ional Health - Occupational Stress [...] PM CDT Legal Sex Female 3:40 AM SALES ASSISTANT Gender Identity Female 12/12/2022 7:35 PM CDT Sexual Orientation Not on file documented as of this encounter Miscellaneous Notes * Telephone Encounter - Baudilio Alcantara - 09/16/2024 8:04 AM CDTSummary: incidenal finding Other: Young with [facility] calling regarding a incidental finding Could we send this information to you [facility] or would you prefer to receive a phone call?: Patient would prefer a phone call Okay to leave a detailed message?: Yes at Other phone number: [phone] documented in this encounter Plan of Treatment Upcoming Encounters Date Type Department Care Team (Late st Contact Info) Description 05/11/2025 11:30 AM SALES ASSISTANT Appointment [facility] Imaging [address] [place] [address] Bharath Mar MD [address] [place] [address] 05/14/2025 4:40 PM SALES ASSISTANT Virtual Visit [facility] [address] 4th [place] [address] Bharath Mar MD [address] [place] [address] documented as of this encounter Visit Diagnoses Not on filedocumented in this encounter Care Teams Director Of Aviation Relationship Specialty [place] [address] [place] [address] PCP - General Family Medicine 06/04/23 Bailey Davis PA-C 5[address] [place] [address] Physician Gamma Ray Operator Dermatology 12/15/21 [place] [address] [place] [address] Assigned PCP 05/06/22 [place] [address] [place] [address] Assigned Neuroscience Provider 06/03/22 Delilah Morales DO 9 [place] [address] Physical Medicine and Rehabilitation 08/15/22 Bailey Davis, PA-C [address] [place], [place] [address] Assigned Dermatology Provider 07/20/24 Bharath Mar MD [address] [place] [address] Assigned Musculoskeletal Provider 10/20/24 12/19/24 Uriel Heredia MD [address] [place] [address] Assigned Musculoskeletal Provider 12/20/24 documented as of this encounter
--- OUTSIDE RECORDS SUMMARY | 2025-02-21 13:22 | XMS_ITS | Encounter Summary ---
Author Organization [facility] Address [address] [place] [address] Care Team Providers Care Wet Process Technician Name Role Phone Bailey Davis PA-C Unavailable [phone] Ioana Brown MD Unavailable [phone] Juvencio Moreno MD Unavailable [phone] Delilah Morales DO Unavailable Ioana Brown MD Primary Care Provider [phone] Bailey Davis PA-C Unavailable [phone] Bailey Davis PA-C Unavailable [phone] Bhartah Mar MD Unavailable [phone] Uriel Heredia MD Unavailable Encounter Details Date Type Department Care Team (Late st Contact Info) Description 06/16/2024 [facility] Medical Advice [address] [address] Chrissy Rice, RN Social History Tobacco Use Types Packs/Day [...] re latives? Once a week 02/25/2024 Attends Gnosticist Services Not on file 02/24 Active Member [...] Answer Date Recorded PHQ-2 Score 0 06/05/2024 [facility] of Occupat ional Health - Occupational Stress [...] in an abandoned building, in an overnight custodial, or couch-surfing.) Yes 02/25/2024 Are you worried [...] PM CDT Legal Sex Female 3:40 AM TUGBOAT DISPATCHER Gender Identity Female 12/12/2022 7:35 PM CDT Sexual Orientation Not on file documented as of this encounter Plan of Treatment Upcoming Encounters Date Type Department Care Team (Late st Contact Info) Description 05/11/2025 11:30 AM TUGBOAT DISPATCHER Appointment [facility] Imaging [address] [facility] [address] [place] [address] Bharath Mar MD [facility] [place] [address] 05/14/2025 4:40 PM TUGBOAT DISPATCHER Virtual Visit [facility] [place] [address] [facility] 4th [place] [address] Bharath Mar MD [address] [place] [address] documented as of this encounter Visit Diagnoses Not on filedocumented in this encounter Care Teams Wet Process Technician Relationship Specialty [place] [address] [place] [address] PCP - General Family Medicine 06/04/23 Bailey Davis, PAMoonC 5[address] [place] [address] Physician Header Setup Operator Dermatology 12/15/21 [place] [address] [place] [address] Assigned PCP 05/06/22 [place] [address] [place] [address] Assigned Neuroscience Provider 06/03/22 Delilah Morales DO 909 [place] [address] Physical Medicine and Rehabilitation 08/15/22 Bailey Davis PA-C [address] [place] [address] Assigned Surgical Provider 06/22/23 07/19/24 Bailey Davis PA-C [address] [place] [address] Assigned Dermatology Provider 07/20/24 Bharath Mar MD [address] [place] [address] Assigned Musculoskeletal Provider 10/20/24 12/19/24 Uriel Heredia MD 1825 [place] [address] Assigned Musculoskeletal Provider 12/20/24 documented as of this encounter
--- OUTSIDE RECORDS SUMMARY | 2025-02-21 13:22 | XMS_ITS | Encounter Summary ---
Author Organization [place] Address [address] [place] [address] Care Team Providers Care Lacquer Coater Name Role Phone Bailey Davis PA-C Unavailable [phone] Ioana Brown MD Unavailable [phone] Juvencio Moreno MD Unavailable [phone] Delilah Morales DO Unavailable Ioana Brown MD Primary Care Provider [phone] Bailey Davis PA-C Unavailable [phone] Bharath Mar MD Unavailable [phone] Uriel Heredia MD Unavailable Encounter Details Date Type Department Care Team (Late st Contact Info) Description 08/05/2024 My[facility] Medical Advice [address] [address] Erika Olivera, RN Social History Tobacco Use Types Packs/Day [...] re latives? Once a week 02/25/2024 Attends Mosque Services Not on file 02/24 Active Member [...] Answer Date Recorded PHQ-2 Score 0 06/05/2024 [facility] of Occupat ional Health - Occupational Stress [...] Answer Date Recorded Do you have housing? (Carolin g is defined as stable permanent housing [...] PM CDT Legal Sex Female 3:40 AM BLOCK AND CASE MAKER Gender Identity Female 12/12/2022 7:35 PM CDT Sexual Orientation Not on file documented as of this encounter Plan of Treatment Upcoming Encounters Date Type Department Care Team (Late st Contact Info) Description 05/11/2025 11:30 AM BLOCK AND CASE MAKER Appointment [facility] Imaging [address] [facility] [address] [place] [address] Bharath Mar MD [address] [place] [address] 05/14/2025 4:40 PM BLOCK AND CASE MAKER Virtual Visit [facility] [place] 9[address] [facility] 4th [place] [address] Bharath Mar MD [address] [place] [address] documented as of this encounter Visit Diagnoses Not on filedocumented in this encounter Care Teams Lacquer Coater Relationship Specialty [place] [address] [place] [address] PCP - General Family Medicine 06/04/23 Bailey Davis PAMoonC 5[address] [place] [address] Physician Machine Operator Hop Worker Dermatology 12/15/21 [place] [address] [place] [address] Assigned PCP 05/06/22 [place] [address] [place] [address] Assigned Neuroscience Provider 06/03/22 Delilah Morales DO 909 [place] [address] Physical Medicine and Rehabilitation 08/15/22 Bailey Davis, PA-C [address] [place] [address] Assigned Dermatology Provider 07/20/24 Bharath Mar MD [facility] [address] [address] Assigned Musculoskeletal Provider 10/20/24 12/19/24 Uriel Heredia MD 1825 [place] [address] Assigned Musculoskeletal Provider 12/20/24 documented as of this encounter
--- OUTSIDE RECORDS SUMMARY | 2025-02-21 13:22 | XMS_ITS | Encounter Summary ---
Author Organization [place] Address [address] [place] [address] Care Team Providers Care Management Retail Intern Name Role Phone [facility] Primary Ca re Provider Bailey Davis PA-C Unavailable [phone] Ioana Brown MD Unavailable [phone] Juvencio Moreno MD Unavailable [phone] Delilah Morales DO Unavailable Juvencio Natarajan MD Unavailable [phone] Ioana Brown MD Primary Care Provider [phone] Bailey Davis-Cathy Unavailable [phone] Bailey Davis PA-C Unavailable [phone] Bharath Mar MD Unavailable [phone] Uriel Heredia MD Unavailable Encounter Details Date Type Department Care Team (Late st Contact Info) Description 12/08/2022 MyC Medical Advice M [facility] [address] [place] [address] Delilah Fonseca, GIGI Social History Tobacco Use Types Packs/Day Years [...] 12/13/2021 How often do you attend chur or nondenominational services? 1 to 4 times per year 12/13/2021 Do you belong to any clubs o r organizations such as voodoo groups, unions, fraternal or athletic groups, or [...] Answer Date Recorded PHQ-2 Score 0 05/26/2022 [facility] of Occupat ional Health - Occupational [...] slept in a assisted (including now)? No 12/13/2021 Comments No Sex and Gender Information Value Date Recorded Sex Assigned at Female 12/12/2022 7:35 PM CDT Legal Sex Female 3:40 AM SCARFING MACHINE OPERATOR Gender Identity Female 12/12/2022 7:35 [...] st Contact Info) Description 05/11/2025 11:30 AM SCARFING MACHINE OPERATOR Appointment [facility] Imaging [address] [facility] [address] [place] [address] Bharath Mar MD [address] [place] [address] 05/14/2025 4:40 PM SCARFING MACHINE OPERATOR Virtual Visit [facility] [place] [address] [facility] 4th [place] [address] Bharath Mar MD [address] [address] documented as of this encounter Visit Diagnoses Not on filedocumented in this encounter Care Teams Management Retail Intern Relationship Specialty Start Date End Date Clinic - [facility] [address] [place] [address] PCP - General 11/01/21 06/03/23 [place] [address] [place] [address] PCP - General Family Medicine 06/04/23 Bailey Davis PA-C [address] [place] [address] Physician Management Manager Dermatology 12/15/21 [place] [address] [place] [address] Assigned PCP 05/06/22 [place] [address] [place] [address] Assigned Neuroscience Provider 06/03/22 Delilah Morales DO 9 [place] [address] Physical Medicine and Rehabilitation 08/15/22 Juvencio Natarajan MD [address] [place] [address] Assigned Surgical Provider 09/02/22 06/21/23 Bailey Davis PA-C [address] [place] [address] Assigned Surgical Provider 06/22/23 07/19/24 Bailey Davis PA-C [address] [place], [place] [address] Assigned Dermatology Provider 07/20/24 Bhraath Mar MD [address] [place], [place] [address] [place], [place] [address] Assigned Musculoskeletal Provider 10/20/24 12/19/24 Uriel Heredia MD [address]25 [place], [place] [address] Assigned Musculoskeletal Provider 12/20/24 documented as of this encounter
[2025-02-21 13:25] VITALS: BP 140/65; PULSE 61; RESP 16; TEMP 36.4; O2SAT 99; BMI 23.0
--- NOTE | 2025-02-21 13:28 | CRLHL7_ITS ---
For Patients: As a result of the Century Cures Act, medical imaging exams and procedure reports are released immediately into your electronic medical record. You may view this report before your referring provider. If you have questions, please contact your health care provider. INDICATION: FALL, HEAD INJURY COMPARISON: CT baseline study TECHNIQUE: A CT volumetric acquisition was performed of the brain without IV contrast. Please note that all CT scans at this facility use dose modulation, iterative reconstruction, and/or weight-based dosing when appropriate to reduce radiation dose to as low as reasonably achievable. FINDINGS: The CT images reveal a normal appearance of the cerebral ventricles and basal cisterns. There is no evidence of intracranial hemorrhage, tissue infarction or mass effect. The mastoid air cells and middle ear cavities are clear. The calvarium appears intact. Mild incidental fluid in the left maxillary sinus. Dense basal ganglia calcifications also noted. IMPRESSION: No intracranial hemorrhage or fracture. Please note that all CT scans at this facility use dose modulation, iterative reconstruction, and/or weight-based dosing when appropriate to reduce radiation dose to as low as reasonably achievable. Dictated by Polo Miguel MD @ 02/21/2025 2:24:56 PM (Electronically Signed)
--- NOTE | 2025-02-21 13:28 | CRLHL7_ITS ---
For Patients: As a result of the Cures Act, medical imaging exams and procedure reports are released immediately into your electronic medical record. You may view this report before your referring provider. If you have questions, please contact your health care provider. INDICATION: FALL, HEAD INJURY TECHNIQUE: CT cervical spine without contrast. COMPARISON: None FINDINGS: Vertebrae: Alignment is normal. There are no fractures or suspicious bony lesions. Discs and facet joints: Mild degenerative disc disease with relative preservation of the facet joints. Hypertrophic changes between C1 and C2. Extraspinal findings: Thyroid nodules are present measuring up to 1.5 cm. IMPRESSION: No cervical spine fracture. Thyroid nodules. Nonemergent thyroid ultrasound suggested. Please note that all CT scans at this facility use dose modulation, iterative reconstruction, and/or weight-based dosing when appropriate to reduce radiation dose to as low as reasonably achievable. Dictated by Polo Miguel MD @ 02/21/2025 2:29:41 PM (Electronically Signed)
--- NOTE | 2025-02-21 13:36 | ED_ITS ---
HPI - General Adult General Chief complaint: Head Injury/Pain <Jim Taylor MD - Last Filed: 02/21/25 13:38> Stated complaint: Fall, hit head--bleeding <Jim Taylor MD - Last Filed: 02/21/25 13:38> Time Seen by Provider: 02/21/25 13:24 <Jim Taylor MD - Last Filed: 02/21/25 13:38> History of Present Illness HPI narrative: Patient is a 79-year-old woman who is very hard of hearing who comes in after falling in her house. She fell and landed on her right forearm and somehow was able to struck the back of her head on a pipe. She has area of swelling in the posterior occiput. She does not believe she lost consciousness. She called her son directly after falling. She has had no seizure activities no incontinence. No palpitations no chest pain no shortness of breath. Patient states that she stumbled over some carpet. No other concerns noted. Pain is located in the right forearm but she does have full range of motion of arm and no palpable pain. Pain is 4/10 in the posterior occiput. <Jim Taylor MD - Last Filed: 02/21/25 13:38> Related Data Home medications: Home Medications ?Medication ?Instructions ?Recorded ?Confirmed sertraline 100 mg tablet mg PO 12/13/24 omeprazole 40 mg capsule,delayed 40 mg PO DAILY 02/21/25 release <iJm Taylor MD - Last Filed: 02/21/25 13:38> Allergies/adverse reactions: Allergies Allergy/AdvReac Type Severity Reaction Status Date / Time codeine AdvReac Mild Nausea Verified 02/05/25 11:58 <Jim Taylor MD - Last Filed: 02/21/25 13:38> Review of Systems Status of ROS: Reports: 10 or more systems reviewed and unremarkable except as noted in History and below <Jim Taylor MD - Last Filed: 02/21/25 13:38> PFSH PFSH Social History: Social History Smoking Status: Never smoker Do you use any of these nicotine containing products: None Second hand tobacco smoke exposure: No How often do you have a drink containing alcohol: never How often do you have six or more drinks on one occasion: Never AUDIT-C Alcohol total score: 0 Non-prescribed substance use: denies use service: No <Jim Taylor MD - Last Filed: 02/21/25 13:38> Exam Narrative: Exam Narrative: EXAM GENERAL: Patient appears comfortable and well. There is a small area of abrasion with swelling in the posterior occiput no other palpable abnormalities. Neck exam is normal. Back exam is normal. EYES: No scleral icterus. ENT: Tympanic membranes and oropharynx normal. THYROID: no thyroid nodules or thyromegaly. LYMPH: No supraclavicular or cervical lymphadenopathy. SKIN: Visible skin seen during exam normal or with benign process only. EXT: No dependent lower extremity pedal edema. HEART: Regular rate and rhythm with no murmurs, rubs, or gallops. LUNGS: Clear to auscultation bilaterally with no crackles or wheezes. ABD: Soft, non tender, non distended. PSYCH: Good eye contact, speech is not pressured. Neurologic cranial nerves 2-12 grossly intact no focal defects. <Jim Taylor MD - Last Filed: 02/21/25 13:38> Const: Vital Signs, click to edit/add: Vital Signs - 24 hr 02/21/25 13:25 02/21/25 15:09 Temperature 97.6 F Pulse Rate 60 Pulse Rate [Pulse Oximeter] 61 Respiratory Rate 16 16 Blood Pressure 154/75 H Blood Pressure [Le ft Upper Arm] 140/65 H Pulse Oximetry 99 99 Oxygen Delivery Me thod Room Air Room Air <Jim Taylor MD - Last Filed: 02/21/25 13:38> Vital Signs, click to edit/add: Vital Signs - 24 hr 02/21/25 13:25 02/21/25 15:09 Temperature 97.6 F Pulse Rate 60 Pulse Rate [Pulse Oximeter] 61 Respiratory Rate 16 16 Blood Pressure 154/75 H Blood Pressure [Le ft Upper Arm] 140/65 H Pulse Oximetry 99 99 Oxygen Delivery Me thod Room Air Room Air <Natasha Torres MD - Last Filed: 02/21/25 15:58> Course Course ED Course: Patient seen and examined. CBC basic metabolic panel EKG CT head and neck pending. <Jim Taylor MD - Last Filed: 02/21/25 13:38> Reevaluation(s) Reevaluation #1: I was asked to follow-up on the results of the scans and labs for this patient. Head and neck CT were unremarkable. CBC showed increase RBCs, elevated hemoglobin and hematocrit. Did compare this to previous labs which have all been normal therefore a repeat CBC was done w [facility] was normal. Remainder blood work was unremarkable. Patient had a mild headache in the back of the head where her trauma was but otherwise was doing fine and was requesting discharge. Patient has very close family members who will keep an eye on her. We discussed her thyroid nodule and follow-up for that. Patient and family had no other questions. <Natasha Torres MD - Last Filed: 02/21/25 15:58> Vital Signs Vital signs: Initial Vital Signs Temperature 97.6 F 02/21/25 13:25 Temperature Source Temporal Artery Scan 02/21/25 13:25 Pulse Rate 61 02/21/25 13:25 Respiratory Rate 16 02/21/25 13:25 Blood Pressure 140/65 H 02/21/25 13:25 Blood Pressure Mean 90 02/21/25 13:25 Blood Pressure Position Sitting 02/21/25 13:25 Pulse Oximetry 99 02/21/25 13:25 Oxygen Delivery Method Room Air 02/21/25 13:25 Vital Signs Temperature 97.6 F 02/21/25 13:25 Pulse Rate 61 02/21/25 13:25 Respiratory Rate 16 02/21/25 13:25 Blood Pressure 140/65 H 02/21/25 13:25 Pulse Oximetry 99 02/21/25 13:25 Oxygen Delivery Method Room Air 02/21/25 13:25 Temperature 97.6 F 02/21/25 13:25 Pulse Rate 60 02/21/25 15:09 Respiratory Rate 16 02/21/25 15:09 Blood Pressure 154/75 H 02/21/25 15:09 Pulse Oximetry 99 02/21/25 15:09 Oxygen Delivery Method Room Air 02/21/25 15:09 <Jim Taylor MD - Last Filed: 02/21/25 13:38> Initial Vital Signs Temperature 97.6 F 02/21/25 13:25 Temperature Source Temporal Artery Scan 02/21/25 13:25 Pulse Rate 61 02/21/25 13:25 Respiratory Rate 16 02/21/25 13:25 Blood Pressure 140/65 H 02/21/25 13:25 Blood Pressure Mean 90 02/21/25 13:25 Blood Pressure Position Sitting 02/21/25 13:25 Pulse Oximetry 99 02/21/25 13:25 Oxygen Delivery Method Room Air 02/21/25 13:25 Vital Signs Temperature 97.6 F 02/21/25 13:25 Pulse Rate 61 02/21/25 13:25 Respiratory Rate 16 02/21/25 13:25 Blood Pressure 140/65 H 02/21/25 13:25 Pulse Oximetry 99 02/21/25 13:25 Oxygen Delivery Method Room Air 02/21/25 13:25 Temperature 97.6 F 02/21/25 13:25 Pulse Rate 60 02/21/25 15:09 Respiratory Rate 16 02/21/25 15:09 Blood Pressure 154/75 H 02/21/25 15:09 Pulse Oximetry 99 02/21/25 15:09 Oxygen Delivery Method Room Air 02/21/25 15:09 <Natasha Torres MD - Last Filed: 02/21/25 15:58> Medications Administered Medications: Discontinued Medications Generic Name Dose Route Start Last Admin Trade Name Freq PRN Reason Stop Dose Admin Acetaminophen 650 mg 02/21/25 14:59 02/21/25 15:06 Acetaminophen 325 Mg Tablet PO 02/21/25 15:00 650 mg ONCE ONE Administration <Jim Taylor MD - Last Filed: 02/21/25 13:38> Discontinued Medications Generic Name Dose Route Start Last Admin Trade Name Freq PRN Reason Stop Dose Admin Acetaminophen 650 mg 02/21/25 14:59 02/21/25 15:06 Acetaminophen 325 Mg Tablet PO 02/21/25 15:00 650 mg ONCE ONE Administration <Natasha Torres MD - Last Filed: 02/21/25 15:58> Medical Decision Making MDM Narrative Medical decision making narrative: 79-year-old female status post fall with closed head injury, incidental thyroid nodules. <Natasha Torres MD - Last Filed: 02/21/25 15:58> Lab Data Labs: Lab Results 02/21/25 02/21/25 02/21/25 Range/Units 14:10 14:27 15:30 WBC 5.83 5.66 (4.50-11.00) K/uL RBC 6.42 H 4.80 (4.00-5.20) m/uL Hgb 18.1 H 13.6 (12.0-16.0) gm/dL Hct 55.6 H 40.9 (33.0-51.0) % MCV 87 85 (80-100) fL MCH 28 28 (26-34) pg MCHC 33 33 (32-36) gm/dL RDW Coeff of Ferdinand 14.0 13.4 (11.5-15.5) % Plt Count 170 212 (140-440) K/uL Neut % (Auto) 57.5 55.6 (42.0-72.0) % Lymph % (Auto) 34.5 35.0 (20-44) % Spencer % (Auto) 5.7 6.9 (0.0-11.0) % Eos % (Auto) 2.1 1.4 (0.0-7.0) % Baso % (Auto) 0.2 0.4 (0.0-3.0) % Neut # (Auto) 3.36 3.15 (1.7-7.0) K/uL Lymph # (Auto) 2.01 1.98 (0.90-2.90) K/uL Spencer # (Auto) 0.30 0.40 (0.00-0.90) K/UL Eos # (Auto) 0.12 0.08 (0.00-0.50) K/uL Baso # (Auto) 0.01 0.02 (0.00-0.30) K/uL Abs Immat Gran (auto) 0.00 0.04 (0.00-0.30) K/uL Imm/Tot Granulo (auto) 0.0 0.7 % Sodium 132 L (135-149) mmol/L Potassium 4.0 (3.6-5.1) mmol/L Chloride 101 (96-114) mmol/L Carbon Dioxide 22 (20-32) mmol/L Anion Gap 9 (7-15) mEq/L BUN 15 (7-30) mg/dL Creatinine 0.5 (0.5-1.5) mg/dL Estimated Creat Clear 37.12 Estimated GFR 95 ml/min Glucose 101 (60-115) mg/dL Calcium 8.8 (8.4-10.6) mg/dL Urine Color Yellow (Yellow) Urine Appearance Clear (Clear) Urine pH 8.5 (5.0-8.5) Ur Specific [place] 1.015 (1.000-1.030) Urine Protein Negative (Negative) Urine Glucose (UA) Negative (Negative) Urine Ketones Negative (Negative) Urine Blood Negative (Negative) Urine Nitrite Negative (Negative) Urine Bilirubin Negative (Negative) Urine Urobilinogen 0.2 (0.2-1.0) Ur Leukocyte Esterase Negative (Negative) <Jim Taylor MD - Last Filed: 02/21/25 13:38> Lab Results 02/21/25 02/21/25 02/21/25 Range/Units 14:10 14:27 15:30 WBC 5.83 5.66 (4.50-11.00) K/uL RBC 6.42 H 4.80 (4.00-5.20) m/uL Hgb 18.1 H 13.6 (12.0-16.0) gm/dL Hct 55.6 H 40.9 (33.0-51.0) % MCV 87 85 (80-100) fL MCH 28 28 (26-34) pg MCHC 33 33 (32-36) gm/dL RDW Coeff of Ferdinand 14.0 13.4 (11.5-15.5) % Plt Count 170 212 (140-440) K/uL Neut % (Auto) 57.5 55.6 (42.0-72.0) % Lymph % (Auto) 34.5 35.0 (20-44) % Spencer % (Auto) 5.7 6.9 (0.0-11.0) % Eos % (Auto) 2.1 1.4 (0.0-7.0) % Baso % (Auto) 0.2 0.4 (0.0-3.0) % Neut # (Auto) 3.36 3.15 (1.7-7.0) K/uL Lymph # (Auto) 2.01 1.98 (0.90-2.90) K/uL Spencer # (Auto) 0.30 0.40 (0.00-0.90) K/UL Eos # (Auto) 0.12 0.08 (0.00-0.50) K/uL Baso # (Auto) 0.01 0.02 (0.00-0.30) K/uL Abs Immat Gran (auto) 0.00 0.04 (0.00-0.30) K/uL Imm/Tot Granulo (auto) 0.0 0.7 % Sodium 132 L (135-149) mmol/L Potassium 4.0 (3.6-5.1) mmol/L Chloride 101 (96-114) mmol/L Carbon Dioxide 22 (20-32) mmol/L Anion Gap 9 (7-15) mEq/L BUN 15 (7-30) mg/dL Creatinine 0.5 (0.5-1.5) mg/dL Estimated Creat Clear 37.12 Estimated GFR 95 ml/min Glucose 101 (60-115) mg/dL Calcium 8.8 (8.4-10.6) mg/dL Urine Color Yellow (Yellow) Urine Appearance Clear (Clear) Urine pH 8.5 (5.0-8.5) Ur Specific [place] 1.015 (1.000-1.030) Urine Protein Negative (Negative) Urine Glucose (UA) Negative (Negative) Urine Ketones Negative (Negative) Urine Blood Negative (Negative) Urine Nitrite Negative (Negative) Urine Bilirubin Negative (Negative) Urine Urobilinogen 0.2 (0.2-1.0) Ur Leukocyte Esterase Negative (Negative) <Natasha Torres MD - Last Filed: 02/21/25 15:58> Imaging Data CT scan - head: Attestation: I have reviewed the pertinent imaging results. <Natasha Torres MD - Last Filed: 02/21/25 15:58> Radiologist's impression: TECHNIQUE: A CT volumetric acquisition was performed of the brain without IV contrast. Please note that all CT scans at this facility use dose modulation, iterative reconstruction, and/or weight-based dosing when appropriate to reduce radiation dose to as low as reasonably achievable. FINDINGS: The CT images reveal a normal appearance of the cerebral ventricles and basal cisterns. There is no evidence of intracranial hemorrhage, tissue infarction or mass effect. The mastoid air cells and middle ear cavities are clear. The calvarium appears intact. Mild incidental fluid in the left maxillary sinus. Dense basal ganglia calcifications also noted. IMPRESSION: No intracranial hemorrhage or fracture. <Natasha Torres MD - Last Filed: 02/21/25 15:58> CT- Other: Attestation: I have reviewed the pertinent imaging results. <Natasha Torres MD - Last Filed: 02/21/25 15:58> Radiologist's impression: CT cervical spine without contrast. COMPARISON: None FINDINGS: Vertebrae: Alignment is normal. There are no fractures or suspicious bony lesions. Discs and facet joints: Mild degenerative disc disease with relative preservation of the facet joints. Hypertrophic changes between C1 and C2. Extraspinal findings: Thyroid nodules are present measuring up to 1.5 cm. IMPRESSION: No cervical spine fracture. Thyroid nodules. Nonemergent thyroid ultrasound suggested. <Natasha Torres MD - Last Filed: 02/21/25 15:58> Discharge Plan Discharge Clinical Impression: Fall, Closed head injury, Thyroid nodule <Jim Taylor MD - Last Filed: 02/21/25 13:38> Patient Disposition: Home, Self-Care <Jim Taylor MD - Last Filed: 02/21/25 13:38> Condition: Stable <Jim Taylor MD - Last Filed: 02/21/25 13:38> Additional Instructions: Your head and neck CT did not show any evidence of significant internal t rauma. It did show nodules of your thyroid. You should follow-up with your primary care provider and discuss doing an ultrasound of your thyroid to get a better look. Okay to use Tylenol as needed for discomfort and soreness from your fall. Okay to apply heat to sore areas as needed. <Jim Taylor MD - Last Filed: 02/21/25 13:38> Prescriptions: No Action sertraline 100 mg tablet PO omeprazole 40 mg capsule,delayed release(DR/EC) 40 mg PO DAILY <Jim Taylor MD - Last Filed: 02/21/25 13:38> Follow Up/Referrals: Ioana Brown MD [Primary Care Provider, Family Practice] <Jim Taylor MD - Last Filed: 02/21/25 13:38> Stand Alone Forms: [facility] <Jim Taylor MD - Last Filed: 02/21/25 13:38>
--- OUTSIDE RECORDS SUMMARY | 2025-02-21 13:59 | XMS_ITS | CCD ---
Author Name Interface, [id number] lity Address [address] [place] [address] [address] [place] [address] Organization [facility] Address [address] [facility] [address] [place] [address] Care Team Providers Care Outbound Supervisor Name Role Phone Home Lincoln MD Unavailable [...]
--- OUTSIDE RECORDS SUMMARY | 2025-02-21 13:59 | XMS_ITS | CCD ---
Author Name Interface, [id number] lity Address [address] [place] [address] [address] [place] [address] Organization [facility] Address [address] [facility] [address] [place] [address] Care Team Providers Care Supervisor In Charge Name Role Phone Home Lincoln MD Unavailable [...]
--- OUTSIDE RECORDS SUMMARY | 2025-02-21 14:00 | XMS_ITS ---
Author Name Interface, [id number] lity Address [address] [place] [address] [address] [place] [address] [facility] Address [address] [place] [address] [address] [place] [address] Support Name Relationship Address Phone ALONA MAR [...] 300 mcg-200 mg-27 mg-2 mg active 08/11 Multivitam ins-Min-Fo lic-Q10-Ly copen-Lute in Oral 800 mcg-1 mg-500 mcg-500 mcg active 08/11 Miscellane ous Drug [employer] Immune Support active Problems Diagnosis Status Date of Diagnosis [...] style=text-align:center><span class=clinicalNoteMacroHighlighted id=[id number] macroname= PracticeLetterhead spantype=macro title=#PracticeLetterhead><img kucugk=[id number] src=[email or web address]?[email or web address]&ujpuRgvfzetfiaDy=[id number]" ovqbq=723></span>
</div>
<strong>Patient Name</strong>: <span class=clinicalNoteMacroHighlighted id=[id number] macroname=PatientName spantype=macro title=#PatientName">LOTTIE CABRERA</span>
<strong>MRN</strong>: <span class=clinicalNoteMacroHighlighted id=[id number] m acroname=PatientMRN spantype=macro title=#PatientMRN>[id number]& lt;/span> &nbs p; &nbs p; &nbs p; [...] scan of chest and pelvis
<span [facility] clinicalNoteSectionVisible id=[id number]" internalbreaksection=false originalname=Recommendation/Plan recognizeconcepts=true spantype=section suppressempty=false>Plan</span>
[...]
5. Discharge from oncological care

<span style=font-size:12px><span style=font-family:[place],Helvetica,sans-serif> </span></span>
<span class=clinicalNoteSectionShowSeparators clinicalN oteSectionVisible id=[id number] internalbreaksection=false&quo [...] spantype=section suppressempty=false>Smoking Sta tus</span>
<span class=clinicalNoteMacroHighlighted id=[id number] macroname=PatientSmokingStatus parameters=ValueIfNull:Not piedad rded spantype=macro title=#PatientSmokingStatus(ValueIfNull:Not recorded)&qu [...] was treated by Dr. Fuentes Alley at [facility]&n bsp;for rectal cancer appears that she was [...] history of rectal cancer

<span style=& quot;font-size:12px><span style=font-family:[place],Helvetica,sans-serif>&l t;/span></span>
<span class=clinicalNoteSectionShowSeparators clinicalNot eSectionVisible id=[id number] internalbreaksection=false originalname=Medications recognizeconcepts=true spantype=section" suppressempty=false>Current Medications</span>
<span class= clinicalNoteMacroHighlighted id=[id number] macroname=Medication sTable spantype=macro title=#MedicationsTable><table border="1 style=width:100%> <tbody> <tr> <td align=left colspan=2>Medication List</td> </tr> <tr> <th align=left">Name</th> <th align=left>Date</th> </tr> <tr> <td width=60%>Zoloft (Sertraline Oral)</td> <td width=40%>2022</td> </tr> <tr> <td width=60%>Omeprazole Oral Delayed Release Capsule</td> <td width=40%>08/11/2022</td> </tr> <tr> <td width=60%>One- Daily Multi (Ijffvbcorizgt-Dir-Taetn-U46-Igembqk-Bqgiyo Oral 800mcg-1 mg-500 mcg-500 mcg)</td> <td width=40%>08/11/2022</td> </tr> <tr> <td width=60%>Miscellaneous Drug</td> <td width=40%">08/11/2022</td> </tr> <tr> <td width=60%>Ocuvite with Lutein (Vit A, C & H-Ziicym-Ntbpffkh Oral 300 mcg-200 mg-27 mg-2 mg)</td> <td [...] at 73, brother with leukemia.

<span style=font-size:12px"><span style=font-family:[place],Liannetica,sans-serif></span></span>
<span class=clinicalNoteSectionShowSeparators clinicalNoteSectionVisible id=[id number] internalbreaksection=false originalname=Social History recognizeconcepts=true spantype=section suppressempty=& quot;false>Social History</span>
, lives in [place] her son lives close by, she has 3 children her daughter Marta is a coordinator radiology for [employer] she has grandchildren. Her grandson actively involved in sports she does not smoke she quit 40 years ago does not drink is quite active overall she is recently broughta treadmill

No update

<span style=font-size:12px><span style=font-family:[place],Liannetica,sans-serif></span></span><span class=clinicalNoteSectionShowSeparators clinicalNoteSectionVisible id =[id number] internalbreaksection=false originalname=Vital Signs [...] title=#RecentLab ResultsTable(OptionalFlowsheetCategory:Immunochemistries)> &lt ;/span>
<span class=clinicalNoteMacroHighlighted id=[id number] macroname=RecentLabResultsTable parameters=OptionalFlowsheetCategory :AnemiaLabs spantype=macro title=#RecentLabResultsTable(OptionalFlowsheetCat egory:AnemiaLabs)> </span>
[...]
--- OUTSIDE RECORDS SUMMARY | 2025-02-21 14:00 | XMS_ITS ---
Author Name Interface, [id number] lity Address [address] [place] [address] [address] [place] [address] [facility] Address [address] [place] [address] [address] [place] [address] Support Name Relationship Address Phone ALONA MAR [...] style=text-align:center><span class=clinicalNoteMacroHighlighted id=[id number] macroname= PracticeLetterhead spantype=macro title=#PracticeLetterhead><img sgfvwg=691 src=[email or web address]?type=1&xeyfWapkibjjfwMz=[id number]" jvrnw=712></span>
</div>
<strong>Patient Name</strong>: <span class=clinicalNoteMacroHighlighted id=[id number] macroname=PatientName spantype=macro title=#PatientName">LOTTIE CABRERA</span>
<strong>MRN</strong>: <span class=clinicalNoteMacroHighlighted id=[id number] m acroname=PatientMRN spantype=macro title=#PatientMRN>[id number]& lt;/span> &nbs p; &nbs p; &nbs p; [...] scan of chest and pelvis
<span [facility] clinicalNoteSectionVisible id=[id number]" internalbreaksection=false originalname=Recommendation/Plan recognizeconcepts=true spantype=section suppressempty=false>Plan</span>
[...]
5. Discharge from oncological care

<span style=font-size:12px><span style=font-family:[place],Helvetica,sans-serif> </span></span>
<span class=clinicalNoteSectionShowSeparators clinicalN oteSectionVisible id=[id number] internalbreaksection=false&quo [...] spantype=section suppressempty=false>Smoking Sta tus</span>
<span class=clinicalNoteMacroHighlighted id=[id number] macroname=PatientSmokingStatus parameters=ValueIfNull:Not piedad rded spantype=macro title=#PatientSmokingStatus(ValueIfNull:Not recorded)&qu [...] was treated by Dr. Fuentes Alley at [facility]&n bsp;for rectal cancer appears that [...] history of rectal cancer

<span style=& quot;font-size:12px><span style=font-family:[place],Helvetica,sans-serif>&l t;/span></span>
<span class=clinicalNoteSectionShowSeparators clinicalNot eSectionVisible id=[id number] internalbreaksection=false originalname=Medications recognizeconcepts=true spantype=section" suppressempty=false>Current Medications</span>
<span class= clinicalNoteMacroHighlighted id=[id number] macroname=Medication sTable spantype=macro title=#MedicationsTable><table border="1 style=width:100%> <tbody> <tr> <td align=left colspan=2>Medication List</td> </tr> <tr> <th align=left">Name</th> <th align=left>Date</th> </tr> <tr> <td width=60%>Zoloft (Sertraline Oral)</td> <td width=40%>2022</td> </tr> <tr> <td width=60%>Omeprazole Oral Delayed Release Capsule</td> <td width=40%>08/11/2022</td> </tr> <tr> <td width=60%>One- Daily Multi (Aqyvupzwrirrj-Bkd-Uuojn-L64-Yofizku-Bqvuvw Oral 800mcg-1 mg-500 mcg-500 mcg)</td> <td width=40%>08/11/2022</td> </tr> <tr> <td width=60%>Miscellaneous Drug</td> <td width=40%">08/11/2022</td> </tr> <tr> <td width=60%>Ocuvite with Lutein (Vit A, C & L-Bhutij-Vkuzmdtt Oral 300 mcg-200 mg-27 mg-2 mg)</td> <td [...] at 73, brother with leukemia.

<span style=font-size:12px"><span style=font-family:[place],Liannetica,sans-serif></span></span>
<span class=clinicalNoteSectionShowSeparators clinicalNoteSectionVisible id=[id number] internalbreaksection=false originalname=Social History recognizeconcepts=true spantype=section suppressempty=& quot;false>Social History</span>
, lives in [place] her son lives close by, she has 3 children her daughter Marta is a coordinator radiology for [employer] she has grandchildren. Her grandson actively involved in sports she does not smoke she quit 40 years ago does not drink is quite active overall she is recently broughta treadmill

No update

<span style=font-size:12px><span style=font-family:[place],Liannetica,sans-serif></span></span><span class=clinicalNoteSectionShowSeparators clinicalNoteSectionVisible id =[id number] internalbreaksection=false originalname=Vital Signs [...] title=#RecentLab ResultsTable(OptionalFlowsheetCategory:Immunochemistries)> &lt ;/span>
<span class=clinicalNoteMacroHighlighted id=[id number] macroname=RecentLabResultsTable parameters=OptionalFlowsheetCategory :AnemiaLabs spantype=macro title=#RecentLabResultsTable(OptionalFlowsheetCat egory:AnemiaLabs)> </span>
[...]
[2025-02-21 14:36] LABS: Appearance Urine Clear (Clear)
[2025-02-21 14:46] LABS: Hematocrit* 55.6 % (33.0-51.0); Hemoglobin* 18.1 gm/dL (12.0-16.0); Immature Granulocytes Abs Auto 0.00 K/uL (0.00-0.30); Immature Granulocytes Pct Auto 0.0 %; Lymphocytes Absolute Auto 2.01 K/uL (0.90-2.90); Mean Corpuscular HGB Conc 33 gm/dL (32-36); Mean Corpuscular Hemoglobin 28 pg (26-34); Mean Corpuscular Volume 87 fL (80-100); RDW Coefficient of Variation % 14.0 % (11.5-15.5); Red Blood Count* 6.42 m/uL (4.00-5.20); White Blood Count* 5.83 K/uL (4.50-11.00)
[2025-02-21 14:48] LABS: Slide Review Reflex No
[2025-02-21] MEDS: ACETAMINOPHEN 325 MG TABLET 650 MG PO (15:06)
[2025-02-21 15:09] VITALS: BP 154/75; PULSE 60; RESP 16; O2SAT 99
[2025-02-21 15:15] LABS: Chloride* 101 mmol/L (96-114); Sodium* 132 mmol/L (135-149)
[2025-02-21 15:16] LABS: Potassium* 4.0 mmol/L (3.6-5.1)
[2025-02-21 15:18] LABS: Blood Urea Nitrogen* 15 mg/dL (7-30); Creatinine* 0.5 mg/dL (0.5-1.5); Est. Creatinine Clearance* 37.12; Estimated Glomerular Filt Rate 95 ml/min
[2025-02-21 15:19] LABS: Anion Gap 9 mEq/L (7-15); Calcium* 8.8 mg/dL (8.4-10.6); Carbon Dioxide* 22 mmol/L (20-32); Glucose* 101 mg/dL (60-115)
[2025-02-21 15:39] LABS: Hematocrit* 40.9 % (33.0-51.0); Hemoglobin* 13.6 gm/dL (12.0-16.0); Immature Granulocytes Abs Auto 0.04 K/uL (0.00-0.30); Immature Granulocytes Pct Auto 0.7 %; Lymphocytes Absolute Auto 1.98 K/uL (0.90-2.90); Mean Corpuscular HGB Conc 33 gm/dL (32-36); Mean Corpuscular Hemoglobin 28 pg (26-34); Mean Corpuscular Volume 85 fL (80-100); RDW Coefficient of Variation % 13.4 % (11.5-15.5); Red Blood Count* 4.80 m/uL (4.00-5.20); White Blood Count* 5.66 K/uL (4.50-11.00)
[2025-02-21 15:43] LABS: Slide Review Reflex No
== END 2025-02-21 16:10 | disposition home or self-care (01) ==
PROVIDERS: Internal Medicine; Emergency Provider Family Medicine; PCP Family Medicine
DX: S09.90XA Unspecified injury of head, initial encounter (principal); W22.8XXA Striking against or struck by other objects, initial encounter; E04.1 Nontoxic single thyroid nodule
CPT/HCPCS: 36415; 70450; 72125; 80048; 81003; 85025; 93005; 99284; 99285; A9270